=== PATIENT | female | born 1985 | race Caucasian/White ===

== ENCOUNTER 2020-03-17 15:38 | Outpatient (REF) | payer OTHER, SELFPAY | END 2020-03-17 15:39 | disposition home or self-care (01) | LOC: HO.LAB 15:38 | PROVIDERS: Visit Provider Internal Medicine | DX: Z20.828 Contact with and (suspected) exposure to other viral communicable diseases (principal) | CPT/HCPCS: 36415; C9803; U0003 ==

== ENCOUNTER → 2020-04-20 14:41 | Outpatient (BNVA) | payer OTHER, SELFPAY | PROVIDERS: PCP Physician Assistant; Visit Provider Advanced Practice Midwife ==

== ENCOUNTER 2020-06-09 09:02 | Outpatient (REF) | payer OTHER, SELFPAY ==
[2020-06-09 09:43] LABS: MANUAL DIFF FLAG NO
[2020-06-09 09:47] LABS: Basophils Absolute Auto 0.1 X10*3/uL (0.0-0.2); Basophils Percent Auto 0.9 % (0-2); Eosinophils Absolute Auto 0.1 X10*3/uL (0.0-0.4); Eosinophils Percent Auto 1.6 % (0-4); Hemoglobin 14.1 g/dl (12.0-16.0); Imm Gran Abs Auto 0.02 X10*3/uL (0.00-0.03); Imm Gran Pct Auto 0.4 % (0.0-0.4); Lymphocytes Absolute Auto 1.5 X10*3/uL (1.2-4.9); Lymphocytes Percent Auto 26.9 % (20-40); Mean Corpuscular Hemoglobin 29.5 pg (27.0-33.0); Mean Corpuscular Volume 92.1 fL (80-98); Mean Platelet Volume 10.1 fL (9.4-12.3); Monocytes Absolute Auto 0.4 X10*3/uL (0.1-1.2); Monocytes Percent Auto 6.9 % (2-11); Neutrophils Absolute Auto 3.6 X10*3/uL (2.0-8.3); Neutrophils Percent Auto 63.3 % (45-73); Platelet Count 280 X10*3/uL (160-400); Red Blood Count 4.78 X10*6/uL (4.20-5.50); Red Cell Distribution Width 12.5 % (11.0-16.0); White Blood Count 5.6 X10*3/uL (4.8-10.8)
[2020-06-09 09:57] LABS: Estimated Average Glucose 111 mg/dL; Hemoglobin A1c % 5.5 %
[2020-06-09 10:05] LABS: Alanine Aminotransferase 15 U/L (0-31); Albumin Level 4.3 g/dL (3.5-5.0); Alkaline Phosphatase 83 U/L (39-117); Anion Gap 12 (12-20); Aspartate Amino Transferase 17 U/L (5-31); Bilirubin Total 0.7 mg/dL (0.0-1.0); Blood Urea Nitrogen 15 mg/dL (9-16); Calcium 9.3 mg/dL (8.4-10.2); Carbon Dioxide 28 mmol/L (22-29); Chloride 104 mmol/L (96-108); Cholesterol 200 mg/dL; Estimated Glomerular Filt Rate > 60; Glucose Fasting 113 mg/dL (60-99); HDL Cholesterol 76 mg/dL; LDL Cholesterol Calculated 111 mg/dl; Potassium 5.1 mmol/L (3.3-5.1); Sodium 139 mmol/L (135-145); Total Protein 7.1 g/dL (6.5-8.0); Triglycerides 66 mg/dL
[2020-06-09 10:29] LABS: TSH reflex Free T4 3.38 uIU/mL (0.32-4.0)
[2020-06-09 11:19] LABS: Creatinine Urine 227.55 mg/dL; Microalbum/Creatinine Ratio Ur 3.5 ug/mg cr
== END 2020-06-09 09:03 | disposition home or self-care (01) ==
LOC: HO.LAB 09:02
PROVIDERS: PCP Physician Assistant; Visit Provider Physician Assistant
DX: I10 Essential (primary) hypertension (principal); Z13.1 Encounter for screening for diabetes mellitus; Z13.220 Encounter for screening for lipoid disorders; Z13.29 Encounter for screening for other suspected endocrine disorder
CPT/HCPCS: 36415; 80053; 80061; 82043; 83036; 84443; 85025

== ENCOUNTER → 2020-06-10 10:17 | Outpatient (BNVA) | payer OTHER, SELFPAY | PROVIDERS: PCP Physician Assistant; Visit Provider Advanced Practice Midwife | DX: Z30.432 Encounter for removal of intrauterine contraceptive device (principal) | CPT/HCPCS: 58301 ==

== ENCOUNTER → 2021-12-31 10:14 | Outpatient (REF) | payer OTHER, SELFPAY ==
--- NOTE | 2021-12-31 10:21 | ECG_ITS ---
Test Reason : HTN Blood Pressure : / mmHG Vent. Rate : 057 BPM Atrial Rate : 057 BPM P-R Int : 168 ms QRS Dur : 106 ms QT Int : 430 ms P-R-T Axes : 065 003 027 degrees QTc Int : 418 ms Sinus bradycardia Otherwise normal ECG No previous ECGs available Referred By: Montez España Electronically Signed By:ASHANTI SOLER MD
== END ==
LOC: HO.CARD 10:14
PROVIDERS: PCP Physician Assistant; Visit Provider Physician Assistant
DX: I10 Essential (primary) hypertension (principal)
CPT/HCPCS: 93005

== ENCOUNTER 2022-03-22 07:06 | Outpatient (REF) | payer OTHER, SELFPAY ==
[2022-03-22 07:36] LABS: Hematocrit 42.6 % (37.0-47.0); Hemoglobin 13.8 g/dl (12.0-16.0); Mean Corpuscular HGB Conc 32.4 g/dl (31.0-35.0); Mean Corpuscular Volume 86.4 fL (80.0-98.0); Mean Platelet Volume 10.6 fL (9.4-12.3); Platelet Count 337 X10*3/uL (160-400); Red Blood Count 4.93 X10*6/uL (4.20-5.50); Red Cell Distribution Width 13.8 % (11.0-16.0); White Blood Count 5.3 X10*3/uL (4.8-10.8)
[2022-03-22 08:07] LABS: Alanine Aminotransferase 20 U/L (0-31); Albumin Level 4.4 g/dL (3.5-5.0); Alkaline Phosphatase 78 U/L (39-117); Anion Gap 14 (12-20); Aspartate Amino Transferase 18 U/L (5-31); Bilirubin Total 0.4 mg/dL (0.0-1.0); Blood Urea Nitrogen 15 mg/dL (9-16); Calcium 9.4 mg/dL (8.4-10.2); Carbon Dioxide 24 mmol/L (22-29); Chloride 107 mmol/L (96-108); Cholesterol 191 mg/dL; Estimated Glomerular Filt Rate > 60; Glucose Fasting 120 mg/dL (60-99); HDL Cholesterol 67 mg/dL; Iron 48 mcg/dL (30-160); LDL Cholesterol Calculated 111 mg/dl; Percent Iron Saturation 17 % (15-50); Potassium 4.6 mmol/L (3.3-5.1); Sodium 140 mmol/L (135-145); Total Iron Binding Capacity 283 mcg/dL (228-428); Total Protein 7.2 g/dL (6.5-8.0); Triglycerides 66 mg/dL; Unsaturated Iron Binding 235 ug/dL
[2022-03-22 08:25] LABS: TSH reflex Free T4 3.15 uIU/mL (0.32-4.0); Vitamin D 25-OH Total 18.6 ng/mL (>30)
[2022-03-22 08:36] LABS: Folate 16.5 ng/mL (> or = 4.0); Vitamin B12 623 pg/mL (200-900)
== END 2022-03-22 07:07 | disposition home or self-care (01) ==
LOC: HO.LAB 07:06
PROVIDERS: PCP Physician Assistant; Visit Provider Physician Assistant
DX: D50.9 Iron deficiency anemia, unspecified (principal); E53.8 Deficiency of other specified B group vitamins; Z13.29 Encounter for screening for other suspected endocrine disorder; Z13.220 Encounter for screening for lipoid disorders; Z13.1 Encounter for screening for diabetes mellitus
CPT/HCPCS: 36415; 80053; 80061; 82306; 82607; 82746; 83540; 84443; 85027

== ENCOUNTER → 2022-04-19 08:18 | Outpatient (BNVA) | payer OTHER, SELFPAY | PROVIDERS: PCP Physician Assistant; Visit Provider Orthopaedic Surgery | DX: G56.03 Carpal tunnel syndrome, bilateral upper limbs (principal); M65.312 Trigger thumb, left thumb | CPT/HCPCS: 99202 ==

== ENCOUNTER 2022-04-20 14:00 | Outpatient (RCR) | payer OTHER, SELFPAY ==
--- NOTE | 2022-04-04 13:01 | MHC.OT.EP ---
[address] [phone] Occupational Therapy Plan of Care Date of Evaluation: 04/01/22 Diagnosis: TRIGGER THUMB, LEFT THUMB Pain Location: L THUMB 2-3/10 AT REST 6-7 WITH LOCKING R RADIAL WRIST 4-5/10, 9/10 WITH USE Pain Score: 2-9/10 Pain Scale Used: Numeric (0 - 10) Aggravating Factors: GRIPPING, PICKING UP SON, CUTTING WITH SCISSORS, TYPING ON KEYBOARD Alleviating Factors: IBUPROFEN, USING ICE/HEAT Assessment: MS ULLOA REPORTS ABOUT A 7 MONTH HISTORY OF L TRIGGER THUMB AND R RADIAL WRIST PAIN. A (+) ASHLEY WAS ELICITED IN HER RIGHT WRIST, WELL A SUSPECTED GRADE II TRIGGER FINGER IN L THUMB. SHE ALSO REPORTS A HISTORY OF CTS B/L'LY FOR >10 YEARS. 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 A 50% LIMITATION IS REPORTED PER THE QUICK DASH ASSESSMENT ONGOING SKILLED OT IS WARRANTED TO ACHIEVE OPTIMAL FUNCTIONAL LEVEL. 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 Thank you once again for your referral.
--- NOTE | 2022-05-20 09:49 | MHC.OT.DC ---
[address] [phone] F: [phone] Occupational Therapy Discharge Note Patient Name: Odell Carrasquillo Provider: Montez España Diagnosis: TRIGGER THUMB, LEFT THUMB Date of Evaluation: 04/01/22 Date of Discharge: 05/20/22 Treatments to Date: 5 Cancellations to Date: 8 No Shows to Date: 0 Discharge Status: Improved Function Independent with HEP Discharge Summary: MS CARRASQUILLO WAS MAKING STEADY GAINS DURING HER OT RX SESSIONS. SHE REPORTED LESS TRIGGERING AND LESS PAIN. 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 AFTER BEING SEEN BY DR JARVIS ON 04/19/22 IT WAS DECIDED THAT SHE WOULD PROCEED WITH A R CTR, SCHEDULED FOR 05/30/22. Pt WISHING TO D/C FROM OT AT THIS TIME. MAY BENEFIT FROM OT POST OPERATIVELY. Electronically Signed By: ASHUTOSH COTE OTR/L Reviewed/agree with student documentation: N/A Therapist: Please Sign and return to therapist, thank you for your referral.
== END 2022-05-20 09:45 | disposition home or self-care (01) ==
LOC: HO.OT 14:00
PROVIDERS: PCP Physician Assistant; Visit Provider Physician Assistant
DX: M65.312 Trigger thumb, left thumb (principal)
CPT/HCPCS: 29130; 97033; 97035; 97110; 97140; 97167; 97760

== ENCOUNTER 2022-05-30 08:07 | Day surgery (SDC) | payer OTHER, SELFPAY ==
[2022-05-30 08:15] VITALS: BMI 45.8
[2022-05-30 08:24] VITALS: BP 122/87; PULSE 82; RESP 16; TEMP 36.1; O2SAT 97
--- NOTE | 2022-05-30 10:12 | MHC.SHP ---
Pre-Procedural Eval Section A Date of Service: 05/30/22 The patient is an INPATIENT: No Changes since office visit: No Cold of Flu in the past 2 weeks, No New Medical Problems, No Changes in Medication and No Patient answered all questions The History & Physical has been completed within 30 days and I have reviewed it.: Yes Section B Chief Complaint: Carpal tunnel syndrome, right upper limb Allergies: Allergies Allergy/AdvReac Type Severity Reaction Status Date / Time Penicillins Allergy Intermediate HIVES Verified 04/19/22 08:33 penicillin V Allergy Unknown rash Verified 04/19/22 08:33 Sulfa (Sulfonamide Allergy Unknown BURNING, Verified 04/19/22 08:33 Antibiotics) rash [SULFA (SULFONAMIDE ANTIBIOTICS)] sulfamethoxazole Allergy Unknown HIVES Verified 04/19/22 08:33 [From BACTRIM] trimethoprim [From BACTRIM] Allergy Unknown HIVES Verified 04/19/22 08:33 Plan I have reviewed the history and physical and performed a pertinent physical examination on my patient. No changes have occurred unless specified. Time Spent With Patient Time: Total time managing care of this patient today ____ minutes.
--- NOTE | 2022-05-30 10:12 | W.PM.OPN ---
Operative Note Operative Note Date of Service: 05/30/22 Narrative: Preop diagnosis: 1. Right Carpal tunnel syndrome Postop diagnosis: same Procedure: 1. Right Carpal tunnel release Surgeon: Luma Gilbert MD Anesthesia: local block using 1% lidocaine with epinephrine Findings: Thickened transverse carpal ligament. EBL: Less than 5 mL Specimens: None Complications: None Disposition: Brought to recovery room in stable condition Plan: Follow-up for 10-14 days for wound check and suture removal Indications: The patient is 36 years old, with right carpal tunnel syndrome that has been unresponsive to nonoperative management. The risks and benefits of operative treatment including but not limited to risk of damage to blood vessels, nerves, tendons, infection, persistent pain, persistent symptoms, or possible need for additional surgery were discussed with the patient and the patient wishes to proceed with surgery. Procedure: Once consent was obtained a local block was performed using a combination of 1% lidocaine with epinephrine. The patient was then brought back to the operating suite and placed on the operative table in supine position. The right upper extremity was prepped and draped in a standard surgical fashion. Once assured that we had a good block, a 2.0 cm longitudinal incision was made centered over the carpal tunnel. The incision was made through the skin to the subcutaneous tissues using a #15 blade. Dissection was made down to the level of the transverse carpal ligament with care being taken to protect the palmar cutaneous nerve. Once the transverse carpal ligament was clearly visualized, a longitudinal incision was made in the transverse carpal ligament 1st using a #15 blade, then using tenotomy scissors under direct visualization. Care was taken to look for and protect the motor branch of the median nerve when seen in this area. Once satisfied with our carpal tunnel release the wound was copiously irrigated with normal saline and hemostasis was obtained with a brief period of local pressure. The skin edges were reapproximated with some 5.0 nylon suture material and a sterile dressing was applied. The patient appears to have tolerated the procedure well and with no complications. All digits were well vascularized at the conclusion of the case.
[2022-05-30 10:49] VITALS: BP 135/78; PULSE 99; RESP 18; TEMP 37.2
== END 2022-05-30 10:53 | disposition home or self-care (01) ==
PROVIDERS: PCP Physician Assistant; Visit Provider Orthopaedic Surgery
PROC: (CPT 64721; principal; 2022-05-30 09:10)
DX: G56.01 Carpal tunnel syndrome, right upper limb (principal); R20.0 Anesthesia of skin; R20.2 Paresthesia of skin; G43.909 Migraine, unspecified, not intractable, without status migrainosus; F32.A Depression, unspecified; I10 Essential (primary) hypertension; E66.01 Morbid (severe) obesity due to excess calories; Z68.42 Body mass index [BMI] 45.0-49.9, adult; Z88.0 Allergy status to penicillin; Z88.2 Allergy status to sulfonamides; Z98.84 Bariatric surgery status; Z90.49 Acquired absence of other specified parts of digestive tract; Z87.891 Personal history of nicotine dependence
CPT/HCPCS: 64721; J0171

== ENCOUNTER → 2022-06-14 08:45 | Outpatient (BNVA) | payer OTHER, SELFPAY | PROVIDERS: PCP Physician Assistant; Visit Provider Orthopaedic Surgery | DX: G56.03 Carpal tunnel syndrome, bilateral upper limbs (principal); M65.312 Trigger thumb, left thumb | CPT/HCPCS: 99212 ==

== ENCOUNTER 2022-06-20 09:30 | Day surgery (SDC) | payer OTHER, SELFPAY ==
[2022-06-20 09:41] VITALS: BMI 45.8
--- NOTE | 2022-06-20 10:54 | MHC.SHP ---
Pre-Procedural Eval Section A Date of Service: 06/20/22 The patient is an INPATIENT: No Changes since office visit: No Cold of Flu in the past 2 weeks, No New Medical Problems, No Changes in Medication and No Patient answered all questions The History & Physical has been completed within 30 days and I have reviewed it.: Yes Section B Chief Complaint: Carpal tunnel syndrome, left upper limb Allergies: Allergies Allergy/AdvReac Type Severity Reaction Status Date / Time Penicillins Allergy Intermediate HIVES Verified 06/14/22 09:10 penicillin V Allergy Unknown rash Verified 06/14/22 09:10 Sulfa (Sulfonamide Allergy Unknown BURNING, Verified 06/14/22 09:10 Antibiotics) rash [SULFA (SULFONAMIDE ANTIBIOTICS)] sulfamethoxazole Allergy Unknown HIVES Verified 06/14/22 09:10 [From BACTRIM] trimethoprim [From BACTRIM] Allergy Unknown HIVES Verified 06/14/22 09:10 Plan I have reviewed the history and physical and performed a pertinent physical examination on my patient. No changes have occurred unless specified. Time Spent With Patient Time: Total time managing care of this patient today ____ minutes.
--- NOTE | 2022-06-20 10:55 | W.PM.OPN ---
Operative Note Operative Note Date of Service: 06/20/22 Narrative: Preop diagnosis: 1. Left Carpal tunnel syndrome Postop diagnosis: same Procedure: 1. Left Carpal tunnel release Surgeon: Luma Gilbert MD Anesthesia: local block using 1% lidocaine with epinephrine Findings: Thickened transverse carpal ligament. EBL: Less than 5 mL Specimens: None Complications: None Disposition: Brought to recovery room in stable condition Plan: Follow-up for 10-14 days for wound check and suture removal Indications: The patient is 36 years old, with left carpal tunnel syndrome that has been unresponsive to nonoperative management. The risks and benefits of operative treatment including but not limited to risk of damage to blood vessels, nerves, tendons, infection, persistent pain, persistent symptoms, or possible need for additional surgery were discussed with the patient and the patient wishes to proceed with surgery. Procedure: Once consent was obtained a local block was performed using a combination of 1% lidocaine with epinephrine. The patient was then brought back to the operating suite and placed on the operative table in supine position. The left upper extremity was prepped and draped in a standard surgical fashion. Once assured that we had a good block, a 2.0 cm longitudinal incision was made centered over the carpal tunnel. The incision was made through the skin to the subcutaneous tissues using a #15 blade. Dissection was made down to the level of the transverse carpal ligament with care being taken to protect the palmar cutaneous nerve. Once the transverse carpal ligament was clearly visualized, a longitudinal incision was made in the transverse carpal ligament 1st using a #15 blade, then using tenotomy scissors under direct visualization. Care was taken to look for and protect the motor branch of the median nerve when seen in this area. Once satisfied with our carpal tunnel release the wound was copiously irrigated with normal saline and hemostasis was obtained with a brief period of local pressure. The skin edges were reapproximated with some 5.0 nylon suture material and a sterile dressing was applied. The patient appears to have tolerated the procedure well and with no complications. All digits were well vascularized at the conclusion of the case.
[2022-06-20 11:37] VITALS: BP 131/82; PULSE 73; RESP 17; O2SAT 97
== END 2022-06-20 11:38 | disposition home or self-care (01) ==
PROVIDERS: PCP Physician Assistant; Visit Provider Orthopaedic Surgery
PROC: (CPT 64721; principal; 2022-06-20 11:00)
DX: G56.02 Carpal tunnel syndrome, left upper limb (principal); I10 Essential (primary) hypertension; Z88.0 Allergy status to penicillin; Z88.2 Allergy status to sulfonamides
CPT/HCPCS: 64721; J0171

== ENCOUNTER → 2022-07-05 08:44 | Outpatient (BNVA) | payer OTHER, SELFPAY | PROVIDERS: PCP Physician Assistant; Visit Provider Orthopaedic Surgery | DX: Z09 Encounter for follow-up examination after completed treatment for conditions other than malignant neoplasm (principal); Z87.39 Personal history of other diseases of the musculoskeletal system and connective tissue | CPT/HCPCS: 99212 ==

== ENCOUNTER 2022-07-13 08:24 | Outpatient (REF) | payer OTHER, SELFPAY ==
[2022-07-13 10:26] LABS: HBsAGNum1 0.34 S/CO (0.00-0.99); Hepatitis B Core Antibody Nonreactive (Nonreactive); Hepatitis B Surface Antigen Negative (Negative); ~HepC Num1 14.34 S/CO (0.00-0.79); ~Hepatitis B Surface Antibody REACTIVE (Nonreactive); ~Hepatitis C Antibody Reactive (Nonreactive)
[2022-07-14 08:59] LABS: Rubeola IgG (Measles) >300.00 AU/mL
== END 2022-07-13 08:25 | disposition home or self-care (01) ==
LOC: HO.LAB 08:24
PROVIDERS: PCP Physician Assistant; Visit Provider Physician Assistant
DX: Z01.84 Encounter for antibody response examination (principal); Z11.3 Encounter for screening for infections with a predominantly sexual mode of transmission
CPT/HCPCS: 36415; 86704; 86706; 86735; 86762; 86765; 86787; 86803; 87340

== ENCOUNTER 2023-02-20 14:41 | Outpatient (AMB) | payer OTHER, SELFPAY ==
[2023-02-20 14:46] VITALS: BP 122/80; PULSE 72; O2SAT 98; BMI 45.2
--- NOTE | 2023-02-20 14:46 | A.OFFPC_ITS ---
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 Accompanied by: Self / Same As Patient Allergies Penicillins Allergy (Intermediate, Verified 02/20/23 15:41) HIVES penicillin V Allergy (Unknown, Verified 02/20/23 15:41) rash Sulfa (Sulfonamide Antibiotics) [SULFA (SULFONAMIDE ANTIBIOTICS)] Allergy (Unknown, Verified 02/20/23 15:41) BURNING, rash sulfamethoxazole [From BACTRIM] Allergy (Unknown, Verified 02/20/23 15:41) HIVES trimethoprim [From BACTRIM] Allergy (Unknown, Verified 02/20/23 15:41) HIVES Medication List - Last Reconciled 02/20/23 by Montez España PA-C albuterol sulfate 90 mcg/actuation (ProAir HFA) 2 puffs inhalation Q6H PRN budesonide-formoterol 160-4.5 mcg/actuation 2 puffs PO BID 30 days cholecalciferol (vitamin D3) 50 mcg PO DAILY cyanocobalamin (vitamin B-12) 500 mcg PO DAILY docusate sodium 100 mg PO BID PRN doxycycline monohydrate 100 mg PO BID 5 days erenumab-aooe mg subcut escitalopram oxalate 20 mg PO DAILY fluticasone propionate 50 mcg/actuation 1 spray intranasal BID 30 days folic acid 1 mg PO DAILY hydrocodone-acetaminophen 5-325 mg 1 tab PO Q4-6H PRN ibuprofen 400 - 800 mg PO Q8H PRN levonorgestrel (Mirena) intrauterine lorazepam 1 mg PO naloxone 4 mg/actuation (Narcan) 1 spray intranasal Q2M oxycodone-acetaminophen 5-325 mg 1 tab PO Q6H PRN PNV,calcium 90-tyoj-pzoyv acid 27 mg iron- 1 mg (M-Brock Plus) 1 tab PO DAILY Tobacco use date assessed: 02/20/23 Dental Screening Dental Screen Date: 02/20/23 Did you have a dental visit in the last 12 months?: Yes Did you have a dental problem in the last 6 months where you did not have access to dental care?: No Was dental information given to patient?: Patient has dentist HPI Foot pain and sciatica pain increasing 2 HPI0 Details Patient is a 37-year-old female here today for problem visit. She reports she has been having left foot pain over the last 6 month. She reports tripping over her own feet and injuring the lateral aspect of her left foot. She has been trying to reduce her pain with different shoes and oxom-van-tybcgbk analgesics without much relief. She reports the pain is worse with long periods of standing and compressive shoes. She has noted a bump over the lateral aspect over her small toe. [facility]LY [facility] Medical History Anxiety Depression Headache, migraine Hypertension Morbid obesity with BMI of 40.0-44.9, adult Surgical History History of gastrectomy History of cholecystectomy Family History Father Hypertension Kidney stones Retinal detachment Mother Hard of hearing Hyperthyroidism Maternal Grandmother Liver problem Emphysema lung Social History Housing: Apartment Alcohol intake: former Comment: no iv Patient Tobacco Use Status: Former Tobacco user e-Cigarette/Vaping Use: Never Used Second Hand Smoke Exposure: Yes service: No Current occupational status: student 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 1. Little interest or pleasure in doing things: several days 2. Feeling down, depressed, or hopeless: several days 3. Trouble falling or staying asleep, or sleeping too much: several days 4. Feeling tired or having little energy: nearly every day 5. Poor appetite or overeating: more than half the days 6. Feeling bad about yourself - or that you are a failure or have let yourself or your family down: several days 7. Trouble concentrating on things, such as reading the newspaper or watching television: nearly every day 8. Moving or speaking so slowly that other people could have noticed. Or the opposite - being so fidgety or restless that you have been moving around a lot more than usual: several days 9. Thoughts that you would be better off or of hurting yourself in some way: not at all Total score: 13 Depression Screening Interpretation: Positive Depression Screening Done: Yes 73953 - PHQ-9 Billing: Yes Source: Developed by Drs. Rodo Mar, Cammie Ramirez, Pete Grewal and colleagues, with an educational mckay from [employer]. Thrive Questionnaire Date Thrive assessed: 02/20/23 I am a: Patient What is your living situation today?: I have a steady place to live Within the past 12 months, did the food you bought not last and you didn't have the money to get more?: Never true Within the past 12 months, did you worry whether your food would run out before you got money to buy more?: Never true Do you have trouble paying for medicines?: No Do you have trouble getting transportation to medical appointments?: No Do you have trouble paying your heating and electricity bill?: No Do you have trouble taking care of your child, family member or friend?: No Do you have trouble with day-to-day activities such as bathing, preparing meals, shopping, managing finances, etc.?: No Are you currently unemployed and looking for a job?: No Are you interested in more education?: No Please select the resources that you would like help with: None Currently or been in a relationship where the following occur: no concerns reported AUDIT C Alcohol Use Questionnaire (AUDIT-C) 1. How often do you have a drink containing alcohol?: Never 3. How often do you have six or more drinks on one occasion?: Never Total Score: 0 JENNIFER-7 AMB Questionnaire JENNIFER-7 Date JENNIFER - 7 assessed: 02/20/23 Feeling nervous, anxious, or on edge: 2 = More than half the days Not being able to stop or control worryin = More than half the days Worrying too much about different things: 3 = Nearly every day Trouble relaxin = Nearly every day Being so restless that it is hard to sit still: 3 = Nearly every day Becoming easily annoyed or irritable: 3 = Nearly every day Feeling afraid as if something awful might happen: 0 = Not at all Total JENNIFER-7 score (0-4 normal; 5-9 mild; 10-14 moderate; 15-21 severe): 16 Source: Developed by Drs. Rodo Mar, Cammie Ramirez, Pete Grewal and colleagues, with an educational mckay from [employer]. JENNIFER-7 Assessment Billing JENNIFER-7 Assessment Tool: JENNIFER-7 Assessment 68294 Review of Systems Const Denies headache(s) Eyes Denies loss of vision ENT Denies vertigo, Denies dizziness, Denies headache(s) and Denies sore throat Card Denies chest pain, Denies leg edema and Denies lightheadedness Resp Denies cough, Denies hemoptysis and Denies wheezing GI Denies abdominal pain, Denies melena, Denies constipation, Denies diarrhea and Denies vomiting Denies urinary frequency, Denies dysuria and Denies urinary urgency Musc Denies arthralgias, Denies joint swelling, Denies numbness and Denies tingling Neuro Denies Abnormal speech present, Denies behavioral changes, Denies vertigo, Denies dizziness, Denies headache(s), Denies loss of vision, Denies memory loss, Denies numbness and Denies tingling Psych Denies anxiety, Denies behavioral changes, Denies depression, Denies memory loss and Denies panic attacks Juan Daniel/Lymph Denies easy bleeding and Denies easy bruising Aller/Immun Denies wheezing Physical exam (Primary Care) Vital Signs: Last Vital Signs Pulse 72 02/20/23 14:46 BP 122/80 02/20/23 14:46 Pulse Ox 98 02/20/23 14:46 Oxygen Delivery Method Room Air 02/20/23 14:46 BMI result Body Mass Index 45.2 Tobacco/Smoking Status: Tobacco use Status Tobacco use date assessed 02/20/23 02/20/23 14:48 Patient Tobacco Use Status Former Tobacco user 02/20/23 14:48 e-Cigarette/Vaping Use Never Used 02/20/23 15:32 PHQ-9: PHQ-9 Score PHQ-9: Total score 13 02/20/23 15:46 Depression Screening Interpretation: Positive Thrive Assessment: Date of Thrive Assessment Date Thrive assessed 02/20/23 02/20/23 15:32 Currently or been in a relationship where the following occur: no concerns reported Const General: healthy appearing, no acute distress, alert and awake Nutritional Appearance: well nourished Orientation/consciousness: oriented to person, oriented to place and oriented to time HENMT Ears: TM's normal bilaterally General nose exam: Normal nasal mucous membranes and turbinates present Eyes Conjunctivae: conjunctivae normal Sclerae: sclerae normal Pupils: Equal, round and reactive pupils present Neck Neck: Yes no lymphadenopathy and Yes no JVD Thyroid: Thyroid normal Carotids: no bruits Resp Effort & Inspection: normal respiratory effort and not tachypneic Auscultation: no crackles, no rales, no rhonchi and no wheezes Cardio Rate: regular rate Rhythm: regular rhythm Heart sounds: no murmurs and normal S1 and S2 GI Palpation (GI): Soft to palpation, nontender, no hepatomegaly and no splenomegaly Auscultation: normal bowel sounds Skin General skin exam: no rashes or lesions noted and dry skin Neuro General: oriented to person, oriented to place and oriented to time Cranial nerves: Yes Equal, round and reactive pupils present Speech: No Abnormal speech present Gait exam (Neuro): Normal gait present Motor exam (neuro): no tremor noted Extrem Right upper extremity: full ROM Left upper extremity: full ROM Right lower extremity: full ROM; no edema Left lower extremity: full ROM; no edema Ankle/foot/toe images: 2 1. LEFT FOOT BONY NODULE NOTED IN THE AREA OUTLINED. OTHERWISE NO ERYTHEMA, EDEMA NOTED. Psych Mental Status: mental status grossly normal Speech and movement: Normal speech and movement present Affect: normal affect Attitude: cooperative Thought process: Normal thought process present Assessment and Plan Assessment & Plan (1) Left foot pain: Code(s): M79.672 - Pain in left foot Plan: Had a minor lateral left foot injury 6 months ago. She continues to have pain worse when long periods of standing or the area gets touched. Does have a small bony like lesion palpable physical exam. Will send for x-ray to evaluate for any arthritis or fracture. Will refer to Podiatry for further evaluation of her left foot. Orders: Orders 2 Hemoglobin A1c 02/20/23 R73.01 - Impaired fasting glucose Comprehensive [place]. Panel Fast 02/20/23 R73.01 - Impaired fasting glucose XR foot LT 2V 02/20/23 M79.672 - Pain in left foot Referrals 2 Podiatry Referral M79.672 - Pain in left foot Medications: Discontinued 2 oxycodone-acetaminophen 5-325 mg Partial Fill upon patient request. Discontinued Reason: Doctor's Order 1 tab PO Q6H PRN 5 tabs 0RF pain hydrocodone-acetaminophen 5-325 mg Partial Fill upon patient request. Discontinued Reason: Doctor's Order 1 tab PO Q4-6H PRN 5 tabs 0RF pain naloxone 4 mg/actuation (Narcan) spray 1 dose into ONE nostril; alternate nostrils w each dose until help arrives Discontinued Reason: Doctor's Order 1 spray intranasal Q2M 2 ea 0RF F11.11 - Opioid abuse, in remission, I10 - Essential (primary) hypertension doxycycline monohydrate Discontinued Reason: Doctor's Order 100 mg PO BID 5 days 10 caps 0RF J32.9 - Chronic sinusitis, unspecified Coding Level of Care Code Est Pt Level 3 (07220) Diagnoses Left foot pain M79.672 Additional Codes JENNIFER-7 Assessment Billing - JENNIFER-7 Assessment Tool: JENNIFER-7 Assessment [id number] ([id number])
== END 2023-02-20 15:54 | disposition home or self-care (01) ==
PROVIDERS: PCP Physician Assistant; Visit Provider Physician Assistant
DX: M79.672 Pain in left foot (principal)
CPT/HCPCS: 99213

== ENCOUNTER 2023-03-08 15:24 | Outpatient (AMB) | payer OTHER, SELFPAY ==
[2023-03-08 15:25] VITALS: BP 132/90; PULSE 77; O2SAT 98; BMI 45.5
--- NOTE | 2023-03-08 15:25 | A.OFFPC_ITS ---
Vital Signs 03/08/23 15:25 Height 5 ft 3 in Weight 257 lb BMI 45.5 BP 132/90 H Blood Pressure Location Lt brachial Position Sitting Pulse 77 Pulse Source Pulse Oximeter Pulse Oximetry (%) 98 Oxygen Delivery Method Room Air Intake Visit Reasons: Annual Exam Intake Note: Patient is here today for a physical. Claims Customer Service Representative Required: No Allergies Penicillins Allergy (Intermediate, Verified 03/08/23 16:13) HIVES penicillin V Allergy (Unknown, Verified 03/08/23 16:13) rash Sulfa (Sulfonamide Antibiotics) [SULFA (SULFONAMIDE ANTIBIOTICS)] Allergy (Unknown, Verified 03/08/23 16:13) BURNING, rash sulfamethoxazole [From BACTRIM] Allergy (Unknown, Verified 03/08/23 16:13) HIVES trimethoprim [From BACTRIM] Allergy (Unknown, Verified 03/08/23 16:13) HIVES Medication List - Last Reconciled 03/08/23 by Montez España PA-C albuterol sulfate 90 mcg/actuation (ProAir HFA) 2 puffs inhalation Q6H PRN budesonide-formoterol 160-4.5 mcg/actuation 2 puffs PO BID 30 days cholecalciferol (vitamin D3) 50 mcg PO DAILY cyanocobalamin (vitamin B-12) 500 mcg PO DAILY docusate sodium 100 mg PO BID PRN escitalopram oxalate 20 mg PO DAILY fluticasone propionate 50 mcg/actuation 1 spray intranasal BID 30 days folic acid 1 mg PO DAILY ibuprofen 400 - 800 mg PO Q8H PRN levonorgestrel (Mirena) intrauterine lorazepam 1 mg PO PNV,calcium [id number]-tsdti acid 27 mg iron- 1 mg (M- Plus) 1 tab PO DAILY topiramate 25 mg PO BID Tobacco use date assessed: 03/08/23 Dental Screening Dental Screen Date: 03/08/23 Did you have a dental visit in the last 12 months?: Yes Did you have a dental problem in the last 6 months where you did not have access to dental care?: No Was dental information given to patient?: Patient has dentist HPI Annual Exam HPI Details Patient is a 37-year-old female here today for a routine annual physical . Patient has a past medical history significant for depression, anxiety, h/o bariatric surgery,hypothyroidism, hypertension, moderate persistent asthma, Migraines. Concern---> multiple today--> concerns about her not being able to lose weight. We did discuss the possibility of her having PCOS as she does have a family history. Also has axillary and abdominal hidradenitis that she would like to see a account adjuster for. She also reports her sciatic has gotten worse over the last several months and she understands this is likely related to her weight. She is interested in restarting gabapentin which has worked for her in the past. She also reports having her palpitations from time to time that are somewhat painful in the anterior aspect of her chest. .. CHRONIC MEDICAL CONDITIONS--> Obesity: Patient does understand her BMI is over 40 will work on being more physically active and adapting to better eating habits to reduce her weight. ? .. ? Migraines: Patient is followed by neurology( Dr. Perkins) and started on Aimovig ( once per month) injections lung with propanolol for prophylactic treatment. ? . ? Asthma : recently placed on Wexela which is workng well.. Does use Proair on a PRN basis. She continues to refrain from smoking cigarettes. ? .. ? Substance abuse ( in remission) . Continues to stay sober. No further pharmacological treatment for her opiate dependency. 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 ? .. ? Hypertension: Patient is using propanolol 20 mg t.i.d. / PRN for the treatment of her anxiety as well as her blood pressure. She reports her blood pressures have been stable at [facility]. BRIGHT CUTTER: She is followed by obstetrics/gynecology nurse and has up-to-date Pap Vaccine: UTD with COVID , and Tdap , UTD with FLu vaccine. [facility] Medical History (Updated 03/09/23 @ 07:13 by Montez España PA-C) Morbid obesity with BMI of 40.0-44.9, adult Anxiety Headache, migraine Depression Hypertension Surgical History History of gastrectomy History of cholecystectomy Family History Father Hypertension Kidney stones Retinal detachment Mother Hard of hearing Hyperthyroidism Maternal Grandmother Liver problem Emphysema lung Social History (Updated 03/08/23 @ 16:17 by Montez España PA-C) Housing: Apartment Alcohol intake: former Comment: no iv Patient Tobacco Use Status: Former Tobacco user Quit Date: 2020 e-Cigarette/Vaping Use: Never Used Second Hand Smoke Exposure: Yes service: No Current occupational 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 1. Little interest or pleasure in doing things: several days 2. Feeling down, depressed, or hopeless: several days 3. Trouble falling or staying asleep, or sleeping too much: several days 4. Feeling tired or having little energy: nearly every day 5. Poor appetite or overeating: more than half the days 6. Feeling bad about yourself - or that you are a failure or have let yourself or your family down: several days 7. Trouble concentrating on things, such as reading the newspaper or watching television: nearly every day 8. Moving or speaking so slowly that other people could have noticed. Or the opposite - being so fidgety or restless that you have been moving around a lot more than usual: several days 9. Thoughts that you would be better off or of hurting yourself in some way: not at all Total score: 13 Depression Screening Interpretation: Positive Depression Screening Done: Yes 21730 - PHQ-9 Billing: Yes Source: Developed by Drs. Rodo Mar, Cammie Ramirez, Pete Grewal and colleagues, with an educational mckay from [employer]. Thrive Questionnaire Date Thrive assessed: 02/20/23 AUDIT C Alcohol Use Questionnaire (AUDIT-C) 1. How often do you have a drink containing alcohol?: Never 3. How often do you have six or more drinks on one occasion?: Never Total Score: 0 JENNIFER-7 AMB Questionnaire JENNIFER-7 Date JENNIFER - 7 assessed: 02/20/23 Feeling nervous, anxious, or on edge: 2 = More than half the days Not being able to stop or control worryin = More than half the days Worrying too much about different things: 3 = Nearly every day Trouble relaxin = Nearly every day Being so restless that it is hard to sit still: 3 = Nearly every day Becoming easily annoyed or irritable: 3 = Nearly every day Feeling afraid as if something awful might happen: 0 = Not at all Total JENNIFER-7 score (0-4 normal; 5-9 mild; 10-14 moderate; 15-21 severe): 16 Source: Developed by Drs. Rodo Mar, Cammie Ramirez, Pete Grewal and colleagues, with an educational mckay from [employer]. JENNIFER-7 Assessment Billing JENNIFER-7 Assessment Tool: JENNIFER-7 Assessment 85839 Review of Systems Const Denies body aches, Denies chills, Denies excessive sweating, Denies fatigue, Denies fever(s) and Denies headache(s) Eyes Denies blurry vision ENT Denies dysphagia, Denies vertigo, Denies dizziness, Denies headache(s), Denies hearing loss and Denies tinnitus Card Denies chest pain, Denies chest pain with activity, Denies syncope, Denies irregular heart rhythm and Denies dyspnea Resp Denies chest congestion, Denies cough, Denies hemoptysis, Denies dyspnea and Denies wheezing GI Denies abdominal pain, Denies melena, Denies hematochezia, Denies coffee ground emesis, Denies dysphagia, Denies diarrhea, Denies nausea and Denies vomiting Denies urinary frequency, Denies dysuria, Denies urinary hesitancy and Denies urinary urgency Musc Denies arthralgias, Denies limited range of motion, Denies muscle cramps and Denies muscle weakness Skin/Breast Denies rash and Denies skin ulcer Neuro Denies Abnormal speech present, Denies confusion, Denies vertigo, Denies dizziness, Denies syncope, Denies headache(s), Denies memory loss and Denies seizure-like activity Psych Denies anxiety, Denies confusion, Denies depression, Denies memory loss, Denies panic attacks and Denies paranoia Endo Denies excessive sweating, Denies fatigue, Denies flushing, Denies polydipsia and Denies polyuria Aller/Immun Denies wheezing Physical exam (Primary Care) Vital Signs: Last Vital Signs Pulse 77 03/08/23 15:25 BP 132/90 H 03/08/23 15:25 Pulse Ox 98 03/08/23 15:25 Oxygen Delivery Method Room Air 03/08/23 15:25 BMI result Body Mass Index 45.5 BMI Assessment/Plan discussion: High Tobacco/Smoking Status: Tobacco use Status Tobacco use date assessed 03/08/23 03/08/23 15:26 Patient Tobacco Use Status Former Tobacco user 03/08/23 16:17 e-Cigarette/Vaping Use Never Used 03/08/23 16:17 PHQ-9: PHQ-9 Score PHQ-9: Total score 13 03/08/23 16:19 Depression Screening Interpretation: Positive Thrive Assessment: Date of Thrive Assessment Date Thrive assessed 02/20/23 03/08/23 15:26 Const Other: Morbidly obese General: cooperative, comfortable, no acute distress, alert and awake; No confusion Orientation/consciousness: oriented to person, oriented to place, patient oriented x3 and No confusion HENMT Head: Yes normocephalic Ears: external ears normal and TM's normal bilaterally Face and sinus: No sinus tenderness Mouth: Normal oral and palatal mucosa present and tongue normal Teeth and gingiva: dentition normal and gingiva normal Throat: Yes posterior oropharynx normal, Yes tonsils normal and Yes uvula midline Eyes Conjunctivae: conjunctivae normal Sclerae: sclerae normal Pupils: Equal, round and reactive pupils present EOM: EOMs intact bilaterally Direct Ophthalmoscopy: No no photophobia Neck Neck: Yes no lymphadenopathy, No tender and Yes no JVD Thyroid: Thyroid normal Carotids: no bruits Chest Chest palpation & inspection: no tenderness Resp Effort & Inspection: normal respiratory effort, no audible wheezes, not labored and no stridor Auscultation: no crackles, no rales, no rhonchi and no wheezes Cardio Jugular venous distension: no JVD Rate: regular rate, not bradycardic and not tachycardic Rhythm: regular rhythm Bruits: no carotid bruits Peripheral pulses: Peripheral pulses 2+ throughout GI Inspection: Yes normal to inspection, No abdominal wall ecchymosis and No visible herniation Palpation (GI): Soft to palpation, nontender, no guarding, not rigid and No hepatosplenomegaly present Auscultation: normoactive bowel sounds General: Yes no CVA tenderness Back/Spine/Pelvis Back: no CVA tenderness and No back tenderness Cervical Spine: cervical ROM normal Thoracic/Lumbar Spine: thoracic and lumbar spine normal to inspection, straight leg raise negative bilaterally, No thoraco-lumbar ROM limited and No lumbar spinal tenderness Skin Lesions: no lesions Rashes: no rashes Wounds: no wounds Neuro General: oriented to person, oriented to place, patient oriented x3, CN's II-XI intact bilaterally and No confusion Cranial nerves: Yes Equal, round and reactive pupils present and Yes Normal accommodation reflex present Cognition (Neuro): normal cognition Speech: No Abnormal speech present Gait exam (Neuro): Normal gait present Motor exam (neuro): 5/5 motor strength present throughout Extrem Right upper extremity: full ROM; no cyanosis Left upper extremity: full ROM; no cyanosis Right lower extremity: no edema Left lower extremity: no edema Psych Appearance: grossly normal Mental Status: mental status grossly normal Affect: normal affect Attitude: cooperative Thought process: Normal thought process present Assessment and Plan Assessment & Plan (1) Annual physical exam: Code(s): Z00.00 - Encounter for general adult medical examination without abnormal findings (2) HTN (hypertension): Code(s): I10 - Essential (primary) hypertension Qualifiers: Hypertension type: essential hypertension Qualified Code(s): I10 - Essential (primary) hypertension Plan: Patient's blood pressure acceptable today in office. Will continue to work on lifestyle modifications to help reduce her blood PRESSURE. Blood pressure to be below 140/90 (3) Migraines: Code(s): G43.909 - Migraine, unspecified, not intractable, without status migrainosus Qualifiers: Intractability: not intractable Migraine type: without aura Status migrainosus presence: without status migrainosus Qualified Code(s): G43.009 - Migraine without aura, not intractable, without status migrainosus Plan: To follow neurology. She reports her migraines are much less frequent. Continues on Aimovig injections monthly (4) Asthma: Code(s): J45.909 - Unspecified asthma, uncomplicated Qualifiers: Asthma complication type: uncomplicated Asthma persistence: intermittent Asthma severity: mild Qualified Code(s): J45.20 - Mild intermittent asthma, uncomplicated Plan: Patient reports her asthma is fairly well controlled with p.r.n. use of her albuterol inhaler for emergencies. Only using Symbicort inhaler on a seldom occasion as well. NEEDS REFILL Denies any recent exacerbations or nighttime awakenings with asthma symptoms. (5) Obese: Code(s): E66.9 - Obesity, unspecified Qualifiers: Body mass index: BMI 45.0-49.9 Obesity classification: adult class 3 (BMI >= 40) Obesity type: due to excess calories Serious obesity comorbidity presence: without serious comorbidity Qualified Code(s): E66.01 - Morbid (severe) obesity due to excess calories; Z68.42 - Body mass index [BMI] 45.0-49.9, adult Plan: Patient does understand her BMI is over 40 will work on being more physically active and adapting to better eating habits to reduce her weight. SHE IS STATUS POST BARIATRIC SURGERY THOUGH DUE TO BEING ACTIVELY INVOLVED IN SUBSTANCES SHE RELAPSED INTO BED EATING HABITS AND GAIN WEIGHT. She has been trying diligently on reducing her portions and reducing carbohydrates in her diet though has been unsuccessful on losing weight. She is now interested in reestablishing care with a weight management program as she feels he needs support. (6) MDD (major depressive disorder), recurrent episode, moderate: Code(s): F33.1 - Major depressive disorder, recurrent, moderate Plan: Patient's PHQ-9 score positive for depression which has been existing condition for her. Patient reports her depression has been close stable with current as a survey therapy. Otherwise denies any SI or HI. She does report having a good support network and feels well. (7) JENNIFER (generalized anxiety disorder): Code(s): F41.1 - Generalized anxiety disorder Plan: Patient's JENNIFER-7 score positive for moderate anxiety which has been existing condition for her.. Continues to speak with a mental health therapist and a mental health med provider (8) Sciatic leg pain: Code(s): M54.30 - Sciatica, unspecified side Plan: Reports having left-sided sciatic pain. Was on gabapentin in the past with good effect. Will restart gabapentin 300 b.i.d. At this time will hold off on physical therapy. (9) Heart palpitations: Code(s): R00.2 - Palpitations (10) Hydradenitis: Code(s): L73.2 - Hidradenitis suppurativa Plan: Advised to keep affected areas clean and dry. Weight loss will likely help her dermatological situation. Will refer to dermatology for evaluation. (11) Impaired glucose metabolism: Code(s): R73.09 - Other abnormal glucose Plan: Noted over the last year elevated fasting blood sugar. A1cs have been stable. I suspect there may be a diagnosis of PCOS due to her inability to lose weight and elevated fasting blood sugars. She is willing to start metformin 500mg. Will recheck fasting blood sugar and A1c to evaluate for diabetes. (12) History of opioid abuse: Code(s): F11.11 - Opioid abuse, in remission Plan: Has not been sober for many years. 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 Orders: Orders Vitamin B12 and Folate 03/08/23 E53.8 - Deficiency of other specified B group vitamins Testosterone, Free/Total 03/08/23 E66.01 - Morbid (severe) obesity due to excess calories, Z68.41 - Body mass index [BMI] 40.0-44.9, adult TSH reflex Free T4 03/08/23 E66.01 - Morbid (severe) obesity due to excess calories, Z68.41 - Body mass index [BMI] 40.0-44.9, adult Referrals Bariatric Surgery Referral E66.01 - Morbid (severe) obesity due to excess calories, Z68.41 - Body mass index [BMI] 40.0-44.9, adult Dermatology Referral L73.2 - Hidradenitis suppurativa Medications: New gabapentin 300 mg PO BID 30 days 60 caps 3RF M54.30 - Sciatica, unspecified side albuterol sulfate 90 mcg/actuation 1 inh inhalation QID 30 days PRN 8.5 grams 6RF shortness of breath or wheezing J45.20 - Mild intermittent asthma, uncomplicated montelukast (Singulair) 10 mg PO DAILY 90 days 90 tabs 1RF J45.20 - Mild intermittent asthma, uncomplicated metformin 500 mg PO DAILY 30 days 30 tabs 3RF R73.09 - Other abnormal glucose Refilled budesonide-formoterol 160-4.5 mcg/actuation 2 puffs PO BID 30 days 10.2 grams 4RF J45.909 - Unspecified asthma, uncomplicated Coding Level of Care Code Est Pt Prev Care [id number]([id number]) Diagnoses Annual physical exam Z00.00 Essential hypertension I10 Hypertension type: essential hypertension Migraine without aura and without status migrainosus, not intractable G43.009 Intractability: not intractable Migraine type: without aura Status migrainosus presence: without status migrainosus Mild intermittent asthma without complication J45.20 Asthma complication type: uncomplicated Asthma persistence: intermittent Asthma severity: mild Class 3 severe obesity due to excess calories without serious comorbidity with body mass index (BMI) of 45.0 to 49.9 in adult E66.01; Z68.42 Body mass index: BMI 45.0-49.9 Obesity classification: adult class 3 (BMI >= 40) Obesity type: due to excess calories Serious obesity comorbidity presence: without serious comorbidity MDD (major depressive disorder), recurrent episode, moderate F33.1 JENNIFER (generalized anxiety disorder) F41.1 Sciatic leg pain M54.30 Heart palpitations R00.2 Hydradenitis L73.2 Impaired glucose metabolism R73.09 History of opioid abuse F11.11 Additional Codes JENNIFER-7 Assessment Billing - JENNIFER-7 Assessment Tool: JENNIFER-7 Assessment [id number] ([id number])
== END 2023-03-08 16:57 | disposition home or self-care (01) ==
PROVIDERS: Visit Provider Physician Assistant
DX: F33.1 Major depressive disorder, recurrent, moderate (principal)
CPT/HCPCS: 96127; 99395

== ENCOUNTER 2023-04-01 07:42 | Outpatient (REF) | payer OTHER, SELFPAY ==
--- NOTE | ~2023-04-01 | XR_ITS ---
EXAMINATION: XR FOOT, LEFT CLINICAL INFORMATION: Pain in left foot COMPARISON: None available. TECHNIQUE: AP, lateral, and oblique views of the left foot. FINDINGS: The bones are intact. No fracture. Alignment is anatomic. Joint spaces are maintained. Flattening of the head of the second metatarsal is noted. Small posterior plantar calcaneal spur is present. XR/XR foot LT 2V IMPRESSION: No acute bony abnormality.
[2023-04-01 08:52] LABS: Alanine Aminotransferase 11 U/L (0-31); Albumin Level 4.3 g/dL (3.5-5.0); Alkaline Phosphatase 79 U/L (39-117); Anion Gap 11 (12-20); Aspartate Amino Transferase 14 U/L (5-31); Bilirubin Total 0.2 mg/dL (0.0-1.0); Blood Urea Nitrogen 17 mg/dL (9-16); Calcium 9.4 mg/dL (8.4-10.2); Carbon Dioxide 26 mmol/L (22-29); Chloride 110 mmol/L (96-108); Estimated Glomerular Filt Rate > 60; Glucose Fasting 109 mg/dL (60-99); Potassium 4.3 mmol/L (3.3-5.1); Sodium 143 mmol/L (135-145); Total Protein 7.4 g/dL (6.5-8.0)
[2023-04-01 09:04] LABS: Estimated Average Glucose 117 mg/dL; Hemoglobin A1c % 5.7 % (<6.0)
[2023-04-01 09:08] LABS: TSH reflex Free T4 1.56 uIU/mL (0.32-4.0)
[2023-04-01 09:14] LABS: Folate 11.1 ng/mL (> or = 4.0); Vitamin B12 476 pg/mL (200-900)
[2023-04-06 11:34] LABS: Testosterone, Total 17 ng/dL (2-45)
== END 2023-04-01 07:43 | disposition home or self-care (01) ==
LOC: HO.LAB 07:42
PROVIDERS: PCP Physician Assistant; Visit Provider Physician Assistant
DX: M79.672 Pain in left foot (principal); E66.01 Morbid (severe) obesity due to excess calories; Z68.41 Body mass index [BMI] 40.0-44.9, adult; E53.8 Deficiency of other specified B group vitamins; R73.01 Impaired fasting glucose
CPT/HCPCS: 36415; 73620; 80053; 82607; 82746; 83036; 84402; 84403; 84443

== ENCOUNTER → 2023-06-02 08:47 | Outpatient (BNVA) | payer OTHER, SELFPAY | PROVIDERS: PCP Physician Assistant; Visit Provider Physician Assistant ==

== ENCOUNTER 2023-07-24 09:12 | Outpatient (AMB) | payer OTHER, SELFPAY ==
--- NOTE | 2023-07-24 12:14 | MHC.OFFVISWM ---
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 46.0 Allergies Penicillins Allergy (Intermediate, Verified 07/24/23 12:14) HIVES penicillin V Allergy (Unknown, Verified 07/24/23 12:14) rash Sulfa (Sulfonamide Antibiotics) [SULFA (SULFONAMIDE ANTIBIOTICS)] Allergy (Unknown, Verified 07/24/23 12:14) BURNING, rash sulfamethoxazole [From BACTRIM] Allergy (Unknown, Verified 07/24/23 12:14) HIVES trimethoprim [From BACTRIM] Allergy (Unknown, Verified 07/24/23 12:14) HIVES Medication List - Last Reconciled 07/24/23 by Chip Pearson MD albuterol sulfate 90 mcg/actuation (Ventolin HFA) 1 inh inhalation QID 30 days budesonide-formoterol 160-4.5 mcg/actuation 2 puffs PO BID 30 days escitalopram oxalate 20 mg PO DAILY fluticasone propionate 50 mcg/actuation 1 spray intranasal BID 30 days folic acid 1 mg PO DAILY ibuprofen 400 - 800 mg PO Q8H PRN lorazepam 1 mg PO HPI HPI 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 46.0: Details: Start time: 12pm, End time: 12.52pm ?I spent 47 minutes speaking with the patient on the phone plus an additional 5 minutes reviewing and updating records for a total of 52 minutes HPI Comments Details: Previous weight loss efforts: LSG ([place], pre-LSG weight 260lbs, lowest: 132 lbs) Wakes up: 6am, Sleeps: 9pm Breakfast: 10.30am (breakfast sandwich, [employer] wrap) Lunch: skips Dinner: 6pm (steak, potatoes, vegetable) Snacks: 7pm (apple pie with ice cream) Exercise: none Fluids: Coffee (20oz/day with creamer), tea: none, soda: none, juice: one daily, ETOH: none PFSH Medical History (Updated 07/24/23 @ 12:29 by Chip Pearson MD) Morbid obesity Morbid obesity with BMI of 40.0-44.9, adult Anxiety Headache, migraine Depression Hypertension Surgical History (Updated 07/24/23 @ 12:20 by Chip Pearson MD) History of carpal tunnel repair History of gastrectomy History of cholecystectomy Family History Father Hypertension Kidney stones Retinal detachment Mother Hard of hearing Hyperthyroidism Maternal Grandmother Liver problem Emphysema lung Social History (Updated 03/08/23 @ 16:17 by Montez España PA-C) Housing: Apartment Alcohol intake: former Comment: no iv Patient Tobacco Use Status: Former Tobacco user Quit Date: 2020 e-Cigarette/Vaping Use: Never Used Second Hand Smoke Exposure: Yes service: No Current occupational 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 Hearing needs: No Vision needs: No Telehealth Telehealth Telehealth Platform: Telephone Location of provider rendering services: practice address Location of patient: address on file Patient Identification confirmed using: Name, : Yes Telehealth method: voice only Patient verbally consented to treatment: Yes Patient verbally consented to billing insurance company: Yes Patient informed of any privacy concerns related to visit: Yes Minutes spent on Phone/Video with Pt.: 52 Assessment & Plan Assessment & Plan (1) Morbid obesity: Code(s): E66.01 - Morbid (severe) obesity due to excess calories Category: Medical Plan: 1.? Plan for lap sleeve gastrectomy revision. If diaphragmatic or ventral hernias are present at time of surgery, these will be repaired laparoscopically as well. Risks and complications were discussed in detail including possible conversion to an open procedure, anastomotic leak, bleeding requiring transfusion, small bowel obstruction, , DVT and pulmonary embolism, cardiac, or pulmonary complications, as senior living complications such as anastomotic ulcer, insufficient weight loss and vitamin deficiencies. I emphasized the importance of close follow-up, adherence to instructions and good communication. 2. Nutritional counseling. Start with 2 Isopure protein (buy at [employer]) shakes (ONE scoop EACH in 8oz water) at 7am-9am and 10am-12pm, 2 protein bars (Zone Perfect protein bars, buy at [employer]) at 1pm-3pm and 4pm-6pm, dinner at 7pm (6 forks of protein and 6 forks of salad/vegetables). If hungry, you may have another half Zone Perfect protein bar at 8pm-9pm. So you do 2 protein shakes, 2 to 2.5 protein bars and one meal per day. Meal to include lean meat (beef, fish, pork, turkey, chicken), or taiwanese yogurt, or egg whites, or beans with a salad with olive oil and fruits (berries, pears, apples, kiwi). Avoid salt, breads, potatoes, rice, pasta, desserts. 3. Each shake would be drunk slowly, like coffee in a period of 2 hours. 4. Cut each bar in 4 pieces and eat each piece in 30min ?to make each bar last 2 hours. 5. I emphasized the importance of measuring accurately the food portion and measure it when serving the food in plate 6. The meal portions include 6 full-size forks of meat and 6 full-size forks of salad. You always eat the meat portion but you can replace up to 3 forks for salad/vegetables with rice, potatoes or pasta, or a fruit ?if you like. The less you do it the better weight loss will be. 7. One full-size fork is what it can be scooped on the fork without falling aside and not what can be bit with the fork. Use regular forks like those you find in a typical restaurant. 8.? Please send me weight measurements as soon as possible and then once a week. Always include your diet and exercise plan. 9. Start walking outside daily, tracking calories with a goal of 300 calories per day, daily. Goal is to burn 2000 calories per week on exercise, which means either 300 calories daily, or 400 calories 5 days per week, or 500 calories 4 days per week, or 650 calories 3 days per week. 10. The best choice would be to purchase a stationary bike, elliptical or treadmill at home that can track calories. Let me know if you do so I can give you an exercise plan. 11.?It is important of avoiding and for at least 18 months postoperatively and has been discussed at the infosession. 12. Goal is to lose at least 1.5-2lbs per week 13. Goal to lose 10% of your weight before surgery, which is about 26lbs. Ultimate weight goal: 233lbs before surgery 14. Please follow the diet plan exactly without any change. If you don't like something about the plan or you feel hungry you need to communicate with me so I can help you revise the plan. You should not change the plan yourself. Orders: Orders Insulin Today E66.01 - Morbid (severe) obesity due to excess calories Hemoglobin A1c Today E66.01 - Morbid (severe) obesity due to excess calories Lipid Panel Today E66.01 - Morbid (severe) obesity due to excess calories Vitamin B12 and Folate Today E66.01 - Morbid (severe) obesity due to excess calories C Reactive Protein Today E66.01 - Morbid (severe) obesity due to excess calories Vitamin B1 Today E66.01 - Morbid (severe) obesity due to excess calories TSH reflex Free T4 Today E66.01 - Morbid (severe) obesity due to excess calories Ferritin Today E66.01 - Morbid (severe) obesity due to excess calories US abdomen comp w elastography Today E66.01 - Morbid (severe) obesity due to excess calories ECG 12 lead EKG Today E66.01 - Morbid (severe) obesity due to excess calories H Pylori Breath Test Today E66.01 - Morbid (severe) obesity due to excess calories Complete Blood Count Auto Diff Today E66.01 - Morbid (severe) obesity due to excess calories IRON PROFILE Today E66.01 - Morbid (severe) obesity due to excess calories Comprehensive Met. Panel Today E66.01 - Morbid (severe) obesity due to excess calories Zinc Today E66.01 - Morbid (severe) obesity due to excess calories Vitamin A Today E66.01 - Morbid (severe) obesity due to excess calories Vitamin D 25-OH Total Today E66.01 - Morbid (severe) obesity due to excess calories XR chest 2V Today E66.01 - Morbid (severe) obesity due to excess calories FL upper GI w air Today E66.01 - Morbid (severe) obesity due to excess calories Referrals Behavioral Health Referral E66.01 - Morbid (severe) obesity due to excess calories Nutrition/Dietitian Referral E66.01 - Morbid (severe) obesity due to excess calories
[2023-07-24 12:29] VITALS: BMI 45.9
== END 2023-07-24 12:53 | disposition home or self-care (01) ==
LOC: HO.HBS 09:12
PROVIDERS: PCP Physician Assistant; Visit Provider Surgery
DX: E66.01 Morbid (severe) obesity due to excess calories (principal)
CPT/HCPCS: 99204

== ENCOUNTER → 2023-07-24 09:12 | Outpatient (BNVA) | payer OTHER, SELFPAY | PROVIDERS: PCP Physician Assistant; Visit Provider Surgery ==

== ENCOUNTER 2023-08-05 07:03 | Outpatient (REF) | payer OTHER, SELFPAY ==
--- NOTE | ~2023-08-05 | XR_ITS ---
EXAMINATION: XR CHEST CLINICAL INFORMATION: Morbid (severe) obesity due to excess calories COMPARISON: Chest 07/05/2012 TECHNIQUE: 2 views of the chest were obtained. FINDINGS: No significant abnormality is noted involving the heart, lungs, mediastinum, bony thorax or soft tissues. XR/XR chest 2V IMPRESSION: Unremarkable examination.
[2023-08-05 07:20] LABS: MANUAL DIFF FLAG NO
[2023-08-05 07:54] LABS: Basophils Absolute Auto 0.1 X10*3/uL (0.0-0.2); Eosinophils Absolute Auto 0.1 X10*3/uL (0.0-0.4); Eosinophils Percent Auto 1.7 % (0-4); Hematocrit 45.1 % (37.0-47.0); Hemoglobin 15.3 g/dl (12.0-16.0); Imm Gran Abs Auto 0.03 X10*3/uL (0.00-0.03); Imm Gran Pct Auto 0.5 % (0.0-0.4); Lymphocytes Absolute Auto 1.4 X10*3/uL (1.2-4.9); Mean Corpuscular HGB Conc 33.9 g/dl (31.0-35.0); Mean Corpuscular Volume 85.6 fL (80.0-98.0); Mean Platelet Volume 11.2 fL (9.4-12.3); Monocytes Absolute Auto 0.4 X10*3/uL (0.1-1.2); Neutrophils Percent Auto 66.8 % (45-73); Platelet Count 304 X10*3/uL (160-400); Red Blood Count 5.27 X10*6/uL (4.20-5.50); Red Cell Distribution Width 13.4 % (11.0-16.0)
[2023-08-05 08:08] LABS: Estimated Average Glucose 120 mg/dL; Hemoglobin A1c % 5.8 % (<6.0)
[2023-08-05 08:29] LABS: Alanine Aminotransferase 14 U/L (0-31); Albumin Level 4.8 g/dL (3.5-5.0); Alkaline Phosphatase 80 U/L (39-117); Anion Gap 14 (12-20); Aspartate Amino Transferase 18 U/L (5-31); Bilirubin Total 0.8 mg/dL (0.0-1.0); Blood Urea Nitrogen 18 mg/dL (9-16); C Reactive Protein 1.79 mg/dL (< or = 0.50); Calcium 9.7 mg/dL (8.4-10.2); Carbon Dioxide 21 mmol/L (22-29); Chloride 108 mmol/L (96-108); Cholesterol 201 mg/dL (<200); Estimated Glomerular Filt Rate > 60; Glucose Random 130 mg/dL (60-115); HDL Cholesterol 64 mg/dL (>40); Iron 88 mcg/dL (30-160); LDL Cholesterol Calculated 126 mg/dL (<100); Percent Iron Saturation 28 % (15-50); Potassium 3.9 mmol/L (3.3-5.1); Sodium 139 mmol/L (135-145); Total Iron Binding Capacity 309 mcg/dL (228-428); Total Protein 8.3 g/dL (6.5-8.0); Triglycerides 55 mg/dL (<150); Unsaturated Iron Binding 221 ug/dL
[2023-08-05 08:55] LABS: Ferritin 104 ng/mL (10-122); TSH reflex Free T4 1.45 uIU/mL (0.32-4.0); Vitamin D 25-OH Total 23.1 ng/mL (>30)
[2023-08-05 09:01] LABS: Folate 13.6 ng/mL (> or = 4.0); Vitamin B12 487 pg/mL (200-900)
[2023-08-05 09:05] LABS: Insulin 20 uU/mL (2-29)
[2023-08-09 04:14] LABS: Zinc 88 mcg/dL (60-130)
[2023-08-09 18:28] LABS: Vitamin A 42 mcg/dL (38-98)
[2023-08-10 17:28] LABS: Vitamin B1 <6 nmol/L (8-30)
== END 2023-08-05 07:04 | disposition home or self-care (01) ==
LOC: HO.LAB 07:03
PROVIDERS: PCP Physician Assistant; Visit Provider Surgery
DX: E66.01 Morbid (severe) obesity due to excess calories (principal)
CPT/HCPCS: 36415; 71046; 80053; 80061; 82306; 82607; 82728; 82746; 83036; 83525; 83540; 84425; 84443; 84590; 84630; 85025; 86140

== ENCOUNTER 2023-08-08 08:19 | Outpatient (REF) | payer OTHER, SELFPAY ==
--- NOTE | ~2023-08-08 | US_ITS ---
EXAMINATION: US COMPLETE ABDOMEN WITH LIVER ELASTOGRAPHY CLINICAL INFORMATION: Morbid obesity. COMPARISON: None available. TECHNIQUE: Real-time imaging of the abdominal viscera. Noninvasive ultrasound liver fibrosis assessment is performed using [employer] ElastPQ point quantification shear wave elastography (2D-SWE) with a C5-2 MHz transducer. Multiple elastography samples are obtained. FINDINGS: PANCREAS: Normal. The visualized pancreatic head and body are normal in appearance. The remainder of the pancreas is obscured from visualization by the overlying bowel gas. ABDOMINAL AORTA: The proximal, middle, and distal aortic segments are normal in caliber. INFERIOR VENA CAVA: Visualized portions are normal. LIVER: Normal. The liver demonstrates normal size, contour and echogenicity. No focal lesion or intrahepatic biliary duct dilatation. The right lobe measures 15.7 cm in length. The left lobe measures 10.7 cm in length. Portal flow is towards the liver (hepatopetal). Shear wave liver elastography median stiffness is 1.35 m/s (reference: normal median stiffness is 1.3 m/s or less). IQR/median stiffness to assess sampling precision is 0.09 (reference: good quality data set is IQR/median stiffness of 0.15 or less). GALLBLADDER: Normal. The gallbladder is physiologically distended without evidence of stones, sludge, polyps, wall thickening or pericholecystic fluid. COMMON BILE DUCT: Normal in caliber measuring 0.8 cm in diameter. RIGHT KIDNEY: Markedly echogenic pyramids suggest medullary sponge kidney. No hydronephrosis. No renal calculi or focal parenchymal lesions. The kidney measures 10.2 cm in maximum dimension. 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 No hydronephrosis. No renal calculi or focal parenchymal lesions. The kidney measures 10.7 cm in maximum dimension. SPLEEN: Normal. The spleen measures 9.1 cm in maximum dimension. FREE FLUID: None. US/US abdomen comp w elastography IMPRESSION: 1. Echogenic liver consistent with hepatic steatosis. 2. Liver Elastography: In the absence of other known clinical signs, measurements rule out compensated advanced chronic liver disease. If there are known clinical signs, further testing may be needed for confirmation. REFERENCE: Society of Radiologists in Ultrasound Liver Stiffness Thresholds (2019): LIVER STIFFNESS THRESHOLDS: *Liver Stiffness equal or less than 1.3 m/s: High probability of being normal. *Liver Stiffness less than 1.7 m/s: In the absence of other known clinical signs, rules out compensated advanced chronic liver disease. *Liver Stiffness 1.7-2.1 m/s: Suggestive of compensated advanced chronic liver disease but need further test for confirmation. *Liver Stiffness over 2.1 m/s: Rules in compensated advanced chronic liver disease. *Liver Stiffness over 2.4 m/s: Suggestive of clinically significant portal hypertension. QUALITY OF DATA SET: *IQR/Median value equal or less than 0.15 implies a quality data set. *IQR/Median value over 0.15 implies a poor quality data set. SIGNIFICANT CHANGE FROM PRIOR EXAM: Significant change if liver stiffness measurement is 10% or greater from prior exam. OTHER CONSIDERATIONS: The stage of liver fibrosis may be overestimated in the setting of acute hepatitis, liver inflammation, elevated liver function tests, hepatic vascular congestion, obstructive cholestasis, non-fasting state, and infiltrative diseases such as amyloidosis and lymphoma. In some patients with NAFLD, the liver stiffness thresholds for compensated advanced chronic liver disease may be lower. In causes other than viral hepatitis and NAFLD, liver stiffness thresholds are not well established.
== END 2023-08-08 08:20 | disposition home or self-care (01) ==
LOC: HO.US 08:19
PROVIDERS: PCP Physician Assistant; Visit Provider Surgery
DX: E66.01 Morbid (severe) obesity due to excess calories (principal)
CPT/HCPCS: 76700; 76981

== ENCOUNTER 2023-08-08 16:26 | Outpatient (AMB) | payer OTHER, SELFPAY ==
--- NOTE | 2023-08-08 16:14 | A.OFFWM_ITS ---
Intake Intake Visit Reasons: (TV) BH Intake Allergies Penicillins Allergy (Intermediate, Verified 07/24/23 12:14) HIVES penicillin V Allergy (Unknown, Verified 07/24/23 12:14) rash Sulfa (Sulfonamide Antibiotics) [SULFA (SULFONAMIDE ANTIBIOTICS)] Allergy (Unknown, Verified 07/24/23 12:14) BURNING, rash sulfamethoxazole [From BACTRIM] Allergy (Unknown, Verified 07/24/23 12:14) HIVES trimethoprim [From BACTRIM] Allergy (Unknown, Verified 07/24/23 12:14) HIVES [facility] Medical History (Updated 08/08/23 @ 13:51 by Chip Pearson MD) Morbid obesity Morbid obesity with BMI of 40.0-44.9, adult Anxiety Headache, migraine Depression Hypertension Surgical History (Updated 07/24/23 @ 12:20 by Chip Pearson MD) History of carpal tunnel repair History of gastrectomy History of cholecystectomy Family History Father Hypertension Kidney stones Retinal detachment Mother Hard of hearing Hyperthyroidism Maternal Grandmother Liver problem Emphysema lung Social History (Updated 03/08/23 @ 16:17 by Montez España PA-C) Housing: Apartment Alcohol intake: former Comment: no iv Patient Tobacco Use Status: Former Tobacco user Quit Date: 2020 e-Cigarette/Vaping Use: Never Used Second Hand Smoke Exposure: Yes service: No Current occupational 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 She sees a therapist and psychiatrist from [facility], S[place] and Juan Diego Rockwell. Pt used drugs and alcohol for 3 years two years after previous weight loss surgery. She has been clean for 5 years now. She reported that she went to a detox program in [place] at that time. She reported going through an awful divorce at that time. Presenting Concerns Referral Source provider Reason for referral weight loss surgery evaluation Precipitating Event obesity Living Situation Current Living Situation Own At risk of losing current housing? No Satisfied with current living situation? Yes Comments Patient stated that she is currently in the process of buying a house with her and they have a two year old. Food/Weight/Diet Expectations of change weight loss and maintenance History/Relationship with food Patient stated that her breakfast was usually coffee, fast food for lunch, dinner and then would eat into the night on snack foods up until bedtime. She would wake up sick to her stomach and start the cycle all over again. She would drink about 3-4 coffee a day and also ice teas. History/Relationship with weight Pt stated that she has been overweight her whole life and even as a child. She has gradually gained weight History/Relationship with dieting Patient had gastric sleeve ten years ago. She was 250lbs prior to surgery and then 130lbs at her lowest (was also abusing alcohol and drugs at that time and not eating) Two years after having surgery she started using drugs and alcohol. Binge Eating Do you frequently eat large amounts of food in short periods of time, not feeling physically hungry? Yes Do you feel out of control when you eat a large amount of food in a short period of time? Yes Do you eat large amounts of food rapidly and typically alone? Yes Night Eating Do you wake up at least once during the night to eat? No If you wake up in the night, do you find that it is necessary to eat something in order to fall back asleep? No Do you have little or no appetite in the morning and feel very hungry in the evening, often overeating between dinner and when you go to bed? Yes Social History Family history and relationship Pt is and to her second and their 2 year old. She has two teenagers that live with their father and will come and visit. When she started using drugs they were 4 and 6 and dad filed for sole custody. Parental/Familial accounting clerk obligations toddler Developmental history and status none Social support , family, friends and therapist Community support AA, Peer recovery center Cultural/Ethnic information Legal Involvement and History Current or historical involvement with the legal system? none Education Highest grade completed associates Preferred learning style Auditory, Verbal, Written, Learn by doing and Visual Currently enrolled in educational program? No Interested in further educational program? 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 No Financial Situation Describe current financial situation Occasional struggle Financial assistance? None Service Service? No Mental Health and Addiction Treatment Current/Past substance abuse? Yes Comments Pt used heavy drugs and alcohol from 0913-0104 Current/Past addictive behavior concerns? Yes Medical and Physical Health Summary Physical exam in the last year? Yes Pain Screening Current pain? Yes Pain in the last few months? Yes Medications Is the patient compliant with medications? Yes Does the patient have [place] Guardian in place? Not applicable Does the patient use complimentary health approaches? No Trauma/Abuse History History of trauma? Yes Questionnaires PHQ-9 Over the last 2 weeks, how often have you been bothered by any of the following problems? 1. Little interest or pleasure in doing things: more than half the days 2. Feeling down, depressed, or hopeless: several days 3. Trouble falling or staying asleep, or sleeping too much: several days 4. Feeling tired or having little energy: more than half the days 5. Poor appetite or overeating: more than half the days 6. Feeling bad about yourself - or that you are a failure or have let yourself or your family down: several days 7. Trouble concentrating on things, such as reading the newspaper or watching television: not at all 8. Moving or speaking so slowly that other people could have noticed. Or the opposite - being so fidgety or restless that you have been moving around a lot more than usual: not at all 9. Thoughts that you would be better off or of hurting yourself in some way: not at all Total score: 9 Source: Developed by Drs. Rodo Mar, Cammie Ramirez, Pete Grewal and colleagues, with an educational mckay from [employer]. Binge Eating Scale Group 1 A. I don't feel self-conscious about my wt. or body size when I'm with others. B. I feel concerned about how I look to others, but it normally does not make me fell disappointed with myself C. I do get self-conscious about my appearance and wt. which makes me feel disappointed in myself. D. I feel very self-conscious about my wt. and frequently I feel intense shame and disgust for myself. I try to avoid social contacts because of my self- consciousness. Response Group 1: C Group 2 A. I don't have any difficulty eating slowly in the proper manner. B. Although I seem to gobble down foods, I don't end up feeling stuffed because of eating to much. C. At times, I tend to eat quickly and then, I feel uncomfortably full afterwards. D. I have the habit of bolting down my food, without really chewing it. When this happens I usually feel uncomfortably stuffed because I've eaten to much. Response Group 2: C Group 3 A. I feel capable to control my eating urges when I want to. B. I feel like I have failed to control my eating more than the average person. C. I feel utterly helpless when it comes to feeling in control of my eating urges. D. Because I feel so helpless about controlling my eating I have become very desperate about trying to get control. Response Group 3: A Group 4 A. I don't have the habit of eating when I'm bored. B. I sometimes eat when I'm bored, but often I'm able to get busy and get my mind off food. C. I have a regular habit of eating when I'm bored, but occasionally, I can use some other activity to get my mind off eating. D. I have a strong habit of eating when I'm bored. Nothing seems to help me breath the habit. Response Group 4: C Group 5 A. I'm usually physically hungry when I eat something. B. Occasionally, I eat something on impulse even though I really am not hungry. C. I have the regular habit of eating foods, that I might not really enjoy, to satisfy a hungry feeling even though physically, I don't need the food. D. Although I'm not physically hungry, I get a hungry feeling in my mouth that only seems to be satisfied when I eat a food, like sandwich, that fills my mo uth. Sometimes, when I eat the food to satisfy my mouth hunger, I then spit the food out so I won't gain weight. Response Group 5: B Group 6 A. I don't feel any guilt or self-hate after I overeat. B. After I overeat, occasionally I feel guilt or self-hate. C. Almost all the time I experience strong guilt or self-hate after I overeat. Response Group 6: C Group 7 A. I don't lose total control of my eating when dieting even after periods when I overeat. B. Sometimes when I eat a forbidden food on a diet, I feel like I blew it and eat even more. C. Frequently, I have the habit of saying to myself, I've blown it now, why not go all the way, when I overeat on a diet. When that happens I eat more. D. I have a regular habit of starting a strict diets for myself but I break the diets by going on an eating binge. My life seems to be either a feast or famine. Response Group 7: C Group 8 A. I rarely eat so much food that I feel uncomfortably stuffed afterwards. B. Usually about once a month, I each such a quantity of food, I end up feeling very stuffed. C. I have regular periods during the month when I eat large amounts of food, either at mealtime or at snacks. D. I eat so much food that I regularly feel quite uncomfortable after eating and sometimes a bit nauseous. Response Group 8: C Group 9 A. My level of calorie intake does not go up very high or go down very low on a regular basis. B. Sometimes after I overeat, I will try to reduce my caloric intake to almost nothing to compensate for the excess calories I've eaten. C. I have a regular habit of overeating during the night. It seems that my routine is not to be hungry in the morning but overeat in the evening. D. In my adult years, I have had week-long periods where I practically starve myself. This follows periods when I overeat. It seems I live a life of either feast or famine. Response Group 9: C Group 10 A. I usually am able to stop eating when I want to. I know when enough is enough. B. Every so often, I experience a compulsion to eat which I can't seem to control. C. Frequently, I experience strong urges to eat which I seem unable to control, but at other times I can control my eating urges. D. I feel incapable of controlling urges to eat. I have a fear of not being able to stop eating voluntarily. Response Group 10: B Group 11 A. I don't have any problem stopping eating when I feel full. B. I usually can stop eating when I feel full but occasionally overeat leaving me feeling uncomfortably stuffed. C. I have a problem stopping eating once I start and usually I feel uncomfortably stuffed after I eat a meal. D. Because I have a problem not being able to stop eating when I want, I sometimes have to induce vomiting to relieve my stuffed feeling. Response Group 11: C Group 12 A. I seem to eat just as much when I'm with others, Family social gatherings as when I'm by myself. B. Sometimes, when I'm with other persons, I don't eat as much as I want to eat because I'm self-conscious about my eating. C. Frequently, I eat only a small amount of food when others are present, because I'm very embarrassed about my eating. D. I feel so ashamed about overeating that I pick times to overeat when I know no one will see me. I feel like a closet eater. Response Group 12: C Group 13 A. I eat three meals a day with only an occasional between meal snack. B. I eat 3 meals a day, but I also normally snack between meals. C. When I am snacking heavily, I get in the habit of skipping regular meals. D. There are regular periods when I seem to be continually eating, with no planned meals. Response Group 13: C Group 14 A. I don't think much about trying to control unwanted eating urges. B. At least some of the time, I feel my thoughts are pre-occupied with trying to control my eating urges. C. I feel that frequently I spend much time thinking about how much I ate or about trying not to eat anymore. D. It seems to me that most of my waking hours are pre-occupied by thoughts about eating or not eating. I feel like I'm constantly struggling not to eat. Response Group 14: A Group 15 A. I don't think about food a great deal. B. I have strong craving for food but they last only for brief periods of time. C. I have days when I can't seem to think about anything else but food. D. Most of my days seem to be pre-occupied with thoughts about food. I feel like I live to eat. Response Group 15: B Group 16 A. I usually know whether or not I'm physically hungry. I take the right portion of food to satisfy me. B. Occasionally, I feel uncertain about knowing whether or not I'm physically hungry. A these times it's hard to know how much food I should take to satisfy me. C. Even though I might know how many calories I should eat, I don't have any idea what is a normal amount of food for me. Response Group 16: C Binge Eating Score: 25 Score less than 17 Minimal Risk Score between 18-26 Moderate Risk Score between 27-46 High Risk Assessment & Plan Assessment & Plan (1) MDD (major depressive disorder), recurrent episode, moderate: Code(s): F33.1 - Major depressive disorder, recurrent, moderate (2) Obese: Code(s): E66.9 - Obesity, unspecified Qualifiers: Obesity type: due to excess calories Obesity classification: adult class 3 (BMI >= 40) Serious obesity comorbidity presence: without serious comorbidity Body mass index: BMI 45.0-49.9 Qualified Code(s): E66.01 - Morbid (severe) obesity due to excess calories; Z68.42 - Body mass index [BMI] 45.0- 49.9, adult (3) History of opioid abuse: Code(s): F11.11 - Opioid abuse, in remission Plan Patient has had previous weight loss surgery and then 3 years in which she used drugs and alcohol. She is 5 years clean now and has many supports per her report. She will be seen again. Telehealth Telehealth Telehealth Platform: Telephone Location of provider rendering services: other Location of patient: address on file Patient Identification confirmed using: Name, : Yes Telehealth method: voice only Patient verbally consented to treatment: Yes Patient verbally consented to billing insurance company: Yes Patient informed of any privacy concerns related to visit: Yes Minutes spent on Phone/Video with Pt.: 45 Coding Level of Care Code Tele Psy Diag Eval ([id number]) Diagnoses MDD (major depressive disorder), recurrent episode, moderate F33.1 Class 3 severe obesity due to excess calories without serious comorbidity with body mass index (BMI) of 45.0 to 49.9 in adult E66.01; Z68.42 Obesity type: due to excess calories Obesity classification: adult class 3 (BMI >= 40) Serious obesity comorbidity presence: without serious comorbidity Body mass index: BMI 45.0-49.9 History of opioid abuse F11.11 Time Spent (min) 45
== END 2023-08-08 16:55 | disposition home or self-care (01) ==
LOC: HO.HBST 16:26
PROVIDERS: PCP Physician Assistant; Visit Provider Counselor Mental Health
DX: F33.1 Major depressive disorder, recurrent, moderate (principal); E66.01 Morbid (severe) obesity due to excess calories; Z68.42 Body mass index [BMI] 45.0-49.9, adult; F11.11 Opioid abuse, in remission
CPT/HCPCS: 90791

== ENCOUNTER → 2023-08-10 13:09 | Outpatient (REF) | payer OTHER, SELFPAY ==
--- NOTE | 2023-08-10 13:15 | ECG_ITS ---
Test Reason : MORBID OBESITY Blood Pressure : / mmHG Vent. Rate : 052 BPM Atrial Rate : 052 BPM P-R Int : 158 ms QRS Dur : 106 ms QT Int : 450 ms P-R-T Axes : 051 001 014 degrees QTc Int : 418 ms Sinus bradycardia Minimal voltage criteria for LVH, may be normal variant ( [place] product ) Borderline ECG No significant changes when compared with the previous EKG of 31 dec 2021 Referred By: Chip Pearson Electronically Signed By:RADHA LION
== END ==
LOC: HO.CARD 13:09
PROVIDERS: PCP Physician Assistant; Visit Provider Surgery
DX: E66.01 Morbid (severe) obesity due to excess calories (principal)
CPT/HCPCS: 93005

== ENCOUNTER → 2023-08-10 13:15 | Outpatient (BNV) | payer OTHER, SELFPAY | PROVIDERS: PCP Physician Assistant; Visit Provider Internal Medicine | DX: R00.1 Bradycardia, unspecified (principal); E66.01 Morbid (severe) obesity due to excess calories; Z68.42 Body mass index [BMI] 45.0-49.9, adult; R94.31 Abnormal electrocardiogram [ECG] [EKG] | CPT/HCPCS: 93010 ==

== ENCOUNTER 2023-08-21 15:26 | Outpatient (AMB) | payer OTHER, SELFPAY ==
[2023-08-21 15:32] VITALS: BP 132/88; PULSE 60; O2SAT 99; BMI 43.3
--- NOTE | 2023-08-21 15:32 | MHC.PC.OV ---
Vital Signs 08/21/23 15:32 Height 5 ft 3 in Weight 244 lb 8 oz BMI 43.3 BP 132/88 Blood Pressure Location Lt brachial Position Sitting Pulse 60 Pulse Source Pulse Oximeter Pulse Oximetry (%) 99 Oxygen Delivery Method Room Air Intake Visit Reasons: IGM- WT check Follow up Block Trader Required: No Accompanied by: Self / Same As Patient Allergies Penicillins Allergy (Intermediate, Verified 08/21/23 15:47) HIVES penicillin V Allergy (Unknown, Verified 08/21/23 15:47) rash Sulfa (Sulfonamide Antibiotics) [SULFA (SULFONAMIDE ANTIBIOTICS)] Allergy (Unknown, Verified 08/21/23 15:47) BURNING, rash sulfamethoxazole [From BACTRIM] Allergy (Unknown, Verified 08/21/23 15:47) HIVES trimethoprim [From BACTRIM] Allergy (Unknown, Verified 08/21/23 15:47) HIVES Medication List - Last Reconciled 08/21/23 by Montez España PA-C albuterol sulfate 90 mcg/actuation (Ventolin HFA) 1 inh inhalation QID 30 days budesonide-formoterol 160-4.5 mcg/actuation 2 puffs PO BID 30 days cholecalciferol (vitamin D3) 125 mcg PO DAILY escitalopram oxalate 20 mg PO DAILY fluticasone propionate 50 mcg/actuation 1 spray intranasal BID 30 days folic acid 1 mg PO DAILY ibuprofen 400 - 800 mg PO Q8H PRN lorazepam 1 mg PO mecobalamin (vitamin B12) 500 mcg PO .one per day Tobacco use date assessed: 08/21/23 Dental Screening Dental Screen Date: 08/21/23 Did you have a dental visit in the last 12 months?: Yes Did you have a dental problem in the last 6 months where you did not have access to dental care?: No Was dental information given to patient?: Patient has dentist HPI IGM- WT check Follow up HPI Details Patient is a 37-year-old female here today for a follow up visit. Patient has a past medical history significant for depression, anxiety, h/o bariatric surgery,hypothyroidism, hypertension, moderate persistent asthma, Migraines. Concern----> has lost weight since last office visit. She has started with the weight management program and is on a new diet including protein shakes. .. CHRONIC MEDICAL CONDITIONS--> Obesity: Patient does understand her BMI is over 40 will work on being more physically active and adapting to better eating habits to reduce her weight. ? .. ? Migraines: Patient is followed by neurology( Dr. Perkins) and started on Aimovig ( once per month) injections lung with propanolol for prophylactic treatment. ? . ? Asthma : recently placed on Wexela which is workng well.. Does use Ventolin on a p.r.n. basis. She does report her asthma seems to have been worse on exertion in his interested in further evaluation of her asthma.. She continues to refrain from smoking cigarettes. ? .. ? 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 No further pharmacological treatment for her opiate dependency. 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 ? .. ? Hypertension: . Patient's blood pressure today in office acceptable. Was previously on clonidine and propanolol though did have low blood pressures. She is continues to manage her blood pressure at this time with lifestyle management. [facility] Medical History Morbid obesity Morbid obesity with BMI of 40.0-44.9, adult Anxiety Headache, migraine Depression Hypertension Surgical History History of carpal tunnel repair History of gastrectomy History of cholecystectomy Family History Father Hypertension Kidney stones Retinal detachment Mother Hard of hearing Hyperthyroidism Maternal Grandmother Liver problem Emphysema lung Social History Housing: Apartment Alcohol intake: former Comment: no iv Patient Tobacco Use Status: Former Tobacco user e-Cigarette/Vaping Use: Never Used Second Hand Smoke Exposure: Yes service: No Current occupational 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 1. Little interest or pleasure in doing things: not at all 2. Feeling down, depressed, or hopeless: not at all 3. Trouble falling or staying asleep, or sleeping too much: not at all 4. Feeling tired or having little energy: not at all 5. Poor appetite or overeating: not at all 6. Feeling bad about yourself - or that you are a failure or have let yourself or your family down: not at all 7. Trouble concentrating on things, such as reading the newspaper or watching television: not at all 8. Moving or speaking so slowly that other people could have noticed. Or the opposite - being so fidgety or restless that you have been moving around a lot more than usual: not at all 9. Thoughts that you would be better off or of hurting yourself in some way: not at all Total score: 0 Depression Screening Done: Yes 45574 - PHQ-9 Billing: Yes Source: Developed by Drs. Rodo Mar, Cammie Ramirez, Pete Grewal and colleagues, with an educational mckay from [employer]. Thrive Questionnaire Date Thrive assessed: 08/21/23 I am a: Patient What is your living situation today?: I have a steady place to live Within the past 12 months, did the food you bought not last and you didn't have the money to get more?: Never true Within the past 12 months, did you worry whether your food would run out before you got money to buy more?: Never true Do you have trouble paying for medicines?: No Do you have trouble getting transportation to medical appointments?: No Do you have trouble paying your heating and electricity bill?: No Do you have trouble taking care of your child, family member or friend?: No Do you have trouble with day-to-day activities such as bathing, preparing meals, shopping, managing finances, etc.?: No Are you currently unemployed and looking for a job?: No Are you interested in more education?: No Please select the resources that you would like help with: None Currently or been in a relationship where the following occur: no concerns reported THRIVE Score: 0 AUDIT C Alcohol Use Questionnaire (AUDIT-C) 1. How often do you have a drink containing alcohol?: Never 3. How often do you have six or more drinks on one occasion?: Never Total Score: 0 JENNIFER-7 AMB Questionnaire JENNIFER-7 Date JENNIFER - 7 assessed: 08/21/23 Feeling nervous, anxious, or on edge: 1 = Several days Not being able to stop or control worryin = Not at all Worrying too much about different things: 3 = Nearly every day Trouble relaxin = Not at all Being so restless that it is hard to sit still: 1 = Several days Becoming easily annoyed or irritable: 1 = Several days Feeling afraid as if something awful might happen: 0 = Not at all Total JENNIFER-7 score (0-4 normal; 5-9 mild; 10-14 moderate; 15-21 severe): 6 Source: Developed by Drs. Rodo Mar, Cammie Ramirez, Pete Grewal and colleagues, with an educational mckay from [employer]. JENNIFER-7 Assessment Billing JENNIFER-7 Assessment Tool: JENNIFER-7 Assessment 63778 ACT Questionnaire In the past 4 weeks, how much of the time did your asthma keep you from getting as much done at work, school or at home?: None of the time During the past 4 weeks, how often have you had shortness of breath?: 1-2 times a week During the past 4 weeks, how often did your asthma symptoms wake you up at night or earlier than usual in the morning?: Not at all During the past 4 weeks, how often have you had to use your rescue inhaler or nebulizer medication?: Once a week or less How would you rate your asthma control during the past 4 weeks?: Well controlled ACT Interpretation: Negative Score: 22 Review of Systems Const Denies headache(s) Eyes Denies loss of vision ENT Denies vertigo, Denies dizziness, Denies headache(s) and Denies sore throat Card Denies chest pain, Denies leg edema and Denies lightheadedness Resp Denies cough, Denies hemoptysis and Denies wheezing GI Denies abdominal pain, Denies melena, Denies constipation, Denies diarrhea and Denies vomiting Denies urinary frequency, Denies dysuria and Denies urinary urgency Musc Denies arthralgias, Denies joint swelling, Denies numbness and Denies tingling Neuro Denies Abnormal speech present, Denies behavioral changes, Denies vertigo, Denies dizziness, Denies headache(s), Denies loss of vision, Denies memory loss, Denies numbness and Denies tingling Psych Denies anxiety, Denies behavioral changes, Denies depression, Denies memory loss and Denies panic attacks Juan Daniel/Lymph Denies easy bleeding and Denies easy bruising Aller/Immun Denies wheezing Physical exam (Primary Care) Vital Signs: Last Vital Signs Pulse 60 08/21/23 15:32 BP 132/88 08/21/23 15:32 Pulse Ox 99 08/21/23 15:32 Oxygen Delivery Method Room Air 08/21/23 15:32 BMI result Body Mass Index 43.3 Tobacco/Smoking Status: Tobacco use Status Tobacco use date assessed 08/21/23 08/21/23 15:42 Patient Tobacco Use Status Former Tobacco user 08/21/23 15:42 e-Cigarette/Vaping Use Never Used 08/21/23 15:42 PHQ-9: PHQ-9 Score PHQ-9: Total score 0 08/21/23 15:52 Thrive Assessment: Date of Thrive Assessment Date Thrive assessed 08/21/23 08/21/23 15:42 Currently or been in a relationship where the following occur: no concerns reported Const General: healthy appearing, no acute distress, alert and awake Nutritional Appearance: well nourished Orientation/consciousness: oriented to person, oriented to place and oriented to time HENMT Ears: TM's normal bilaterally General nose exam: Normal nasal mucous membranes and turbinates present Eyes Conjunctivae: conjunctivae normal Sclerae: sclerae normal Pupils: Equal, round and reactive pupils present Neck Neck: Yes no lymphadenopathy and Yes no JVD Thyroid: Thyroid normal Carotids: no bruits Resp Effort & Inspection: normal respiratory effort and not tachypneic Auscultation: no crackles, no rales, no rhonchi and no wheezes Cardio Rate: regular rate Rhythm: regular rhythm Heart sounds: no murmurs and normal S1 and S2 GI Palpation (GI): Soft to palpation, nontender, no hepatomegaly and no splenomegaly Auscultation: normal bowel sounds Skin General skin exam: no rashes or lesions noted and dry skin Neuro General: oriented to person, oriented to place and oriented to time Cranial nerves: Yes Equal, round and reactive pupils present Speech: No Abnormal speech present Gait exam (Neuro): Normal gait present Motor exam (neuro): no tremor noted Extrem Right upper extremity: full ROM Left upper extremity: full ROM Right lower extremity: full ROM; no edema Left lower extremity: full ROM; no edema Psych Mental Status: mental status grossly normal Speech and movement: Normal speech and movement present Affect: normal affect Attitude: cooperative Thought process: Normal thought process present Assessment and Plan Assessment & Plan (1) HTN (hypertension): Code(s): I10 - Essential (primary) hypertension Qualifiers: Hypertension type: essential hypertension Qualified Code(s): I10 - Essential (primary) hypertension Plan: Patient's blood pressure acceptable today in office. Will continue to work on lifestyle modifications to help reduce her blood PRESSURE. Blood pressure to be below 140/90 (2) Asthma: Code(s): J45.909 - Unspecified asthma, uncomplicated Qualifiers: Asthma complication type: uncomplicated Asthma persistence: intermittent Asthma severity: mild Qualified Code(s): J45.20 - Mild intermittent asthma, uncomplicated Plan: Patient reports her asthma is fairly well controlled with p.r.n. use of her albuterol inhaler for emergencies. Only using Symbicort inhaler on a seldom occasion as well. Denies any recent exacerbations or nighttime awakenings with asthma symptoms. She does report on exertion she does have fairly moderate asthma symptoms. She is interested in pulmonary function testing (3) Obese: Code(s): E66.9 - Obesity, unspecified Qualifiers: Body mass index: BMI 45.0-49.9 Obesity classification: adult class 3 (BMI >= 40) Obesity type: due to excess calories Serious obesity comorbidity presence: without serious comorbidity Qualified Code(s): E66.01 - Morbid (severe) obesity due to excess calories; Z68.42 - Body mass index [BMI] 45.0-49.9, adult Plan: Has started with [facility] weight management program and has lost weight due to new diet. She is still considering a revision on her bariatric surgery (4) MDD (major depressive disorder), recurrent episode, moderate: Code(s): F33.1 - Major depressive disorder, recurrent, moderate Plan: Patient's PHQ-9 score positive for depression which has been existing condition for her. Patient reports her depression has been close stable with current as a survey therapy. Otherwise denies any SI or HI. She does report having a good support network and feels well. (5) JENNIFER (generalized anxiety disorder): Code(s): F41.1 - Generalized anxiety disorder Plan: Patient's JENNIFER-7 score positive for anxiety which has been existing condition for her.. Continues to speak with a mental health therapist and a mental health med provider (6) Impaired glucose metabolism: Code(s): R73.09 - Other abnormal glucose Plan: Most recent fasting blood sugar slightly elevated. A1c in prediabetic range at 5.8. She was given metformin though has never started this medication. She would like to work on weight reduction through weight management program before starting medication. Will continue to follow fasting blood sugar and A1c. (7) History of opioid abuse: Code(s): F11.11 - Opioid abuse, in remission Plan: Has not been sober for many years. 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 Orders: Orders PFT pulmonary function test 08/21/23 J45.20 - Mild intermittent asthma, uncomplicated Medications: New thiamine HCl (vitamin B1) 100 mg PO DAILY 90 tabs 1RF 90 days E66.01 - Morbid (severe) obesity due to excess calories, Z68.42 - Body mass index [BMI] 45.0-49.9, adult Refilled albuterol sulfate 90 mcg/actuation (Ventolin HFA) 1 inh inhalation QID 8.5 grams 3RF 30 days J45.20 - Mild intermittent asthma, uncomplicated Patient Instructions: Goal: Blood pressure to remain below 140/90, Barriers: Adherence to physical activity and healthy eating habits Coding Level of Care Code Est Pt Level 4 (87703) Complex EM visit Add On G2211 Diagnoses Essential hypertension I10 Hypertension type: essential hypertension Mild intermittent asthma without complication J45.20 Asthma complication type: uncomplicated Asthma persistence: intermittent Asthma severity: mild Class 3 severe obesity due to excess calories without serious comorbidity with body mass index (BMI) of 45.0 to 49.9 in adult E66.01; Z68.42 Body mass index: BMI 45.0-49.9 Obesity classification: adult class 3 (BMI >= 40) Obesity type: due to excess calories Serious obesity comorbidity presence: without serious comorbidity MDD (major depressive disorder), recurrent episode, moderate F33.1 JENNIFER (generalized anxiety disorder) F41.1 Impaired glucose metabolism R73.09 History of opioid abuse F11.11 Additional Codes JENNIFER-7 Assessment Billing - JENNIFER-7 Assessment Tool: JENNIFER-7 Assessment [id number] ([id number])
== END 2023-08-21 16:17 | disposition home or self-care (01) ==
PROVIDERS: PCP Physician Assistant; Visit Provider Physician Assistant
DX: I10 Essential (primary) hypertension (principal); E66.01 Morbid (severe) obesity due to excess calories; Z68.42 Body mass index [BMI] 45.0-49.9, adult; F33.1 Major depressive disorder, recurrent, moderate; F11.11 Opioid abuse, in remission; J45.20 Mild intermittent asthma, uncomplicated; F41.1 Generalized anxiety disorder; R73.09 Other abnormal glucose
CPT/HCPCS: 99214; G2211

== ENCOUNTER 2023-08-23 10:28 | Day surgery (SDC) | payer OTHER, SELFPAY ==
--- NOTE | 2023-08-21 13:36 | HO.ANESPROP2 ---
Documented by User: Ludy Almodovar NP 08/21/23 13:37 HPI - Anesthesia Eval Consult details Narrative: 37yo F for Upper Endoscopy PMFSH Active Problems Active Problems: All Active Problems LVH (left ventricular hypertrophy) (Acute) Vitamin D deficiency (Acute) Depression (Acute) Anxiety (Acute) Morbid obesity (Acute) Impaired glucose metabolism (Acute) Hydradenitis (Acute) Heart palpitations (Acute) Sciatic leg pain (Acute) Left foot pain (Acute) Need for MMR vaccine (Acute) Elevated fasting glucose (Acute) Low vitamin D level (Acute) JENNIFER (generalized anxiety disorder) (Acute) Bilateral carpal tunnel syndrome (Acute) Trigger finger of left thumb (Acute) Fatigue (Acute) B12 deficiency (Acute) MDD (major depressive disorder), recurrent episode, moderate (Acute) Obese (Acute) Sinus infection (Acute) HTN (hypertension) (Acute) Obese (Acute) Migraines (Acute) Asthma (Acute) History of opioid abuse (Acute) Screening for hypothyroidism (Acute) Screening for hypercholesterolemia (Acute) HTN (hypertension) (Acute) Screening for diabetes mellitus (DM) (Acute) Annual physical exam (Acute) Past Medical History Medical History Morbid obesity Morbid obesity with BMI of 40.0-44.9, adult Anxiety Headache, migraine Depression Hypertension Family History Family History Father Hypertension Kidney stones Retinal detachment Mother Hard of hearing Hyperthyroidism Maternal Grandmother Liver problem Emphysema lung Surgical History Surgical History History of carpal tunnel repair History of gastrectomy History of cholecystectomy Social History Social History (Updated 08/23/23 @ 16:31 by Dena Hernandes MD) Housing: Apartment Alcohol intake: former Comment: no iv Patient Tobacco Use Status: Current everyday Tobacco user e-Cigarette/Vaping Use: Never Used Second Hand Smoke Exposure: Yes Substance Use Type: Marijuana service: No Current occupational 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 Hearing needs: No Vision needs: No Meds Allergies Allergy/AdvReac Type Severity Reaction Status Date / Time Penicillins Allergy Intermediate HIVES Verified 08/21/23 15:47 penicillin V Allergy Unknown rash Verified 08/21/23 15:47 Sulfa (Sulfonamide Allergy Unknown BURNING, Verified 08/21/23 15:47 Antibiotics) rash [SULFA (SULFONAMIDE ANTIBIOTICS)] sulfamethoxazole Allergy Unknown HIVES Verified 08/21/23 15:47 [From BACTRIM] trimethoprim [From BACTRIM] Allergy Unknown HIVES Verified 08/21/23 15:47 Home Medications ?Medication ?Instructions ?Recorded ?Confirmed ?Last Taken ?Type escitalopram oxalate 20 mg tablet 20 mg PO DAILY 03/04/20 08/21/23 Unknown History ibuprofen 800 mg tablet 400 - 800 mg PO Q8H PRN pain 04/19/22 08/21/23 Unknown History lorazepam 1 mg tablet 1 mg PO 04/19/22 08/21/23 05/30/22 History Assessment and Plan Assessment Anesthesia Assessment: Chart Reviewed Documented by User: Dena Hernandes MD 08/23/23 16:32 PMFSH Active Problems Active Problems: All Active Problems LVH (left ventricular hypertrophy) (Acute) Vitamin D deficiency (Acute) Depression (Acute) Anxiety (Acute) Morbid obesity (Acute) BMI 45.9 Impaired glucose metabolism (Acute) Hidradenitis (Acute) Heart palpitations (Acute) Sciatic leg pain (Acute) Left foot pain (Acute) Need for MMR vaccine (Acute) Elevated fasting glucose (Acute) JENNIFER (generalized anxiety disorder) (Acute) Bilateral carpal tunnel syndrome (Acute) release Trigger finger of left thumb (Acute) Fatigue (Acute) B12 deficiency (Acute) MDD (major depressive disorder), recurrent episode, moderate (Acute) Sinus infection (Acute) HTN (hypertension) (Acute) Migraines (Acute) Asthma (Acute) History of opioid abuse (Acute) Screening for hypothyroidism (Acute) Screening for hypercholesterolemia (Acute) Screening for diabetes mellitus (DM) (Acute) Annual physical exam (Acute) Past Medical History Medical History Morbid obesity Morbid obesity with BMI of 40.0-44.9, adult Anxiety Headache, migraine Depression Hypertension Family History Family History Father Hypertension Kidney stones Retinal detachment Mother Hard of hearing Hyperthyroidism Maternal Grandmother Liver problem Emphysema lung Family history of problems with anesthesia: No Surgical History Surgical History History of carpal tunnel repair History of gastrectomy History of cholecystectomy History of Problems with Anesthesia: No Social History Social History (Updated 08/23/23 @ 16:31 by Dena Hernandes MD) Housing: Apartment Alcohol intake: former Comment: no iv Patient Tobacco Use Status: Current everyday Tobacco user e-Cigarette/Vaping Use: Never Used Second Hand Smoke Exposure: Yes Substance Use Type: Marijuana service: No 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 occupational 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 Hearing needs: No Vision needs: No Meds Allergies Allergy/AdvReac Type Severity Reaction Status Date / Time Penicillins Allergy Intermediate HIVES Verified 08/21/23 15:47 penicillin V Allergy Unknown rash Verified 08/21/23 15:47 Sulfa (Sulfonamide Allergy Unknown BURNING, Verified 08/21/23 15:47 Antibiotics) rash [SULFA (SULFONAMIDE ANTIBIOTICS)] sulfamethoxazole Allergy Unknown HIVES Verified 08/21/23 15:47 [From BACTRIM] trimethoprim [From BACTRIM] Allergy Unknown HIVES Verified 08/21/23 15:47 Home Medications ?Medication ?Instructions ?Recorded ?Confirmed ?Last Taken ?Type escitalopram oxalate 20 mg tablet 20 mg PO DAILY 03/04/20 08/21/23 Unknown History ibuprofen 800 mg tablet 400 - 800 mg PO Q8H PRN pain 04/19/22 08/21/23 Unknown History lorazepam 1 mg tablet 1 mg PO 04/19/22 08/21/23 05/30/22 History Exam Height,Weight and Vital Signs: Height 245 ft 3 in Weight 117.651 kg Vital Signs Temp Pulse Resp BP Pulse Ox O2 Del Method 08/23/23 11:00 96.9 F 55 20 130/88 97 Room Air Pertinent Lab Results Pertinent Lab Results: Lab Results 08/23/23 Range/Units 10:53 Urine Test NEGATIVE (NEGATIVE) Airway Mallampati Class: II TM Dist: >3cm Neck ROM: Full Loose/Missing/Broken Teeth: Yes (Top right teeth missing ) Heart: RRR Lungs: CTAB Assessment and Plan Assessment Anesthesia Assessment: Anesthesia Plan Discussed and Chart Reviewed Final Anesthetic Review Family History of Problems with Anesthesia: No History of Problems with Anesthesia: No NPO: Yes ASA Class: III Final Preanesthetic Review: No Changes in Pt Med Stat, Meds/Allgs Chart Reviewed, Consent Obtained/Reviewed and Anes Risks/Benef Reviewed Patient Risk: Intermediate Procedure Risk: Low Assessment/Block/Sedation in SS: Assess/Block/Sedation-SS Anesthetic Plan Anesthetic Plan: GA and TIVA Disposition: Standard PACU
[2023-08-21 15:53] VITALS: BMI 45.9
[2023-08-23 10:39] VITALS: BMI 45.9
[2023-08-23 11:00] VITALS: BP 130/88; PULSE 55; RESP 20; TEMP 36.1; O2SAT 97
[2023-08-23 11:07] LABS: UPreg QC Valid YES; Urine Pregnancy NEGATIVE (NEGATIVE)
[2023-08-23] MEDS: Lactated Ringers 1,000 ML 80 ML IVCONT (11:11)
--- NOTE | 2023-08-23 11:21 | MHC.SHP ---
Pre-Procedural Eval Section A - 24 Hr Update-Section A only Date of Service: 08/23/23 The patient is an INPATIENT: No Section B - Complete if H&P > 30 days Chief Complaint: Morbid (severe) obesity due to excess calories Details of Present Illness: GERD Relevant Family History (Specify if Yes): No Relevant Social History: None Present Medications: None Medical History: No relevant PMH History of Previous Operations: Relevant previous surgery/procedure and date(s) (Lap sleeve gastrectomy) Allergies: Allergies Allergy/AdvReac Type Severity Reaction Status Date / Time Penicillins Allergy Intermediate HIVES Verified 08/21/23 15:47 penicillin V Allergy Unknown rash Verified 08/21/23 15:47 Sulfa (Sulfonamide Allergy Unknown BURNING, Verified 08/21/23 15:47 Antibiotics) rash [SULFA (SULFONAMIDE ANTIBIOTICS)] sulfamethoxazole Allergy Unknown HIVES Verified 08/21/23 15:47 [From BACTRIM] trimethoprim [From BACTRIM] Allergy Unknown HIVES Verified 08/21/23 15:47 Review of Systems Sugical H&P ROS: Negative: Constitution, Cardiovascular, Respiratory, Neurological, Psychiatric, Hem-Onc, Allergic/Immunologic, Gastrointestinal, Genitourinary, Musculoskeletal, Integumentary, Endocrine and Eyes/Ears/Nose/Throat Exam Surgical H&P Exam: Normal: HEENT, Normal: Heart, Normal: Lungs, Normal: Extremities, Normal: Abdomen, Normal: Skin and Normal: Neurological Plan Diagnosis/Plan: Unchanged (EGD to assess etiology of GERD and the anatomy of the sleeve gastrectomy. Risks of bleeding and perforation were discussed with the patient and she is in agreement with the plan.) I have reviewed the history and physical and performed a pertinent physical examination on my patient. No changes have occurred unless specified. Time Spent With Patient Time: Total time managing care of this patient today ____ minutes.
--- NOTE | 2023-08-23 11:26 | P.BOP_ITS ---
Brief Operative Note Date of Service: 08/23/23 Pre-op diagnosis: GERD, s/p sleeve gastrectomy Post-op diagnosis: same Procedure: PROCEDURE DATE: 08/23/2023 PREOPERATIVE DIAGNOSIS: GERD, s/p sleeve gastrectomy POSTOPERATIVE DIAGNOSIS: ?Same as above. 1) proximal redundancy of the sleeve, 2) large caliber sleeve, 3) functional narrowing at the incisura angularis PROCEDURE: Nzbgouef-mtyfqt-ewywduzibiln with biopsies Surgeon: ?Robin Pearson M.D.. Ph.D. Tracer Bullet Section Supervisor: None ? Anesthesia: IV sedation Estimated blood loss: ?Minimal FINDINGS AND PROCEDURE: ? OPERATIVE INDICATIONS: ?The patient is a 37 year old female known to me who underwent a laparoscopic sleeve gastrectomy elsewhere. The patient had inadequate weight loss so far.? The patient has also been complaining of GERD. Based on this information I recommended an upper endoscopy to evaluate the patient's symptoms. Risks and complications of the surgery were discussed with the patient in advance particularly the possibility of perforation or bleeding that may require surgical intervention. The patient understood the risks and was in agreement with the plan. ? PROCEDURE: After informed consent was obtained by the patient, the patient was ?transferred to the Operating Room and was placed in the supine position.? After successful induction of IV sedation, a mouth block was inserted and the patient was placed in the left lateral decubitus position. An upper endoscopy was performed next, the oropharynx and esophagus appeared within the normal limits. There was no hiatal hernia. The z-line was smooth. Two biopsies were obtained from the distal esophagus 2-3 cm proximal to the GE junction and two additional biopsies from the GE junction. The proximal sleeve was significantly enlarged sugesting incomplete fundal resection at the original operation. This was despite the fact that the entire sleeve a large caliber.. There was no gastritis. There was no ulcer. There was a functional narrowing at the GE junction, not critical as the scope can pass through, but the caliber in that area is less than half than the caliber of the proximal sleeve. Biopsies were obtained from the proximal sleeve as well as the distal antrum. No signif icant bleeding was noted from any of the biopsy sites. The scope was then advanced into the duodenum which appeared to be normal as well. At that point the duodenum ?and the sleeve were decompressed and the scope was withdrawn from the patient's mouth. The patient extubated and was transferred in stable condition to the Recovery Room for further care. I was present and performed all steps of the procedure. There were no residents to assist with this case. Robin Pearson M.D., Ph.D. Surgeon: Chip Pearson MD Anesthesia: MAC Was an Tracer Bullet Section Supervisor used for this Procedure?: No Estimated blood loss (mL): 0 IV fluids (mL): 400 Urine output (mL): 0 (No Lemus to record output) Pathology: other (1) antrum x1, 2) proximal sleeve/gastric fundus x1, 3) EGJ x2, 4) distal esophagus x2) Condition: stable Disposition: PACU
[2023-08-23 12:12] VITALS: BP 114/72; PULSE 69; RESP 23; TEMP 36.3; O2SAT 93
[2023-08-23 12:27] VITALS: BP 126/71; PULSE 68; RESP 20; O2SAT 95
[2023-08-23 12:42] VITALS: BP 135/84; PULSE 69; RESP 16; TEMP 36.5; O2SAT 96
== END 2023-08-23 13:16 | disposition home or self-care (01) ==
PROVIDERS: Nurse Practitioner; PCP Physician Assistant; Visit Provider Surgery
PROC: 0DJ08ZZ Inspection of Upper Intestinal Tract, Via Natural or Artificial Opening Endoscopic (ICD-10-PCS; CPT 43235; principal; 2023-08-23 13:30)
DX: K21.9 Gastro-esophageal reflux disease without esophagitis (principal); K95.89 Other complications of other bariatric procedure; Y84.8 Other medical procedures as the cause of abnormal reaction of the patient, or of later complication, without mention of misadventure at the time of the procedure; Y92.9 Unspecified place or not applicable; E66.01 Morbid (severe) obesity due to excess calories; Z68.42 Body mass index [BMI] 45.0-49.9, adult; I10 Essential (primary) hypertension; Z79.899 Other long term (current) drug therapy; Z98.84 Bariatric surgery status; Z88.0 Allergy status to penicillin; Z88.1 Allergy status to other antibiotic agents; Z88.2 Allergy status to sulfonamides
CPT/HCPCS: 43239; 81025; 88305; 88313; 88342; J1596; J2704

== ENCOUNTER → 2023-08-23 10:28 | Outpatient (BNV) | payer OTHER, SELFPAY | PROVIDERS: PCP Physician Assistant; Visit Provider Surgery | DX: K21.9 Gastro-esophageal reflux disease without esophagitis (principal); K95.89 Other complications of other bariatric procedure; Z90.3 Acquired absence of stomach [part of]; Z98.84 Bariatric surgery status | CPT/HCPCS: 43239 ==

== ENCOUNTER → 2023-08-31 07:50 | Outpatient (REF) | payer OTHER, SELFPAY ==
--- NOTE | 2023-08-31 07:53 | CA_ITS ---
Transthoracic Echocardiogram Patient (Last, First, Middle): Odell Gallego A Gender: Female Date of : 1985 Age: 37 Procedure Date: 08/31/2023 Procedure Type: Transthoracic Echocardiogram Location: OP Height: 160. cm Weight: 109.32 kg BSA: 2.09 m2 Heart Rate: 45 bpm BP: 112 / 75 mmHg Stockroom Coordinator: MAHESH Referring MD: Chip Pearson MD Symptoms: I51.7 - Cardiomegaly Study Quality: Fair ECG Rhythm: Bradycardia Conclusions: - Essentially normal study Findings Left Ventricle Normal left ventricular size, thickness, and systolic function. The visually estimated ejection fraction is between 60-65%. Spectral Doppler is indicative of a normal filling pattern. Peak GLS is -19.4%, within normal limits Right Ventricle Normal right ventricular cavity size and systolic function. Atria Both atria are normal in size. There is no evidence of interatrial shunt. Aortic Valve Normal aortic valve structure and function. There is no aortic valve stenosis. There is no aortic valve regurgitation. Mitral Valve Normal mitral valve structure and function. There is trace mitral valve regurgitation. There is no mitral valve stenosis. Pulmonic Valve The pulmonic valve is likely normal. Tricuspid Valve Normal tricuspid valve structure. There is trace tricuspid valve regurgitation. The right ventricular systolic pressure is normal. The right ventricular systolic pressure is 17 mmHg. Normal right atrial pressure. There is no evidence of pulmonary hypertension. Great Vessels All visible segments of the aorta are normal in size. The pulmonary artery was not well visualized. Venous The inferior vena cava is normal in size and collapses greater than 50% with inspiration. Pericardium/Pleural There is no evidence of pericardial effusion. Prior Study Comparison No prior study available for comparison. Measurements 2D Linear Measurements IVSd: 1.02 0.6-0.9/0.6-1.0 cm LVIDd: 4.60 3.9-5.3/4.2-5.9 cm LVIDd Index: 2.20 2.4-3.2/2.2-3.1 cm/m2 LVIDs: 2.84 2.0-3.6 cm LVPWd: 0.82 0.7-1.1 cm LA Diam: 3.60 2.7-3.8/3.0-4.0 cm LAIDs Index: 1.72 1.5-2.3 cm/m2 LV Mass: 176.93 67-162/88-224 g LV Mass Index: 84.66 43-95/49-115 g/m2 LVOT Diam: 2.10 3.0+(-)1.3 cm 2D Systolic Function EF 4C: 61.30 >55% EF 2C: 64.00 >55% EF BiP: 62.40 >55% Mitral Valve MV Pk E: 0.77 MV PK A: 0.55 MV Decel Time: 194.00 E/A: 1.40 E'Lateral: 11.30 E'Medial: 7.18 E/E' Med: 10.70 E/E' Lat: 6.80 PHT: 57.00 MVA PHT: 3.86 Decel Carbon: 3.95 Aortic Valve AoV Pk Maurice: 1.21 AoV Mn Maurice: 0.86 AoV VTI: 0.29 AoV Pk Grad: 6.00 Aov Mn Grad: 3.00 BRITTANY Cont.VTI: 2.72 LVOT LVOT Pk Maurice: 1.01 LVOT Mn Maurice: 0.67 LVOT VTI: 0.23 LVOT Pk Grad: 4.00 LVOT Mn Grad: 2.00 LVOT Diam: 2.10 LVOT Area: 3.46 Diastolic Function MV Pk E: 0.77 MV Pk A: 0.55 E/A: 1.40 E'Medial: 7.18 E/E' Med: 10.70 E' Laterial: 11.30 E/E' Lat: 6.80 Right Ventricle TAPSE (mm): 19.80 TVS' Maurice: 11.00 Tricuspid Valve TR Pk Maurice: 1.87 TR Pk Grad: 14.00 RA Press: 3.00 RVSP: 17.00 Great Vessels Aorta Sinus of Valsalva: 3.00 2.0-3.5 cm Ao Asc: 3.20 2.1-3.4 cm Pulmonary Valve PV Pk Maurice: 0.87 Peak PV Grad: 3.00 Updated in Other Vendor System with Status of Final Garret Garcia MD electronically signed on 08/31/2023 12:16:36 PM with status of Final
== END ==
LOC: HO.CARD 07:50
PROVIDERS: PCP Physician Assistant; Visit Provider Surgery
DX: I51.7 Cardiomegaly (principal)
CPT/HCPCS: 93306; 93356

== ENCOUNTER → 2023-08-31 07:53 | Outpatient (BNV) | payer OTHER, SELFPAY | PROVIDERS: PCP Physician Assistant; Visit Provider Internal Medicine Cardiovascular Disease | DX: I51.7 Cardiomegaly (principal) | CPT/HCPCS: 93306; 93356 ==

== ENCOUNTER 2023-09-05 16:07 | Outpatient (AMB) | payer OTHER, SELFPAY ==
--- NOTE | 2023-09-05 16:15 | A.OFFWM_ITS ---
Intake Intake Visit Reasons: (TV) BH F/U Allergies Penicillins Allergy (Intermediate, Verified 08/21/23 15:47) HIVES penicillin V Allergy (Unknown, Verified 08/21/23 15:47) rash Sulfa (Sulfonamide Antibiotics) [SULFA (SULFONAMIDE ANTIBIOTICS)] Allergy (Unknown, Verified 08/21/23 15:47) BURNING, rash sulfamethoxazole [From BACTRIM] Allergy (Unknown, Verified 08/21/23 15:47) HIVES trimethoprim [From BACTRIM] Allergy (Unknown, Verified 08/21/23 15:47) HIVES [facility] Medical History Morbid obesity Morbid obesity with BMI of 40.0-44.9, adult Anxiety Headache, migraine Depression Hypertension Surgical History History of carpal tunnel repair History of gastrectomy History of cholecystectomy Family History Father Hypertension Kidney stones Retinal detachment Mother Hard of hearing Hyperthyroidism Maternal Grandmother Liver problem Emphysema lung Social History (Updated 08/23/23 @ 16:31 by Dena Hernaneds MD) Housing: Apartment Alcohol intake: former Comment: no iv Patient Tobacco Use Status: Current everyday Tobacco user e-Cigarette/Vaping Use: Never Used Second Hand Smoke Exposure: Yes Substance Use Type: Marijuana service: No Current occupational 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 She is continuing to work with her providers and communicate with surgeon appropriately. Patient is looking to have weight loss surgery to help improve her health and quality of life. She sees a therapist and psychiatrist from [facility], Sangeetha and Juan Diego Rockwell. Pt used drugs and alcohol for 3 years two years after previous weight loss surgery. She has been clean for 5 years now. She reported that she went to a detox program in [place] at that time. She reported going through an awful divorce at that time. Presenting Concerns Referral Source provider Reason for referral weight loss surgery evaluation Precipitating Event obesity Living Situation Current Living Situation Own At risk of losing current housing? No Satisfied with current living situation? Yes Comments Patient stated that she is currently in the process of buying a house with her and they have a two year old. Food/Weight/Diet Expectations of change weight loss and maintenance History/Relationship with food Patient stated that her breakfast was usually coffee, fast food for lunch, dinner and then would eat into the night on snack foods up until bedtime. She would wake up sick to her stomach and start the cycle all over again. She would drink about 3-4 coffee a day and also ice teas. History/Relationship with weight Pt stated that she has been overweight her whole life and even as a child. She has gradually gained weight History/Relationship with dieting Patient had gastric sleeve ten years ago. She was 250lbs prior to surgery and then 130lbs at her lowest (was also abusing alcohol and drugs at that time and not eating) Two years after having surgery she started using drugs and alcohol. Binge Eating Do you frequently eat large amounts of food in short periods of time, not feeling physically hungry? Yes Do you feel out of control when you eat a large amount of food in a short perio d of time? Yes Do you eat large amounts of food rapidly and typically alone? Yes Night Eating Do you wake up at least once during the night to eat? No If you wake up in the night, do you find that it is necessary to eat something in order to fall back asleep? No Do you have little or no appetite in the morning and feel very hungry in the evening, often overeating between dinner and when you go to bed? Yes Social History Family history and relationship Pt is and to her second and their 2 year old. She has two teenagers that live with their father and will come and visit. When she started using drugs they were 4 and 6 and dad filed for sole custody. Parental/Familial take off man obligations toddler Developmental history and status none Social support , family, friends and therapist Community support AA, Peer recovery center Cultural/Ethnic information Legal Involvement and History Current or historical involvement with the legal system? none Education Highest grade completed associates Preferred learning style Auditory, Verbal, Written, Learn by doing and Visual Currently enrolled in educational program? No Interested in further educational program? 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 Employment Employment Status [employer] Wants help to find employment? No Financial Situation Describe current financial situation Occasional struggle Financial assistance? None Service Service? No Mental Health and Addiction Treatment Current/Past substance abuse? Yes Comments Pt used heavy drugs and alcohol from [id number] Current/Past addictive behavior concerns? Yes Medical and Physical Health Summary Physical exam in the last year? Yes Pain Screening Current pain? Yes Pain in the last few months? Yes Medications Is the patient compliant with medications? Yes Does the patient have [place] Guardian in place? Not applicable Does the patient use complimentary health approaches? No Trauma/Abuse History History of trauma? Yes Assessment & Plan Assessment & Plan (1) MDD (major depressive disorder), recurrent episode, moderate: Code(s): F33.1 - Major depressive disorder, recurrent, moderate (2) Obese: Code(s): E66.9 - Obesity, unspecified Qualifiers: Obesity type: due to excess calories Obesity classification: adult class 3 (BMI >= 40) Serious obesity comorbidity presence: without serious comorbidity Body mass index: BMI 45.0-49.9 Qualified Code(s): E66.01 - Morbid (severe) obesity due to excess calories; Z68.42 - Body mass index [BMI] 45.0-49. 9, adult (3) History of opioid abuse: Code(s): F11.11 - Opioid abuse, in remission Plan She is 5 years clean now and has many supports per her report. She is in weekly therapy and compliant with all recommendations. She is cleared for surgery when ready. Telehealth Telehealth Telehealth Platform: Telephone Location of provider rendering services: other Location of patient: address on file Patient Identification confirmed using: Name, : Yes Telehealth method: voice only Patient verbally consented to treatment: Yes Patient verbally consented to billing insurance company: Yes Patient informed of any privacy concerns related to visit: Yes Minutes spent on Phone/Video with Pt.: 20 Coding Level of Care Code Tele Psytx 30 mins ([id number]) Diagnoses MDD (major depressive disorder), recurrent episode, moderate F33.1 Class 3 severe obesity due to excess calories without serious comorbidity with body mass index (BMI) of 45.0 to 49.9 in adult E66.01; Z68.42 Obesity type: due to excess calories Obesity classification: adult class 3 (BMI >= 40) Serious obesity comorbidity presence: without serious comorbidity Body mass index: BMI 45.0-49.9 History of opioid abuse F11.11 Time Spent (min) 20
== END 2023-09-05 16:20 | disposition home or self-care (01) ==
LOC: HO.HBST 16:07
PROVIDERS: PCP Physician Assistant; Visit Provider Counselor Mental Health
DX: F33.1 Major depressive disorder, recurrent, moderate (principal); E66.01 Morbid (severe) obesity due to excess calories; Z68.42 Body mass index [BMI] 45.0-49.9, adult; F11.11 Opioid abuse, in remission
CPT/HCPCS: 90832

== ENCOUNTER → 2023-09-05 16:07 | Outpatient (BNVA) | payer OTHER, SELFPAY | PROVIDERS: PCP Physician Assistant; Visit Provider Counselor Mental Health ==

== ENCOUNTER 2023-10-10 07:51 | Outpatient (REF) | payer OTHER, SELFPAY ==
--- NOTE | ~2023-10-10 | FL_ITS ---
EXAMINATION: XR FLUOROSCOPY UPPER GI WITH AIR CLINICAL INFORMATION: Preop evaluation for weight loss surgery. History of sleeve gastrectomy. COMPARISON: None TECHNIQUE: Fluoroscopic air contrast upper GI examination was performed utilizing standard techniques with thin and thick barium and effervescent granules. Numerous spot images were obtained. FINDINGS: Dual and single contrast images of the esophagus demonstrate normal caliber, contour, and mucosal pattern. No evidence of stricture, mass, or ulcerations identified. Esophageal peristalsis was normal. A very small type I hiatal hernia is present. Gastroesophageal reflux is seen in the distal esophagus. Dual contrast and single contrast images of the stomach demonstrated postsurgical changes consistent with prior history of sleeve gastrectomy. No mass, ulcerations, or other abnormality are present. Contrast freely passed into the gastric antrum and duodenal bulb without delay. Cholecystectomy clips are present in the right upper quadrant. Single and air-contrast images of the duodenal bulb demonstrate no abnormality. The duodenal sweep has a normal appearance, course, and mucosal fold appearance. The imaged proximal jejunum has a normal fold pattern and caliber. FLUOROSCOPY TIME: 2 minutes 46 seconds Number of Spot Images: 6 Number of Cine: 13 DOSE AREA PRODUCT: 2239 uGy-m2 (microgray-meter squared) FL/FL upper GI w air IMPRESSION: 1. Very small type I hiatal hernia. 2. Mild gastroesophageal reflux. 3. Postsurgical changes consistent with prior history of sleeve gastrectomy. This procedure was performed by Cldye Zhang PA-C, and supervised by Dr. Hill
== END 2023-10-10 07:52 | disposition home or self-care (01) ==
LOC: HO.XRAY 07:51
PROVIDERS: PCP Physician Assistant; Visit Provider Surgery
DX: E66.01 Morbid (severe) obesity due to excess calories (principal)
CPT/HCPCS: 74246

== ENCOUNTER → 2023-10-10 07:52 | Outpatient (BNV) | payer OTHER, SELFPAY | PROVIDERS: PCP Physician Assistant; Visit Provider Physician Assistant Surgical | DX: Z98.84 Bariatric surgery status (principal); E66.01 Morbid (severe) obesity due to excess calories; Z01.818 Encounter for other preprocedural examination | CPT/HCPCS: 74246 ==

== ENCOUNTER 2023-11-03 08:02 | Outpatient (AMB) | payer OTHER, SELFPAY ==
--- NOTE | 2023-11-03 08:57 | A.OFFVIS_ITS ---
VS Expanded 11/03/23 08:58 Height 5 ft 2.25 in Weight 223 lb 4 oz BMI 40.5 Body Fat % 51.1 Body Fat Mass 114.1 Fat Free Mass 174.2 Visceral Fat Rating 21 Body Water % 33.5 Body Water Mass 74.8 Basal Metabolic Rate/Score 1,428 Intake Visit Reasons: TV Pre Op Revision of LSG to LSG 11/14/23 Allergies Penicillins Allergy (Intermediate, Verified 11/03/23 09:01) HIVES, rash Sulfa (Sulfonamide Antibiotics) [SULFA (SULFONAMIDE ANTIBIOTICS)] Allergy (Unknown, Verified 11/03/23 09:01) BURNING, rash sulfamethoxazole [From BACTRIM] Allergy (Unknown, Verified 11/03/23 09:01) HIVES trimethoprim [From BACTRIM] Allergy (Unknown, Verified 11/03/23 09:01) HIVES Medication List - Last Reconciled 11/03/23 by Chip Pearson MD albuterol sulfate 90 mcg/actuation (Ventolin HFA) 1 inh inhalation QID 30 days budesonide-formoterol 160-4.5 mcg/actuation 2 puffs PO BID 30 days cholecalciferol (vitamin D3) 125 mcg PO DAILY escitalopram oxalate 20 mg PO DAILY fexofenadine 180 mg PO DAILY fluticasone propionate 50 mcg/actuation 1 spray intranasal BID 30 days folic acid 1 mg PO DAILY ibuprofen 400 - 800 mg PO Q8H PRN lorazepam 1 mg PO DAILY PRN mecobalamin (vitamin B12) 500 mcg PO .one per day omeprazole 20 mg PO DAILY PRN ondansetron 4 mg PO Q12H pantoprazole 40 mg PO DAILY polyethylene glycol 3350 17 grams PO DAILY sucralfate 10 mL PO BID thiamine HCl (vitamin B1) 100 mg PO DAILY 90 days HPI HPI TV Pre Op Revision of LSG to LSG 11/14/23: Details: Start time: 8.46am, End time: 9.12am ?I spent 21 minutes speaking with the patient on the phone plus an additional 5 minutes reviewing and updating records for a total of 26 minutes HPI Comments Details: Overall weight loss: 36.2lbs, or 13.94% Is doing 3 Isopure shakes with 1/2 scoop and 2 Isopure shakes with one scoop in water Exercise: is doing stationary bike for 300 calories daily PFSH Medical History (Updated 11/03/23 @ 08:55 by Chip Pearson MD) GERD (gastroesophageal reflux disease) Seasonal allergies Gastric reflux Back pain History of hepatitis C Morbid obesity Morbid obesity with BMI of 40.0-44.9, adult Anxiety Headache, migraine Depression Hypertension Surgical History (Updated 11/02/23 @ 14:04 by Veronique Couch, RN) History of esophagogastroduodenoscopy (EGD) (08/23/23) History of carpal tunnel repair History of gastrectomy History of cholecystectomy Family History Father Hypertension Kidney stones Retinal detachment Mother Hard of hearing Hyperthyroidism Maternal Grandmother Liver problem Emphysema lung Social History (Updated 11/02/23 @ 14:34 by Veronique Couch, RN) Household Members: Family Housing: Apartment Are you a primary career developer to a significant other at home: Yes (son) Do you presently have visiting nurse or other home services: No 75 years or older and lives alone: No Alcohol intake: former Comment: no iv Patient Tobacco Use Status: Never used Tobacco e-Cigarette/Vaping Use: Never Used Second Hand Smoke Exposure: Yes Substance Use Type: Marijuana and Opiates service: No Current occupational 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 Hearing needs: No Vision needs: No Telehealth Telehealth Telehealth Platform: Telephone Location of provider rendering services: practice address Location of patient: address on file Patient Identification confirmed using: Name, : Yes Telehealth method: voice only Patient verbally consented to treatment: Yes Patient verbally consented to billing insurance company: Yes Patient informed of any privacy concerns related to visit: Yes Minutes spent on Phone/Video with Pt.: 26 Assessment & Plan Assessment & Plan (1) Obese: Code(s): E66.9 - Obesity, unspecified Category: Medical Qualifiers: Obesity type: due to excess calories Obesity classification: adult class 3 (BMI >= 40) Serious obesity comorbidity presence: without serious comorbidity Body mass index: BMI 45.0-49.9 Qualified Code(s): E66.01 - Morbid (severe) obesity due to excess calories; Z68.42 - Body mass index [BMI] 45.0- 49.9, adult Plan: 1. Plan for lap sleeve gastrectomy including upper GI endoscopy. All tests has been completed and reviewed and the patient is cleared for the surgery. ?If diaphragmatic or ventral hernias are present at time of surgery, these will be repaired laparoscopically as well. Risks and complications were discussed in detail including possible conversion to an open procedure, anastomotic leak, bleeding requiring transfusion, small bowel obstruction, , DVT and pulmonary embolism, cardiac, or pulmonary complications, as machine long goods helper complications such as anastomotic ulcer, insufficient weight loss and vitamin deficiencies. I emphasized the importance of close follow-up, adherence to instructions and good communication. So far she has proven to be an excellent communicator and very compliant with all our directions accomplishing a great weight loss. I believe that she is an excellent candidate and she is ready. 2. Preop prescriptions were provided and explained the purpose of each one. Need to be purchased preop. Start Pantoprazole now as you get it from the pharmacy, 1 pill per day. Sucralfate and Zofran are for after surgery as needed. 3. Bowel prep: please do 7 packets ?of Miralax mixing each one with a an 8oz glass of water, crystal light, gatorade zero, or propel ?on 11/12/23 and the same amount on 11/13/23. The Miralax you begin with one packet at a time in 8oz water or crystal light, gatorade zero, or propel ?as early in the day as you can and you do them back to back until you finish them. Continue the protein shakes during ?the bowel prep. 4. Needs to purchase 1oz medicine cups . 5. Needs to purchase Children's liquid Tylenol for postop pain control. 6. She needs to stop as of today the Ibuprofen. Avoid aspirin, motrin, Advil, Aleve, Ibuprofen, Naproxyn. Tylenol is OK. 7. She needs to purchase the Celebrate 4:1 protein shakes from the hospital's gift shop. 8. Will do basic preop blood work-up any day between Monday11/06/23 and Thursday 11/09.24 fasting for 12 hours and is scheduled to see the Anesthesiologist prior to the day of surgery. 9. Importance of adherence to postop folllow-up and recommendations was underscored and she understands that. 10. Continue to avoid food and bars and continue with 3 isopure protein shakes (1/2 scoop in 8oz water ) at 7am-9am, 10am-12pm, 1pm-3pm and two more Isopure protein shake with ONE scoop in 8oz of water at 4pm-6pm and 7pm-9pm 11. No soups, broths or V8 12. The patient's?medical?history has been reviewed and they are considered low risk for post op DVT and therefore DVT prophylaxis is not considered necessary. Travel after surgery was reviewed. The patient has not disclosed any travel plans during the first 30 days after surgery and they have been advised that within the first 30 days after surgery any bus, plane, train or car travel over 2 hours in duration is contraindicated due to the possibility of developing blood clots from immobility. Any travel, needs to include periods of ambulation of 10 minutes in duration every 2 hours.? Patient was instructed to discuss any plans for travel during this period with their bariatric surgeon.? 13. Please take at the day of surgery the following medications: NONE 14. Stop any control pills and don't use them for one month after surgery 15. Absolutely no smoking or vaping, or marijuana until the surgery and for at least the first 4 weeks. Only nicotine patches are allowed. 16. Send me weight measurements on Monday11/07/23 and then on Monday11/14/23, the day of surgery before you go to the hospital. 17. Avoid any steroids by mouth for any reason. Let me know if someone prescribes them to you 18. These instructions supersede anything else you read in the handbook, anything you watched in videos or classes or you were told by any other provider. If there is any conflict, you follow the above instructions and nothing else. Orders: Orders TSH reflex Free T4 Today E66.01 - Morbid (severe) obesity due to excess calories, I10 - Essential (primary) hypertension, Z13.220 - Encounter for screening for lipoid disorders, Z68.39 - Body mass index [BMI] 39.0-39.9, adult, Z68.42 - Body mass index [BMI] 45.0-49.9, adult Insulin Today E66.01 - Morbid (severe) obesity due to excess calories, I10 - Essential (primary) hypertension, Z13.220 - Encounter for screening for lipoid disorders, Z68.39 - Body mass index [BMI] 39.0-39.9, adult, Z68.42 - Body mass index [BMI] 45.0-49.9, adult Comprehensive Met. Panel Today E66.01 - Morbid (severe) obesity due to excess calories, I10 - Essential (primary) hypertension, Z13.220 - Encounter for screening for lipoid disorders, Z68.39 - Body mass index [BMI] 39.0-39.9, adult, Z68.42 - Body mass index [BMI] 45.0-49.9, adult Prothrombin Time INR Today E66.01 - Morbid (severe) obesity due to excess calories, I10 - Essential (primary) hypertension, Z13.220 - Encounter for screening for lipoid disorders, Z68.39 - Body mass index [BMI] 39.0-39.9, adult, Z68.42 - Body mass index [BMI] 45.0-49.9, adult Type and Screen Today E66.01 - Morbid (severe) obesity due to excess calories, I10 - Essential (primary) hypertension, Z13.220 - Encounter for screening for lipoid disorders, Z68.39 - Body mass index [BMI] 39.0-39.9, adult, Z68.42 - Body mass index [BMI] 45.0-49.9, adult Lipid Panel Today E66.01 - Morbid (severe) obesity due to excess calories, I10 - Essential (primary) hypertension, Z13.220 - Encounter for screening for lipoid disorders, Z68.39 - Body mass index [BMI] 39.0-39.9, adult, Z68.42 - Body mass index [BMI] 45.0-49.9, adult C Reactive Protein Today E66.01 - Morbid (severe) obesity due to excess calories, I10 - Essential (primary) hypertension, Z13.220 - Encounter for screening for lipoid disorders, Z68.39 - Body mass index [BMI] 39.0-39.9, adult, Z68.42 - Body mass index [BMI] 45.0-49.9, adult Hemoglobin A1c Today E66.01 - Morbid (severe) obesity due to excess calories, I10 - Essential (primary) hypertension, Z13.220 - Encounter for screening for lipoid disorders, Z68.39 - Body mass index [BMI] 39.0-39.9, adult, Z68.42 - Body mass index [BMI] 45.0-49.9, adult Partial Thromboplastin Time Today E66.01 - Morbid (severe) obesity due to excess calories, I10 - Essential (primary) hypertension, Z13.220 - Encounter for screening for lipoid disorders, Z68.39 - Body mass index [BMI] 39.0-39.9, adult, Z68.42 - Body mass index [BMI] 45.0-49.9, adult Complete Blood Count Auto Diff Today E66.01 - Morbid (severe) obesity due to excess calories, I10 - Essential (primary) hypertension, Z13.220 - Encounter for screening for lipoid disorders, Z68.39 - Body mass index [BMI] 39.0-39.9, adult, Z68.42 - Body mass index [BMI] 45.0-49.9, adult Medications: New pantoprazole 40 mg PO DAILY 90 tabs 0RF K21.9 - Gastro-esophageal reflux disease without esophagitis ondansetron Only take one every 12 hours as needed if you have nausea 4 mg PO Q12H 20 tabs 0RF nausea and vomiting R11.0 - Nausea sucralfate 10 mL PO BID 600 mL 2RF K21.9 - Gastro-esophageal reflux disease without esophagitis polyethylene glycol 3350 Mix each measuring cup with 8oz of water, Crystal light, or Gatorade zero, or Propel and do 7 measuring cups on 11/12/23 and another 7 measuring cups on 11/13/23 17 grams PO DAILY 238 grams 0RF Z01.818 - Encounter for other preprocedural examination
[2023-11-03 08:58] VITALS: BMI 40.5
== END 2023-11-03 09:13 | disposition home or self-care (01) ==
LOC: HO.HBS 08:02
PROVIDERS: PCP Physician Assistant; Visit Provider Surgery
DX: E66.01 Morbid (severe) obesity due to excess calories (principal); Z68.42 Body mass index [BMI] 45.0-49.9, adult
CPT/HCPCS: 99213

== ENCOUNTER → 2023-11-03 08:02 | Outpatient (BNVA) | payer OTHER, SELFPAY | PROVIDERS: PCP Physician Assistant; Visit Provider Surgery ==

== ENCOUNTER → 2023-11-07 07:16 | Outpatient (BNVA) | payer OTHER, SELFPAY | PROVIDERS: PCP Physician Assistant; Visit Provider Surgery ==

== ENCOUNTER 2023-11-14 06:07 | Inpatient (IN) | payer OTHER, SELFPAY ==
[2023-11-02 14:24] VITALS: BMI 40.5
[2023-11-07 06:49] LABS: MANUAL DIFF FLAG NO
[2023-11-07 07:24] LABS: Basophils Absolute Auto 0.1 X10*3/uL (0.0-0.2); Basophils Percent Auto 0.9 % (0-2); Eosinophils Absolute Auto 0.1 X10*3/uL (0.0-0.4); Eosinophils Percent Auto 2.1 % (0-4); Hematocrit 44.6 % (37.0-47.0); Hemoglobin 15.1 g/dl (12.0-16.0); Imm Gran Abs Auto 0.02 X10*3/uL (0.00-0.03); Imm Gran Pct Auto 0.3 % (0.0-0.4); Lymphocytes Absolute Auto 1.3 X10*3/uL (1.2-4.9); Lymphocytes Percent Auto 22.1 % (20-40); Mean Corpuscular HGB Conc 33.9 g/dl (31.0-35.0); Mean Corpuscular Hemoglobin 29.7 pg (27.0-33.0); Mean Corpuscular Volume 87.8 fL (80.0-98.0); Mean Platelet Volume 11.3 fL (9.4-12.3); Monocytes Absolute Auto 0.4 X10*3/uL (0.1-1.2); Monocytes Percent Auto 6.9 % (2-11); Neutrophils Percent Auto 67.7 % (45-73); Platelet Count 278 X10*3/uL (160-400); Red Blood Count 5.08 X10*6/uL (4.20-5.50); Red Cell Distribution Width 13.2 % (11.0-16.0); White Blood Count 5.8 X10*3/uL (4.8-10.8)
[2023-11-07 07:31] LABS: INTERNATIONAL NORM RATIO 1.1 (0.9-1.1); Prothrombin Time 13.4 SEC (11.1-13.3)
[2023-11-07 07:34] LABS: Partial Thromboplastin Time 35.1 SEC (26.0-36.8)
[2023-11-07 07:49] LABS: Estimated Average Glucose 105 mg/dL; Hemoglobin A1c % 5.3 % (<6.0)
[2023-11-07 07:51] LABS: Alanine Aminotransferase 13 U/L (0-31); Albumin Level 4.5 g/dL (3.5-5.0); Alkaline Phosphatase 77 U/L (39-117); Anion Gap 16 (12-20); Aspartate Amino Transferase 15 U/L (5-31); Blood Urea Nitrogen 14 mg/dL (9-16); C Reactive Protein 1.09 mg/dL (< or = 0.50); Calcium 9.6 mg/dL (8.4-10.2); Carbon Dioxide 17 mmol/L (22-29); Chloride 108 mmol/L (96-108); Cholesterol 243 mg/dL (<200); Creatinine Clr Calc Pharmacy 99.9; Estimated Glomerular Filt Rate > 60; Glucose Random 117 mg/dL (60-115); HDL Cholesterol 53 mg/dL (>40); LDL Cholesterol Calculated 173 mg/dL (<100); Potassium 3.7 mmol/L (3.3-5.1); Sodium 137 mmol/L (135-145); Total Protein 7.6 g/dL (6.5-8.0); Triglycerides 89 mg/dL (<150)
[2023-11-07 08:01] LABS: Insulin 12 uU/mL (2-29); TSH reflex Free T4 2.99 uIU/mL (0.32-4.0)
--- NOTE | 2023-11-09 13:11 | HO.ANESPROP2 ---
Documented by User: Ludy Almodovar NP 11/09/23 13:11 HPI - Anesthesia Eval Consult details Narrative: 38yo F for Gastrectomy Sleeve,EGD,possibel Diaphragmatic Hernia,possible Ventral Hernia,possible Open PMFSH Active Problems Active Problems: All Active Problems GERD (gastroesophageal reflux disease) (Acute) BMI 39.0-39.9,adult (Acute) LVH (left ventricular hypertrophy) (Acute) Vitamin D deficiency (Acute) Impaired glucose metabolism (Acute) Hydradenitis (Acute) Heart palpitations (Acute) Sciatic leg pain (Acute) Left foot pain (Acute) Need for MMR vaccine (Acute) Elevated fasting glucose (Acute) Low vitamin D level (Acute) JENNIFER (generalized anxiety disorder) (Acute) Bilateral carpal tunnel syndrome (Acute) Trigger finger of left thumb (Acute) Fatigue (Acute) B12 deficiency (Acute) MDD (major depressive disorder), recurrent episode, moderate (Acute) Obese (Acute) Sinus infection (Acute) HTN (hypertension) (Acute) Obese (Acute) Migraines (Acute) Asthma (Acute) History of opioid abuse (Acute) Screening for hypothyroidism (Acute) Screening for hypercholesterolemia (Acute) HTN (hypertension) (Acute) Screening for diabetes mellitus (DM) (Acute) Annual physical exam (Acute) Depression (Acute) Anxiety (Acute) Morbid obesity (Acute) Past Medical History Medical History GERD (gastroesophageal reflux disease) Seasonal allergies Gastric reflux Back pain History of hepatitis C Morbid obesity Morbid obesity with BMI of 40.0-44.9, adult Anxiety Headache, migraine Depression Hypertension Family History Family History Father Hypertension Kidney stones Retinal detachment Mother Hard of hearing Hyperthyroidism Maternal Grandmother Liver problem Emphysema lung Family history of problems with anesthesia: No Surgical History Surgical History History of esophagogastroduodenoscopy (EGD) (08/23/23) History of carpal tunnel repair History of gastrectomy History of cholecystectomy History of Problems with Anesthesia: No Social History Social History Household Members: Family Housing: Apartment Are you a primary client care specialist to a significant other at home: Yes (son) Do you presently have visiting nurse or other home services: No Alcohol intake: former Comment: no iv Patient Tobacco Use Status: Never used Tobacco e-Cigarette/Vaping Use: Never Used Second Hand Smoke Exposure: Yes Substance Use Type: Marijuana and Opiates Substance Use Type Other:: last used 5.5 years ago Have you been hit, kicked, punched, or otherwise hurt by someone within the past year? 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 Hearing needs: No Vision needs: No Meds Allergies Allergy/AdvReac Type Severity Reaction Status Date / Time Penicillins Allergy Intermediate HIVES, rash Verified 11/03/23 09:01 Sulfa (Sulfonamide Allergy Unknown BURNING, Verified 11/03/23 09:01 Antibiotics) rash [SULFA (SULFONAMIDE ANTIBIOTICS)] sulfamethoxazole Allergy Unknown HIVES Verified 11/03/23 09:01 [From BACTRIM] trimethoprim [From BACTRIM] Allergy Unknown HIVES Verified 11/03/23 09:01 Home Medications ?Medication ?Instructions ?Recorded ?Confirmed ?Last Taken ?Type escitalopram oxalate 20 mg tablet 20 mg PO DAILY 03/04/20 11/03/23 Unknown History ibuprofen 800 mg tablet 400 - 800 mg PO Q8H PRN pain 04/19/22 11/03/23 Unknown History lorazepam 1 mg tablet 1 mg PO DAILY PRN Anxiety 04/19/22 11/03/23 05/30/22 History fexofenadine 180 mg tablet 180 mg PO DAILY 11/02/23 11/03/23 Unknown History omeprazole 20 mg capsule,delayed 20 mg PO DAILY PRN Gastric Reflux 11/02/23 11/03/23 Unknown History release Exam Height,Weight and Vital Signs: Height 5 ft 2.25 in Weight 101.151 kg Pertinent Lab Results Pertinent Lab Results: Laboratory Tests 11/07/23 11/07/23 06:37 06:48 WBC 5.8 RBC 5.08 Hgb 15.1 Hct 44.6 MCV 87.8 MCH 29.7 MCHC 33.9 RDW 13.2 Plt Count 278 MPV 11.3 Immature Gran % (Auto) 0.3 Neut % (Auto) 67.7 Lymph % (Auto) 22.1 Pendleton % (Auto) 6.9 Eos % (Auto) 2.1 Baso % (Auto) 0.9 Lymph # (Auto) 1.3 [place] # (Auto) 0.4 Eos # (Auto) 0.1 Baso # (Auto) 0.1 Abs Immat Gran (auto) 0.02 Absolute Neuts (auto) 4.0 Absolute Nucleated RBC 0.000 Nucleated RBC % (auto) 0.0 PT 13.4 H INR 1.1 APTT 35.1 Sodium 137 Potassium 3.7 Chloride 108 Carbon Dioxide 17 L Anion Gap 16 BUN 14 Creatinine 0.85 Estim Creat Clear Calc 99.9 Estimated GFR > 60 Random Glucose 117 H Estimat Average Glucose 105 Hemoglobin A1c % 5.3 Insulin Level 12 Calcium 9.6 Total Bilirubin 1.0 AST 15 ALT 13 Alkaline Phosphatase 77 C-Reactive Protein 1.09 H Total Protein 7.6 Albumin 4.5 Triglycerides 89 Cholesterol 243 H LDL Cholesterol, Calc 173 H HDL Cholesterol 53 TSH 2.99 Blood Type A Positive Antibody Screen NEGATIVE Narrative Narrative: EKG 2023 Vent. Rate : 052 BPM Atrial Rate : 052 BPM P-R Int : 158 ms QRS Dur : 106 ms QT Int : 450 ms P-R-T Axes : 051 001 014 degrees QTc Int : 418 ms Sinus bradycardia Minimal voltage criteria for LVH, may be normal variant ( [place] product ) Borderline ECG No significant changes when compared with the previous EKG of 31 dec 2021 ECHO 08/2023 Conclusions: - Essentially normal study Assessment and Plan Assessment Anesthesia Assessment: Chart Reviewed Final Anesthetic Review Family History of Problems with Anesthesia: No History of Problems with Anesthesia: No Documented by User: Dena Hernandes MD 11/14/23 08:50 HPI - Anesthesia Eval Consult details Narrative: 38yo F for EGD, Laparoscopic Revision of Sleeve Gastrectomy, possible Diaphragmatic Hernia repair, possible Ventral Hernia repair, possible Open Anesthesia Pre-Procedure Meds If yes to any meds - educate patient: Pt education - possibility of cancelled proc at provider's discretion PMFSH Active Problems Active Problems: oAll Active Problems GERD (gastroesophageal reflux disease) (Acute) BMI 39.0-39.9,adult (Acute) LVH (left ventricular hypertrophy) (Acute) Vitamin D deficiency (Acute) Impaired glucose metabolism (Acute) Hydradenitis (Acute) Heart palpitations (Acute) Sciatic leg pain (Acute) Left foot pain (Acute) Need for MMR vaccine (Acute) Elevated fasting glucose (Acute) Low vitamin D level (Acute) JENNIFER (generalized anxiety disorder) (Acute) Bilateral carpal tunnel syndrome (Acute) Trigger finger of left thumb (Acute) Fatigue (Acute) B12 deficiency (Acute) MDD (major depressive disorder), recurrent episode, moderate (Acute) Obese (Acute) Sinus infection (Acute) HTN (hypertension) (Acute) Obese (Acute) Migraines (Acute) Asthma (Acute) History of opioid abuse (Acute) Screening for hypothyroidism (Acute) Screening for hypercholesterolemia (Acute) HTN (hypertension) (Acute) Screening for diabetes mellitus (DM) (Acute) Annual physical exam (Acute) Depression (Acute) Anxiety (Acute) Morbid obesity (Acute) Denies FRANCESCO Past Medical History Medical History GERD (gastroesophageal reflux disease) Seasonal allergies Gastric reflux Back pain History of hepatitis C Morbid obesity Morbid obesity with BMI of 40.0-44.9, adult Anxiety Headache, migraine Depression Hypertension Family History Family History Father Hypertension Kidney stones Retinal detachment Mother Hard of hearing Hyperthyroidism Maternal Grandmother Liver problem Emphysema lung Family history of problems with anesthesia: No Surgical History Surgical History History of esophagogastroduodenoscopy (EGD) (08/23/23) History of carpal tunnel repair History of gastrectomy History of cholecystectomy Social History Social History Household Members: Family Housing: Apartment Are you a primary client care specialist to a significant other at home: Yes (son) Do you presently have visiting nurse or other home services: No Alcohol intake: former Comment: no iv Patient Tobacco Use Status: Never used Tobacco e-Cigarette/Vaping Use: Never Used Second Hand Smoke Exposure: Yes Substance Use Type: Marijuana and Opiates Substance Use Type Other:: last used 5.5 years ago Have you been hit, kicked, punched, or otherwise hurt by someone within the past year? 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 Hearing needs: No Vision needs: No Meds Allergies Allergy/AdvReac Type Severity Reaction Status Date / Time Penicillins Allergy Intermediate HIVES, rash Verified 11/03/23 09:01 Sulfa (Sulfonamide Allergy Unknown BURNING, Verified 11/03/23 09:01 Antibiotics) rash [SULFA (SULFONAMIDE ANTIBIOTICS)] sulfamethoxazole Allergy Unknown HIVES Verified 11/03/23 09:01 [From BACTRIM] trimethoprim [From BACTRIM] Allergy Unknown HIVES Verified 11/03/23 09:01 Home Medications ?Medication ?Instructions ?Recorded ?Confirmed ?Last Taken ?Type escitalopram oxalate 20 mg tablet 20 mg PO DAILY 03/04/20 11/03/23 Unknown History ibuprofen 800 mg tablet 400 - 800 mg PO Q8H PRN pain 04/19/22 11/03/23 Unknown History lorazepam 1 mg tablet 1 mg PO DAILY PRN Anxiety 04/19/22 11/03/23 05/30/22 History fexofenadine 180 mg tablet 180 mg PO DAILY 11/02/23 11/03/23 Unknown History omeprazole 20 mg capsule,delayed 20 mg PO DAILY PRN Gastric Reflux 11/02/23 11/03/23 Unknown History release Exam Height,Weight and Vital Signs: Height 5 ft 2.25 in Weight 101.151 kg 11/14/23: Height 5 ft 2.25 in Weight 94.858 kg Vital Signs Temp Pulse Resp BP Pulse Ox O2 Del Method 11/14/23 06:33 97.9 F 67 16 102/65 96 Room Air Pertinent Lab Results Pertinent Lab Results: Laboratory Tests 11/07/23 11/07/23 06:37 06:48 WBC 5.8 RBC 5.08 Hgb 15.1 Hct 44.6 MCV 87.8 MCH 29.7 MCHC 33.9 RDW 13.2 Plt Count 278 MPV 11.3 Immature Gran % (Auto) 0.3 Neut % (Auto) 67.7 Lymph % (Auto) 22.1 [place] % (Auto) 6.9 Eos % (Auto) 2.1 Baso % (Auto) 0.9 Lymph # (Auto) 1.3 [place] # (Auto) 0.4 Eos # (Auto) 0.1 Baso # (Auto) 0.1 Abs Immat Gran (auto) 0.02 Absolute Neuts (auto) 4.0 Absolute Nucleated RBC 0.000 Nucleated RBC % (auto) 0.0 PT 13.4 H INR 1.1 APTT 35.1 Sodium 137 Potassium 3.7 Chloride 108 Carbon Dioxide 17 L Anion Gap 16 BUN 14 Creatinine 0.85 Estim Creat Clear Calc 99.9 Estimated GFR > 60 Random Glucose 117 H Estimat Average Glucose 105 Hemoglobin A1c % 5.3 Insulin Level 12 Calcium 9.6 Total Bilirubin 1.0 AST 15 ALT 13 Alkaline Phosphatase 77 C-Reactive Protein 1.09 H Total Protein 7.6 Albumin 4.5 Triglycerides 89 Cholesterol 243 H LDL Cholesterol, Calc 173 H HDL Cholesterol 53 TSH 2.99 Blood Type A Positive Antibody Screen NEGATIVE Laboratory Results - last 24 hr 11/14/23 07:00 Urine Test NEGATIVE Airway Mallampati Class: II TM Dist: >3cm Neck ROM: Full Loose/Missing/Broken Teeth: Yes (Missing 2 teeth top back, 2 bottom left back and 1 top right back) Heart: RRR Lungs: CTAB Assessment and Plan Assessment Anesthesia Assessment: Anesthesia Plan Discussed and Chart Reviewed Final Anesthetic Review Family History of Problems with Anesthesia: No NPO: Yes ASA Class: III Final Preanesthetic Review: No Changes in Pt Med Stat, Meds/Allgs Chart Reviewed, Consent Obtained/Reviewed and Anes Risks/Benef Reviewed Patient Risk: Intermediate Procedure Risk: Intermediate Anesthetic Plan Anesthetic Plan: GA Disposition: Standard PACU and Inp. Admit - Standard Bed
[2023-11-14] VITALS (17 sets, daily range): BP systolic 102–141; BP diastolic 65–86; PULSE 58–96; RESP 14–22; TEMP 36–36.8; O2SAT 95–99; BMI 37.9
--- OUTSIDE RECORDS SUMMARY | 2023-11-14 06:14 | XMS_ITS | Continuity of Care Document ---
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 Name Role Phone Brenda MAITRE D', Yeison Koehler Primary Care Physi barbie [place] [facility] [place] 08/25/[address] [address]- Discharge Disposition: A-D/C Home Attending Physician: Pepper Liang MD Admitting Physician: Pepper Liang MD Referring Physician: Pepper Liang MD Allergies, Adverse Reactions, Alerts Substance Reaction Severity Status penicillins hives Active sulfa drugs hives Active Bactrim hives Active Immunizations Given and Recorded Vaccine Date Status Refusal Reason influenza virus vaccine, inactivated 07/20/21 Give n tetanus/diphtheria/pertussis, acel(Tdap) 06/08/21 Given Medications acetaminophen 325 mg oral tablet 650 mg, By Mouth, Every 4 hours, PRN, (1-3), may give 325mg per patient preference and re-dose [id number] within 4 hours, if needed. Patient should only receive a total of 650mg of Acetaminophen every 4 hours., # 50 tablet, Refills 0, Tot. Refills 0... Start Date: 08/25/21 Status: Ordered Acetaminophen Tablet 650 mg, Tablet, By Mouth, Every 4 hours, PRN for Pain , Mild, (1-3), may give 325mg per patient preference and re-dose with 325mg within 4 hours, if needed. Patient should only receive a total of 650mg of Acetaminophen every 4 hours., Routine, 08/23... Start Date: 08/23/21 Stop Date: 08/25/21 Status: Discontinued docusate sodium 100 mg oral capsule 1 capsule = 100 mg, By Mouth, 2 times a day, PRN Constipation, # 60 capsule, 0 Refills, Maintenance, 08/25/21 8:28:00 EDT, Capsule, [facility]/pharmacy #[id number], Partial fill upon patient request if the prescription is for a schedule II opioid drug., 158, cm, 0... Start Date: 08/25/21 Status: Ordered escitalopram 20 mg oral tablet 1 tablet = 20 mg, By Mouth, Daily in AM, # 30 tablet, 0 Refills, Maintenance, 11/19/19 11:05:00 EDT, Tablet Start Date: 11/19/19 Status: Ordered ferrous sulfate 325 mg oral enteric coated tablet 325 mg, By Mouth, Daily, # 60 tablet, Refills 0, Tot. Refills 0, Maintenance, 08/25/21 8:28:00 EDT,Route to Pharmacy Electronically, [facility]/pharmacy #[id number], Partial fill upon patient request if the prescription is for a schedule II opioid drug., 158, cm,... Start Date: 08/25/21 Status: Ordered Heartburn Relief 10 mg oral tablet 1 tablet, By Mouth, 2 times a day, # 60 tablet, 1 Refills, [facility] [id number], 157.48, cm, 07/06/21 13:51:00 EDT, Height, 101.3, kg, 11/22/19 7:03:00 EDT, Dry Weight Start Date: 07/15/21 Status: Ordered ibuprofen 800 mg oral tablet 800 mg, 1, tablet, By Mouth, Every 8 hours, PRN, (4-6), may give 400mg per patient preference and re-dose with 400mg within 8 hours if needed. Patient should only receive a total of 800mg of Ibuprofen every 8 hours., # 60 tablet, Refills 0, Tot. Ref... Start Date: 08/25/21 Status: Ordered Ibuprofen Tablet 800 mg, Tablet, By Mouth, Every 8 hours, PRN for Pain , Moderate, (4-6), may give 400mg per patientpreference and re-dose with 400mg within 8 hours if needed. Patient should only receive a total of 800mg of Ibuprofen every 8 hours., Routine, ... Start Date: 08/23/21 Stop Date: 08/25/21 Status: Discontinued Magnesium Oxide By Mouth, 0 Refills, Maintenance, 04/19/21 15:28:00 EST, Partial fill upon patient request if the prescription is for a schedule II opioid drug. Start Date: 04/19/21 Status: Ordered MiraLax oral powder for reconstitution = 17 Gm, By Mouth, Daily, dissolve in water before taking, # 255 Gm, 0 Refills, Maintenance, 04/12/21 14:38:00 EST, REC Powder, [facility]/pharmacy #[id number], Partial fill upon patient request if the prescription is for a schedule II opioid drug., 17 Gm By Mouth... Start Date: 04/12/21 Status: Ordered Multivitamins with Folic Acid 1 mg oral tablet 1 tablet, By Mouth, Daily, # 90 tablet, 3 Refills, Maintenance, 01/20/21 10:25:00 EST, Tablet, [facility]/pharmacy #[id number], Partial fill upon patient request if the prescription is for a schedule II opioid drug., 1 tablet By Mouth Daily, 157.48, cm, 01/20/21 8... Start Date: 01/20/21 Status: Ordered ProAir HFA 90 mcg/inh inhalation aerosol with adapter 2, puffs, Inhalation, Every 6 hours, PRN, # 8.5 each, Refills 0, Route to Pharmacy Electronically, [id number], [id number], 157.48, cm, 08/03/21 8:20:00 EDT, Height, 101.3, kg, 11/22/19 7:03:00 EDT, Dry Weight Start Date: 08/09/21 Status: Ordered propranolol 20 mg oral tablet 20 mg, 1, tablet, By Mouth, 2 times a day, # 180 tablet, Refills 1, Tot. Refills 1, Maintenance, 05/11/21 9:21:00 EST, Route to Pharmacy Electronically, [facility]/pharmacy #[id number], Partial fill upon patient request if the prescription is for a schedule II opi... Start Date: 05/11/21 Status: Ordered propranolol 20 mg oral tablet 20 mg, Tablet, By Mouth, 08/25/21 9:00:00 EDT Start Date: 08/25/21 Stop Date: 08/25/21 Status: Completed Vitamin B12 500 mcg oral tablet 1 tablet = 500 mcg, By Mouth, Daily, # 30 tablet, 3 Refills, Maintenance, 07/02/21 16:55:00 EDT, Tablet, [facility]/pharmacy #[id number], Partial fill upon patient request if the prescription is for a schedule IIopioid drug., 157.48, cm, 06/22/21 8:22:00 EDT, Hei... Start Date: 07/02/21 Status: Ordered Problem List Condition Effective Dates Status Health Status Inform ant H/O Abnormal Pap smear of cervix(Confirmed) 1 Active Asthma(Confirmed) 2 Active Gestational diabetes(Confirmed) Active History of alcohol abuse(Confirmed) 3 Active H/O gastric sleeve surgery(Confirmed) Active History of hepatitis C(Confirmed) 4 Active History of substance abuse(C onfirmed) 5 Active Hypertension(Confirmed) 6 Active Migraines(Confirmed) 7 Active Anxiety and depression(Confirmed) 8 Active Advanced maternal age in multigravida(Confirmed) Active Polyhydramnios in third trimester(Confirmed) Active H/O Premature rupture of membranes(Confirmed) 03/18/10 Active Severe obesity(Confirmed) Active Vitamin D Deficiency(Confirmed) Active 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 Last PAP was done last year unsure of results 2Managed by PCP. Has rescue inhaler if needed 3In recovery x3 years 4Received treatment 2016 and 2018 5In recovery x 3 years 6Was previously taking Propanolol. Was discontinued about 2.5 weeks by psychiatrist 7Takes Imovig monthly-has not taken since . Advised to follow up with neuro 8Receives weekly therapy through [facility]. Feels safe and stable at current time per patient Vital Signs Most recent to oldest [Reference Range]: 1 2 3 Height 158 cm (08/25/21 8:10 AM) 158 cm (08/25/21 12:00 AM) 158 cm (08/24/21 4:00 PM) Weight 110.8 kg (08/22/21 9:30 PM) Oxygen Saturation [94-100 %] 100 % (08/25/21 12:00 AM) 99 % (08/24/21 4:00 PM) 97 % (08/24/21 8:00 AM) Pulse Rate [55-90 bpm] 107 bpm *H* (08/25/21 10:31 AM) 66 bpm (08/25/21 8:10 AM) 73 bpm (08/25/21 12:00 AM) Body Mass Index [18.5-24.99] 44.38 *>HHI* (08/22/21 9:30 PM) Blood Pressure [90-138/55-84 mm Hg] 140/83mm Hg *H* (08/25/21 10:31 AM) 131/81mm Hg (08/25/21 8:10 AM) 132/75mm Hg (08/25/21 12:00 AM) Respiratory Rate [16-30 br/min] 18 br/min (08/25/21 9:41 AM) 18 br/min (08/25/21 9:41 AM) 18 br/min (08/25/21 8:10 AM) Temperature [96.8-100.4 DegF] 98.6 DegF (08/25/21 8:10 AM) 98.3 DegF (08/25/21 12:00 AM) 98.4 DegF (08/24/21 4:00 PM) Mode of Delivery (Oxygen) Room air (08/25/21 12:00 AM) Room air (08/24/21 4:00 PM) Room air (08/24/21 8:00 AM) Blood pressure sites Arm, right (08/25/21 8:10 AM) Arm, right (08/24/21 4:00 PM) Arm, left (08/24/21 8:00 AM) Temperature Route Oral (08/25/21 8:10 AM) Oral (08/25/21 12:00 AM) Oral (08/24/21 4:00 PM) Dry Weight 110.8 kg (08/22/21 9:30 PM) Social History Social History Type Response Smoking Status Former smoker, quit more than 30 days ago entered on: 01/20/21 Sex
--- OUTSIDE RECORDS SUMMARY | 2023-11-14 06:14 | XMS_ITS | Continuity of Care Document ---
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 Role Phone Not on Staff, PCP Primary Care Physician Unavail able [place] [facility] [place] - 10/28/[address] [address]- Allergies, Adverse Reactions, Alerts Substance Reaction Severity Status penicillins hives Active sulfa drugs hives Active Bactrim hives Active Immunizations Given and Recorded Vaccine Date Status Refusal Reason influenza virus vaccine, inactivated 07/20/21 Give n tetanus/diphtheria/pertussis, acel(Tdap) 06/08/21 Given Medications acetaminophen 325 mg oral tablet 2, tablet, By Mouth, Every 4 hours, PRN, # 50 tablet, Refills 0, NEEDED FOR PAIN, Route to Pharmacy Electronically, [facility] [id number], 158, cm, 10/05/21 8:45:00 EDT, Height, 110.8, kg, 08/22/21 21:30:00 EDT, Dry Weight Start Date: 10/18/21 Status: Ordered docusate sodium 100 mg oral capsule See Instructions, TAKE 1 CAPSULE BY MOUTH TWICE A DAY NEEDED FOR CONSTIPATION, # 60 capsule, 0 Refills, [id number], 158, cm, 08/25/21 8:32:00 EDT, Height, 110.8, kg, 08/22/21 21:30:00 EDT, Dry Weight Start Date: 09/28/21 Status: Ordered escitalopram 20 mg oral tablet 1 tablet = 20 mg, By Mouth, Daily in AM, # 30 tablet, 0 Refills, Maintenance, 11/19/19 11:05:00 EDT, Tablet Start Date: 11/19/19 Status: Ordered ferrous sulfate 325 mg oral enteric coated tablet 1, tablet, By Mouth, Daily, # 30 tablet, Refills 1, Route to Pharmacy Electronically, [facility] [id number], 158, cm, 10/05/21 8:45:00 EDT, Height, 110.8, kg, 08/22/21 21:30:00 EDT, Dry Weight Start Date: 10/18/21 Status: Ordered Heartburn Relief 10 mg oral tablet 1 tablet, By Mouth, 2 times a day, # 60 tablet, 1 Refills, [facility] [id number], 158, cm, 08/25/21 8:32:00 EDT, Height, 110.8, kg, 08/22/21 21:30:00 EDT, Dry Weight Start Date: 09/09/21 Status: Ordered ibuprofen 800 mg oral tablet 1/2-1 TABLET, By Mouth, Every 8 hours, PRN, # 60 tablet, Refills 0, NEEDED FOR PAIN, Route to Pharmacy Electronically, [facility] [id number], 158, cm, 10/05/21 8:45:00 EDT, Height, 110.8, kg, 08/22/21 21:30:00 EDT, Dry Weight Start Date: 10/18/21 Status: Ordered Liletta 52 mg intrauterine device 1 each = 52 mg, Once, 0 Refills, Maintenance, 10/05/21 9:51:00 EDT, Partial fill upon patient request if the prescription is for a schedule II opioid drug. Start Date: 10/05/21 Status: Ordered Magnesium Oxide By Mouth, 0 Refills, Maintenance, 04/19/21 15:28:00 EST, Partial fill upon patient request if the prescription is for a schedule II opioid drug. Start Date: 04/19/21 Status: Ordered MiraLax oral powder for reconstitution = 17 Gm, By Mouth, Daily, dissolve in water before taking, # 255 Gm, 0 Refills, Maintenance, 04/12/21 14:38:00 EST, REC Powder, [facility]/pharmacy #[id number], Partial fill upon patient request if the prescription is for a schedule II opioid drug., 17 Gm By Mouth... Start Date: 04/12/21 Status: Ordered Multivitamins with Folic Acid 1 mg oral tablet 1 tablet, By Mouth, Daily, # 90 tablet, 3 Refills, Maintenance, 01/20/21 10:25:00 EST, Tablet, [facility]/pharmacy #[id number], Partial fill upon patient request if the prescription is for a schedule II opioid drug., 1 tablet By Mouth Daily, 157.48, cm, 01/20/21 8... Start Date: 01/20/21 Status: Ordered ProAir HFA 90 mcg/inh inhalation aerosol with adapter 2, puffs, Inhalation, Every 6 hours, PRN, # 8.5 each, Refills 0, Route to Pharmacy Electronically, [id number], [id number], 158, cm, 10/05/21 8:45:00 EDT, Height, 110.8,kg, 08/22/21 21:30:00 EDT, Dry Weight Start Date: 10/18/21 Status: Ordered propranolol 20 mg oral tablet 20 mg, 1, tablet, By Mouth, 2 times a day, # 180 tablet, Refills 1, Tot. Refills 1, Maintenance, 05/11/21 9:21:00 EST, Route to Pharmacy Electronically, [facility]/pharmacy #[id number], Partial fill upon patient request if the prescription is for a schedule II opi... Start Date: 05/11/21 Status: Ordered Vitamin B12 500 mcg oral tablet 1 tablet = 500 mcg, By Mouth, Daily, # 30 tablet, 3 Refills, Maintenance, 07/02/21 16:55:00 EDT, Tablet, [facility]/pharmacy #[id number], Partial fill upon patient request if [...] up with neuro 8Receives weekly therapy through [facility]. Feels safe and stable at current time per patient Social History Social History Type Response Smoking Status Former smoker, quit more than 30 days ago entered on: 01/20/21 Sex
--- OUTSIDE RECORDS SUMMARY | 2023-11-14 06:14 | XMS_ITS | Continuity of Care Document ---
Author Organization [facility] ter Address [address] [place] [address]- Care Team Providers Care Locomotive Supervisor Name Role Phone Brenda TEJADA, Yeison Koehler Primary Care Physi barbie [place] [facility] [place]/[address] [address]- [facility] Discharge Disposition: A-D/C Home Attending Physician: Sriram Benton MD Admitting Physician: Sriram Benton MD Referring Physician: Sriram Benton MD Allergies, Adverse Reactions, Alerts Substance Reaction Severity Status penicillins hives Active sulfa drugs hives Active Bactrim hives Active Medications Aimovig SureClick Autoinjector 70 mg/mL subcutaneous solution Subcutaneous Infusion, Every 28 days, migraines, 0 Refills, Maintenance, 11/19/19 11:07:00 EDT Start Date: 11/19/19 Status: Ordered budesonide-formoterol 160 mcg-4.5 mcg/inh inhalation aerosol with adapter 2, puffs, Inhalation, 2 times a day, # 6 Gm, Refills 0, Maintenance, 11/19/19 10:58:00 EDT, Aerosol Start Date: 11/19/19 Status: Ordered escitalopram 20 mg oral tablet 1 tablet = 20 mg, By Mouth, Daily in AM, # 30 tablet, 0 Refills, Maintenance, 11/19/19 11:05:00 EDT, Tablet Start Date: 11/19/19 Status: Ordered folic acid 1 mg oral tablet 1 mg, 1, tablet, By Mouth, Daily in AM, # 30 tablet, Refills 0, Maintenance, 11/19/19 11:06:00 EDT Start Date: 11/19/19 Status: Ordered Mirena 52 mg intrauterine device 1 each = 52 mg, Once, 0 Refills, Maintenance, 11/19/19 11:08:00 EDT Start Date: 11/19/19 Status: Ordered Multi-Vitamin Multi-Vitamin, 1, tablet, By Mouth, Daily in AM, Refills 0, Maintenance, 01/16/13 11:01:27 EST, Compound Start Date: 01/16/13 Status: Ordered Propranolol 20 mg, By Mouth, 3 times a day, Refills 0, Maintenance, 11/19/19 11:04:00 EDT Start Date: 11/19/19 Status: Ordered Vivitrol Inj = 380 mg, Intramuscular, Every 28 days, for treatment of opiate abuse., 0 Refills, Maintenance, 01/19/19 20:49:17 EST Start Date: 01/19/19 Status: Ordered Problem List Condition Effective Dates Status Health Status Inform ant Asthma(Confirmed) Active Carpal Tunnel Syndrome(Confirmed) Active Gestational diabetes(Confirmed) Active Glucose intolerance (pre-diabetes)(Confirmed) Active Hypertension(Confirmed) Active Morbid obesity(Confirmed) Active Vitamin D Deficiency(Confirmed) Active Results Orders for Microbiology Reports Name Date Anaerobic Culture (ANAEROBIC CULTURE) 01/30 Fungal Culture, Nonrespiratory (FUNGAL C ULT,NON-RESPIRATORY) 11/22/19 Wound Deep Culture w/ Gram Smear (DEEP W OUND CULTURE) 11/22/19 Microbiology Reports TEST:Anaerobic Culture STATUS:Unauthenticated BODY SITE: SOURCE:WOUND COLLECTED DATE/TIME:11/22/19 10:12 AM Anaerobic Culture SPECIMEN DESCRIPTION : WOUND R NASAL SEPTUM SPECIAL REQUESTS : NONE REPORT STATUS : PRELIMINARY REPORT TEST:Deep Wound Culture STATUS:Unauthenticated BODY SITE: SOURCE:WOUND COLLECTED DATE/TIME:11/22/19 10:12 AM Deep Wound Culture SPECIMEN DESCRIPTION : WOUND NASAL SEPTUM RT SPECIAL REQUESTS : NONE GRAM STAIN : 3+ POLYMORPHONUCLEAR LEUKOCYTES 2+ GRAM POSITIVE COCCI REPORT STATUS : PRELIMINARY REPORT TEST:Fungal Culture, Non-Respiratory STATUS:Unauthenticated BODY SITE: SOURCE:WOUND COLLECTED DATE/TIME:11/22/19 10:12 AM Fungal Culture, Non-Respiratory SPECIMEN DESCRIPTION : WOUND R NASAL SEPTUM SPECIAL REQUESTS : NONE REPORT STATUS : PRELIMINARY REPORT Vital Signs Most recent to oldest [Reference Range]: 1 2 3 Height 157.48 cm (11/22/19 7:03 AM) 157.48 cm (11/19/19 11:33 AM) Weight 102.0 kg (11/22/19 7:03 AM) 102.0 kg (11/19/19 11:33 AM) Oxygen Saturation [94-100 %] 98 % (11/22/19 11:30 AM) 98 % (11/22/19 11:15 AM) 97 % (11/22/19 11:00 AM) Pulse Rate [55-90 bpm] 56 bpm (11/22/19 7:03 AM) Body Mass Index [18.5-24.99] 41.13 *>HHI* (11/22/19 7:03 AM) 41.13 *>HHI* (11/19/19 11:33 AM) Blood Pressure [90-138/55-84 mm Hg] 149/125mm Hg *H* (11/22/19 11:30 AM) 160/96mm Hg *H* (11/22/19:15 AM) 155/101mm Hg *H* (11/22/19 11:00 AM) Respiratory Rate [16-30 br/min] 12 br/min *L* (11/22/19 11:30 AM) 14 br/min *L* (11/22/19 11:15 AM) 14 br/min *L* (11/22/19 11:00 AM) Temperature [96.8-100.4 DegF] 96.7 DegF *L* (11/22/19 11:45 AM) 99.0 DegF (11/22/19 10:45 AM) 97.5 DegF (11/22/19 7:03 AM) Mode of Delivery (Oxygen) Room air (11/22/19 11:45 AM) Room air (11/22/19 11:30 AM) Room air (11/22/19 11:15 AM) Blood pressure sites Arm, right (11/22/19 11:15 AM) Arm, left (11/22/19 11:00 AM) Arm, right (11/22/19 10:45 AM) Temperature Route Temporal (11/22/19 11:45 AM) Temporal (11/22/19 10:45 AM) Temporal (11/22/19 7:03 AM) Dry Weight 101.3 kg (11/22/19 7:03 AM) 102.0 kg (11/19/19 11:33 AM) Weight Obtained Via Patient/family state d (11/19/19 11:33 AM) Dry Weight Obtained Via Standing scale (11/22/19 7:03 AM) Patient/family stated (11/19/19 11:33 AM) Social History Social History Type Response Smoking Status Former smoker entered on: 12/11/14 Sex Female
--- OUTSIDE RECORDS SUMMARY | 2023-11-14 06:14 | XMS_ITS | Continuity of Care Document ---
Author Organization [facility] Address [address] [place] [address]- Care Team Providers Care Dean Of Chapel Name Role Phone Not on Staff, PCP Primary Care Physician Unavail able [place] [facility] [place] 03/27/[address] [address]- Attending Physician: Not on Staff, Attending MD Allergies, Adverse Reactions, Alerts Substance Reaction [...] NEEDED FOR PAIN, Route to Pharmacy Electronically, [facility]68, 158, cm, 10/05/21 8:45:00 EDT, Height, 110.8, kg, 08/22/21 21:30:00 EDT, Dry Weight Start Date: 10/18/21 Status: Ordered docusate sodium 100 mg oral capsule 1 capsule, By Mouth, 2 times a day, PRN NEEDED FOR CONSTIPATION, # 60 capsule, 0 Refills, Maintenance, 11/22/21 5:03:00 EDT, [facility] STORE 22175, 158, cm, 11/03/21 8:47:00 EDT, Height, 110.8, kg, 08/22/21 21:30:00 EDT, Dry Weight Start Date: 11/22/21 Status: Ordered escitalopram 20 mg oral tablet 1 tablet = 20 mg, By Mouth, Daily in AM, # 30 tablet, 0 Refills, Maintenance, 11/19/19 11:05:00 EDT, Tablet Start Date: 11/19/19 Status: Ordered ferrous sulfate 325 mg oral enteric coated tablet 1, tablet, By Mouth, Daily, # 30 tablet, Refills 1, Route to Pharmacy Electronically, [facility]ORE 85308, 158, cm, 10/05/21 8:45:00 EDT, Height, 110.8, kg, 08/22/21 21:30:00 EDT, Dry Weight Start Date: 10/18/21 Status: Ordered Heartburn Relief 10 mg oral tablet 1 tablet, By Mouth, 2 times a day, # 60 tablet, 1 Refills, [facility], 158, cm, 08/25/21 8:32:00 EDT, Height, 110.8, kg, 08/22/21 21:30:00 EDT, Dry Weight Start Date: 09/09/21 Status: Ordered ibuprofen 800 mg oral tablet 1/2-1 TABLET, By Mouth, Every 8 hours, PRN, # 60 tablet, Refills 0, Maintenance, NEEDED FOR PAIN, 01/11/22 15:34:00 EDT, Route to Pharmacy Electronically, [facility]ORE [address]9977, 158, cm, 11/03/21 8:47:00 EDT, Height, 110.8, kg, 08/22/21 21:30:00 EDT, Dry... Start Date: 01/11/22 Status: Ordered Liletta 52 mg intrauterine device 1 each = 52 mg, Once, 0 Refills, Maintenance, 10/05/21 9:51:00 EDT, Partial fill upon patient request if the prescription is for a schedule II opioid drug. Start Date: 10/05/21 Status: Ordered Multivitamins with Folic Acid 1 mg oral tablet 1 tablet, By Mouth, Daily, # 90 tablet, 3 Refills, Maintenance, 01/20/21 10:25:00 EST, Tablet, [facility]/pharmacy #[id number], Partial fill upon patient request if the prescription is for a schedule II opioid drug., 1 tablet By Mouth Daily, 157.48, cm, 01/20/21 8... Start Date: 01/20/21 Status: Ordered ProAir HFA 90 mcg/inh inhalation aerosol with adapter 2, puffs, Inhalation, Every 6 hours, PRN, # 8.5 each, Refills 0, Route to Pharmacy Electronically, [id number], [facility], 158, cm, 10/05/21 8:45:00 EDT, Height, 110.8,kg, 08/22/21 21:30:00 EDT, Dry Weight Start Date: 10/18/21 Status: Ordered propranolol 20 mg oral tablet 20 mg, 1, tablet, By Mouth, 2 times a day, # 180 tablet, Refills 1, Tot. Refills 1, Maintenance, 05/11/21 9:21:00 EST, Route to Pharmacy Electronically, [facility]/pharmacy #[id number], Partial fill upon patient request if the prescription is for a schedule II opi... Start Date: 05/11/21 Status: Ordered Vitamin B-12 500 mcg oral tablet 1 tablet, By Mouth, Daily, # 30 tablet, 3 Refills, Maintenance, 12/20/21 15:45:00 EDT, [facility]ORE [facility]68, 158, cm, 11/03/21 8:47:00 EDT, Height, 110.8, kg, 08/22/21 21:30:00 EDT, Dry Weight Start Date: 12/20/21 Status: Ordered Problem List Condition Confirmation Course Effective Dates Status Health St atus Informant H/O Abnormal Pap smear of cervix 1 Confirmed Active Asthma 2 Confirmed Active History of alcohol abuse 3 Confirmed Active H/O gastric sleeve surgery Confirmed Active History of hepatitis C 4 Confirmed Active History of substance abuse 5 Confirmed Active Hypertension 6 Confirmed Active Migraines 7 Confirmed Active Anxiety and depression 8 Confirmed Active Severe obesity Confirmed Active Vitamin D Deficiency Confirmed Active 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 Last PAP was done last year unsure of results 2Managed by PCP. Has rescue inhaler if needed 3In recovery x3 years 4Received treatment 2017 and 2019 5In recovery x 3 years 6Was previously taking Propanolol. Was discontinued about 2.5 weeks by psychiatrist 7Takes Imovig monthly-has not taken since . Advised to follow up with neuro 8Receives weekly therapy through [facility]. Feels safe and stable at current time per patient Social History Social History Type Response Smoking Status Former smoker, quit more than 30 days ago entered on: 01/20/21 Sex Patient Care team information Care Team Personnel Name: Not on Staff, PCP Position: [facility] Physician (General Medicine) Member Role: PCP Name: Kathy Driver RN Position: [facility] RN Member Role: Primary Care Nurse Care Team Related Persons Name: VLADIMIRMINDA Address: home [address] [place] [address] Name: JOHANNE GILBERT Address: [employer] Address: home [address] [place] [address] Name: WILL DEL RIO Address: home [address] [place] [address]
--- OUTSIDE RECORDS SUMMARY | 2023-11-14 06:14 | XMS_ITS | Continuity of Care Document ---
Author Organization [facility]ell Address [address] [place] [address] [address] [place] [address]- Care Team Providers Care Production Control Scheduler Name Role Phone Not on Staff, PCP Primary Care Physician Unavail able Encounter [facility] Date(s): 09/16/21 - 10/16/21 [facility] [address] [place] [address]- Allergies, Adverse Reactions, Alerts Substance Reaction Severity Status penicillins hives Active sulfa drugs hives Active Bactrim hives Active Immunizations Given and Recorded Vaccine Date Status Refusal Reason influenza virus vaccine, inactivated 07/20/21 Give n tetanus/diphtheria/pertussis, acel(Tdap) 06/08/21 Given Medications acetaminophen 325 mg oral tablet 650 mg, By Mouth, Every 4 hours, PRN, (1-3), may give 325mg per patient preference and re-dose [id number] within 4 hours, if needed. Patient should only receive a total of 650mg of Acetaminophen every 4 hours., # 50 tablet, Refills 0, Tot. Refills 0... Start Date: 08/25/21 Status: Ordered docusate sodium 100 mg oral capsule See Instructions, TAKE 1 CAPSULE BY MOUTH TWICE A DAY NEEDED FOR CONSTIPATION, # 60 capsule, 0 Refills, [facility], 158, cm, 08/25/21 8:32:00 EDT, Height, 110.8, kg, 08/22/21 21:30:00 EDT, Dry Weight Start Date: 09/28/21 Status: Ordered escitalopram 20 mg oral tablet 1 tablet = 20 mg, By Mouth, Daily in AM, # 30 tablet, 0 Refills, Maintenance, 11/19/19 11:05:00 EDT, Tablet Start Date: 11/19/19 Status: Ordered ferrous sulfate 325 mg oral enteric coated tablet See Instructions, TAKE 1 TABLET BY MOUTH EVERY DAY, # 30 tablet, Refills 1, Instructions Replace Required Details, Route to Pharmacy Electronically, [facility] 95[facility], 158, cm, 08/25/21 8:32:00 EDT, Height, 110.8, kg, 08/22/21 21:30:00 EDT, Dry Weight Start Date: 09/17/21 Status: Ordered Heartburn Relief 10 mg oral tablet 1 tablet, By Mouth, 2 times a day, # 60 tablet, 1 Refills, [facility] 478[facility], 158, cm, 08/25/21 8:32:00 EDT, Height, 110.8, kg, 08/22/21 21:30:00 EDT, Dry Weight Start Date: 09/09/21 Status: Ordered ibuprofen 800 mg oral tablet See Instructions, TAKE 1/2-1 TABLET BY MOUTH EVERY 8 HOURS NEEDED FOR PAIN, # 60 tablet, Refills0, Instructions Replace Required Details, Route to Pharmacy Electronically, [facility] 74327, 158, cm, 08/25/21 8:32:00 EDT, Height, 110.8, kg, 08/22/21... Start Date: 09/28/21 Status: Ordered Liletta 52 mg intrauterine device [...] Refills, Maintenance, 04/12/21 14:38:00 EST, REC Powder, [facility]/pharmacy #[id number], Partial fill upon patient request if the prescription is for a schedule II opioid drug., 17 Gm By Mouth... Start Date: 04/12/21 Status: Ordered Multivitamins with Folic Acid 1 mg oral tablet 1 tablet, By Mouth, Daily, # 90 tablet, 3 Refills, Maintenance, 01/20/21 10:25:00 EST, Tablet, [facility]/pharmacy #[id number], Partial fill upon patient request if the prescription is for a schedule II opioid drug., 1 tablet By Mouth Daily, 157.48, cm, 01/20/21 8... Start Date: 01/20/21 Status: Ordered ProAir HFA 90 mcg/inh inhalation aerosol with adapter 2, puffs, Inhalation, Every 6 hours, PRN, # 8.5 each, Refills 0, Route to Pharmacy Electronically, [id number], [facility], 158, cm, 08/25/21 8:32:00 EDT, Height, 110.8,kg, 08/22/21 21:30:00 EDT, Dry Weight Start Date: 09/07/21 Status: Ordered propranolol 20 mg oral tablet 20 mg, 1, tablet, By Mouth, 2 times a day, # 180 tablet, Refills 1, Tot. Refills 1, Maintenance, 05/11/21 9:21:00 EST, Route to Pharmacy Electronically, [facility]/pharmacy #[id number], Partial fill upon patient request if the prescription is for a schedule II opi... Start Date: 05/11/21 Status: Ordered Vitamin B12 500 mcg oral tablet 1 tablet = 500 mcg, By Mouth, Daily, # 30 tablet, 3 Refills, Maintenance, 07/02/21 16:55:00 EDT, Tablet, [facility]/pharmacy #[id number], Partial fill upon patient request [...] up with neuro 8Receives weekly therapy through [facility]. Feels safe and stable at current time per patient Social History Social History Type Response Smoking Status Former smoker, quit more than 30 days ago entered on: 01/20/21 Sex
--- OUTSIDE RECORDS SUMMARY | 2023-11-14 06:14 | XMS_ITS | Continuity of Care Document ---
Author Organization [facility] Address [address] [place] [address]- Care Team Providers Care Mechanical Cad Designer Name Role Phone Not on Staff, PCP Primary Care Physician Unavail able Encounter [facility] [place] Date(s): 08/26/21 - 09/25/[address] [address]- Allergies, Adverse Reactions, Alerts Substance Reaction Severity Status penicillins hives Active sulfa drugs hives Active Bactrim hives Active Immunizations Given and Recorded Vaccine Date Status Refusal Reason influenza virus vaccine, inactivated 07/20/21 Give n tetanus/diphtheria/pertussis, acel(Tdap) 06/08/21 Given Medications acetaminophen 325 mg oral tablet 650 mg, By Mouth, Every 4 hours, PRN, (1-3), may give 325mg per patient preference and re-dose [id number] within 4 hours, if needed. Patient should only receive a total of 650mg of Acetaminophen every 4 hours., # 50 tablet, Refills 0, Tot. Refills 0... Start Date: 08/25/21 Status: Ordered docusate sodium 100 mg oral capsule 1 capsule = 100 mg, By Mouth, 2 times a day, PRN Constipation, # 60 capsule, 0 Refills, Maintenance, 08/25/21 8:28:00 EDT, Capsule, [id number], Partial fill upon patient request if the [...] Replace Required Details, Route to Pharmacy Electronically, [facility], 158, cm, 08/25/21 8:32:00 EDT, Height, 110.8, kg, 08/22/21 21:30:00 EDT, Dry Weight Start Date: 09/17/21 Status: Ordered Heartburn Relief 10 mg oral tablet 1 tablet, By Mouth, 2 times a day, # 60 tablet, 1 Refills, [facility], 158, cm, 08/25/21 8:32:00 EDT, Height, 110.8, [...] Tot. Ref... Start Date: 08/25/21 Status: Ordered Magnesium Oxide By Mouth, 0 Refills, Maintenance, 04/19/21 15:28:00 EST, Partial fill upon patient request if the prescription is for a schedule II opioid drug. Start Date: 04/19/21 Status: Ordered MiraLax oral powder for reconstitution = 17 Gm, By Mouth, Daily, dissolve in water before taking, # 255 Gm, 0 Refills, Maintenance, 04/12/21 14:38:00 EST, REC Powder, [facility]/pharmacy #[id number], Partial fill upon patient request if the prescription is for a schedule II opioid drug., 17 Gm By Mouth... Start Date: 04/12/21 Status: Ordered Multivitamins with Folic Acid 1 mg oral tablet 1 tablet, By Mouth, Daily, # 90 tablet, 3 Refills, Maintenance, 01/20/21 10:25:00 EST, Tablet, [facility]/pharmacy #[id number], Partial fill upon patient request if the prescription is for a schedule II opioid drug., 1 tablet By Mouth Daily, 157.48, cm, 01/20/21 8... Start Date: 01/20/21 Status: Ordered ProAir HFA 90 mcg/inh inhalation aerosol with adapter 2, puffs, Inhalation, Every 6 hours, PRN, # 8.5 each, Refills 0, Route to Pharmacy Electronically, [id number], [facility], 158, cm, 08/25/21 8:32:00 EDT, Height, 110.8,kg, 08/22/21 21:30:00 EDT, Dry Weight Start Date: 09/07/21 Status: Ordered propranolol 20 mg oral tablet 20 mg, 1, tablet, By Mouth, 2 times a day, # 180 tablet, Refills 1, Tot. Refills 1, Maintenance, 05/11/21 9:21:00 EST, Route to Pharmacy Electronically, [facility]/pharmacy #[id number], Partial fill upon patient request if the prescription is for a schedule II opi... Start Date: 05/11/21 Status: Ordered Vitamin B12 500 mcg oral tablet 1 tablet = 500 mcg, By Mouth, Daily, # 30 tablet, 3 Refills, Maintenance, 07/02/21 16:55:00 EDT, Tablet, [facility]/pharmacy #[id number], Partial fill upon patient request if [...] up with neuro 8Receives weekly therapy through [facility]. Feels safe and stable at current time per patient Social History Social History Type Response Smoking Status Former smoker, quit more than 30 days ago entered on: 01/20/21 Sex
--- OUTSIDE RECORDS SUMMARY | 2023-11-14 06:14 | XMS_ITS | Continuity of Care Document ---
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 Name Role Phone Not on Staff, PCP Primary Care Physician Unavail able Encounter [facility] Date(s): 09/17/21 - 10/17/[address] [address]- Allergies, Adverse Reactions, Alerts Substance Reaction Severity Status penicillins hives Active sulfa drugs hives Active Bactrim hives Active Immunizations Given and Recorded Vaccine Date Status Refusal Reason influenza virus vaccine, inactivated 07/20/21 Give n tetanus/diphtheria/pertussis, acel(Tdap) 06/08/21 Given Medications acetaminophen 325 mg oral tablet 650 mg, By Mouth, Every 4 hours, PRN, (1-3), may give 325mg per patient preference and re-dose [id number] within 4 hours, if needed. Patient should only receive a total of 650mg of Acetaminophen every 4 hours., # 50 tablet, Refills 0, Tot. Refills 0... Start Date: 08/25/21 Status: Ordered docusate sodium 100 mg oral capsule See Instructions, TAKE 1 CAPSULE BY MOUTH TWICE A DAY NEEDED FOR CONSTIPATION, # 60 capsule, 0 Refills, [facility] ST[facility] 47350, 158, cm, 08/25/21 8:32:00 EDT, Height, 110.8, [...] Replace Required Details, Route to Pharmacy Electronically, [facility] 38295, 158, cm, 08/25/21 8:32:00 EDT, Height, 110.8, kg, 08/22/21 21:30:00 EDT, Dry Weight Start Date: 09/17/21 Status: Ordered Heartburn Relief 10 mg oral tablet 1 tablet, By Mouth, 2 times a day, # 60 tablet, 1 Refills, [facility], 158, cm, 08/25/21 8:32:00 EDT, Height, 110.8, kg, 08/22/21 21:30:00 EDT, Dry Weight Start Date: 09/09/21 Status: Ordered ibuprofen 800 mg oral tablet See Instructions, TAKE 1/2-1 TABLET BY MOUTH EVERY 8 HOURS NEEDED FOR PAIN, # 60 tablet, Refills0, Instructions Replace Required Details, Route to Pharmacy Electronically, [facility]14, 158, cm, 08/25/21 8:32:00 EDT, Height, 110.8, [...] Refills, Maintenance, 04/12/21 14:38:00 EST, REC Powder, [facility]/pharmacy #[id number], Partial fill upon patient request if the prescription is for a schedule II opioid drug., 17 Gm By Mouth... Start Date: 04/12/21 Status: Ordered Multivitamins with Folic Acid 1 mg oral tablet 1 tablet, By Mouth, Daily, # 90 tablet, 3 Refills, Maintenance, 01/20/21 10:25:00 EST, Tablet, [facility]/pharmacy #[id number], Partial fill upon patient request if the prescription is for a schedule II opioid drug., 1 tablet By Mouth Daily, 157.48, cm, 01/20/21 8... Start Date: 01/20/21 Status: Ordered ProAir HFA 90 mcg/inh inhalation aerosol with adapter 2, puffs, Inhalation, Every 6 hours, PRN, # 8.5 each, Refills 0, Route to Pharmacy Electronically, [id number], [facility], 158, cm, 08/25/21 8:32:00 EDT, Height, 110.8,kg, 08/22/21 21:30:00 EDT, Dry Weight Start Date: 09/07/21 Status: Ordered propranolol 20 mg oral tablet 20 mg, 1, tablet, By Mouth, 2 times a day, # 180 tablet, Refills 1, Tot. Refills 1, Maintenance, 05/11/21 9:21:00 EST, Route to Pharmacy Electronically, [facility]/pharmacy #[id number], Partial fill upon patient request if the prescription is for a schedule II opi... Start Date: 05/11/21 Status: Ordered Vitamin B12 500 mcg oral tablet 1 tablet = 500 mcg, By Mouth, Daily, # 30 tablet, 3 Refills, Maintenance, 07/02/21 16:55:00 EDT, Tablet, [facility]/pharmacy #[id number], Partial fill upon patient request [...] recovery x3 years 4Received treatment 2017 and 2018 5In recovery x 3 years 6Was previously taking Propanolol. Was discontinued about 2.5 weeks by psychiatrist 7Takes Imovig monthly-has not taken since . Advised to follow up with neuro 8Receives weekly therapy through [facility]. Feels safe and stable at current time per patient Social History Social History Type Response Smoking Status Former smoker, quit more than 30 days ago entered on: 01/20/21 Sex
--- OUTSIDE RECORDS SUMMARY | 2023-11-14 06:14 | XMS_ITS | Continuity of Care Document ---
Author Organization [facility] ter Address [address] [place] [id number]- Care Team Providers Care Copy Preparer Name Role Phone Brenda TEJADA, Yeison Koehler Primary Care Physi barbie [place] [facility] [place]/27/[address] [id number] Discharge Disposition: A-D/C Home Attending Physician: Lety Tate MD Admitting Physician: Lety Tate MD Referring Physician: Korina Rees DO Allergies, Adverse Reactions, Alerts Substance Reaction Severity Status penicillins hives Active sulfa drugs hives Active Bactrim hives Active Immunizations Given and Recorded Vaccine Date Status Refusal Reason influenza virus vaccine, inactivated 07/20/21 Give n tetanus/diphtheria/pertussis, acel(Tdap) 06/08/21 Given Medications Alcohol Wipes See Instructions, # 200 each, Refills 3, Tot. Refills 3, Maintenance, Please use as directed for insulin administration once daily for GDM, 03/08/21 11:00:00 EST, Supply, 157.48, cm, 02/15/21 15:08:00 EST, Height, 101.3, kg, 11/22/19 7:03:00 EDT, Dry... Start Date: 03/08/21 Status: Ordered aspirin 81 mg oral delayed release tablet 162 mg, 2, tablet, By Mouth, Daily, # 60 tablet, Refills 5, Tot. Refills 5, Maintenance, 04/15/21 14:32:00 EST, Route to Pharmacy Electronically, [facility]/pharmacy #[id number], Partial fill upon patient requestif the prescription is for a schedule II opioid lesley... Start Date: 04/15/21 Status: Ordered Benadryl 25 mg oral capsule 1 capsule = 25 mg, By Mouth, 3 times a day, PRN Headache, # 10 capsule, 0 Refills, Maintenance, 06/08/21 9:02:00 EDT, Capsule, [facility]/pharmacy #[id number], Partial fill upon patient request if the prescription is for a schedule II opioid drug., 157.48, cm, 03/... Start Date: 06/08/21 Status: Ordered escitalopram 20 mg oral tablet 1 tablet = 20 mg, By Mouth, Daily in AM, # 30 tablet, 0 Refills, Maintenance, 11/19/19 11:05:00 EDT, Tablet Start Date: 11/19/19 Status: Ordered Theodore lite meter Theodore lite meter, See Instructions, # 1 each, Refills 0, Tot. Refills 0, Maintenance, Glucose monitoring during , 02/12/21 12:24:00 EST, [facility] PATIENT, PLEASE PERFORM METER TEACHING, Supply, 157.48, cm, 01/20/21 8:29:00 EST, Height, 101.3, k... Start Date: 02/12/21 Status: Ordered Freestyle [place] Monitor See Instructions, # 1 each, Maintenance, Use as directed for Type 2 Diabetes Mellitus on insulin, 04/15/21 18:38:00 EST, Supply, 157.48, cm, 04/12/21 14:31:00 EST, Height, 101.3, kg, 11/22/19 7:03:00EDT, Dry Weight Start Date: 04/15/21 Stop Date: 05/15/21 Status: Ordered Freestyle [place] Sensor See Instructions, # 2 each, Refills 6, Tot. Refills 6, Maintenance, Change every 14 days. Type 2 Diabetes Mellitus on insulin, 04/15/21 18:39:00 EST, Supply, 157.48, cm, 04/12/21 14:31:00 EST, Height, 101.3, kg, 11/22/19 7:03:00 EDT, Dry Weight Start Date: 04/15/21 Stop Date: 11/11/21 Status: Ordered FREESTYLE LITE LANCETS FREESTYLE LITE LANCETS, See Instructions, # 200 each, Refills 5, Tot. Refills 5, Maintenance, GLUCOSE MONITORING 4 TIMES A DAY DURING , 02/12/21 12:28:00 EST, [facility] PATIENT, PLEASE PERFORM METER TEACHING, Supply, 157.48, cm, 01/20/21 8:29:00 E... Start Date: 02/12/21 Status: Ordered FREESTYLE LITE STRIPS FREESTYLE LITE STRIPS, See Instructions, # 200 each, Refills 5, Tot. Refills 5, Maintenance, GLUCOSE MONITORING 4 TIMES PER DAY DURING THE , 02/12/21 12:24:00 EST, [facility] PATIENT, PLEASE PERFORM METER TEACHING, Supply, 157.48, cm, 01/20/21 8:29... Start Date: 02/12/21 Status: Ordered Heartburn Relief 10 mg oral tablet 1 tablet, By Mouth, 2 times a day, # 60 tablet, 1 Refills, [facility] ST[id number], 157.48, cm, 07/06/21 13:51:00 EDT, Height, 101.3, kg, 11/22/19 7:03:00 EDT, Dry Weight Start Date: 07/15/21 Status: Ordered Lantus Solostar Pen 100 units/mL subcutaneous solution = 36 units, Subcutaneous Infusion, Daily at bedtime, rotate injection sites, # 12 mL, 1 Refills, Maintenance, 06/01/21 13:42:00 EDT, [facility]/pharmacy #[id number], [facility] patient, please perform insulin teaching,157.48, cm, 05/11/21 8:10:00 EST, Height, 101.3, kg... Start Date: 06/01/21 Status: Ordered Magnesium Oxide By Mouth, 0 Refills, Maintenance, 04/19/21 15:28:00 EST, Partial fill upon patient request if the prescription is for a schedule II opioid drug. Start Date: 04/19/21 Status: Ordered MiraLax oral powder for reconstitution = 17 Gm, By Mouth, Daily, dissolve in water before taking, # 255 Gm, 0 Refills, Maintenance, 04/12/21 14:38:00 EST, REC Powder, [facility]/pharmacy #[id number], Partial fill upon patient request if the prescription is for a schedule II opioid drug., 17 Gm By Mouth... Start Date: 04/12/21 Status: Ordered Pen [place], 31 G x 5 mm BD Ultra Fine III See Instructions, # 200 each, Refills 3, Tot. Refills 3, Maintenance, Please use for insulin administration once daily as directed for GDM, 03/08/21 12:37:00 EST, Supply, 157.48, cm, 02/15/21 15:08:00 EST, Height, 101.3, kg, 11/22/19 7:03:00 EDT, Dry... Start Date: 03/08/21 Status: Ordered Multivitamins with Folic Acid 1 mg oral tablet 1 tablet, By Mouth, Daily, # 90 tablet, 3 Refills, Maintenance, 01/20/21 10:25:00 EST, Tablet, [facility]/pharmacy #[id number], Partial fill upon patient request if the prescription is for a schedule II opioid drug., 1 tablet By Mouth Daily, 157.48, cm, 01/20/21 8... Start Date: 01/20/21 Status: Ordered ProAir HFA 90 mcg/inh inhalation aerosol with adapter 2, puffs, Inhalation, Every 6 hours, PRN, # 8.5 each, Refills 0, Route to Pharmacy Electronically, [id number], [id number], 157.48, cm, 06/22/21 8:22:00 EDT, Height, 101.3, kg, 11/22/19 7:03:00 EDT, Dry Weight Start Date: 07/05/21 Status: Ordered propranolol 20 mg oral tablet 20 mg, 1, tablet, By Mouth, 2 times a day, # 180 tablet, Refills 1, Tot. Refills 1, Maintenance, 05/11/21 9:21:00 EST, Route to Pharmacy Electronically, [facility]/pharmacy #[id number], Partial fill upon patient request if the prescription is for a schedule II opi... Start Date: 05/11/21 Status: Ordered pyridoxine 25 mg oral tablet 1 tablet, By Mouth, 3 times a day, PRN NEEDED FOR NAUSEA AND VOMITING WITH DOXYLAMINE, # 90 tablet, 0 Refills, [id number], 157.48, cm, 02/15/21 15:08:00 EST, Height, 101.3, kg, 11/22/19 7:03:00 EDT, Dry Weight Start Date: 02/16/21 Status: Ordered Reglan 10 mg oral tablet 1 tablet = 10 mg, By Mouth, 3 times a day, PRN Headache, # 12 tablet, 0 Refills, Maintenance, 06/08/21 9:02:00 EDT, [facility]/pharmacy #[id number], Partial fill upon patient request if the prescription is for a schedule II opioid drug., 157.48, cm, 06/08/21 8:06:... Start Date: 06/08/21 Status: Ordered Vitamin B12 500 mcg oral tablet 1 tablet = 500 mcg, By Mouth, Daily, # 30 tablet, 3 Refills, Maintenance, 07/02/21 16:55:00 EDT, Tablet, [facility]/pharmacy #[id number], Partial fill upon patient request [...] Active Advanced maternal age in multigravida(Confirmed) Active H/O Premature rupture of membranes(Confirmed) 03/18/10 [...] up with neuro 8Receives weekly therapy through [facility]. Feels safe and stable at current time per patient Social History Social History Type Response Smoking Status Former smoker, quit more than 30 days ago entered on: 01/20/21 Sex Female
--- OUTSIDE RECORDS SUMMARY | 2023-11-14 06:14 | XMS_ITS | Continuity of Care Document ---
Author Organization [facility] Address [address] [place] [id number]- Care Team Providers Care Business Taxes Specialist Name Role Phone Brenda TEJADA, Yeison Koehler Primary Care Physi barbie [place] [facility] [place] [facility] [address] [place] [id number] Attending Physician: Admtr, Ar8 Admitting Physician: Admtr, Ar8 Referring Physician: Admtr, Ar8 Allergies, Adverse Reactions, Alerts Substance Reaction Severity Status penicillins hives Active sulfa drugs hives Active Bactrim hives Active Medications Albuterol (Eqv-ProAir HFA) 90 mcg/inh inhalation aerosol 2 puffs, Inhalation, Every 6 hours, PRN Wheezing/Shortness of Breath, # 8 Gm, 0 Refills, Maintenance, 03/15/21 13:51:00 EST, [id number], Partial fill upon patient request if the prescription is for a schedule II opioid drug., 2 puffs Inhalatio... Start Date: 03/15/21 Status: Ordered Alcohol Wipes See Instructions, # 200 each, [...] 04/15/21 14:32:00 EST, Route to Pharmacy Electronically, [facility]/pharmacy #[id number], Partial fill upon patient requestif the prescription is for a schedule II opioid lesley... Start Date: 04/15/21 Status: Ordered escitalopram 20 mg oral tablet 1 tablet = 20 mg, By Mouth, Daily in AM, # 30 tablet, 0 Refills, Maintenance, 11/19/19 11:05:00 EDT, Tablet Start Date: 11/19/19 Status: Ordered [place] lite meter W[place] lite meter, See Instructions, # 1 each, Refills 0, Tot. Refills 0, Maintenance, Glucose monitoring during , 02/12/21 12:24:00 EST, [facility] PATIENT, PLEASE PERFORM METER TEACHING, Supply, 157.48, [...] A DAY DURING , 02/12/21 12:28:00 EST, [facility] PATIENT, PLEASE PERFORM METER TEACHING, Supply, 157.48, cm, 01/20/21 8:29:00 E... Start Date: 02/12/21 Status: Ordered FREESTYLE LITE STRIPS FREESTYLE LITE STRIPS, See Instructions, # 200 each, Refills 5, Tot. Refills 5, Maintenance, GLUCOSE MONITORING 4 TIMES PER DAY DURING THE , 02/12/21 12:24:00 EST, [facility] [place] PATIENT, PLEASE PERFORM METER TEACHING, Supply, 157.48, cm, 01/20/21 8:29... Start Date: 02/12/21 Status: Ordered Lantus Solostar Pen 100 units/mL subcutaneous solution = 34 units, Subcutaneous Infusion, Daily at bedtime, rotate injection sites, # 12 mL, 1 Refills, Maintenance, 03/08/21 12:37:00 EST, [facility], [facility] [place] patient, please perform insulin teaching, 157.48, cm, 02/15/21 15:08:00 EST, Height, 10... Start Date: 03/08/21 Status: Ordered Magnesium Oxide By Mouth, 0 Refills, Maintenance, 04/19/21 15:28:00 EST, Partial fill upon patient request if the prescription is for a schedule II opioid drug. Start Date: 04/19/21 Status: Ordered MiraLax oral powder for reconstitution = 17 Gm, By Mouth, Daily, dissolve in water before taking, # 255 Gm, 0 Refills, Maintenance, 04/12/21 14:38:00 EST, REC Powder, [facility]/pharmacy #[id number], Partial fill upon patient request if the prescription is for a schedule II opioid drug., 17 Gm By Mouth... Start Date: 04/12/21 Status: Ordered Pen [place], 31 G x 5 mm BD Ultra [...] 3 Refills, Maintenance, 01/20/21 10:25:00 EST, Tablet, [facility]/pharmacy #[id number], Partial fill upon patient request if the prescription is for a schedule II opioid drug., 1 tablet By Mouth Daily, 157.48, cm, 01/20/21 8... Start Date: 01/20/21 Status: Ordered propranolol 20 mg oral tablet 20 mg, 1, tablet, By Mouth, 2 times a day, # 180 tablet, Refills 1, Tot. Refills 1, Maintenance, 05/11/21 9:21:00 EST, Route to Pharmacy Electronically, [facility]/pharmacy #[id number], Partial fill upon patient request if the prescription is for a schedule II opi... Start Date: 05/11/21 Status: Ordered pyridoxine 25 mg oral tablet 1 tablet, By Mouth, 3 times a day, PRN NEEDED FOR NAUSEA AND VOMITING WITH DOXYLAMINE, # 90 tablet, 0 Refills, [facility] [id number], 157.48, cm, 02/15/21 15:08:00 EST, Height, 101.3, kg, 11/22/19 7:03:00 EDT, Dry Weight Start Date: 02/16/21 Status: Ordered Problem List Condition Effective Dates Status Health Status Inform ant H/O Abnormal Pap smear of cervix(Confirmed) 1 Active Asthma(Confirmed) 2 Active Carpal Tunnel Syndrome(Confirmed) Active Gestational diabetes(Confirmed) Active History of alcohol abuse(Confirmed) 3 Active H/O gastric sleeve surgery(Confirmed) Active History of hepatitis C(Confirmed) 4 Active History of substance abuse(C onfirmed) 5 Active Hypertension(Confirmed) 6 Active Migraines(Confirmed) 7 Active Anxiety and depression(Confirmed) 8 Active Morbid obesity(Confirmed) Active Advanced maternal age in multigravida(Confirmed) Active [...] up with neuro 8Receives weekly therapy through [facility]. Feels safe and stable at current time per patient Social History Social History Type Response Smoking Status Former smoker, quit more than 30 days ago entered on: 01/20/21 Sex Female
--- OUTSIDE RECORDS SUMMARY | 2023-11-14 06:14 | XMS_ITS | Continuity of Care Document ---
Author Organization [facility] Address [address] [place] [id number]- Care Team Providers Care Dynamicist Name Role Phone Brenda TEJADA, Yeison Koehler Primary Care Physi barbie [place] [facility] [place] - 06/30/[address] [address]- Allergies, Adverse Reactions, Alerts Substance Reaction Severity Status penicillins hives Active sulfa drugs hives Active Bactrim hives Active Immunizations Given and Recorded Vaccine Date Status Refusal Reason tetanus/diphtheria/pertussis, acel(Tdap) 06/08/21 Given Medications Albuterol (Eqv-ProAir HFA) 90 mcg/inh inhalation aerosol 2 puffs, Inhalation, Every 6 hours, PRN Wheezing/Shortness of Breath, # 8 Gm, 0 Refills, Maintenance, 06/08/21 9:02:00 EDT, [id number], Partial fill upon patient request if the prescription is for a schedule II opioid drug., 2 puffs Inhalation... Start Date: 06/08/21 Status: Ordered Alcohol Wipes See Instructions, # [...] 04/15/21 14:32:00 EST, Route to Pharmacy Electronically, [facility]/pharmacy #[id number], Partial fill upon patient requestif the prescription is for a schedule II opioid lesley... Start Date: 04/15/21 Status: Ordered Benadryl 25 mg oral capsule 1 capsule = 25 mg, By Mouth, 3 times a day, PRN Headache, # 10 capsule, 0 Refills, Maintenance, 06/08/21 9:02:00 EDT, Capsule, [facility]/pharmacy #[id number], Partial fill upon patient request if the prescription is for a schedule II opioid drug., 157.48, cm, ... Start Date: 06/08/21 Status: Ordered escitalopram 20 mg oral tablet 1 tablet = 20 mg, By Mouth, Daily in AM, # 30 tablet, 0 Refills, Maintenance, 11/19/19 11:05:00 EDT, Tablet Start Date: 11/19/19 Status: Ordered famotidine 10 mg oral tablet 1 tablet = 10 mg, By Mouth, 2 times a day, # 100 tablet, 0 Refills, Maintenance, 06/22/21 8:32:00 EDT, Tablet, [facility]/pharmacy #[id number], Partial fill upon patient request if the prescription is for a schedule II opioid drug., 157.48, cm, 06/22/21 8:22:00 ED... Start Date: 06/22/21 Status: Ordered [place] lite meter [place] lite meter, See Instructions, # 1 each, [...] A DAY DURING , 02/12/21 12:28:00 EST, [facility] PATIENT, PLEASE PERFORM METER TEACHING, Supply, 157.48, cm, 01/20/21 8:29:00 E... Start Date: 02/12/21 Status: Ordered FREESTYLE LITE STRIPS FREESTYLE LITE STRIPS, See Instructions, # 200 each, Refills 5, Tot. Refills 5, Maintenance, GLUCOSE MONITORING 4 TIMES PER DAY DURING THE , 02/12/21 12:24:00 EST, [facility] PATIENT, PLEASE PERFORM METER TEACHING, Supply, 157.48, cm, 01/20/21 8:29... Start Date: 02/12/21 Status: Ordered Lantus Solostar Pen 100 units/mL subcutaneous solution = 34 units, Subcutaneous Infusion, Daily at bedtime, rotate injection sites, # 12 mL, 1 Refills, Maintenance, 06/01/21 13:42:00 EDT, [facility]/pharmacy #[id number], [facility] patient, please perform insulin teaching,157.48, cm, [...] Refills, Maintenance, 04/12/21 14:38:00 EST, REC Powder, [facility]/pharmacy #[id number], Partial fill upon patient request if the prescription is for a schedule II opioid drug., 17 Gm By Mouth... Start Date: 04/12/21 Status: Ordered Pen [place], 31 G x 5 mm BD Ultra [...] 3 Refills, Maintenance, 01/20/21 10:25:00 EST, Tablet, [facility]/pharmacy #[id number], Partial fill upon patient request if the prescription is for a schedule II opioid drug., 1 tablet By Mouth Daily, 157.48, cm, 01/20/21 8... Start Date: 01/20/21 Status: Ordered propranolol 20 mg oral tablet 20 mg, 1, tablet, By Mouth, 2 times a day, # 180 tablet, Refills 1, Tot. Refills 1, Maintenance, 05/11/21 9:21:00 EST, Route to Pharmacy Electronically, [facility]/pharmacy #[id number], Partial fill upon patient request if the prescription is for a schedule II opi... Start Date: 05/11/21 Status: Ordered pyridoxine 25 mg oral tablet 1 tablet, By Mouth, 3 times a day, PRN NEEDED FOR NAUSEA AND VOMITING WITH DOXYLAMINE, # 90 tablet, 0 Refills, [facility] STORE [id number], 157.48, cm, 02/15/21 15:08:00 EST, Height, 101.3, kg, 11/22/19 7:03:00 EDT, Dry Weight Start Date: 02/16/21 Status: Ordered Reglan 10 mg oral tablet 1 tablet = 10 mg, By Mouth, 3 times a day, PRN Headache, # 12 tablet, 0 Refills, Maintenance, 06/08/21 9:02:00 EDT, [id number], Partial fill upon patient request if the prescription is for a schedule II opioid drug., 157.48, cm, 06/08/21 8:06:... Start Date: 06/08/21 Status: Ordered Problem List Condition Effective Dates [...] up with neuro 8Receives weekly therapy through [facility]. Feels safe and stable at current time per patient Social History Social History Type Response Smoking Status Former smoker, quit more than 30 days ago entered on: 01/20/21 Sex Female
--- OUTSIDE RECORDS SUMMARY | 2023-11-14 06:14 | XMS_ITS | Continuity of Care Document ---
Author Organization [facility] Address [address] [place] [id number]- Care Team Providers Care Adjunct History Instructor Name Role Phone Brenda WIRE TAPER, Yeison Koehler Primary Care Physi barbie [place] [facility] [place] 02/06/[address] [id number]- Allergies, Adverse Reactions, Alerts Substance Reaction Severity [...] EDT, Tablet Start Date: 11/19/19 Status: Ordered Multivitamins with Folic Acid 1 mg oral tablet 1 tablet, By Mouth, Daily, # 90 tablet, 3 Refills, Maintenance, 01/20/21 10:25:00 EST, Tablet, [id number], Partial fill upon patient request if the prescription is for a schedule II opioid drug., 1 tablet By Mouth Daily, 157.48, cm, 01/20/21 8... Start Date: 01/20/21 Status: Ordered Propranolol 20 mg, By Mouth, 3 times a day, Refills 0, Maintenance, 11/19/19 11:04:00 EDT Start Date: 11/19/19 Status: Ordered pyridoxine 25 mg oral tablet 1 tablet = 25 mg, By Mouth, 3 times a day, PRN Nausea & Vomiting, Take with Doxylamine, # 90 tablet, 0 Refills, Acute 02/19/21 10:25:00 EST, 01/20/21 10:25:00 EST, [facility]/pharmacy #[id number], Partial fill upon patient request if the prescription is for a sche... Start Date: 01/20/21 Stop Date: 02/19/21 Status: Ordered Unisom 25 mg oral tablet 1 tablet = 25 mg, By Mouth, Daily at bedtime, PRN Nausea & Vomiting, # 30 tablet, 0 Refills, Acute 02/19/21 10:25:00 EST, 01/20/21 10:25:00 EST, Tablet, [facility]/pharmacy #[id number], Partial fill upon patient request if the prescription is for a schedule II opi... Start Date: 01/20/21 Stop Date: 02/19/21 Status: Ordered Problem List Condition Effective Dates Status Health Status Inform ant H/O Abnormal Pap smear of cervix(Confirmed) 1 Active Asthma(Confirmed) 2 Active Carpal Tunnel Syndrome(Confirmed) Active Gestational diabetes(Confirmed) Active Glucose intolerance (pre-diabetes)(Confirmed) Active History of alcohol abuse(Confirmed) 3 Active H/O gastric sleeve surgery(Confirmed) Active History of hepatitis C(Confirmed) 4 Active History of substance abuse(C onfirmed) 5 Active Hypertension(Confirmed) 6 Active Migraines(Confirmed) 7 Active Anxiety and depression(Confirmed) 8 Active Morbid obesity(Confirmed) Active Advanced maternal age in multigravida(Confirmed) Active H/O Premature rupture of membranes(Confirmed) 03/18/10 Active Vitamin D Deficiency(Confirmed) Active 1States had [...] up with neuro 8Receives weekly therapy through [facility]. Feels safe and stable at current time per patient Social History Social History Type Response Smoking Status Former smoker, quit more than 30 days ago entered on: 01/20/21 Sex Female
--- OUTSIDE RECORDS SUMMARY | 2023-11-14 06:14 | XMS_ITS | Continuity of Care Document ---
Author Organization [facility] Address [address] [place] [address]- Care Team Providers Care Shuttle Final Inspector Name Role Phone Brenda TEJADA, Yeison Koehler Primary Care Physi barbie [place] [facility] [place] - 06/03/[address] [address] Attending Physician: Not on Staff, Attending MD Allergies, Adverse Reactions, Alerts Substance Reaction Severity Status penicillins hives Active sulfa drugs hives Active Bactrim hives Active Medications Albuterol (Eqv-ProAir HFA) 90 mcg/inh inhalation aerosol 2 puffs, Inhalation, Every 6 hours, PRN Wheezing/Shortness of Breath, # 8 Gm, 0 Refills, Maintenance, 03/15/21 13:51:00 EST, [id number], Partial fill upon patient request if the [...] 04/15/21 14:32:00 EST, Route to Pharmacy Electronically, [facility]/pharmacy #[id number], Partial fill upon patient requestif the prescription is for a schedule II opioid lesley... Start Date: 04/15/21 Status: Ordered Benadryl 25 mg oral capsule 1 capsule = 25 mg, By Mouth, 3 times a day, PRN Headache, # 10 capsule, 0 Refills, Maintenance, 06/01/21 18:39:00 EDT, Capsule, [facility]/pharmacy #[id number], Partial fill upon patient request if the prescription is for a schedule II opioid drug., 157.48, cm, 03... Start Date: 06/01/21 Status: Ordered escitalopram 20 mg oral tablet 1 tablet = 20 mg, By Mouth, Daily in AM, # 30 tablet, 0 Refills, Maintenance, 11/19/19 11:05:00 EDT, Tablet Start Date: 11/19/19 Status: Ordered [place] lite meter [place] lite meter, See Instructions, # 1 each, [...] A DAY DURING , 02/12/21 12:28:00 EST, [facility] PATIENT, PLEASE PERFORM METER TEACHING, Supply, 157.48, cm, 01/20/21 8:29:00 E... Start Date: 02/12/21 Status: Ordered FREESTYLE LITE STRIPS FREESTYLE LITE STRIPS, See Instructions, # 200 each, Refills 5, Tot. Refills 5, Maintenance, GLUCOSE MONITORING 4 TIMES PER DAY DURING THE , 02/12/21 12:24:00 EST, [facility] PATIENT, PLEASE PERFORM METER TEACHING, Supply, 157.48, cm, 01/20/21 8:29... Start Date: 02/12/21 Status: Ordered Lantus Solostar Pen 100 units/mL subcutaneous solution = 34 units, Subcutaneous Infusion, Daily at bedtime, rotate injection sites, # 12 mL, 1 Refills, Maintenance, 06/01/21 13:42:00 EDT, [facility]/pharmacy #[id number], [facility] patient, please perform insulin teaching,157.48, cm, 05/11/21 [...] Refills, Maintenance, 04/12/21 14:38:00 EST, REC Powder, [facility]/pharmacy #[id number], Partial fill upon patient request if the prescription is for a schedule II opioid drug., 17 Gm By Mouth... Start Date: 04/12/21 Status: Ordered Pen [place], 31 G x 5 mm BD Ultra [...] 3 Refills, Maintenance, 01/20/21 10:25:00 EST, Tablet, [facility]/pharmacy #[id number], Partial fill upon patient request if the prescription is for a schedule II opioid drug., 1 tablet By Mouth Daily, 157.48, cm, 01/20/21 8... Start Date: 01/20/21 Status: Ordered propranolol 20 mg oral tablet 20 mg, 1, tablet, By Mouth, 2 times a day, # 180 tablet, Refills 1, Tot. Refills 1, Maintenance, 05/11/21 9:21:00 EST, Route to Pharmacy Electronically, [facility]/pharmacy #[id number], Partial fill upon patient request if the prescription is for a schedule II opi... Start Date: 05/11/21 Status: Ordered pyridoxine 25 mg oral tablet 1 tablet, By Mouth, 3 times a day, PRN NEEDED FOR NAUSEA AND VOMITING WITH DOXYLAMINE, # 90 tablet, 0 Refills, [facility] STORE [id number], 157.48, cm, 02/15/21 15:08:00 EST, Height, 101.3, kg, 11/22/19 7:03:00 EDT, Dry Weight Start Date: 02/16/21 Status: Ordered Reglan 10 mg oral tablet 1 tablet = 10 mg, By Mouth, 3 times a day, PRN Headache, # 12 tablet, 0 Refills, Maintenance, 06/01/21 18:39:00 EDT, [facility]/pharmacy #[id number], Partial fill upon patient request if the prescription is for aschedule II opioid drug., 157.48, cm, 05/11/21 8:10... Start Date: 06/01/21 Status: Ordered Problem List Condition Effective Dates [...] with neuro 8Receives weekly therapy through [facility]. Feels safe and stable at current time per patient Social History Social History Type Response Smoking Status Former smoker, quit more than 30 days ago entered on: 01/20/21 Sex Female
--- OUTSIDE RECORDS SUMMARY | 2023-11-14 06:14 | XMS_ITS | Continuity of Care Document ---
Author Organization [facility] Address [address] [place] [address]- Care Team Providers Care Graphic Engineer Name Role Phone Brenda TEJADA, Yeison Koehler Primary Care Physi barbie Encounter [facility] [place] Date(s): 08/10/21 - 08/10/[address] [address]- Discharge Disposition: A-D/C Home Attending Physician: Lety [...] 04/15/21 14:32:00 EST, Route to Pharmacy Electronically, [facility]/pharmacy #[id number], Partial fill upon patient requestif the prescription is for a schedule II opioid lesley... Start Date: 04/15/21 Status: Ordered escitalopram 20 mg oral tablet 1 tablet = 20 mg, By Mouth, Daily in AM, # 30 tablet, 0 Refills, Maintenance, 11/19/19 11:05:00 EDT, Tablet Start Date: 11/19/19 Status: Ordered [place] lite meter [place] lite meter, See Instructions, # 1 each, [...] DAY DURING THE , 02/12/21 12:24:00 EST, [facility] PATIENT, PLEASE PERFORM METER TEACHING, Supply, 157.48, cm, 01/20/21 8:29... Start Date: 02/12/21 Status: Ordered Heartburn Relief 10 mg oral tablet 1 tablet, By Mouth, 2 times a day, # 60 tablet, 1 Refills, [facility] STORE [id number], 157.48, cm, 07/06/21 13:51:00 EDT, Height, 101.3, kg, 11/22/19 7:03:00 EDT, Dry Weight Start Date: 07/15/21 Status: Ordered Lantus Solostar Pen 100 units/mL subcutaneous solution = 36 units, Subcutaneous Infusion, Daily at bedtime, rotate injection sites, # 12 mL, 1 Refills, Maintenance, 06/01/21 13:42:00 EDT, [facility]/pharmacy #[id number], [facility] patient, please perform insulin teaching,157.48, [...] Refills, Maintenance, 04/12/21 14:38:00 EST, REC Powder, [facility]/pharmacy #[id number], Partial fill upon patient request if the prescription is for a schedule II opioid drug., 17 Gm By Mouth... Start Date: 04/12/21 Status: Ordered Pen [place], 31 G x 5 mm BD Ultra [...] Refills, Maintenance, 01/20/21 10:25:00 EST, Tablet, [id number], Partial fill upon patient request if the prescription is for a schedule II opioid drug., 1 tablet By Mouth Daily, 157.48, cm, 01/20/21 8... Start Date: 01/20/21 Status: Ordered ProAir HFA 90 mcg/inh inhalation aerosol with adapter 2, puffs, Inhalation, Every 6 hours, PRN, # 8.5 each, Refills 0, Route to Pharmacy Electronically, [id number], [id number], 157.48, cm, 08/03/21 8:20:00 EDT, Height, 101.3, kg, 11/22/19 7:03:00 EDT, Dry Weight Start Date: 08/09/21 Status: Ordered propranolol 20 mg oral tablet 20 mg, 1, tablet, By Mouth, 2 times a day, # 180 tablet, Refills 1, Tot. Refills 1, Maintenance, 05/11/21 9:21:00 EST, Route to Pharmacy [facility]ically, [id number], Partial fill upon patient request if the prescription is for a schedule II opi... Start Date: 05/11/21 Status: Ordered Vitamin B12 500 mcg oral tablet 1 tablet = 500 mcg, By Mouth, Daily, # 30 tablet, 3 Refills, Maintenance, 07/02/21 16:55:00 EDT, Tablet, [id number], Partial fill upon patient request if [...] up with neuro 8Receives weekly therapy through [facility]. Feels safe and stable at current time per patient Social History Social History Type Response Smoking Status Former smoker, quit more than 30 days ago entered on: 01/20/21 Sex Female
--- OUTSIDE RECORDS SUMMARY | 2023-11-14 06:14 | XMS_ITS | Continuity of Care Document ---
Author Organization [facility] Address [address] [place] [address]- Care Team Providers Care Bakelite Molder Name Role Phone Not on Staff, PCP Primary Care Physician Unavail able Encounter [facility] [place] Date(s): 03/11/22 - 04/10/[address] [address]- Attending Physician: Alo Uriarte Admitting Physician: Alo Uriarte Referring Physician: AdmtrAlo Allergies, Adverse Reactions, Alerts Substance Reaction Severity Status Bactrim hives Active penicillins hives Active sulfa drugs hives Active Immunizations Given and Recorded Vaccine Date Status Refusal Reason influenza virus vaccine, inactivated 07/20/21 Give n tetanus/diphtheria/pertussis, acel(Tdap) 06/08/21 Given Medications acetaminophen 325 mg oral tablet 2, tablet, By Mouth, Every 4 hours, PRN, # 50 tablet, Refills 0, NEEDED FOR PAIN, Route to Pharmacy Electronically, [facility] [id number], 158, cm, 10/05/21 8:45:00 EDT, Height, 110.8, kg, 08/22/21 21:30:00 EDT, Dry Weight Start Date: 10/18/21 Status: Ordered docusate sodium 100 mg oral capsule 1 capsule, By Mouth, 2 times a day, PRN NEEDED FOR CONSTIPATION, # 60 capsule, 0 Refills, Maintenance, 11/22/21 5:03:00 EDT, [facility] 65912, 158, cm, 11/03/21 8:47:00 EDT, Height, 110.8, [...] tablet, Refills 1, Route to Pharmacy Electronically, [facility] 58950, 158, cm, 10/05/21 8:45:00 EDT, Height, 110.8, kg, 08/22/21 21:30:00 EDT, Dry Weight Start Date: 10/18/21 Status: Ordered Heartburn Relief 10 mg oral tablet 1 tablet, By Mouth, 2 times a day, # 60 tablet, 1 Refills, [facility] 43127, 158, cm, 08/25/21 8:32:00 EDT, Height, 110.8, kg, 08/22/21 21:30:00 EDT, Dry Weight Start Date: 09/09/21 Status: Ordered ibuprofen 800 mg oral tablet 1/2-1 TABLET, By Mouth, Every 8 hours, PRN, # 60 tablet, Refills 0, Maintenance, NEEDED FOR PAIN, 01/11/22 15:34:00 EDT, Route to Pharmacy Electronically, [facility] 14128, 158, cm, 11/03/21 8:47:00 EDT, Height, 110.8, [...] Refills, Maintenance, 01/20/21 10:25:00 EST, Tablet, [facility]/pharmacy #[id number], Partial fill upon patient request if the prescription is for a schedule II opioid drug., 1 tablet By Mouth Daily, 157.48, cm, 01/20/21 8... Start Date: 01/20/21 Status: Ordered ProAir HFA 90 mcg/inh inhalation aerosol with adapter 2, puffs, Inhalation, Every 6 hours, PRN, # 8.5 each, Refills 0, Route to Pharmacy Electronically, [id number], [facility], 158, cm, 10/05/21 8:45:00 EDT, Height, 110.8,kg, 08/22/21 21:30:00 EDT, Dry Weight Start Date: 10/18/21 Status: Ordered propranolol 20 mg oral tablet 20 mg, 1, tablet, By Mouth, 2 times a day, # 180 tablet, Refills 1, Tot. Refills 1, Maintenance, 05/11/21 9:21:00 EST, Route to Pharmacy Electronically, [facility]/pharmacy #[id number], Partial fill upon patient request if the prescription is for a schedule II opi... Start Date: 05/11/21 Status: Ordered Vitamin B-12 500 mcg oral tablet 1 tablet, By Mouth, Daily, # 30 tablet, 3 Refills, Maintenance, 12/20/21 15:45:00 EDT, [facility], 158, cm, 11/03/21 8:47:00 EDT, Height, 110.8, [...] up with neuro 8Receives weekly therapy through [facility]. Feels safe and stable at current time per patient Social History Social History Type Response Smoking Status Former smoker, quit more than 30 days ago entered on: 01/20/21 Sex EKG study * Event Display: EKG Authored Date: Patient Care team information Care Team Personnel Name: Not on Staff, PCP Position: [facility] Physician (General Medicine) Member Role: PCP Name: Kathy Driver RN Position: [facility] RN Member Role: Primary Care Nurse Care Team Related Persons Name: MINDA GILBERT Address: home [address] [place] [address] Name: JOHANNE GILBERT Address: [employer] Address: home [address] [place] [address] Name: WILL DEL RIO Address: home [address] [place] [address]
--- OUTSIDE RECORDS SUMMARY | 2023-11-14 06:14 | XMS_ITS | Continuity of Care Document ---
Author Organization [facility] Address [address] [place] [address]- Care Team Providers Care Janitorial Assistant Name Role Phone Brenda TEJADA, Yeison Koehler Primary Care Physi [facility] Encounter [facility] [place] Date(s): 07/22/19 - 07/22/[address] [address]- [facility] Encounter Diagnosis Rash(Final) - 07/22/19 Discharge Disposition: A-D/C Home Attending Physician: Clyde Cummins MD Admitting Physician: Clyde Cummins MD Referring Physician: Not on Staff, Referring MD Allergies, Adverse Reactions, Alerts Substance Reaction Severity Status sulfADIAZINE hives Active penicillins hives Active Bactrim hives Active Medications Albuterol 4 times a day, PRN Wheezing/Shortness of Breath, 0 Refills, Maintenance, 01/16/13 11:45:42 Start Date: 01/16/13 Status: Ordered Ativan 0.5 mg oral tablet 0.5 tablet = 0.25 mg, By Mouth, 2 times a day, 0 Refills, Maintenance, 06/04/15 13:00:14, Tablet Start Date: 06/04/15 Status: Ordered Citracal Tablet Maintenance, 10/30/13 9:48:27 Start Date: 10/30/13 Status: Ordered Citracal Tablet Maintenance, 10/30/13 9:48:27 Start Date: 10/30/13 Status: Ordered Flovent 110 mcg Inhaler HFA 2, puffs, Inhalation, 2 times a day, Refills 0, Maintenance, 01/19/19 20:48:22 EST, Inhaler Start Date: 01/19/19 Status: Ordered Levothyroxine = 25 mcg, Daily, 0 Refills, Maintenance, 01/16/13 11:01:21 Start Date: 01/16/13 Status: Ordered Multi-Vitamin Multi-Vitamin, Refills 0, Maintenance, 01/16/13 11:01:27, Compound Start Date: 01/16/13 Status: Ordered PriLOSEC OTC 20 mg oral delayed release tablet 1 tablet = 20 mg, By Mouth, 2 times a day, do not crush or chew, # 120 tablet, 0 Refills, Maintenance, 06/20/13 11:30:55, EC Tablet Start Date: 06/20/13 Status: Ordered Vivitrol Inj = 380 mg, Intramuscular, Every 28 days, 0 Refills, Maintenance, 01/19/19 20:49:17 EST Start Date: 01/19/19 Status: Ordered Zithromax 250 mg oral tablet 1 pack/packet, By Mouth, Once, # 6 tablet, 0 Refills, Soft Stop, 11/08/17 12:37:31 EDT, Tablet Start Date: 11/08/17 Status: Ordered Problem List Condition Effective Dates Status Health Status Inform ant Asthma(Confirmed) Active Carpal Tunnel Syndrome(Confirmed) Active Gestational diabetes(Confirmed) Active Glucose intolerance (pre-diabetes)(Confirmed) Active Hypertension(Confirmed) Active Morbid obesity(Confirmed) Active Vitamin D Deficiency(Confirmed) Active Vital Signs Most recent to oldest [Reference Range]: 1 Oxygen Saturation [94-100 %] 100 % (07/22/19 4:58 PM) Pulse Rate [55-90 bpm] 61 bpm (07/22/19 4:58 PM) Blood Pressure [90-138/55-84 mm Hg] 138/ 92mm Hg (07/22/19 4:58 PM) Respiratory Rate [16-30 br/min] 16 br/mi n (07/22/19 4:58 PM) Temperature [96.8-100.4 DegF] 98.2 DegF (07/22/19 4:58 PM) Mode of Delivery (Oxygen) Room air (07/22/19 4:58 PM) Blood pressure sites Arm, right (07/22/19 4:58 PM) Temperature Route Oral (07/22/19 4:58 PM) Social History Social History Type Response Smoking Status Former smoker entered on: 12/11/14 Sex Female
--- OUTSIDE RECORDS SUMMARY | 2023-11-14 06:14 | XMS_ITS | Continuity of Care Document ---
Author Organization [facility] Address [address] [place] [address]- Care Team Providers Care Rn Referral Name Role Phone Brenda TEJADA, Yeison Koehler Primary Care Physi barbie Encounter [facility] [place] Date(s): 02/15/21 - 03/17/[address] [facility] [address] [place] [id number] Attending Physician: Admtr, Ar8 Admitting Physician: Admtr, Ar8 Referring Physician: Admtr, Ar8 Allergies, Adverse Reactions, Alerts Substance Reaction Severity Status penicillins hives Active sulfa drugs hives Active Bactrim hives Active Medications Albuterol (Eqv-ProAir HFA) 90 mcg/inh inhalation aerosol 2 puffs, Inhalation, Every 6 hours, PRN Wheezing/Shortness of Breath, # 8 Gm, 0 Refills, Maintenance, 03/15/21 13:51:00 EST, [id number], Partial fill upon patient request if the [...] 03/08/21 Status: Ordered aspirin 81 mg oral tablet, chewable 162 mg, 2, tablet, Chew, Daily, continue nightly until 2 weeks , # 60 tablet, Refills 8, Tot. Refills 8, Maintenance, 02/19/21 10:08:00 EST, Route to Pharmacy Electronically, [facility]/pharmacy #[id number], 157.48, cm, 02/15/21 15:08:00 EST, Height, 101... Start Date: 02/19/21 Status: Ordered escitalopram 20 mg oral tablet 1 tablet = 20 mg, By Mouth, Daily in AM, # 30 tablet, 0 Refills, Maintenance, 11/19/19 11:05:00 EDT, Tablet Start Date: 11/19/19 Status: Ordered [place] lite meter [place] lite meter, See Instructions, # 1 each, Refills 0, Tot. Refills 0, Maintenance, Glucose monitoring during , 02/12/21 12:24:00 EST, [facility] PATIENT, PLEASE PERFORM METER TEACHING, Supply, 157.48, cm, 01/20/21 8:29:00 EST, Height, 101.3, k... Start Date: 02/12/21 Status: Ordered FREESTYLE LITE LANCETS FREESTYLE LITE LANCETS, See Instructions, # 200 each, Refills 5, Tot. Refills 5, Maintenance, GLUCOSE MONITORING 4 TIMES A DAY DURING , 02/12/21 12:28:00 EST, [facility] PATIENT, PLEASE PERFORM METER TEACHING, Supply, 157.48, cm, 01/20/21 8:29:00 E... Start Date: 02/12/21 Status: Ordered FREESTYLE LITE STRIPS FREESTYLE LITE STRIPS, See Instructions, # 200 each, Refills 5, Tot. Refills 5, Maintenance, GLUCOSE MONITORING 4 TIMES PER DAY DURING THE , 02/12/21 12:24:00 EST, [facility] PATIENT, PLEASE PERFORM METER TEACHING, Supply, 157.48, cm, 01/20/21 8:29... Start Date: 02/12/21 Status: Ordered Lantus Solostar Pen 100 units/mL subcutaneous solution = 34 units, Subcutaneous Infusion, Daily at bedtime, rotate injection sites, # 12 mL, 1 Refills, Maintenance, 03/08/21 12:37:00 EST, [facility], [facility] patient, please perform insulin teaching, 157.48, cm, 02/15/21 15:08:00 EST, Height, 10... Start Date: 03/08/21 Status: Ordered Pen [place], 31 G x 5 mm BD Ultra [...] 01/20/21 8... Start Date: 01/20/21 Status: Ordered pyridoxine 25 mg oral tablet 1 tablet, By Mouth, 3 times a day, PRN NEEDED FOR NAUSEA AND VOMITING WITH DOXYLAMINE, # 90 tablet, 0 Refills, [facility], 157.48, cm, 02/15/21 15:08:00 EST, Height, 101.3, [...] up with neuro 8Receives weekly therapy through [facility]. Feels safe and stable at current time per patient Social History Social History Type Response Smoking Status Former smoker, quit more than 30 days ago entered on: 01/20/21 Sex Female
--- OUTSIDE RECORDS SUMMARY | 2023-11-14 06:14 | XMS_ITS | Continuity of Care Document ---
Author Organization [facility] Address [address] [place] [address]- Care Team Providers Care Cylinder Steamer Name Role Phone Brenda TEJADA, Yeison Koehler Primary Care Physi barbie Encounter [facility] Date(s): 05/11/21 - 06/10/21 [facility] [address] [place], [place] [address] Allergies, Adverse Reactions, Alerts Substance Reaction Severity Status penicillins hives Active sulfa drugs hives Active Bactrim hives Active Immunizations Given and Recorded Vaccine Date Status Refusal Reason tetanus/diphtheria/pertussis, acel(Tdap) 06/08/21 Given Medications Albuterol (Eqv-ProAir HFA) 90 mcg/inh inhalation aerosol 2 puffs, Inhalation, Every 6 hours, PRN Wheezing/Shortness of Breath, # 8 Gm, 0 Refills, Maintenance, 06/08/21 9:02:00 EDT, [id number], Partial fill upon patient request if the [...] 04/15/21 14:32:00 EST, Route to Pharmacy Electronically, [facility]/pharmacy #[id number], Partial fill upon patient requestif the prescription is for a schedule II opioid lesley... Start Date: 04/15/21 Status: Ordered Benadryl 25 mg oral capsule 1 capsule = 25 mg, By Mouth, 3 times a day, PRN Headache, # 10 capsule, 0 Refills, Maintenance, 06/08/21 9:02:00 EDT, Capsule, [facility]/pharmacy #[id number], Partial fill upon patient request [...] 1 tablet = 10 mg, By Mouth, Daily, # 14 tablet, 0 Refills, Maintenance, 06/08/21 9:01:00 EDT, Tablet, [facility]/pharmacy #[id number], Partial fill upon patient request if the prescription is for a schedule II opioid drug., 157.48, cm, 06/08/21 8:06:00 EDT, Height... Start Date: 06/08/21 Status: Ordered [place] lite meter [place] lite meter, See Instructions, # 1 each, [...] A DAY DURING , 02/12/21 12:28:00 EST, [facility] PATIENT, PLEASE PERFORM METER TEACHING, Supply, 157.48, cm, 01/20/21 8:29:00 E... Start Date: 02/12/21 Status: Ordered FREESTYLE LITE STRIPS FREESTYLE LITE STRIPS, See Instructions, # 200 each, Refills 5, Tot. Refills 5, Maintenance, GLUCOSE MONITORING 4 TIMES PER DAY DURING THE , 02/12/21 12:24:00 EST, [facility] PATIENT, PLEASE PERFORM METER TEACHING, Supply, 157.48, cm, 01/20/21 8:29... Start Date: 02/12/21 Status: Ordered Lantus Solostar Pen 100 units/mL subcutaneous solution = 34 units, Subcutaneous Infusion, Daily at bedtime, rotate injection sites, # 12 mL, 1 Refills, Maintenance, 06/01/21 13:42:00 EDT, [facility]/pharmacy #[id number], [facility] patient, please perform insulin teaching,157.48, cm, [...] Refills, Maintenance, 04/12/21 14:38:00 EST, REC Powder, [facility]/pharmacy #[id number], Partial fill upon patient request if the prescription is for a schedule II opioid drug., 17 Gm By Mouth... Start Date: 04/12/21 Status: Ordered Pen [place], 31 G x 5 mm BD Ultra [...] 3 Refills, Maintenance, 01/20/21 10:25:00 EST, Tablet, [facility]/pharmacy #[id number], Partial fill upon patient request if the prescription is for a schedule II opioid drug., 1 tablet By Mouth Daily, 157.48, cm, 01/20/21 8... Start Date: 01/20/21 Status: Ordered propranolol 20 mg oral tablet 20 mg, 1, tablet, By Mouth, 2 times a day, # 180 tablet, Refills 1, Tot. Refills 1, Maintenance, 05/11/21 9:21:00 EST, Route to Pharmacy Electronically, [facility]/pharmacy #[id number], Partial fill upon patient request if the prescription is for a schedule II opi... Start Date: 05/11/21 Status: Ordered pyridoxine 25 mg oral tablet 1 tablet, By Mouth, 3 times a day, PRN NEEDED FOR NAUSEA AND VOMITING WITH DOXYLAMINE, # 90 tablet, 0 Refills, [facility]82, 157.48, cm, 02/15/21 15:08:00 EST, Height, 101.3, kg, 11/22/19 7:03:00 EDT, Dry Weight Start Date: 02/16/21 Status: Ordered Reglan 10 mg oral tablet 1 tablet = 10 mg, By Mouth, 3 times a day, PRN Headache, # 12 tablet, 0 Refills, Maintenance, 06/08/21 9:02:00 EDT, [id number], Partial fill upon patient request if the [...] up with neuro 8Receives weekly therapy through [facility]. Feels safe and stable at current time per patient Social History Social History Type Response Smoking Status Former smoker, quit more than 30 days ago entered on: 01/20/21 Sex Female
--- OUTSIDE RECORDS SUMMARY | 2023-11-14 06:14 | XMS_ITS | Continuity of Care Document ---
Author Organization [facility] Address [address] [place] [id number]- Care Team Providers Care Receiving Team Member Name Role Phone Brenda PUBLIC HEALTH VETERINARIAN, Yeison Koehler Primary Care Physi barbie Encounter [facility] [place] Date(s): 04/22/21 - 05/22/[address] [address] Allergies, Adverse Reactions, Alerts Substance Reaction Severity Status penicillins hives Active sulfa drugs hives Active Bactrim hives Active Medications Albuterol (Eqv-ProAir HFA) 90 mcg/inh inhalation aerosol 2 puffs, Inhalation, Every 6 hours, PRN Wheezing/Shortness of Breath, # 8 Gm, 0 Refills, Maintenance, 03/15/21 13:51:00 EST, [id number], Partial fill upon patient request if the [...] 04/15/21 14:32:00 EST, Route to Pharmacy Electronically, [facility]/pharmacy #[id number], Partial fill upon patient requestif the prescription is for a schedule II opioid lesley... Start Date: 04/15/21 Status: Ordered escitalopram 20 mg oral tablet 1 tablet = 20 mg, By Mouth, Daily in AM, # 30 tablet, 0 Refills, Maintenance, 11/19/19 11:05:00 EDT, Tablet Start Date: 11/19/19 Status: Ordered [place] lite meter [place] lite meter, See Instructions, # 1 each, [...] A DAY DURING , 02/12/21 12:28:00 EST, [facility] PATIENT, PLEASE PERFORM METER TEACHING, Supply, 157.48, cm, 01/20/21 8:29:00 E... Start Date: 02/12/21 Status: Ordered FREESTYLE LITE STRIPS FREESTYLE LITE STRIPS, See Instructions, # 200 each, Refills 5, Tot. Refills 5, Maintenance, GLUCOSE MONITORING 4 TIMES PER DAY DURING THE , 02/12/21 12:24:00 EST, [facility] PATIENT, PLEASE PERFORM METER TEACHING, Supply, 157.48, cm, 01/20/21 8:29... Start Date: 02/12/21 Status: Ordered Lantus Solostar Pen 100 units/mL subcutaneous solution = 34 units, Subcutaneous Infusion, Daily at bedtime, rotate injection sites, # 12 mL, 1 Refills, Maintenance, 03/08/21 12:37:00 EST, [facility], [facility] patient, please perform insulin teaching, 157.48, cm, [...] Refills, Maintenance, 04/12/21 14:38:00 EST, REC Powder, [facility]/pharmacy #[id number], Partial fill upon patient request if the prescription is for a schedule II opioid drug., 17 Gm By Mouth... Start Date: 04/12/21 Status: Ordered Pen [place], 31 G x 5 mm BD Ultra [...] 3 Refills, Maintenance, 01/20/21 10:25:00 EST, Tablet, [facility]/pharmacy #[id number], Partial fill upon patient request if the prescription is for a schedule II opioid drug., 1 tablet By Mouth Daily, 157.48, cm, 01/20/21 8... Start Date: 01/20/21 Status: Ordered propranolol 20 mg oral tablet 20 mg, 1, tablet, By Mouth, 2 times a day, # 180 tablet, Refills 1, Tot. Refills 1, Maintenance, 05/11/21 9:21:00 EST, Route to Pharmacy Electronically, [facility]/pharmacy #[id number], Partial fill upon patient request if the prescription is for a schedule II opi... Start Date: 05/11/21 Status: Ordered pyridoxine 25 mg oral tablet 1 tablet, By Mouth, 3 times a day, PRN NEEDED FOR NAUSEA AND VOMITING WITH DOXYLAMINE, # 90 tablet, 0 Refills, [facility] STORE 70174, 157.48, cm, 02/15/21 15:08:00 EST, Height, 101.3, [...] up with neuro 8Receives weekly therapy through [facility]. Feels safe and stable at current time per patient Social History Social History Type Response Smoking Status Former smoker, quit more than 30 days ago entered on: 01/20/21 Sex Female
--- OUTSIDE RECORDS SUMMARY | 2023-11-14 06:14 | XMS_ITS | Continuity of Care Document ---
Author Organization [facility] Address [address] [place] [address]- Care Team Providers Care Cray Fishing Hand Name Role Phone Brenda TEJADA, Yeison Koehler Primary Care Physi barbie Encounter [facility] [place] Date(s): 03/31/21 - 04/30/[address] [address]- Allergies, Adverse Reactions, Alerts Substance Reaction Severity Status penicillins hives Active sulfa drugs hives Active Bactrim hives Active Medications Albuterol (Eqv-ProAir HFA) 90 mcg/inh inhalation aerosol 2 puffs, Inhalation, Every 6 hours, PRN Wheezing/Shortness of Breath, # 8 Gm, 0 Refills, Maintenance, 03/15/21 13:51:00 EST, [id number], Partial fill upon patient request if the [...] 04/15/21 14:32:00 EST, Route to Pharmacy Electronically, [id number], Partial fill upon patient requestif the prescription is for a schedule II opioid lesley... Start Date: 04/15/21 Status: Ordered escitalopram 20 mg oral tablet 1 tablet = 20 mg, By Mouth, Daily in AM, # 30 tablet, 0 Refills, Maintenance, 11/19/19 11:05:00 EDT, Tablet Start Date: 11/19/19 Status: Ordered [place] lite meter [place] lite meter, See Instructions, # 1 each, [...] DAY DURING THE , 02/12/21 12:24:00 EST, [facility] PATIENT, PLEASE PERFORM METER TEACHING, Supply, 157.48, cm, 01/20/21 8:29... Start Date: 02/12/21 Status: Ordered Lantus Solostar Pen 100 units/mL subcutaneous solution = 34 units, Subcutaneous Infusion, Daily at bedtime, rotate injection sites, # 12 mL, 1 Refills, Maintenance, 03/08/21 12:37:00 EST, [facility], [facility] patient, please perform insulin teaching, 157.48, [...] Refills, Maintenance, 04/12/21 14:38:00 EST, REC Powder, [facility]/pharmacy #[id number], Partial fill upon patient request if the prescription is for a schedule II opioid drug., 17 Gm By Mouth... Start Date: 04/12/21 Status: Ordered Pen [place], 31 G x 5 mm BD Ultra [...] 3 Refills, Maintenance, 01/20/21 10:25:00 EST, Tablet, [facility]/pharmacy #[id number], Partial fill upon patient request if the prescription is for a schedule II opioid drug., 1 tablet By Mouth Daily, 157.48, cm, 01/20/21 8... Start Date: 01/20/21 Status: Ordered pyridoxine 25 mg oral tablet 1 tablet, By Mouth, 3 times a day, PRN NEEDED FOR NAUSEA AND VOMITING WITH DOXYLAMINE, # 90 tablet, 0 Refills, [facility], 157.48, cm, 02/15/21 15:08:00 EST, Height, 101.3, kg, 11/22/19 7:03:00 EDT, Dry Weight Start Date: 02/16/21 Status: Ordered riboflavin 400 mg oral capsule 1 capsule = 400 mg, By Mouth, Daily, # 30 capsule, 3 Refills, Maintenance, 04/15/21 14:41:00 EST, [facility]/pharmacy #[id number], Partial fill upon patient request if the prescription is for a schedule II opioiddrug., 157.48, cm, 04/12/21 14:31:00 EST, Height, 1... Start Date: 04/15/21 Status: Ordered Problem List Condition Effective Dates [...] up with neuro 8Receives weekly therapy through [facility]. Feels safe and stable at current time per patient Social History Social History Type Response Smoking Status Former smoker, quit more than 30 days ago entered on: 01/20/21 Sex Female
--- OUTSIDE RECORDS SUMMARY | 2023-11-14 06:14 | XMS_ITS | Continuity of Care Document ---
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 Patient should only receive a total of 650mg of Acetaminophen every 4 hours., # 50 tablet, Refills 0, Tot. Refills 0... Start Date: 08/25/21 Status: Ordered docusate sodium 100 mg oral capsule 1 capsule = 100 mg, By Mouth, 2 times a day, PRN Constipation, # 60 capsule, 0 Refills, Maintenance, 08/25/21 8:28:00 EDT, Capsule, [id number], Partial fill upon patient request if the [...] Details, Route to [facility] Electronically, [facility], 158, cm, 08/25/21 8:32:00 EDT, Height, 110.8, kg, 08/22/21 21:30:00 EDT, Dry Weight Start Date: 09/17/21 Status: Ordered Heartburn Relief 10 mg oral tablet 1 tablet, By Mouth, 2 times a day, # 60 tablet, 1 Refills, [facility], 158, cm, 08/25/21 8:32:00 EDT, Height, 110.8, [...] Refills, Maintenance, 04/12/21 14:38:00 EST, REC Powder, [facility]/pharmacy #[id number], Partial fill upon patient request if the prescription is for a schedule II opioid drug., 17 Gm By Mouth... Start Date: 04/12/21 Status: Ordered Multivitamins with Folic Acid 1 mg oral tablet 1 tablet, By Mouth, Daily, # 90 tablet, 3 Refills, Maintenance, 01/20/21 10:25:00 EST, Tablet, [facility]/pharmacy #[id number], Partial fill upon patient request if the prescription is for a schedule II opioid drug., 1 tablet By Mouth Daily, 157.48, cm, 01/20/21 8... Start Date: 01/20/21 Status: Ordered ProAir HFA 90 mcg/inh inhalation aerosol with adapter 2, puffs, Inhalation, Every 6 hours, PRN, # 8.5 each, Refills 0, Route to Pharmacy Electronically, [id number], [facility], 158, cm, 08/25/21 8:32:00 EDT, Height, 110.8,kg, 08/22/21 21:30:00 EDT, Dry Weight Start Date: 09/07/21 Status: Ordered propranolol 20 mg oral tablet 20 mg, 1, tablet, By Mouth, 2 times a day, # 180 tablet, Refills 1, Tot. Refills 1, Maintenance, 05/11/21 9:21:00 EST, Route to Pharmacy Electronically, [facility]/pharmacy #[id number], Partial fill upon patient request [...] up with neuro 8Receives weekly therapy through [facility]. Feels safe and stable at current time per patient Social History Social History Type Response Smoking Status Former smoker, quit more than 30 days ago entered on: 01/20/21 Sex
--- OUTSIDE RECORDS SUMMARY | 2023-11-14 06:14 | XMS_ITS | Continuity of Care Document ---
Author Organization [facility] Address [address] [place] [address]- Care Team Providers Care Linen Manager Name Role Phone Brenda TEJADA, Yeison Koehler Primary Care Physi barbie Encounter [facility] [place] Date(s): 08/03/21 - 08/03/[address] [address]- Discharge Disposition: A-D/C Home Attending Physician: Lety [...] 04/15/21 14:32:00 EST, Route to Pharmacy Electronically, [facility]/pharmacy #[id number], Partial fill upon patient requestif the prescription is for a schedule II opioid lesley... Start Date: 04/15/21 Status: Ordered Benadryl 25 mg oral capsule 1 capsule = 25 mg, By Mouth, 3 times a day, PRN Headache, # 10 capsule, 0 Refills, Maintenance, 06/08/21 9:02:00 EDT, Capsule, [facility]/pharmacy #[id number], Partial fill upon patient request if the prescription is for a schedule II opioid drug., 157.48, cm, 03... Start Date: 06/08/21 Status: Ordered escitalopram 20 mg oral tablet 1 tablet = 20 mg, By Mouth, Daily in AM, # 30 tablet, 0 Refills, Maintenance, 11/19/19 11:05:00 EDT, Tablet Start Date: 11/19/19 Status: Ordered [place] lite meter [place] lite meter, See Instructions, # 1 each, [...] A DAY DURING , 02/12/21 12:28:00 EST, [facility] PATIENT, PLEASE PERFORM METER TEACHING, Supply, 157.48, cm, 01/20/21 8:29:00 E... Start Date: 02/12/21 Status: Ordered FREESTYLE LITE STRIPS FREESTYLE LITE STRIPS, See Instructions, # 200 each, Refills 5, Tot. Refills 5, Maintenance, GLUCOSE MONITORING 4 TIMES PER DAY DURING THE , 02/12/21 12:24:00 EST, [facility] PATIENT, PLEASE PERFORM METER TEACHING, Supply, 157.48, cm, 01/20/21 8:29... Start Date: 02/12/21 Status: Ordered Heartburn Relief 10 mg oral tablet 1 tablet, By Mouth, 2 times a day, # 60 tablet, 1 Refills, [facility] STORE 99802, 157.48, cm, 07/06/21 13:51:00 EDT, Height, 101.3, kg, 11/22/19 7:03:00 EDT, Dry Weight Start Date: 07/15/21 Status: Ordered Lantus Solostar Pen 100 units/mL subcutaneous solution = 36 units, Subcutaneous Infusion, Daily at bedtime, rotate injection sites, # 12 mL, 1 Refills, Maintenance, 06/01/21 13:42:00 EDT, [facility]/pharmacy #[id number], [facility] patient, please perform insulin teaching,157.48, cm, [...] Refills, Maintenance, 04/12/21 14:38:00 EST, REC Powder, [facility]/pharmacy #[id number], Partial fill upon patient request if the prescription is for a schedule II opioid drug., 17 Gm By Mouth... Start Date: 04/12/21 Status: Ordered Pen [place], 31 G x 5 mm BD Ultra [...] 3 Refills, Maintenance, 01/20/21 10:25:00 EST, Tablet, [facility]/pharmacy #[id number], Partial fill upon patient request if the prescription is for a schedule II opioid drug., 1 tablet By Mouth Daily, 157.48, cm, 01/20/21 8... Start Date: 01/20/21 Status: Ordered ProAir HFA 90 mcg/inh inhalation aerosol with adapter 2, puffs, Inhalation, Every 6 hours, PRN, # 8.5 each, Refills 0, Route to Pharmacy Electronically, [id number], [facility], 157.48, cm, 06/22/21 8:22:00 EDT, Height, 101.3, kg, 11/22/19 7:03:00 EDT, Dry Weight Start Date: 07/05/21 Status: Ordered propranolol 20 mg oral tablet 20 mg, 1, tablet, By Mouth, 2 times a day, # 180 tablet, Refills 1, Tot. Refills 1, Maintenance, 05/11/21 9:21:00 EST, Route to Pharmacy Electronically, [facility]/pharmacy #[id number], Partial fill upon patient request if the prescription is for a schedule II opi... Start Date: 05/11/21 Status: Ordered Reglan 10 mg oral tablet 1 tablet = 10 mg, By Mouth, 3 times a day, PRN Headache, # 12 tablet, 0 Refills, Maintenance, 06/08/21 9:02:00 EDT, [facility]/pharmacy #[id number], Partial fill upon patient request if the prescription is for a schedule II opioid drug., 157.48, cm, 06/08/21 8:06:... Start Date: 06/08/21 Status: Ordered Vitamin B12 500 mcg oral tablet 1 tablet = 500 mcg, By Mouth, Daily, # 30 tablet, 3 Refills, Maintenance, 07/02/21 16:55:00 EDT, Tablet, [facility]/pharmacy #[id number], Partial fill upon patient request if the [...] up with neuro 8Receives weekly therapy through [facility]. Feels safe and stable at current time per patient Social History Social History Type Response Smoking Status Former smoker, quit more than 30 days ago entered on: 01/20/21 Sex Female
--- OUTSIDE RECORDS SUMMARY | 2023-11-14 06:14 | XMS_ITS | Continuity of Care Document ---
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 Name Role Phone Brenda TEJADA, Yeison Koehler Primary Care Physi barbie Encounter [facility] [place] Date(s): 02/12/21 - 03/18/[address] [address]- Attending Physician: Not on Staff, Attending MD Allergies, Adverse Reactions, Alerts Substance Reaction Severity Status penicillins hives Active sulfa drugs hives Active Bactrim hives Active Medications Albuterol (Eqv-ProAir HFA) 90 mcg/inh inhalation aerosol 2 puffs, Inhalation, Every 6 hours, PRN Wheezing/Shortness of Breath, # 8 Gm, 0 Refills, Maintenance, 03/15/21 13:51:00 EST, [id number], Partial fill upon patient request if the [...] 02/19/21 10:08:00 EST, Route to Pharmacy Electronically, [facility]/pharmacy #[id number], 157.48, cm, 02/15/21 15:08:00 EST, Height, 101... Start Date: 02/19/21 Status: Ordered escitalopram 20 mg oral tablet 1 tablet = 20 mg, By Mouth, Daily in AM, # 30 tablet, 0 Refills, Maintenance, 11/19/19 11:05:00 EDT, Tablet Start Date: 11/19/19 Status: Ordered [place] lite meter [place] lite meter, See Instructions, # 1 each, Refills 0, Tot. Refills 0, Maintenance, Glucose monitoring during , 02/12/21 12:24:00 EST, [facility] PATIENT, PLEASE PERFORM METER TEACHING, Supply, 157.48, cm, 01/20/21 8:29:00 EST, Height, 101.3, k... Start Date: 02/12/21 Status: Ordered FREESTYLE LITE LANCETS FREESTYLE LITE LANCETS, See Instructions, # 200 each, Refills 5, Tot. Refills 5, Maintenance, GLUCOSE MONITORING 4 TIMES A DAY DURING , 02/12/21 12:28:00 EST, [facility] PATIENT, PLEASE PERFORM METER TEACHING, Supply, 157.48, cm, 01/20/21 8:29:00 E... Start Date: 02/12/21 Status: Ordered FREESTYLE LITE STRIPS FREESTYLE LITE STRIPS, See Instructions, # 200 each, Refills 5, Tot. Refills 5, Maintenance, GLUCOSE MONITORING 4 TIMES PER DAY DURING THE , 02/12/21 12:24:00 EST, [facility] PATIENT, PLEASE PERFORM METER TEACHING, Supply, 157.48, cm, 01/20/21 8:29... Start Date: 02/12/21 Status: Ordered Lantus Solostar Pen 100 units/mL subcutaneous solution = 34 units, Subcutaneous Infusion, Daily at bedtime, rotate injection sites, # 12 mL, 1 Refills, Maintenance, 03/08/21 12:37:00 EST, [facility], [facility] patient, please perform insulin teaching, 157.48, cm, 02/15/21 15:08:00 EST, Height, 10... Start Date: 03/08/21 Status: Ordered Pen [place], 31 G x 5 mm BD Ultra [...] # 90 tablet, 0 Refills, [facility], 157.48, cm, 02/15/21 15:08:00 EST, Height, 101.3, [...]
--- OUTSIDE RECORDS SUMMARY | 2023-11-14 06:14 | XMS_ITS | Continuity of Care Document ---
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 President And Portfolio Manager Name Role Phone Not on Staff, PCP Primary Care Physician Unavail able Encounter [facility] [place] Date(s): 03/21/22 - 04/20/[address] [address]- Allergies, Adverse Reactions, Alerts Substance Reaction Severity [...] NEEDED FOR PAIN, Route to Pharmacy Electronically, [facility] 17[facility], 158, cm, 10/05/21 8:45:00 EDT, Height, 110.8, kg, 08/22/21 21:30:00 EDT, Dry Weight Start Date: 10/18/21 Status: Ordered docusate sodium 100 mg oral capsule 1 capsule, By Mouth, 2 times a day, PRN NEEDED FOR CONSTIPATION, # 60 capsule, 0 Refills, Maintenance, 11/22/21 5:03:00 EDT, [facility] 517[facility], 158, cm, 11/03/21 8:47:00 EDT, Height, 110.8, [...] tablet, Refills 1, Route to Pharmacy Electronically, [facility] ST[facility] 98080, 158, cm, 10/05/21 8:45:00 EDT, Height, 110.8, kg, 08/22/21 21:30:00 EDT, Dry Weight Start Date: 10/18/21 Status: Ordered Heartburn Relief 10 mg oral tablet 1 tablet, By Mouth, 2 times a day, # 60 tablet, 1 Refills, [facility] 77173, 158, cm, 08/25/21 8:32:00 EDT, Height, 110.8, kg, 08/22/21 21:30:00 EDT, Dry Weight Start Date: 09/09/21 Status: Ordered ibuprofen 800 mg oral tablet 1/2-1 TABLET, By Mouth, Every 8 hours, PRN, # 60 tablet, Refills 0, Maintenance, NEEDED FOR PAIN, 01/11/22 15:34:00 EDT, Route to Pharmacy Electronically, [facility] 93593, 158, cm, 11/03/21 8:47:00 EDT, Height, 110.8, [...] 3 Refills, Maintenance, 01/20/21 10:25:00 EST, Tablet, [facility]/pharmacy #[id number], Partial fill upon patient request if the prescription is for a schedule II opioid drug., 1 tablet By Mouth Daily, 157.48, cm, 01/20/21 8... Start Date: 01/20/21 Status: Ordered ProAir HFA 90 mcg/inh inhalation aerosol with adapter 2, puffs, Inhalation, Every 6 hours, PRN, # 8.5 each, Refills 0, Route to Pharmacy Electronically, [id number], [facility], 158, cm, 10/05/21 8:45:00 EDT, Height, 110.8,kg, 08/22/21 21:30:00 EDT, Dry Weight Start Date: 10/18/21 Status: Ordered propranolol 20 mg oral tablet 20 mg, 1, tablet, By Mouth, 2 times a day, # 180 tablet, Refills 1, Tot. Refills 1, Maintenance, 05/11/21 9:21:00 EST, Route to Pharmacy Electronically, [facility]/pharmacy #[id number], Partial fill upon patient request if the prescription is for a schedule II opi... Start Date: 05/11/21 Status: Ordered Vitamin B-12 500 mcg oral tablet 1 tablet, By Mouth, Daily, # 30 tablet, 3 Refills, Maintenance, 12/20/21 15:45:00 EDT, [facility], 158, cm, 11/03/21 8:47:00 EDT, Height, 110.8, [...] up with neuro 8Receives weekly therapy through [facility]. Feels safe and stable at current time per patient Social History Social History Type Response Smoking Status Former smoker, quit more than 30 days ago entered on: 01/20/21 Sex Patient Care team information Care Team Personnel Name: Not on Staff, PCP Position: [facility] Physician (General Medicine) Member Role: PCP Name: Kathy Driver RN Position: [facility] RN Member Role: Primary Care Nurse Care Team Related Persons Name: MINDA GILBERT Address: home [address] [place], [place] Name: JOHANNE GILBERT Address: [employer] Address: home [address] [place], [place] Name: WILL DEL RIO Address: home [address] [place] [address]
--- OUTSIDE RECORDS SUMMARY | 2023-11-14 06:14 | XMS_ITS | Continuity of Care Document ---
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 Start Date: 04/15/21 Status: Ordered escitalopram 20 mg oral tablet 1 tablet = 20 mg, By Mouth, Daily in AM, # 30 tablet, 0 Refills, Maintenance, 11/19/19 11:05:00 EDT, Tablet Start Date: 11/19/19 Status: Ordered [place] lite meter [place] lite meter, See Instructions, # 1 each, [...] DURING THE , 02/12/21 12:24:00 EST, [facility] PATIENT, PLEASE PERFORM METER TEACHING, Supply, 157.48, cm, 01/20/21 8:29... Start Date: 02/12/21 Status: Ordered Heartburn Relief 10 mg oral tablet 1 tablet, By Mouth, 2 times a day, # 60 tablet, 1 Refills, [facility] STORE 47569, 157.48, cm, 07/06/21 13:51:00 EDT, Height, 101.3, kg, 11/22/19 7:03:00 EDT, Dry Weight Start Date: 07/15/21 Status: Ordered Lantus Solostar Pen 100 units/mL subcutaneous solution = 36 units, Subcutaneous Infusion, Daily at bedtime, rotate injection sites, # 12 mL, 1 Refills, Maintenance, 06/01/21 13:42:00 EDT, [facility]/pharmacy #[id number], [facility] patient, please perform insulin teaching,157.48, cm, [...] Refills, Maintenance, 04/12/21 14:38:00 EST, REC Powder, [facility]/pharmacy #[id number], Partial fill upon patient request if the prescription is for a schedule II opioid drug., 17 Gm By Mouth... Start Date: 04/12/21 Status: Ordered Pen [place], 31 G x 5 mm BD Ultra [...] each, Refills 0, Route to Pharmacy Electronically, [id number], [facility], 157.48, cm, 08/03/21 8:20:00 EDT, Height, 101.3, [...] up with neuro 8Receives weekly therapy through [facility]. Feels safe and stable at current time per patient Social History Social History Type Response Smoking Status Former smoker, quit more than 30 days ago entered on: 01/20/21 Sex Female
--- OUTSIDE RECORDS SUMMARY | 2023-11-14 06:14 | XMS_ITS | Continuity of Care Document ---
Author Organization [facility] Address [address] [place] [address]- Care Team Providers Care Central Supply Clerk Name Role Phone Not on Staff, PCP Primary Care Physician Unavail able Encounter [facility] [place] Date(s): 11/03/21 - 12/03/[address] [address]- Attending Physician: Alo Uriarte Admitting Physician: Alo [...] NEEDED FOR PAIN, Route to Pharmacy Electronically, [id number], 158, cm, 10/05/21 8:45:00 EDT, Height, 110.8, kg, 08/22/21 21:30:00 EDT, Dry Weight Start Date: 10/18/21 Status: Ordered docusate sodium 100 mg oral capsule 1 capsule, By Mouth, 2 times a day, PRN NEEDED FOR CONSTIPATION, # 60 capsule, 0 Refills, Maintenance, 11/22/21 5:03:00 EDT, [id number], 158, cm, 11/03/21 8:47:00 EDT, Height, 110.8, [...] tablet, Refills 1, Route to Pharmacy Electronically, [facility] [id number], 158, cm, 10/05/21 8:45:00 EDT, Height, 110.8, kg, 08/22/21 21:30:00 EDT, Dry Weight Start Date: 10/18/21 Status: Ordered Heartburn Relief 10 mg oral tablet 1 tablet, By Mouth, 2 times a day, # 60 tablet, 1 Refills, [facility] 62647, 158, cm, 08/25/21 8:32:00 EDT, Height, 110.8, kg, 08/22/21 21:30:00 EDT, Dry Weight Start Date: 09/09/21 Status: Ordered ibuprofen 800 mg oral tablet 1/2-1 TABLET, By Mouth, Every 8 hours, PRN, # 60 tablet, Refills 0, NEEDED FOR PAIN, Route to Pharmacy Electronically, [facility] 140[facility], 158, cm, 10/05/21 8:45:00 EDT, Height, 110.8, [...] Refills, Maintenance, 04/12/21 14:38:00 EST, REC Powder, [facility]/pharmacy #[id number], Partial fill upon patient request if the prescription is for a schedule II opioid drug., 17 Gm By Mouth... Start Date: 04/12/21 Status: Ordered Multivitamins with Folic Acid 1 mg oral tablet 1 tablet, By Mouth, Daily, # 90 tablet, 3 Refills, Maintenance, 01/20/21 10:25:00 EST, Tablet, [facility]/pharmacy #[id number], Partial fill upon patient request if the prescription is for a schedule II opioid drug., 1 tablet By Mouth Daily, 157.48, cm, 01/20/21 8... Start Date: 01/20/21 Status: Ordered ProAir HFA 90 mcg/inh inhalation aerosol with adapter 2, puffs, Inhalation, Every 6 hours, PRN, # 8.5 each, Refills 0, Route to Pharmacy Electronically, [id number], [id number], 158, cm, 10/05/21 8:45:00 EDT, Height, 110.8,kg, 08/22/21 21:30:00 EDT, Dry Weight Start Date: 10/18/21 Status: Ordered propranolol 20 mg oral tablet 20 mg, 1, tablet, By Mouth, 2 times a day, # 180 tablet, Refills 1, Tot. Refills 1, Maintenance, 05/11/21 9:21:00 EST, Route to Pharmacy Electronically, [facility]/pharmacy #[id number], Partial fill upon patient request if the prescription is for a schedule II opi... Start Date: 05/11/21 Status: Ordered Vitamin B12 500 mcg oral tablet 1 tablet = 500 mcg, By Mouth, Daily, # 30 tablet, 3 Refills, Maintenance, 07/02/21 16:55:00 EDT, Tablet, [facility]/pharmacy #[id number], Partial fill upon [...] up with neuro 8Receives weekly therapy through [facility]. Feels safe and stable at current time per patient Social History Social History Type Response Smoking Status Former smoker, quit more than 30 days ago entered on: 01/20/21 Sex Care Team Personnel Name: Not on Staff, PCP
--- OUTSIDE RECORDS SUMMARY | 2023-11-14 06:14 | XMS_ITS | Continuity of Care Document ---
Author Organization [facility] Address [address] [place] [address]- Care Team Providers Care Merchandise Presentation Associate Name Role Phone Not on Staff, PCP Primary Care Physician Unavail able Encounter [facility] [place] Date(s): 02/25/22 - 04/07/[address] [address]- Attending Physician: Not on Staff, Attending MD [...] NEEDED FOR PAIN, Route to Pharmacy Electronically, [facility] [id number], 158, cm, 10/05/21 8:45:00 EDT, Height, 110.8, kg, 08/22/21 21:30:00 EDT, Dry Weight Start Date: 10/18/21 Status: Ordered docusate sodium 100 mg oral capsule 1 capsule, By Mouth, 2 times a day, PRN NEEDED FOR CONSTIPATION, # 60 capsule, 0 Refills, Maintenance, 11/22/21 5:03:00 EDT, [facility] [id number], 158, cm, 11/03/21 8:47:00 EDT, Height, 110.8, [...] tablet, Refills 1, Route to Pharmacy Electronically, [facility]0320, 158, cm, 10/05/21 8:45:00 EDT, Height, 110.8, kg, 08/22/21 21:30:00 EDT, Dry Weight Start Date: 10/18/21 Status: Ordered Heartburn Relief 10 mg oral tablet 1 tablet, By Mouth, 2 times a day, # 60 tablet, 1 Refills, [facility], 158, cm, 08/25/21 8:32:00 EDT, Height, 110.8, kg, 08/22/21 21:30:00 EDT, Dry Weight Start Date: 09/09/21 Status: Ordered ibuprofen 800 mg oral tablet 1/2-1 TABLET, By Mouth, Every 8 hours, PRN, # 60 tablet, Refills 0, Maintenance, NEEDED FOR PAIN, 01/11/22 15:34:00 EDT, Route to Pharmacy Electronically, [facility] 48644, 158, cm, 11/03/21 8:47:00 EDT, Height, 110.8, [...] each, Refills 0, Route to Pharmacy Electronically, [id number], [facility], 158, cm, 10/05/21 8:45:00 EDT, Height, 110.8,kg, [...] tablet, 3 Refills, Maintenance, 12/20/21 15:45:00 EDT, [facility] 278[facility], 158, cm, 11/03/21 8:47:00 EDT, Height, 110.8, [...] Personnel Name: Not on Staff, PCP Position: [facility] Physician (General Medicine) Member Role: PCP Name: Kathy Driver RN Position: [facility] RN Member Role: Primary Care Nurse Care Team Related Persons Name: VLADIMIRMINDA Address: home [address] [place] [address] Name: JOHANNE GILBERT Address: [employer] Address: home [address] [place] [address] Name: WILL DEL RIO Address: [address] [place] [address]
--- OUTSIDE RECORDS SUMMARY | 2023-11-14 06:14 | XMS_ITS | Continuity of Care Document ---
Author Organization [facility] Address [address] [place] [id number]- Care Team Providers Care Supervisor [employer] Name Role Phone Brenda TEJADA, Yeison Koehler Primary Care Physi barbie Encounter [facility] Date(s): 01/26/21 - 02/25/21 [facility] [address] [place] [address]- Allergies, Adverse Reactions, Alerts Substance Reaction Severity Status penicillins hives Active sulfa drugs hives Active Bactrim hives Active Medications Alcohol Wipes See Instructions, # 200 each, Refills 5, Tot. Refills 5, Maintenance, Please use as directed for blood sugar monitoring four times daily for GDM, 02/12/21 12:29:00 EST, Supply, 157.48, cm, 01/20/21 8:29:00 EST, Height, 101.3, kg, 11/22/19 7:03:00 EDT,... Start Date: 02/12/21 Status: Ordered aspirin 81 mg oral tablet, chewable 162 mg, 2, tablet, Chew, Daily, continue nightly until 2 weeks , # 60 tablet, Refills 8, Tot. Refills 8, Maintenance, 02/19/21 10:08:00 EST, Route to Pharmacy Electronically, [facility]/pharmacy #[id number], 157.48, cm, 02/15/21 15:08:00 EST, Height, 101... Start Date: 02/19/21 Status: Ordered escitalopram 20 mg oral tablet 1 tablet = 20 mg, By Mouth, Daily in AM, # 30 tablet, 0 Refills, Maintenance, 11/19/19 11:05:00 EDT, Tablet Start Date: 11/19/19 Status: Ordered [employer] lite meter [employer] lite meter, See Instructions, # 1 each, [...] DAY DURING THE , 02/12/21 12:24:00 EST, [facility] PATIENT, PLEASE PERFORM METER TEACHING, Supply, 157.48, cm, 01/20/21 8:29... Start Date: 02/12/21 Status: Ordered Multivitamins with Folic Acid 1 mg oral tablet 1 tablet, By Mouth, Daily, # 90 tablet, 3 Refills, Maintenance, 01/20/21 10:25:00 EST, Tablet, [facility]/pharmacy #[id number], Partial fill upon patient request if the prescription is for a schedule II opioid drug., 1 tablet By Mouth Daily, 157.48, cm, 01/20/21 8... Start Date: 01/20/21 Status: Ordered pyridoxine 25 mg oral tablet 1 tablet, By Mouth, 3 times a day, PRN NEEDED FOR NAUSEA AND VOMITING WITH DOXYLAMINE, # 90 tablet, 0 Refills, [facility], 157.48, cm, 02/15/21 15:08:00 EST, Height, 101.3, [...]
--- OUTSIDE RECORDS SUMMARY | 2023-11-14 06:14 | XMS_ITS | Continuity of Care Document ---
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 Start Date: 04/15/21 Status: Ordered Benadryl 25 mg oral capsule 1 capsule = 25 mg, By Mouth, 3 times a day, PRN Headache, # 10 capsule, 0 Refills, Maintenance, 06/08/21 9:02:00 EDT, Capsule, [facility]/pharmacy #[id number], Partial fill upon patient request if the prescription is for a schedule II opioid drug., 157.48, cm, 03/... Start Date: 06/08/21 Status: Ordered escitalopram 20 mg oral tablet 1 tablet = 20 mg, By Mouth, Daily in AM, # 30 tablet, 0 Refills, Maintenance, 11/19/19 11:05:00 EDT, Tablet Start Date: 11/19/19 Status: Ordered [employer] lite meter Clio lite meter, See Instructions, # 1 each, [...] A DAY DURING , 02/12/21 12:28:00 EST, [facility] PATIENT, PLEASE PERFORM METER TEACHING, Supply, 157.48, cm, 01/20/21 8:29:00 E... Start Date: 02/12/21 Status: Ordered FREESTYLE LITE STRIPS FREESTYLE LITE STRIPS, See Instructions, # 200 each, Refills 5, Tot. Refills 5, Maintenance, GLUCOSE MONITORING 4 TIMES PER DAY DURING THE , 02/12/21 12:24:00 EST, [facility] PATIENT, PLEASE PERFORM METER TEACHING, Supply, 157.48, cm, 01/20/21 8:29... Start Date: 02/12/21 Status: Ordered Heartburn Relief 10 mg oral tablet 1 tablet, By Mouth, 2 times a day, # 60 tablet, 1 Refills, [facility] 93292, 157.48, cm, 07/06/21 13:51:00 EDT, Height, 101.3, kg, 11/22/19 7:03:00 EDT, Dry Weight Start Date: 07/15/21 Status: Ordered Lantus Solostar Pen 100 units/mL subcutaneous solution = 36 units, Subcutaneous Infusion, Daily at bedtime, rotate injection sites, # 12 mL, 1 Refills, Maintenance, 06/01/21 13:42:00 EDT, [facility]/pharmacy #[id number], [facility] patient, please perform insulin teaching,157.48, cm, [...] Refills, Maintenance, 04/12/21 14:38:00 EST, REC Powder, [facility]/pharmacy #[id number], Partial fill upon patient request if the prescription is for a schedule II opioid drug., 17 Gm By Mouth... Start Date: 04/12/21 Status: Ordered Pen [place], 31 G x 5 mm BD Ultra [...] 3 Refills, Maintenance, 01/20/21 10:25:00 EST, Tablet, [facility]/pharmacy #[id number], Partial fill upon patient request if the prescription is for a schedule II opioid drug., 1 tablet By Mouth Daily, 157.48, cm, 01/20/21 8... Start Date: 01/20/21 Status: Ordered ProAir HFA 90 mcg/inh inhalation aerosol with adapter 2, puffs, Inhalation, Every 6 hours, PRN, # 8.5 each, Refills 0, Route to Pharmacy Electronically, [id number], [facility], 157.48, cm, 06/22/21 8:22:00 EDT, Height, 101.3, kg, 11/22/19 7:03:00 EDT, Dry Weight Start Date: 07/05/21 Status: Ordered propranolol 20 mg oral tablet 20 mg, 1, tablet, By Mouth, 2 times a day, # 180 tablet, Refills 1, Tot. Refills 1, Maintenance, 05/11/21 9:21:00 EST, Route to Pharmacy Electronically, [facility]/pharmacy #[id number], Partial fill upon patient request if the prescription is for a schedule II opi... Start Date: 05/11/21 Status: Ordered pyridoxine 25 mg oral tablet 1 tablet, By Mouth, 3 times a day, PRN NEEDED FOR NAUSEA AND VOMITING WITH DOXYLAMINE, # 90 tablet, 0 Refills, [facility], 157.48, cm, 02/15/21 15:08:00 EST, Height, 101.3, kg, 11/22/19 7:03:00 EDT, Dry Weight Start Date: 02/16/21 Status: Ordered Reglan 10 mg oral tablet 1 tablet = 10 mg, By Mouth, 3 times a day, PRN Headache, # 12 tablet, 0 Refills, Maintenance, 06/08/21 9:02:00 EDT, [facility]/pharmacy #[id number], Partial fill upon patient request if the prescription is for a schedule II opioid drug., 157.48, cm, 06/08/21 8:06:... Start Date: 06/08/21 Status: Ordered Vitamin B12 500 mcg oral tablet 1 tablet = 500 mcg, By Mouth, Daily, # 30 tablet, 3 Refills, Maintenance, 07/02/21 16:55:00 EDT, Tablet, [facility]/pharmacy #[id number], Partial fill upon patient request if [...] up with neuro 8Receives weekly therapy through [facility]. Feels safe and stable at current time per patient Social History Social History Type Response Smoking Status Former smoker, quit more than 30 days ago entered on: 01/20/21 Sex Female
--- OUTSIDE RECORDS SUMMARY | 2023-11-14 06:14 | XMS_ITS | Continuity of Care Document ---
Author Organization [facility] ter Address [address] [place] [address]- Care Team Providers Care Palliative Care Physician Name Role Phone Brenda TEJADA, Yeison Koehler Primary Care Physi barbie Encounter [facility] [place] Date(s): 07/13/21 - 07/13/[address] [address] Discharge Disposition: A-D/C Home Attending Physician: Lety Tate MD Admitting Physician: Lety Tate MD Referring Physician: Korina Rees DO Allergies, Adverse Reactions, Alerts Substance Reaction Severity Status penicillins hives Active sulfa drugs hives Active Bactrim hives Active Immunizations Given and Recorded Vaccine Date Status Refusal Reason tetanus/diphtheria/pertussis, acel(Tdap) 06/08/21 Given Medications Alcohol Wipes [...] 04/15/21 14:32:00 EST, Route to Pharmacy Electronically, [facility]/pharmacy #[id number], Partial fill upon patient requestif the prescription is for a schedule II opioid lesley... Start Date: 04/15/21 Status: Ordered Benadryl 25 mg oral capsule 1 capsule = 25 mg, By Mouth, 3 times a day, PRN Headache, # 10 capsule, 0 Refills, Maintenance, 06/08/21 9:02:00 EDT, Capsule, [facility]/pharmacy #[id number], Partial fill upon [...] 0 Refills, Maintenance, 06/22/21 8:32:00 EDT, Tablet, [facility]/pharmacy #[id number], Partial fill upon patient request if the prescription is for a schedule II opioid drug., 157.48, cm, 06/22/21 8:22:00 ED... Start Date: 06/22/21 Status: Ordered [employer] lite meter Dew[employer] lite meter, See Instructions, # 1 each, [...] A DAY DURING , 02/12/21 12:28:00 EST, [facility] PATIENT, PLEASE PERFORM METER TEACHING, [...] mL, 1 Refills, Maintenance, 06/01/21 13:42:00 EDT, [facility]/pharmacy #[id number], [facility] patient, please perform insulin teaching,157.48, [...] Refills, Maintenance, 04/12/21 14:38:00 EST, REC Powder, [facility]/pharmacy #[id number], Partial fill upon patient request if the prescription is for a schedule II opioid drug., 17 Gm By Mouth... Start Date: 04/12/21 Status: Ordered Pen [place], 31 G x 5 mm BD Ultra [...] each, Refills 0, Route to Pharmacy Electronically, [id number], [facility], 157.48, cm, 06/22/21 8:22:00 EDT, Height, 101.3, kg, 11/22/19 7:03:00 EDT, Dry Weight Start Date: 07/05/21 Status: Ordered propranolol 20 mg oral tablet 20 mg, 1, tablet, By Mouth, 2 times a day, # 180 tablet, Refills 1, Tot. Refills 1, Maintenance, 05/11/21 9:21:00 EST, Route to Pharmacy Electronically, [facility]/pharmacy #[id number], Partial fill upon patient request if the prescription is for a schedule II opi... Start Date: 05/11/21 Status: Ordered pyridoxine 25 mg oral tablet 1 tablet, By Mouth, 3 times a day, PRN NEEDED FOR NAUSEA AND VOMITING WITH DOXYLAMINE, # 90 tablet, 0 Refills, [facility], 157.48, cm, 02/15/21 15:08:00 EST, Height, 101.3, kg, 11/22/19 7:03:00 EDT, Dry Weight Start Date: 02/16/21 Status: Ordered Reglan 10 mg oral tablet 1 tablet = 10 mg, By Mouth, 3 times a day, PRN Headache, # 12 tablet, 0 Refills, Maintenance, 06/08/21 9:02:00 EDT, [facility]/pharmacy #[id number], Partial fill upon patient request if the prescription is for a schedule II opioid drug., 157.48, cm, 06/08/21 8:06:... Start Date: 06/08/21 Status: Ordered Vitamin B12 500 mcg oral tablet 1 tablet = 500 mcg, By Mouth, Daily, # 30 tablet, 3 Refills, Maintenance, 07/02/21 16:55:00 EDT, Tablet, [facility]/pharmacy #[id number], Partial fill upon [...] up with neuro 8Receives weekly therapy through [facility]. Feels safe and stable at current time per patient Social History Social History Type Response Smoking Status Former smoker, quit more than 30 days ago entered on: 01/20/21 Sex Female
[2023-11-14] MEDS: Aprepitant 32 MG/4.4 ML VIAL IVPUSH (06:44)
[2023-11-14] MEDS: Lactated Ringers 1,000 ML 999 ML IV (06:44)
[2023-11-14 07:23] LABS: UPreg QC Valid YES; Urine Pregnancy NEGATIVE (NEGATIVE)
--- NOTE | 2023-11-14 07:32 | P.HPSUR_ITS ---
Pre-Procedural Eval Section A - 24 Hr Update-Section A only Date of Service: 11/14/23 The patient is an INPATIENT: Yes The patient has been examined within 24 hours of the surgical procedure. The History & Physical has been completed within 30 days and I have reviewed it.: Yes Section B - Complete if H&P > 30 days Chief Complaint: Obesity Relevant Family History (Specify if Yes): No Relevant Social History: None Present Medications: None Medical History: No relevant PMH History of Previous Operations: Relevant previous surgery/procedure and date(s) (laparoscopic sleeve gastrectomy) Allergies: Allergies Allergy/AdvReac Type Severity Reaction Status Date / Time Penicillins Allergy Intermediate HIVES, rash Verified 11/03/23 09:01 Sulfa (Sulfonamide Allergy Unknown BURNING, Verified 11/03/23 09:01 Antibiotics) rash [SULFA (SULFONAMIDE ANTIBIOTICS)] sulfamethoxazole Allergy Unknown HIVES Verified 11/03/23 09:01 [From BACTRIM] trimethoprim [From BACTRIM] Allergy Unknown HIVES Verified 11/03/23 09:01 Review of Systems Sugical H&P ROS: Negative: Constitution, Cardiovascular, Respiratory, Neurological, Psychiatric, Hem-Onc, Allergic/Immunologic, Gastrointestinal, Genitourinary, Musculoskeletal, Integumentary, Endocrine and Eyes/Ears/Nose/Throat Exam Surgical H&P Exam: Normal: HEENT, Normal: Heart, Normal: Lungs, Normal: Ex tremities, Normal: Abdomen, Normal: Skin and Normal: Neurological Plan Diagnosis/Plan: Unchanged I have reviewed the history and physical and performed a pertinent physical examination on my patient. No changes have occurred unless specified. Time Spent With Patient Time: Total time managing care of this patient today ____ minutes.
--- NOTE | 2023-11-14 07:33 | P.BOP_ITS ---
Brief Operative Note Date of Service: 11/14/23 Pre-op diagnosis: Severe obesity with comorbidities (see below) Post-op diagnosis: same (& abdominal adhesions) Procedure: INITIAL PATIENT BMI ON PRESENTATION AT OUR OFFICE: 46 kg/m2 LAST BMI BEFORE SURGERY: 38.2 kg/m2 COMORBIDITIES: asthma, depression, anxiety, back pain, GERD ?The patient presented to the Weight Management Program with significant obesity that was negatively impacting the patient's comorbidities as listed above.? The program is a phased program with a special focus on preoperative medical weight management to promote substantial weight loss and prepare the patients for the second phase of the program: bariatric surgery. The patient participated in an intensive weekly lifestyle ?intervention and exercise program during which the patient ?has lost between the initial office visit and the last preoperative visit 44.2lbs, or 17% of initial actual body weight. It was deemed appropriate for the patient to now have bariatric surgery. In light of the current Covid-19 pandemic and the well documented strong association of obesity and increased risk of worse outcomes if infected with Covid-19 (REFERENCES: https://pubmed.ncbi.nlm.nih.gov/67634522/ ,? https://pubmed.ncbi.nlm.nih.gov/05514376/ ), any delay in undergoing bariatric surgery may lead to the patient's worsening health condition and increased?risk of more severe Covid-19 disease if infected. In addition a recent?study from [facility] published in [employer] on 03/08/2021 ([email or web address]) found that, among patients with obesity, substantial weight loss achieved with surgery was associated with improved outcomes of COVID-19 infection. The findings suggest that obesity can be a modifiable risk factor for the severity of COVID-19 infection. In addition, the patient met the BMI-criteria for bariatric surgery based on the BMI on initial presentation. The patient should not be penalized for achieving such weight loss because ?it is not sustainable long-term without surgical intervention and it was achieved in preparation for bariatric surgery ?under my direction and based on my published research ([email or web address]).[email or web address] and? https://www.soard.org/article/[email or web address](63)21140-X/pdf ) ?that a 10% preoper ative weight loss improves long-term weight loss after surgery and reduces perioperative complications.? Insurance carriers such as [facility] have endorsed my recommendations ?and have included in their policies criteria to include a 10% preoperative weight loss requirement. PROCEDURE: Esophago-gastroscopy, laparoscopic lysis of adhesions, laparoscopic sleeve gastrectomy and laparoscopic gastropexy INDICATIONS: This is a 38 year-old female who was electively scheduled for laparoscopic, possibly open sleeve gastrectomy revision. The patient has a previous sleeve gastrectomy on 06/18/2013 at [facility] with Dr. Ochoa. Preoperative work-up including an UGI and EGD is suggestive of a very large proximal pouch of retained gastric fundus as well as incomplete distal antral resection. The objective of this operation is to redo the sleeve. The risks and complications of the procedure were discussed with the patient in advance, particularly the possibility of ; pulmonary embolism; staple line leak; bleeding; GERD; cardiac, pulmonary, or renal complications; as well as long-term problems such as insufficient weight loss, vitamin deficiency, strictures, or ulcers. The patient understood all the risks, and was in agreement to proceed with surgery. DESCRIPTION OF PROCEDURE: After informed consent was obtained from the patient, the patient was given preoperative antibiotics, and was transferred to the operating room. After successful induction of general anesthesia, pneumatic compression devices were placed on both lower extremities. An upper endoscopy was performed next. The oropharynx and esophagus appeared to be within normal limits. There was no diaphragmatic hernia present. The stomach was entered. Then after all fluid and air were suctioned and the stomach was fully decompressed, the scope was withdrawn and secured in the mid esophagus. The patient was then prepped and draped in the usual sterile manner, and abdominal access was established at the right upper quadrant with the Jovita technique. A 12 mm blunt port was inserted, and the abdomen was insufflated with CO2 to a pressure of 15 mmHg. Under direct visualization, additional ports were placed, specifically two 5 mm Versi-step ports to the left upper quadrant, and a 5 mm Versi-Step port to the right upper quadrant. 1% lidocaine plain was used to infiltrate all port sites as well as all fascia defects. Using the EndoClose suture passer device, I placed a #1 Polysorb tie across the falciform ligament in order to retract it up against the abdominal wall and prevent injury of the ligament with our instruments during the procedure. There were adhesions in the abdomen from previous sleeve gastrectomy involving the left lobe of the liver, the omentum and the anterior abdominal wall. Those were lysed completely with the ultrasonic device. Following that, the patient was placed in a steep reverse Trendelenburg position. An additional 5 mm port was placed to the right flank for the Mediflex retractor that was used to retract the left lobe of the liver. The gastro-esophageal fat pad was opened with the ultrasonic device (Thunderbeat, Olympus) and the anterior esophagus and hiatus were exposed. The angle of His was opened with the ultrasonic device the fundus of the stomach from any diaphragmatic and splenic attachments. I then opened the gastrocolic ligament between the transverse colon and the greater curvature of the stomach with the ultrasonic device to enter the lesser sac. This was very difficult as there were dense adhesions from previous sleeve gastrectomy. The posterior gastric wall was attached to the spleen and extensive and tedious dissection was required to free the stomach. The dissection continued all the way to the angle of His until the left yury was completely dissected at its entirety. The previous surgeon did not dissect adequately posterior leaving short gastric vessels? which resulted in a much larger proximal stomach which was confirmed by preoperative UGI and EGD. These posterior short gastric vessels were ligated as well as other posterior attachments that were not divided originally. This allowed us to mobilize the stomach completely and appreciate the amount of stomach that was inappropriately left unresected at the original operation.? Adhesiolysis took approximately 80 min to complete with a total operative time of 2 hours.? The stomach was then divided transversely with one Endo MAXIMINO-45 orange and 2 Endo MAXIMINO-60 orange loads using the AEON stapler and loads. Every effort was made that the gastric sleeve had a tubular shape and an even caliber throughout. An endoscopy was performed before each staple fire to ensure that I did not narrow the gastro-esophageal junction. Once the sleeve resection was completed, the staple line of the gastric sleeve was reinforced with Hemoclips. The previous surgeon had left a significant part of the proximal stomach, has narrowed somwhat compared to the caliber of the remaining sleeve the incisura angularis and had left unresected a significant part of the antrum. The resected stomach was retrieved without difficulty from the Jovita port. A gastropexy was then performed in order to prevent postoperative GERD and partial gastric volvulus, as well as position better the sleeve addressing the above technical issues we noted intraoperatively from the original sleeve.. Several interrupted 2.0 Surgidac sutures were placed between the sleeve's staple line and the previously divided greater omentum and gastro-colic ligament using the Endo-Stitch device. ?An upper endoscopy was performed. There was no narrowing at the GE junction. The scope was easily advanced all the way to the pylorus which was clearly visualized. There was no narrowing anywhere and the sleeve's caliber was even t hroughout. The sleeve's staple line was inspected and there was no evidence of ischemia, bleeding or dehiscence. At that point the gastroscope was withdrawn from the patient?s mouth while we were decompressing the bowel and the stomach from any remaining air. I looked into the lesser sac to see how the sleeve was situating and it was situating well. There was no bleeding from the staple line, spleen, or short gastric vessels. The Mediflex retractor was removed, and the undersurface of the liver was inspected and there was no bleeding. The patient was placed in supine position. I closed the fascial defect of the 12 mm port site with a figure of eight #1 Polysorb suture. Then 30cc Ropivacaine plain with 10 mg of Dexamethasone were used to infiltrate the fascial closure as well as all skin incisions. At this point, the abdomen was deflated, all ports were removed under direct vision, and no bleeding was noted from any of the port sites. The skin incisions were irrigated with saline and were closed with 4-0 absorbable monofilament sutures. Steri-Strips and OpSites were used to cover all incisions. The patient was extubated and was transferred in stable condition to the recovery room for further care. I was present and performed all rendon parts of the procedure. Mr. Grover was the surgical services assistant. There were no residents to assist with this case. Robin Pearson MD, PhD, FACS Surgeon: Chip Pearson MD Anesthesia: GETA, local and other (TAP block) Was an Touch Up Painter Hand used for this Procedure?: No Touch Up Painter Hand: Amrik Grover Estimated blood loss (mL): 10 IV fluids (mL): 2,000 Urine output (mL): 300 Pathology: other (Stomach) Condition: stable Disposition: PACU
--- NOTE | 2023-11-14 07:36 | P.PNGS_ITS ---
Subjective Subjective Date of Service: 11/15/23 Interval history: Feels well. Mild incisional pain. She is tolerating phase 1 bariatric diet Physical Exam 2 Vital Signs: Vital Signs: Last Vital Signs Temp 97.9 F 11/14/23 06:33 Pulse 67 11/14/23 06:33 Resp 16 11/14/23 06:33 BP 102/65 11/14/23 06:33 Pulse Ox 96 11/14/23 06:33 O2 Del Method Room Air 11/14/23 06:33 BMI result Body Mass Index 37.9 GI: Inspection: Yes normal to inspection, Yes incision (clean, dry and intact) and Yes obesity Palpation (GI): Soft to palpation Extrem: Right lower extremity: normal to inspection (no calf tenderness) L eft lower extremity: normal to inspection (no calf tenderness) Objective Data Active Medications Lactated Ringer's (Lr) 1,000 mls @ 100 mls/hr IVCONT .Q10H ANGELICA Lactated Ringer's (Lr) 1,000 mls @ 999 mls/hr IV .Q1H1M ANGELICA Stop: 11/14/23 08:15 Last Admin: 11/14/23 06:44 Dose: 999 mls/hr Documented By: BENTLEY Labs 11/15/23 05:27 11/15/23 05:27 Labs: Laboratory Results - last 24 hr 11/14/23 07:00 Urine Test NEGATIVE Procedures Date of Service Date of Service: 11/15/23 Progress Note: A&P Assessment and plan (1) Obese: Status: Acute Assessment and Plan: s/p laparoscopic sleeve gastrectomy revision, lysis of adhesions and gastropexy Doing well Will check am labs and if OK the patient will be discharged home (2) BMI 38.0-38.9,adult: Status: Inactive (3) Anxiety: Status: Acute (4) Depression: Status: Acute (5) Asthma: Status: Acute (6) GERD (gastroesophageal reflux disease): Status: Acute (7) LVH (left ventricular hypertrophy): Status: Acute (8) Back pain: Status: Acute (9) S/P laparoscopic sleeve gastrectomy: Status: Acute (10) S/P laparoscopy with lysis of adhesions: Status: Acute (11) Intra-abdominal adhesions: Status: Acute Time Spent With Patient Time: Total time managing care of this patient today ____ minutes. Quality Stroke Does the patient have a stroke diagnosis?: No VTE Prior VTE?: No VTE Risk Level:: Surgical - moderate VTE Device Contraindication: N/A - Device Ordered VTE Drug Contraindication: Treatment Not Indicated
[2023-11-14] MEDS: levoFLOXacin/D5W 500 MG/100 ML PIGGYBACK 100 MG IV (07:53)
[2023-11-14] MEDS: Acetaminophen 1,000 MG/100 ML PIGGYBACK 400 MG IV (08:25)
--- NOTE | 2023-11-14 10:26 | PM.DS ---
DS: Providers Provider Date of Service: 11/15/23 Date of admission: 11/14/23 06:07 Primary care physician: Montez España PA-C DS: Diagnosis Discharge Diagnosis (1) Obese: Status: Acute (2) BMI 38.0-38.9,adult: Status: Inactive (3) Anxiety: Status: Acute (4) Depression: Status: Acute (5) Asthma: Status: Acute (6) GERD (gastroesophageal reflux disease): Status: Acute (7) LVH (left ventricular hypertrophy): Status: Acute (8) Back pain: Status: Acute DS: Summary Hospital Course Hospital Course: ADMITTING DIAGNOSIS: obesity, gerd, hld, htn, anxiety ? DISCHARGE DIAGNOSIS: same, s/p laparoscopic revision of sleeve gastrectomy to sleeve gastrectomy and lysis of adhesions ? PAST SURGICAL HISTORY: sleeve gastrectomy. cholecystectomy ? PROCEDURE: upper endoscopy, laparoscopic revision of sleeve gastrectomy to sleeve gastrectomy and lysis of adhesions ? DISCHARGE SUMMARY: ? History of Present Illness: ? The patient is a?38 year-old woman with a BMI of?45.9 kg/m2 and associated co-morbidities as described above. The patient had extensive work-up,lost?36.2 lbs preoperatively and was electively scheduled for laparoscopic, possible open sleeve gastrectomy and gastropexy. Risks and complications of the surgery were discussed with the patient in advance, particularly the possibility of , pulmonary embolism, anastomotic leak, bleeding, bowel injury, GERD, cardiac, renal or pulmonary complications. The patient understood all the risks and was in agreement with the surgical plan. ? Hospital Course: ? The patient underwent an uneventful laparoscopic revision of sleeve gastrectomy with gastropexy and lysis of adhesions on the day of admission. Postoperatively, the patient was transferred to the surgical floor. The patient received IV Acetaminophen and IV dilaudid for pain control. Patient was started on bariatric phase 1 diet POD #0. On postoperative day one, the patient was feeling well without nausea, vomiting, fevers, or tachycardia. The patient had some mild incisional pain and the abdomen was soft. ? On the morning of postoperative day one, the patient was continued on 1 ounce of water or ice every half hour. During the day, the patient did fairly well, having some incisional pain, but able to ambulate adequately and to tolerate liquids well. ? Since the patient is doing well, we decided that the patient was ready to be discharged. The patient was given instructions to follow-up with me next week and to call my office for any fever over 101, persistent abdominal pain, nausea, vomiting, GERD, symptoms of DVT such as calf tenderness, or leg swelling, or pulmonary embolism such as chest pain or shortness of breath. The patient was also instructed to drink 40-60 ounces of liquids per day using the 1-ounce cups. The patient had been given prescriptions for Tylenol for pain, Zofran prn for nausea, and pantoprazole and carafate previously. The patient was encouraged to ambulate and use the incentive spirometer. The patient was allowed to shower, but no baths, and encouraged to stay active at home. All of these instructions were given to the patient personally. All questions were answered and the patient understood all instructions, the instructions were also given to the patient in print. Time Attestation Total time managing care of this patient today: 25 mintues. Discharge Coordination Time (in mins): 25 Quality: Safe Use of Opioids Does Pt have an Active Cancer Diagnosis on the Problem List?: No Quality: Stroke Does the patient have a stroke diagnosis?: No Physical Exam Vital Signs: Vital Signs: Last Vital Signs Temp 97.9 F 11/14/23 06:33 Pulse 67 11/14/23 06:33 Resp 16 11/14/23 06:33 BP 102/65 11/14/23 06:33 Pulse Ox 96 11/14/23 06:33 O2 Del Method Room Air 11/14/23 06:33 BMI result Body Mass Index 37.9 DS: Data Data Completed and Pending Pending studies at discharge: Pending at discharge 11/14/23 09:42 Surgical [PTH] Routine Labs on day of discharge: Laboratory Results - last 24 hr 11/14/23 07:00 Urine Test NEGATIVE Discharge Plan Discharge Anticipated Discharge Date/Time: 11/15/23 10:00 Patient Disposition: Home, Self-Care Discharge Diagnosis: s/p laparoscopic revision of sleeve gastrectomy to sleeve gastrectomy and lysis of adhesions Referrals: Montez España PA-C [Primary Care Provider] - 1 Week Discharge Medications: Continued fexofenadine 180 mg Tablet 180 mg PO DAILY fluocinonide 0.05 % ointment 1 appl TOPICAL DAILY PRN (Reason: Rash) albuterol sulfate [Ventolin HFA] 90 mcg/actuation HFA aerosol inhaler 1 puff INHALATION QID PRN (Reason: Shortness Of Breath Or Wheezing) fluticasone propionate 50 mcg/actuation spray,suspension 1 spray intranasal BID PRN (Reason: Allergy Symptoms) escitalopram oxalate 20 mg tablet 20 mg PO DAILY lorazepam 1 mg tablet 1 mg PO DAILY PRN (Reason: Anxiety) pantoprazole 40 mg tablet,delayed release (DR/EC) 40 mg PO DAILY Qty: 90 0RF sucralfate 100 mg/mL suspension 10 ml PO BID Qty: 600 2RF ondansetron 4 mg tablet,disintegrating 4 mg PO Q12H Qty: 20 0RF Rx Instructions: Only take one every 12 hours as needed if you have nausea Discontinued cholecalciferol (vitamin D3) 125 mcg (5,000 unit) capsule 125 mcg PO DAILY Qty: 90 0RF thiamine HCl (vitamin B1) 100 mg tablet 100 mg PO DAILY 90 Days Qty: 90 1RF Discharge Orders: Discharge Order (Routine); Ordered 11/15/23 Ordered By: Chip Pearson Activity on Discharge: No heavy lifting Stand Alone Forms: Patient Portal Discharge page Print Language: Tamazight Care Plan Goals: weight loss Health Concerns: obesity Plan of Treatment: No tub baths, sex or returning to work until discussed at first post op appointment. No exercise, alcohol, tobacco or illegal drug use. Continue to use incentive spirometer hourly while awake. Walk in home for 5- 10 minutes every 2 hours during the first week. Follow all instructions in the bariatric handbook and call with any questions.Discharge Instructions 1. Please call your doctor or come back to the emergency room should any new symptoms arise. 2. You will receive a courtesy call from [facility] [place] 24-48 hours after discharge. 3. Activity: abstain from alcohol, practice limited stair climbing, no bending, no driving, no exercise, no illicit substances, no lifting, no sex, no tub bath, no work. 4. Diet: continue as discussed with Dr. Pearson. 5. Dressing Change/Wound Care: Your incision is covered by clear bandages and guaze underneath. If the area is tender, you may apply an ice pack for short intervals (no more than 20 minutes on, followed by at least 20 minutes off). Do not apply heat. Do not use creams, lotions, or topical antibiotics unless instructed to do so by your surgeon. These can cause infection or allergic reaction. 6. Call your doctor if: - Your temperature exceeds 101.5 F - You experience excessive pain or swelling - You have an unexpected reaction to medication - You have excessive bleeding - You experience continued vomiting/nausea - Your incision begins to separate - Your incision shows signs of infection such as increased redness, swelling, excessive pain, heat, or drainage (light blood or clear fluid is normal) 7. General instructions: No lifting greater than 5 lbs for 1 week and not more than 20lbs the next 3?weeks. No driving until seen at the office in 5-7 days after surgery. If you do not move your bowels in the next 2 days, please tell?Dr. Pearson. Please walk around your home every hour or two to prevent blood clots from forming in your legs. You do not need to wake from sleeping to walk. Please sleep in a bed or couch to prevent kinking at the hips and knees. Please take your incentive spirometer (your lung staff midwife) home with you and use it for the next few days to prevent pneumonia. You may shower, no hot tubs, baths or swimming pools.?Please follow the post op diet instructions you are?given by Dr Pearson? and text me daily at 5-6pm for an update.?If you have any issues or concerns or questions please communicate this to him via text.? The Celebrate shakes have all of the bariatric vitamins you need if you consume these shakes. If you are drinking other protein shakes, you will need to purchase the Celebrate multivitamins and calcium that are available in the hospital gift shop on the first floor of the [facility].??Do not take anything without first discussing with Dr Pearson. Please make sure you are consuming at least 40 ounces of fluids per day starting the?day AFTER your discharge from the hospital. Always drink 1-2 ml per minute using the 5ml?syringe. If you drink faster you may experience?bloating,?gas pain, burping, nausea or heartburn. In that case please slow down your pace and use the syringe to?understand better the?proper?pace and volume of drinking. Do not hesitate to contact the office with any questions at . The patient's medical history has been reviewed and they are considered low risk for post op DVT and therefore DVT prophylaxis is not considered necessary. Travel after surgery was reviewed. The patient has not disclosed any travel plans during the first 30 days after surgery and they have been advised that within the first 30 days after surgery any bus, plane, train or car travel over 2 hours in duration is contraindicated due to the possibility of developing blood clots from immobility. Any travel, needs to include periods of ambulation of 10 minutes in duration every 2 hours.? The patient was instructed to discuss any plans for travel during this period with their bariatric surgeon. Assessment: stable s/p laparoscopic revision of sleeve gastrectomy to sleeve gastrectomy and lysis of adhesions Discharge Date/Time: 11/15/23 09:11
[2023-11-14] MEDS: Promethazine HCL 25 MG/ML VIAL 6.25 MG IM (10:30)
[2023-11-14] MEDS: HYDROmorphone HCl 0.5 MG/0.5 ML SYRINGE 0.25 MG IVPUSH ×4 (10:35→11:03)
[2023-11-14 11:06] LABS: Hematocrit 40.8 % (37.0-47.0); Hemoglobin 13.7 g/dl (12.0-16.0)
[2023-11-14 11:28] LABS: Anion Gap 22 (12-20); Blood Urea Nitrogen 10 mg/dL (9-16); Calcium 8.8 mg/dL (8.4-10.2); Carbon Dioxide 16 mmol/L (22-29); Chloride 105 mmol/L (96-108); Creatinine Clr Calc Pharmacy 95.2; Estimated Glomerular Filt Rate > 60; Glucose Random 143 mg/dL (60-115); Potassium 4.5 mmol/L (3.3-5.1); Sodium 138 mmol/L (135-145)
[2023-11-14] MEDS: Lactated Ringers 1,000 ML 100 ML IVCONT ×2 (12:28→19:53)
[2023-11-14] MEDS: Acetaminophen 1,000 MG/100 ML PIGGYBACK 16.7 MG IV ×2 (13:57→19:53)
--- NOTE | 2023-11-14 15:53 | PHA.MEDREC ---
Addendum entered by Teri Joseph RPh 11/14/23 16:32: Reviewed by [facility] Original Note: Pharmacy Consult ? Medication Reconciliation Pharmacy has completed the medication reconciliation. Spoke to patient to confirm med list. patient states she no longer takes Folic acid 1 mg, Omeprazole 20 mg, topiramate and miralax powder symbycort.
[2023-11-14] MEDS: Famotidine/PF 20 MG/2 ML VIAL IVPUSH (19:52)
[2023-11-14] MEDS: 0.9 % Sodium Chloride Flush 3 ML SYRINGE IVFLUSH (19:53)
[2023-11-15] MEDS: Acetaminophen 1,000 MG/100 ML PIGGYBACK 16.7 MG IV (01:39)
[2023-11-15 03:21] VITALS: BP 117/77; PULSE 58; RESP 16; TEMP 36; O2SAT 95
[2023-11-15] MEDS: Lactated Ringers 1,000 ML 100 ML IVCONT (05:27)
[2023-11-15 06:19] LABS: MANUAL DIFF FLAG NO
[2023-11-15 06:28] LABS: Basophils Percent Auto 0.1 % (0-2); Eosinophils Percent Auto 0.1 % (0-4); Hematocrit 41.8 % (37.0-47.0); Imm Gran Abs Auto 0.02 X10*3/uL (0.00-0.03); Imm Gran Pct Auto 0.2 % (0.0-0.4); Lymphocytes Absolute Auto 0.9 X10*3/uL (1.2-4.9); Lymphocytes Percent Auto 11.3 % (20-40); Mean Corpuscular HGB Conc 33.5 g/dl (31.0-35.0); Mean Corpuscular Hemoglobin 29.6 pg (27.0-33.0); Mean Corpuscular Volume 88.4 fL (80.0-98.0); Mean Platelet Volume 12.3 fL (9.4-12.3); Monocytes Absolute Auto 0.4 X10*3/uL (0.1-1.2); Monocytes Percent Auto 4.9 % (2-11); Neutrophils Absolute Auto 6.8 x10*3/uL (2.0-8.3); Neutrophils Percent Auto 83.4 % (45-73); Platelet Count 270 X10*3/uL (160-400); Red Blood Count 4.73 X10*6/uL (4.20-5.50); Red Cell Distribution Width 12.9 % (11.0-16.0); White Blood Count 8.2 X10*3/uL (4.8-10.8)
[2023-11-15 06:42] LABS: Anion Gap 17 (12-20); Blood Urea Nitrogen 6 mg/dL (9-16); Calcium 9.6 mg/dL (8.4-10.2); Carbon Dioxide 17 mmol/L (22-29); Chloride 107 mmol/L (96-108); Creatinine Clr Calc Pharmacy 95.2; Estimated Glomerular Filt Rate > 60; Glucose Random 107 mg/dL (60-115); Potassium 4.2 mmol/L (3.3-5.1); Sodium 137 mmol/L (135-145)
[2023-11-15] MEDS: Famotidine/PF 20 MG/2 ML VIAL IVPUSH (06:58)
[2023-11-15] MEDS: Fluticasone/Vilanterol 200/25 BLST.W.DEV 1 PUFF INHALE (08:13)
[2023-11-15 08:14] VITALS: PULSE 60; RESP 18; O2SAT 96
--- NOTE | 2023-11-15 08:38 | MHC.CM.PN ---
Female 38 s/p Gastric sleeve. Patient is independent with all functional mobility. She lives with her spouse and son. A copy of her HCP has been requested. DP home sef care. Patients spouse will provide transport home.
[2023-11-15 08:52] VITALS: BP 123/78; PULSE 65; TEMP 36.4; O2SAT 98
== END 2023-11-15 09:11 | disposition home or self-care (01) | DRG 403 ==
LOC: HO.SSSA 10:31 → HO.S3 11:42
PROVIDERS: Nurse Practitioner; Physician Assistant Surgical; Admitting Provider Surgery; PCP Physician Assistant; Visit Provider Surgery
PROC: 0DB64Z3 Excision of Stomach, Percutaneous Endoscopic Approach, Vertical (ICD-10-PCS; CPT 43845; principal; 2023-11-14 07:30)
DX: E66.01 Morbid (severe) obesity due to excess calories (principal); F32.A Depression, unspecified; K21.9 Gastro-esophageal reflux disease without esophagitis; F41.9 Anxiety disorder, unspecified; J45.909 Unspecified asthma, uncomplicated; M54.9 Dorsalgia, unspecified; K66.0 Peritoneal adhesions (postprocedural) (postinfection); Z68.38 Body mass index [BMI] 38.0-38.9, adult; Z79.899 Other long term (current) drug therapy
CPT/HCPCS: 36415; 80048; 80053; 80061; 81025; 83036; 83525; 84443; 85014; 85018; 85025; 85610; 85730; 86140; 86850; 86900; 86901; 88304; 88305; 88307; 88342; A4649; C9088; C9145; J0131; J1100; J1170; J1956; J2250; J2371; J2405; J2550; J2704; J2795; J3010; J7120

== ENCOUNTER → 2023-11-14 06:07 | Outpatient (BNV) | payer OTHER, SELFPAY | PROVIDERS: Admitting Provider Surgery; PCP Physician Assistant; Visit Provider Surgery | DX: E66.01 Morbid (severe) obesity due to excess calories (principal); Z68.42 Body mass index [BMI] 45.0-49.9, adult; Z68.38 Body mass index [BMI] 38.0-38.9, adult; F41.9 Anxiety disorder, unspecified; F32.9 Major depressive disorder, single episode, unspecified; J45.20 Mild intermittent asthma, uncomplicated; K21.9 Gastro-esophageal reflux disease without esophagitis; I51.7 Cardiomegaly; M54.9 Dorsalgia, unspecified; Z98.84 Bariatric surgery status; Z98.890 Other specified postprocedural states; K66.0 Peritoneal adhesions (postprocedural) (postinfection) | CPT/HCPCS: 43659; 43775; 99024; 99499 ==

== ENCOUNTER 2023-11-23 10:22 | Outpatient (AMB) | payer OTHER, SELFPAY ==
--- NOTE | 2023-11-23 10:39 | MHC.OFFVISWM ---
VS Expanded 11/23/23 10:48 BP 114/60 Blood Pressure Location Rt brachial Blood Pressure Position Sitting Pulse 67 Pulse Source Pulse Oximeter Temp 97.1 F Temperature Source Temporal Artery Scan Pulse Oximetry 98 Oxygen Delivery Method Room Air Height 5 ft 3 in Weight 202 lb BMI 35.8 Body Fat % 40.8 Body Fat Mass 82.4 Fat Free Mass 119.4 Visceral Fat Rating 9.0 Body Water % 42.4 Body Water Mass 85.6 Muscle Mass/Score 113.6 Basal Metabolic Rate/Score 1,665 Intake Visit Reasons: (OV) PO LSG 11/14/23 Allergies Penicillins Allergy (Intermediate, Verified 11/03/23 09:01) HIVES, rash Sulfa (Sulfonamide Antibiotics) [SULFA (SULFONAMIDE ANTIBIOTICS)] Allergy (Unknown, Verified 11/03/23 09:01) BURNING, rash sulfamethoxazole [From BACTRIM] Allergy (Unknown, Verified 11/03/23 09:01) HIVES trimethoprim [From BACTRIM] Allergy (Unknown, Verified 11/03/23 09:01) HIVES HPI Comments Details: Patient is a pleasant 38-year-old female, 9 days post sleeve gastrectomy performed on 11/14/2023. Her meal plan was recently changed to celebrate 4 in 1, 2 shakes, 2 scoops each and 1 isopure shake with 1 scoop. She states that the celebrate 4 in 1 is now too thick. She will discuss this with Dr. Pearson. Otherwise she has been drinking approximately 40 oz of fluids and moved her bowels. Offers no significant complaints. She did use a loofa on her abdomen and abraded off her dressings and 1 of the Steri-Strips came off on the far right lateral incision site [facility] Medical History (Updated 11/23/23 @ 00:02 by Fabiana Knowles) BMI 38.0-38.9,adult BMI 39.0-39.9,adult Left foot pain Need for MMR vaccine Sinus infection History of opioid abuse Screening for hypothyroidism Screening for hypercholesterolemia Screening for diabetes mellitus (DM) Annual physical exam GERD (gastroesophageal reflux disease) Seasonal allergies Gastric reflux Back pain History of hepatitis C Morbid obesity Morbid obesity with BMI of 40.0-44.9, adult Anxiety Headache, migraine Depression Hypertension Surgical History (Updated 11/23/23 @ 10:52 by Bertha Bautista CMA) Hx of laparoscopic partial gastrectomy History of esophagogastroduodenoscopy (EGD) (08/23/23) History of carpal tunnel repair History of gastrectomy History of cholecystectomy Family History Father Hypertension Kidney stones Retinal detachment Mother Hard of hearing Hyperthyroidism Maternal Grandmother Liver problem Emphysema lung Social History Household Members: Family Housing: House Are you a primary patient care director to a significant other at home: Yes (son) Do you presently have visiting nurse or other home services: No 75 years or older and lives alone: No Alcohol intake: former Comment: no iv Patient Tobacco Use Status: Never used Tobacco e-Cigarette/Vaping Use: Never Used Second Hand Smoke Exposure: Yes Substance Use Type: Marijuana and Opiates service: No Current occupational 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 Original weight on 07/24/2023 was 259.6 pounds and op weight was 222.4 pounds. Be sure to text Dr Pearson exactly 1 week after surgery your weight from your home scale so he can adjust your meal plan. Continue meal plan until f/u vernon Rowley in 2 weeks May shower, no submersion in bath for another week Continue abdominal binder with activity and exercise for the next 2 weeks. Exercise prior to surgery was walking and stationary bike and may resume No abdominal exercises for 6 weeks post operatively Will be emailed link to post op video for review Reminded of the pace of drinking, 2 mL per minute, 1 oz/15 min.
[2023-11-23 10:48] VITALS: BP 114/60; PULSE 67; TEMP 36.2; O2SAT 98; BMI 35.8
== END 2023-11-23 11:16 | disposition home or self-care (01) ==
PROVIDERS: PCP Physician Assistant; Visit Provider Physician Assistant Surgical
DX: Z98.84 Bariatric surgery status (principal)
CPT/HCPCS: 99024

== ENCOUNTER → 2023-11-23 10:22 | Outpatient (BNVA) | payer OTHER, SELFPAY | PROVIDERS: PCP Physician Assistant; Visit Provider Physician Assistant Surgical | DX: Z98.84 Bariatric surgery status (principal) | CPT/HCPCS: 99212 ==

== ENCOUNTER 2023-11-24 14:52 | Outpatient (AMB) | payer OTHER, SELFPAY ==
[2023-11-24 14:58] VITALS: BP 102/72; PULSE 78; O2SAT 97; BMI 35.8
--- NOTE | 2023-11-24 14:58 | MHC.PC.OV ---
Vital Signs 11/24/23 14:58 Height 5 ft 3 in Weight 202 lb BMI 35.8 BP 102/72 Blood Pressure Location Lt brachial Position Sitting Pulse 78 Pulse Source Pulse Oximeter Pulse Oximetry (%) 97 Oxygen Delivery Method Room Air Intake Visit Reasons: HDF ~ Post hospital discharge FU Metal Drawer Required: No Accompanied by: Self / Same As Patient Allergies Penicillins Allergy (Intermediate, Verified 11/24/23 15:01) HIVES, rash Sulfa (Sulfonamide Antibiotics) [SULFA (SULFONAMIDE ANTIBIOTICS)] Allergy (Unknown, Verified 11/24/23 15:01) BURNING, rash sulfamethoxazole [From BACTRIM] Allergy (Unknown, Verified 11/24/23 15:01) HIVES trimethoprim [From BACTRIM] Allergy (Unknown, Verified 11/24/23 15:) HIVES Tobacco use date assessed: 08/21/23 Dental Screening Dental Screen Date: 08/21/23 HPI HPI Comments History of Present Illness Details 38 y/o female patient who presented to the clinic today for HDF. She was admitted at [facility] on 11/14/23 - 11/15/23 after undergoing Gastric Sleeve bypass revision. She had her Post-Op follow up appointment with General surgeons on 11/23/23. She doing well on liquid diet for 2 weeks and denies any pain. [facility] Medical History (Updated 11/23/23 @ 00:02 by Fabiana Knowles) BMI 38.0-38.9,adult BMI 39.0-39.9,adult Left foot pain Need for MMR vaccine Sinus infection History of opioid abuse Screening for hypothyroidism Screening for hypercholesterolemia Screening for diabetes mellitus (DM) Annual physical exam GERD (gastroesophageal reflux disease) Seasonal allergies Gastric reflux Back pain History of hepatitis C Morbid obesity Morbid obesity with BMI of 40.0-44.9, adult Anxiety Headache, migraine Depression Hypertension Surgical History Hx of laparoscopic partial gastrectomy History of esophagogastroduodenoscopy (EGD) (08/23/23) History of carpal tunnel repair History of gastrectomy History of cholecystectomy Family History Father Hypertension Kidney stones Retinal detachment Mother Hard of hearing Hyperthyroidism Maternal Grandmother Liver problem Emphysema lung Social History (Reviewed 11/24/23 @ 15:02 by MEMO Muñoz Household Members: Family Housing: House Are you a primary child care teacher to a significant other at home: Yes (son) Do you presently have visiting nurse or other home services: No 75 years or older and lives alone: No Alcohol intake: former Comment: no iv Patient Tobacco Use Status: Never used Tobacco e-Cigarette/Vaping Use: Never Used Second Hand Smoke Exposure: Yes Substance Use Type: Marijuana and Opiates service: No Current occupational 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 Rodo Mar, Cammie Ramirez, Pete Grewal and colleagues, with an educational mckay from [employer]. Review of Systems Const All systems reviewed & are unremarkable except as noted in HPI and below Physical exam (Primary Care) Vital Signs: Last Vital Signs Pulse 78 11/24/23 14:58 BP 102/72 11/24/23 14:58 Pulse Ox 97 11/24/23 14:58 Oxygen Delivery Method Room Air 11/24/23 14:58 BMI result Body Mass Index 35.8 Tobacco/Smoking Status: Tobacco use Status Tobacco use date assessed 08/21/23 11/24/23 15:00 Patient Tobacco Use Status Never used Tobacco 11/24/23 15:00 e-Cigarette/Vaping Use Never Used 11/24/23 15:00 Thrive Assessment: Date of Thrive Assessment Date Thrive assessed 11/15/23 11/24/23 15:00 Const General: cooperative and no acute distress Nutritional Appearance: obese Orientation/consciousness: patient oriented x3 Resp Effort & Inspection: normal respiratory effort Auscultation: clear to auscultation bilaterally Cardio Heart sounds: S1 normal heart sound present and S2 normal heart sound present Neuro General: patient oriented x3, gait normal and moves all extremities Psych Speech and movement: Normal speech and movement present Assessment and Plan Assessment & Plan (1) S/P laparoscopic sleeve gastrectomy: Code(s): Z98.84 - Bariatric surgery status Plan: Recovering well at home, no concerns. Continue f/u with General surgery as scheduled. (2) S/P laparoscopy with lysis of adhesions: Code(s): Z98.890 - Other specified postprocedural states Plan: Recovering well at home, no concerns. Continue f/u with General surgery as scheduled. Coding Level of Care Code Est Pt Level 4 (58054) Diagnoses S/P laparoscopic sleeve gastrectomy Z98.84 S/P laparoscopy with lysis of adhesions Z98.890 Time Spent (min) 20 Comment Spent reviewing hospital notes
== END 2023-11-24 15:15 | disposition home or self-care (01) ==
PROVIDERS: PCP Physician Assistant; Visit Provider Nurse Practitioner Family
DX: E66.9 Obesity, unspecified (principal); Z68.35 Body mass index [BMI] 35.0-35.9, adult; Z98.84 Bariatric surgery status
CPT/HCPCS: 99214

== ENCOUNTER 2023-12-14 16:08 | Outpatient (AMB) | payer OTHER, SELFPAY ==
[2023-12-14 15:57] VITALS: BMI 34.6
--- NOTE | 2023-12-14 15:57 | A.OFFVIS_ITS ---
VS Expanded 12/14/23 15:57 Height 5 ft 3 in Weight 195 lb 8 oz BMI 34.6 Intake Visit Reasons: (TV) PO LSG 11/14/23 Switchboard Operator Required: No Allergies Penicillins Allergy (Intermediate, Verified 11/24/23 15:01) HIVES, rash Sulfa (Sulfonamide Antibiotics) [SULFA (SULFONAMIDE ANTIBIOTICS)] Allergy (Unknown, Verified 11/24/23 15:01) BURNING, rash sulfamethoxazole [From BACTRIM] Allergy (Unknown, Verified 11/24/23 15:01) HIVES trimethoprim [From BACTRIM] Allergy (Unknown, Verified 11/24/23 15:01) HIVES Medication List - Last Reconciled 12/14/23 by JOHNATHAN Lin albuterol sulfate 90 mcg/actuation (Ventolin HFA) 1 puff inhalation QID PRN escitalopram oxalate 20 mg PO DAILY fexofenadine 180 mg PO DAILY fluocinonide 0.05% 1 appl topical DAILY PRN fluticasone propionate 50 mcg/actuation 1 spray intranasal BID PRN lorazepam 1 mg PO DAILY PRN ondansetron 4 mg PO Q12H pantoprazole 40 mg PO DAILY sucralfate 10 mL PO BID HPI Comments Details: This?a?38?yo female who is s/p LSG without hiatal hernia repair on?11/14/23. Presents for 1 month post op visit. Weight today is 195.8 pounds, with a BMI of 34.6. There has been a 63.8 pound weight loss,(initial weight 259.6 pounds) since starting the program on 07/24/23 reflecting a 24.5% total body weight loss and a weight loss of 26.6 pounds since surgery (operative weight 222.4 pounds) reflecting a 11.9% TBWL since surgery. No complaints of nausea, emesis, ab dominal pain or reflux. Reports infrequent but normal bowel movements every 2-3 days and uses stool softeners regularly. Original weight on 07/24/2023 was 259.6 pounds and op weight was 222.4 pounds. Present meal plan includes: Celebrate 4 in 1 9-11 am 1 scoop, 1 scoop isopure 1 scoop ZP bar ? Exercise routine includes: walking outside, 300-400 eduar daily stationary bike at home [facility], [facility] Medical History (Updated 11/23/23 @ 00:02 by Fabiana Knowles) BMI 38.0-38.9,adult BMI 39.0-39.9,adult Left foot pain Need for MMR vaccine Sinus infection History of opioid abuse Screening for hypothyroidism Screening for hypercholesterolemia Screening for diabetes mellitus (DM) Annual physical exam GERD (gastroesophageal reflux disease) Seasonal allergies Gastric reflux Back pain History of hepatitis C Morbid obesity Morbid obesity with BMI of 40.0-44.9, adult Anxiety Headache, migraine Depression Hypertension Surgical History Hx of laparoscopic partial gastrectomy History of esophagogastroduodenoscopy (EGD) (08/23/23) History of carpal tunnel repair History of gastrectomy History of cholecystectomy Family History Father Hypertension Kidney stones Retinal detachment Mother Hard of hearing Hyperthyroidism Maternal Grandmother Liver problem Emphysema lung Social History Household Members: Family Housing: House Are you a primary childcare provider to a significant other at home: Yes (son) Do you presently have visiting nurse or other home services: No 75 years or older and lives alone: No Alcohol intake: former Comment: no iv Patient Tobacco Use Status: Never used Tobacco e-Cigarette/Vaping Use: Never Used Second Hand Smoke Exposure: Yes Substance Use Type: Marijuana and Opiates service: No Current occupational 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 Hearing needs: No Vision needs: No Telehealth Telehealth Telehealth Platform: Telephone Location of provider rendering services: practice address Location of patient: address on file Patient Identification confirmed using: Name, : Yes Telehealth method: voice only Patient verbally consented to treatment: Yes Patient verbally consented to billing insurance company: Yes Patient informed of any privacy concerns related to visit: Yes Minutes spent on Phone/Video with Pt.: 15 Assessment & Plan Assessment & Plan (1) S/P laparoscopic sleeve gastrectomy: Code(s): Z98.84 - Bariatric surgery status Category: Medical Plan: Patient is doing well, continuing her meal plan with Dr. Pearson. She scarlet nues to exercise, recommend adding in the stationary bike that she has at home. We will follow up in the office in approximately 3 weeks.
== END 2023-12-14 16:12 | disposition home or self-care (01) ==
LOC: HO.HBS 16:08
PROVIDERS: PCP Physician Assistant; Visit Provider Physician Assistant Surgical
DX: Z98.84 Bariatric surgery status (principal)
CPT/HCPCS: 99024

== ENCOUNTER → 2023-12-14 16:08 | Outpatient (BNVA) | payer OTHER, SELFPAY | PROVIDERS: PCP Physician Assistant; Visit Provider Physician Assistant Surgical | DX: Z48.815 Encounter for surgical aftercare following surgery on the digestive system (principal); Z98.84 Bariatric surgery status | CPT/HCPCS: 99212 ==

== ENCOUNTER 2023-12-27 15:29 | Outpatient (AMB) | payer OTHER, SELFPAY ==
[2023-12-27 15:52] VITALS: BP 110/66; PULSE 61; O2SAT 99; BMI 34.1
--- NOTE | 2023-12-27 15:52 | A.OFFPC_ITS ---
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: No Accompanied by: Self / Same As Patient Allergies Penicillins Allergy (Intermediate, Verified 12/27/23 16:01) HIVES, rash Sulfa (Sulfonamide Antibiotics) [SULFA (SULFONAMIDE ANTIBIOTICS)] Allergy (Unknown, Verified 12/27/23 16:01) BURNING, rash sulfamethoxazole [From BACTRIM] Allergy (Unknown, Verified 12/27/23 16:01) HIVES trimethoprim [From BACTRIM] Allergy (Unknown, Verified 12/27/23 16:01) HIVES Medication List - Last Reconciled 12/27/23 by Montez España PA-C albuterol sulfate 90 mcg/actuation (Ventolin HFA) 1 puff inhalation QID PRN escitalopram oxalate 20 mg PO DAILY fexofenadine 180 mg PO DAILY fluocinonide 0.05% 1 appl topical DAILY PRN fluticasone propionate 50 mcg/actuation 1 spray intranasal BID PRN lorazepam 1 mg PO DAILY PRN ondansetron 4 mg PO Q12H pantoprazole 40 mg PO DAILY sucralfate 10 mL PO BID Tobacco use date assessed: 08/21/23 Dental Screening Dental Screen Date: 08/21/23 HPI f/u weight check gurpreet 12/24 HPI Details Patient is a 38-year-old female here today for a follow up visit. Patient has a past medical history significant for depression, anxiety, h/o bariatric surgery,hypothyroidism, hypertension, moderate persistent asthma, Migraines. Obesity: Today's BMI at 34. She has lost significant amount of weight since her revision bariatric surgery done 11/2023. Continues on protein liquid diet ? .. ? . ? Asthma :. Does use Ventolin on a p.r.n. basis. She does report her asthma seems to have been worse on exertion in his interested in further evaluation of her asthma. She has upcoming pulmonary function testing in 01/31/2024. She continues to refrain from smoking cigarettes. ? .. ? 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 No further pharmacological treatment for her opiate dependency. 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 ? .. ? Hypertension: . Patient's blood pressure today in office acceptable. . She is continues to manage her blood pressure at this time with lifestyle management. [facility] Medical History (Updated 12/28/23 @ 07:35 by Montez España PA-C) Hydradenitis BMI 38.0-38.9,adult BMI 39.0-39.9,adult Left foot pain Need for MMR vaccine Sinus infection History of opioid abuse Screening for hypothyroidism Screening for hypercholesterolemia Screening for diabetes mellitus (DM) Annual physical exam GERD (gastroesophageal reflux disease) Seasonal allergies Gastric reflux Back pain History of hepatitis C Morbid obesity Morbid obesity with BMI of 40.0-44.9, adult Anxiety Headache, migraine Depression Hypertension Surgical History Hx of laparoscopic partial gastrectomy History of esophagogastroduodenoscopy (EGD) (08/23/23) History of carpal tunnel repair History of gastrectomy History of cholecystectomy Family History Father Hypertension Kidney stones Retinal detachment Mother Hard of hearing Hyperthyroidism Maternal Grandmother Liver problem Emphysema lung Social History Household Members: Family Housing: House Are you a primary day care home provider to a significant other at home: Yes (son) Do you presently have visiting nurse or other home services: No 75 years or older and lives alone: No Alcohol intake: former Comment: no iv Patient Tobacco Use Status: Never used Tobacco e-Cigarette/Vaping Use: Never Used Second Hand Smoke Exposure: Yes Substance Use Type: Marijuana and Opiates service: No Current occupational 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 1. Little interest or pleasure in doing things: not at all 2. Feeling down, depressed, or hopeless: not at all 3. Trouble falling or staying asleep, or sleeping too much: not at all 4. Feeling tired or having little energy: not at all 5. Poor appetite or overeating: not at all 6. Feeling bad about yourself - or that you are a failure or have let yourself or your family down: not at all 7. Trouble concentrating on things, such as reading the newspaper or watching television: not at all 8. Moving or speaking so slowly that other people could have noticed. Or the opposite - being so fidgety or restless that you have been moving around a lot more than usual: not at all 9. Thoughts that you would be better off or of hurting yourself in some way: not at all Total score: 0 Depression Screening Interpretation: Negative Depression Screening Done: Yes 34190 - PHQ-9 Billing: Yes Source: Developed by Drs. Rodo Mar, Cammie Ramirez, Pete Grewal and colleagues, with an educational mckay from [employer]. Thrive Questionnaire Date Thrive assessed: 12/27/23 I am a: Patient What is your living situation today?: I have a steady place to live Within the past 12 months, did the food you bought not last and you didn't have the money to get more?: Never true Within the past 12 months, did you worry whether your food would run out before you got money to buy more?: Never true Do you have trouble paying for medicines?: No Do you have trouble getting transportation to medical appointments?: No Do you have trouble paying your heating and electricity bill?: No Do you have trouble taking care of your child, family member or friend?: No Do you have trouble with day-to-day activities such as bathing, preparing meals, shopping, managing finances, etc.?: No Are you currently unemployed and looking for a job?: No Are you interested in more education?: No Please select the resources that you would like help with: None Currently or been in a relationship where the following occur: No concerns reported THRIVE Score: 0 AUDIT C Alcohol Use Questionnaire (AUDIT-C) 1. How often do you have a drink containing alcohol?: Never 3. How often do you have six or more drinks on one occasion?: Never Total Score: 0 JENNIFER-7 AMB Questionnaire JNENIFER-7 Date JENNIFER - 7 assessed: 12/27/23 Feeling nervous, anxious, or on edge: 0 = Not at all Not being able to stop or control worryin = Not at all Worrying too much about different things: 0 = Not at all Trouble relaxin = Not at all Being so restless that it is hard to sit still: 0 = Not at all Becoming easily annoyed or irritable: 0 = Not at all Feeling afraid as if something awful might happen: 0 = Not at all Total JENNIFER-7 score (0-4 normal; 5-9 mild; 10-14 moderate; 15-21 severe): 0 Source: Developed by Drs. Rodo Mar, Cammie Ramirez, Pete Grewal and colleagues, with an educational mckay from [employer]. JENNIFER-7 Assessment Billing JENNIFER-7 Assessment Tool: JENNIFER-7 Assessment 12334 Review of Systems Const Denies headache(s) Eyes Denies loss of vision ENT Denies vertigo, Denies dizziness, Denies headache(s) and Denies sore throat Card Denies chest pain, Denies leg edema and Denies lightheadedness Resp Denies cough, Denies hemoptysis and Denies wheezing GI Denies abdominal pain, Denies melena, Denies constipation, Denies diarrhea and Denies vomiting Denies urinary frequency, Denies dysuria and Denies urinary urgency Musc Denies arthralgias, Denies joint swelling, Denies numbness and Denies tingling Neuro Denies Abnormal speech present, Denies behavioral changes, Denies vertigo, Denies dizziness, Denies headache(s), Denies loss of vision, Denies memory loss, Denies numbness and Denies tingling Psych Denies anxiety, Denies behavioral changes, Denies depression, Denies memory loss and Denies panic attacks Juan Daniel/Lymph Denies easy bleeding and Denies easy bruising Aller/Immun Denies wheezing Physical exam (Primary Care) Vital Signs: Last Vital Signs Pulse 61 12/27/23 15:52 BP 110/66 12/27/23 15:52 Pulse Ox 99 12/27/23 15:52 Oxygen Delivery Method Room Air 12/27/23 15:52 BMI result Body Mass Index 34.1 Tobacco/Smoking Status: Tobacco use Status Tobacco use date assessed 08/21/23 12/27/23 15:53 Patient Tobacco Use Status Never used Tobacco 12/27/23 15:53 e-Cigarette/Vaping Use Never Used 12/27/23 15:53 PHQ-9: PHQ-9 Score PHQ-9: Total score 0 12/27/23 16:02 Depression Screening Interpretation: Negative Thrive Assessment: Date of Thrive Assessment Date Thrive assessed 12/27/23 12/27/23 15:53 Currently or been in a relationship where the following occur: No concerns reported Const General: healthy appearing, no acute distress, alert and awake Nutritional Appearance: well nourished Orientation/consciousness: oriented to person, oriented to place and oriented to time HENMT Ears: TM's normal bilaterally General nose exam: Normal nasal mucous membranes and turbinates present Eyes Conjunctivae: conjunctivae normal Sclerae: sclerae normal Pupils: Equal, round and reactive pupils present Neck Neck: Yes no lymphadenopathy and Yes no JVD Thyroid: Thyroid normal Carotids: no bruits Resp Effort & Inspection: normal respiratory effort and not tachypneic Auscultation: no crackles, no rales, no rhonchi and no wheezes Cardio Rate: regular rate Rhythm: regular rhythm Heart sounds: no murmurs and normal S1 and S2 GI Palpation (GI): Soft to palpation, nontender, no hepatomegaly and no splenomegaly Auscultation: normal bowel sounds Skin General skin exam: no rashes or lesions noted and dry skin Neuro General: oriented to person, oriented to place and oriented to time Cranial nerves: Yes Equal, round and reactive pupils present Speech: No Abnormal speech present Gait exam (Neuro): Normal gait present Motor exam (neuro): no tremor noted Extrem Right upper extremity: full ROM Left upper extremity: full ROM Right lower extremity: full ROM; no edema Left lower extremity: full ROM; no edema Psych Mental Status: mental status grossly normal Speech and movement: Normal speech and movement present Affect: normal affect Attitude: cooperative Thought process: Normal thought process present Office Procedures Flu Questionnaire Does the patient have a severe egg allergy?: No Immunizations Fluarix Triv [id number] (PF) 45 mcg (15 mcg x 3)/0.5 mL IM syringe Performing Provider: Montez España PA-C [facility] Documented (not given) by: ISABELLA Muñoz on 12/27/23 15:54 Reason Not Given: Received Previously Coding Level of Care Code Est Pt Level 4 (77973) Diagnoses S/P laparoscopic sleeve gastrectomy Z98.84 Essential hypertension I10 Hypertension type: essential hypertension Mild intermittent asthma without complication J45.20 Asthma complication type: uncomplicated Asthma persistence: intermittent Asthma severity: mild Mixed hyperlipidemia E78.2 Hyperlipidemia type: mixed hyperlipidemia Impaired glucose metabolism R73.09 Additional Codes JENNIFER-7 Assessment Billing - JENNIFER-7 Assessment Tool: JENNIFER-7 Assessment 02573 ([id number]) Assessment & Plan Assessment & Plan (1) S/P laparoscopic sleeve gastrectomy: Code(s): Z98.84 - Bariatric surgery status Category: Surgical Plan: As per HPI, patient is status post revision of her laparoscopic gastric sleeve. She is doing well and has had no complications. She has lost weight and continues on high-protein liquid diet. She continues to follow [place] weight management program. (2) HTN (hypertension): Code(s): I10 - Essential (primary) hypertension Category: Medical Qualifiers: Hypertension type: essential hypertension Qualified Code(s): I10 - Essential (primary) hypertension Plan: Blood pressure acceptable today in office. She has been able to manage her blood pressure without medication at this time. Goal blood pressure to remain below 140/90 (3) Asthma: Code(s): J45.909 - Unspecified asthma, uncomplicated Category: Medical Qualifiers: Asthma complication type: uncomplicated Asthma persistence: i ntermittent Asthma severity: mild Qualified Code(s): J45.20 - Mild intermittent asthma, uncomplicated Plan: Patient reports her asthma is still somewhat problematic especially on exertion. She has upcoming appointment for PFT testing. Will consider a maintenance inhaler per results of her PFT. Advised on using her albuterol inhaler before physical activity. (4) HLD (hyperlipidemia): Code(s): E78.5 - Hyperlipidemia, unspecified Category: Medical Qualifiers: Hyperlipidemia type: mixed hyperlipidemia Qualified Code(s): E78.2 - Mixed hyperlipidemia Plan: Patient does have a history of borderline high total cholesterol. Will recheck fasting cholesterol to evaluate after her bariatric revision. Goal total cholesterol to be below 200 (5) Impaired glucose metabolism: Code(s): R73.09 - Other abnormal glucose Category: Medical Plan: Patient does have a history of impaired glucose metabolism. She seems to have had better fasting blood sugars status post bariatric surgery revision. Will continue to follow fasting blood sugar and A1c. Orders: Orders Comprehensive [place]. Panel Fast 12/27/23 R73.01 - Impaired fasting glucose Vitamin D 25-OH Total 12/27/23 R79.89 - Other specified abnormal findings of blood chemistry Lipid Panel 12/27/23 R79.89 - Other specified abnormal findings of blood chemistry Complete Blood Count no Diff 12/27/23 Z98.84 - Bariatric surgery status Microalbumin, Random (w Creat) 12/27/23 I10 - Essential (primary) hypertension Vitamin B12 and Folate 12/27/23 E53.8 - Deficiency of other specified B group vitamins Hemoglobin A1c 12/27/23 R73.01 - Impaired fasting glucose Influenza [id number] Immunization 12/27/23 Z23 - Encounter for immunization Patient Instructions: Goal: Blood pressure to remain below 140/90, fasting blood sugar remain below 100 Barriers: Adherence to physical activity
== END 2023-12-27 16:17 | disposition home or self-care (01) ==
PROVIDERS: PCP Physician Assistant; Visit Provider Physician Assistant
DX: I10 Essential (primary) hypertension (principal); Z98.84 Bariatric surgery status; J45.20 Mild intermittent asthma, uncomplicated; E78.2 Mixed hyperlipidemia; R73.09 Other abnormal glucose

== ENCOUNTER → 2023-12-27 15:29 | Outpatient (BNVA) | payer OTHER, SELFPAY | PROVIDERS: PCP Physician Assistant; Visit Provider Physician Assistant | DX: Z98.84 Bariatric surgery status (principal); I10 Essential (primary) hypertension; J45.20 Mild intermittent asthma, uncomplicated; E78.2 Mixed hyperlipidemia; R73.09 Other abnormal glucose | CPT/HCPCS: 90471; 96127; 99212 ==

== ENCOUNTER 2024-01-11 14:30 | Outpatient (AMB) | payer OTHER, SELFPAY ==
--- NOTE | 2024-01-11 10:03 | MHC.OFFVISWM ---
VS Expanded 01/11/24 10:04 Height 5 ft 3 in Weight 187 lb 8 oz BMI 33.2 Body Fat % 41.4 Body Fat Mass 77.7 Fat Free Mass 110 Visceral Fat Rating 15 Body Water % 40.2 Body Water Mass 75.4 Muscle Mass/Score 103.4 Basal Metabolic Rate/Score 1,442 Intake Visit Reasons: (TV) PO LSG 11/14/23 Allergies Penicillins Allergy (Intermediate, Verified 12/27/23 16:01) HIVES, rash Sulfa (Sulfonamide Antibiotics) [SULFA (SULFONAMIDE ANTIBIOTICS)] Allergy (Unknown, Verified 12/27/23 16:01) BURNING, rash sulfamethoxazole [From BACTRIM] Allergy (Unknown, Verified 12/27/23 16:01) HIVES trimethoprim [From BACTRIM] Allergy (Unknown, Verified 12/27/23 16:01) HIVES HPI Comments Details: This?a?38?yo female who is s/p LSG without hiatal hernia repair on?11/14/23. Presents for 2 month post op visit. Weight today is 187.8 pounds, with a BMI of 33.2. There has been a 71.8 pound weight loss,(initial weight 259.6 pounds) since starting the program on 07/24/23 reflecting a 27.6% total body weight loss and a weight loss of 34.6 pounds since surgery (operative weight 222.4 pounds) reflecting a 15.5% TBWL since surgery. No complaints of nausea, emesis, abdominal pain or reflux. Reports infrequent but normal bowel movements every 2-3 days and uses stool softeners regularly. Overall satisfied with her weight loss and is doing well with exercise. She will continue her current meal plan. Present meal plan includes: 3 isopure shakes 1 scoop each, 12 oz water 1 ZP bar ? Exercise routine includes: walking outside or treadmill, 325-350 eduar daily [facility] Medical History (Updated 12/28/23 @ 07:35 by Montez España PA-C) Hydradenitis BMI 38.0-38.9,adult BMI 39.0-39.9,adult Left foot pain Need for MMR vaccine Sinus infection History of opioid abuse Screening for hypothyroidism Screening for hypercholesterolemia Screening for diabetes mellitus (DM) Annual physical exam GERD (gastroesophageal reflux disease) Seasonal allergies Gastric reflux Back pain History of hepatitis C Morbid obesity Morbid obesity with BMI of 40.0-44.9, adult Anxiety Headache, migraine Depression Hypertension Surgical History Hx of laparoscopic partial gastrectomy History of esophagogastroduodenoscopy (EGD) (08/23/23) History of carpal tunnel repair History of gastrectomy History of cholecystectomy Family History Father Hypertension Kidney stones Retinal detachment Mother Hard of hearing Hyperthyroidism Maternal Grandmother Liver problem Emphysema lung Social History Household Members: Family Housing: House Are you a primary home care chaplain to a significant other at home: Yes (son) Do you presently have visiting nurse or other home services: No 75 years or older and lives alone: No Alcohol intake: former Comment: no iv Patient Tobacco Use Status: Never used Tobacco e-Cigarette/Vaping Use: Never Used Second Hand Smoke Exposure: Yes Substance Use Type: Marijuana and Opiates service: No 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 occupational 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 Hearing needs: No Vision needs: No Telehealth Telehealth Telehealth Platform: Telephone Location of provider rendering services: practice address Location of patient: address on file Patient Identification confirmed using: Name, : Yes Telehealth method: voice only Patient verbally consented to treatment: Yes Patient verbally consented to billing insurance company: Yes Patient informed of any privacy concerns related to visit: Yes Minutes spent on Phone/Video with Pt.: 15 Assessment & Plan Assessment & Plan (1) S/P laparoscopic sleeve gastrectomy: Code(s): Z98.84 - Bariatric surgery status Category: Surgical Plan: 3 isopure shakes 1 scoop, 1 scoop, 1/2 scoop, 12 oz water 1 ZP bar Encouraged to increase exercise for a goal of 350 calories daily continue to text weight weekly and if any question, rtc 1 month
[2024-01-11 10:04] VITALS: BMI 33.2
== END 2024-01-11 15:04 | disposition home or self-care (01) ==
LOC: HO.HBS 14:45
PROVIDERS: PCP Physician Assistant; Visit Provider Physician Assistant Surgical
DX: Z98.84 Bariatric surgery status (principal)
CPT/HCPCS: 99024

== ENCOUNTER → 2024-01-11 14:30 | Outpatient (BNVA) | payer OTHER, SELFPAY | PROVIDERS: PCP Physician Assistant; Visit Provider Physician Assistant Surgical | DX: Z48.815 Encounter for surgical aftercare following surgery on the digestive system (principal); Z98.84 Bariatric surgery status | CPT/HCPCS: 99212 ==

== ENCOUNTER 2024-01-18 15:45 | Outpatient (REF) | payer OTHER, SELFPAY ==
[2024-01-18 15:52] VITALS: PULSE 55; RESP 16; O2SAT 96
--- NOTE | 2024-01-18 15:52 | PFT_ITS ---
Flows: FEV1: 127 % of predicted at 3.70 L FVC: 128 % of predicted at 4.50 L FEV1/FVC: 82 % Bronchodilator response: Bronchodilator testing not performed Volumes: Total lung capacity: 113 % of predicted at 5.61 L Residual volume: 92 % of predicted at 1.11 L Slow vital capacity: 120 % of predicted at 4.50 L Expiratory reserve volume: 118 % of predicted at 1.38 L Diffusion capacity: Normal Impression: No obstructive or restrictive ventilatory defect. Bronchodilator testing was not performed. MTDD
== END 2024-01-18 15:46 | disposition home or self-care (01) ==
LOC: HO.RESP 15:45
PROVIDERS: PCP Physician Assistant; Visit Provider Physician Assistant
DX: J45.20 Mild intermittent asthma, uncomplicated (principal)
CPT/HCPCS: 94010; 94640; 94727; 94729

== ENCOUNTER → 2024-01-18 15:52 | Outpatient (BNV) | payer OTHER, SELFPAY | PROVIDERS: PCP Physician Assistant; Visit Provider Internal Medicine Pulmonary Disease | DX: J45.20 Mild intermittent asthma, uncomplicated (principal) | CPT/HCPCS: 94060; 94727; 94729 ==

== ENCOUNTER 2024-02-14 08:30 | Outpatient (AMB) | payer OTHER, SELFPAY ==
--- NOTE | 2024-02-14 08:30 | A.OFFVIS_ITS ---
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 Required: No Allergies Penicillins Allergy (Intermediate, Verified 12/27/23 16:01) HIVES, rash Sulfa (Sulfonamide Antibiotics) [SULFA (SULFONAMIDE ANTIBIOTICS)] Allergy (Unknown, Verified 12/27/23 16:01) BURNING, rash sulfamethoxazole [From BACTRIM] Allergy (Unknown, Verified 12/27/23 16:01) HIVES trimethoprim [From BACTRIM] Allergy (Unknown, Verified 12/27/23 16:01) HIVES Medication List - Last Reconciled 02/14/24 by JOHNATHAN Lin albuterol sulfate 90 mcg/actuation (Ventolin HFA) 1 puff inhalation QID PRN escitalopram oxalate 20 mg PO DAILY fexofenadine 180 mg PO DAILY fluocinonide 0.05% 1 appl topical DAILY PRN fluticasone propionate 50 mcg/actuation 1 spray intranasal BID PRN lorazepam 1 mg PO DAILY PRN HPI Comments Details: This?a?38?yo female who is s/p LSG without hiatal hernia repair on?11/14/23. Presents for 3 month post op visit. Weight today is 178.4 pounds, with a BMI of 31.6. There has been a 71.8 pound weight loss,(initial weight 259.6 pounds) since starting the program on 07/24/23 reflecting a 27.6% total body weight loss and a weight loss of 34.6 pounds since surgery (operative weight 222.4 pounds) reflecting a 15.5% TBWL since surgery. No complaints of nausea, emesis, abdominal pain or reflux. Reports infrequent but normal bowel movements every 2- 3 days and uses stool softeners regularly. Taking celebrate mvi Overall satisfied with her weight loss and is doing well with exercise. She noticed that when she doesn't exercise she does not have same weight loss. [facility] Present meal plan includes: 2 isopure shakes 1/2 scoop, 7-9 1 ZP bar, 10-12 isopure 1/2 scoop 1-3 bar, 4-6 meal 7 pm 4 forks, 4 forks Drinking 40 oz Exercise routine includes: walking outside treadmill, bike 300-450 edura, 3-4 d per week [facility] Medical History Hydradenitis BMI 38.0-38.9,adult BMI 39.0-39.9,adult Left foot pain Need for MMR vaccine Sinus infection History of opioid abuse Screening for hypothyroidism Screening for hypercholesterolemia Screening for diabetes mellitus (DM) Annual physical exam GERD (gastroesophageal reflux disease) Seasonal allergies Gastric reflux Back pain History of hepatitis C Morbid obesity Morbid obesity with BMI of 40.0-44.9, adult Anxiety Headache, migraine Depression Hypertension Surgical History Hx of laparoscopic partial gastrectomy History of esophagogastroduodenoscopy (EGD) (08/23/23) History of carpal tunnel repair History of gastrectomy History of cholecystectomy Family History Father Hypertension Kidney stones Retinal detachment Mother Hard of hearing Hyperthyroidism Maternal Grandmother Liver problem Emphysema lung Social History Household Members: Family Housing: House Are you a primary hospice home care coordinator to a significant other at home: Yes (son) Do you presently have visiting nurse or other home services: No 75 years or older and lives alone: No Alcohol intake: former Comment: no iv Patient Tobacco Use Status: Never used Tobacco e-Cigarette/Vaping Use: Never Used Second Hand Smoke Exposure: Yes Substance Use Type: Marijuana and Opiates service: No 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 occupational 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 Hearing needs: No Vision needs: No Telehealth Telehealth Telehealth Platform: Telephone Location of provider rendering services: practice address Location of patient: address on file Patient Identification confirmed using: Name, : Yes Telehealth method: voice only Patient verbally consented to treatment: Yes Patient verbally consented to billing insurance company: Yes Patient informed of any privacy concerns related to visit: Yes Minutes spent on Phone/Video with Pt.: 15 Assessment & Plan Assessment & Plan (1) S/P laparoscopic sleeve gastrectomy: Code(s): Z98.84 - Bariatric surgery status Category: Surgical Plan: Meal plan was changed by Dr. Pearson just yesterday. She will follow this as closely as possible. Encouraged to increase her fluid intake to at least 60 oz per day. Additionally, encouraged to increase her exercise to 5 days per week or more as she is able with a goal of 450 calories per day. She was encouraged to continue to send weight measurements weekly and text with any questions or concerns. We will arrange for follow-up appointment in approximately 1 month and an in office appointment at her six-month postoperative date.
[2024-02-14 08:34] VITALS: BMI 31.6
== END 2024-02-14 09:08 | disposition home or self-care (01) ==
LOC: HO.HBS 08:54
PROVIDERS: PCP Physician Assistant; Visit Provider Physician Assistant Surgical
DX: E66.9 Obesity, unspecified (principal); E66.811 Obesity, class 1; Z68.31 Body mass index [BMI] 31.0-31.9, adult; Z98.84 Bariatric surgery status
CPT/HCPCS: 99213; G2211

== ENCOUNTER 2024-06-07 09:45 | Outpatient (AMB) | payer OTHER, SELFPAY ==
[2024-06-07 07:40] VITALS: BMI 28.4
--- NOTE | 2024-06-07 07:40 | A.OFFVIS_ITS ---
VS Expanded 06/07/24 07:40 Height 5 ft 3 in Weight 160 lb 2 oz BMI 28.4 Body Fat % 33.9 Fat Free Mass 106 Visceral Fat Rating 11 Body Water % 45.4 Muscle Mass/Score 99.6 Basal Metabolic Rate/Score 1,413 Intake Visit Reasons: (TV) PO LSG 11/14/23 Culture Media Laboratory Assistant Required: No Allergies Penicillins Allergy (Intermediate, Verified 12/27/23 16:01) HIVES, rash Sulfa (Sulfonamide Antibiotics) [SULFA (SULFONAMIDE ANTIBIOTICS)] Allergy (Unknown, Verified 12/27/23 16:01) BURNING, rash sulfamethoxazole [From BACTRIM] Allergy (Unknown, Verified 12/27/23 16:01) HIVES trimethoprim [From BACTRIM] Allergy (Unknown, Verified 12/27/23 16:01) HIVES Medication List - Last Reconciled 06/07/24 by JOHNATHAN Lin albuterol sulfate 90 mcg/actuation (Ventolin HFA) 1 puff inhalation QID PRN escitalopram oxalate 20 mg PO DAILY fexofenadine 180 mg PO DAILY fluocinonide 0.05% 1 appl topical DAILY PRN fluticasone propionate 50 mcg/actuation 1 spray intranasal BID PRN lorazepam 1 mg PO DAILY PRN HPI Comments Details: This?a?38?yo female who is s/p LSG without hiatal hernia repair on?11/14/23. Presents for 6 month post op visit. Weight today is 160.2 pounds, with a BMI of 28.4. There has been a 99.4 pound weight loss,(initial weight 259.6 pounds) since starting the program on 07/24/23 reflecting a 38.2% total body weight loss and a weight loss of 62.2 pounds since surgery (operative weight 222.4 pounds) reflecting a 27.9% TBWL since surgery. No complaints of nausea, emesis, abdominal pain or reflux. Reports infrequent but normal bowel movements every 2- 3 days and uses stool softeners regularly. Taking celebrate mvi Overall satisfied with her weight loss and is doing well with exercise. She noticed that when she doesn't exercise she does not have same weight loss. She states that the last couple of months have been difficult due to insurance issues. She has not been following the meal plan eating food 2 x per day, high protein high fiber low carb bariatric meals. no shakes or bars, due to job loss, finances are tight wake 6-7 decaf coffee meal at [id number] 2 eggs w cheese and sausage crumble snack at 2 cheese and pepperoni meal at 630 meat, veg 5-6 forks of protein and 3-4 forks veg cheese drinking 56-70 oz water previousmeal plan includes: 2 isopure shakes 1/2 scoop, 7-9 1 ZP bar, 10-12 isopure 1/2 scoop 1-3 bar, 4-6 meal 7 pm 4 forks, 4 forks Drinking 40 oz Exercise routine includes: walking outside treadmill, bike 300-450 eduar, 3-4 d per week Any post op complications: None FRANCESCO: Never DM: Never HTN: Resolved Hyperlipidemia: Never GERD:?0-5 scale ??0 = no symptoms ??1 = symptoms noticeable but not bothersome 2 =symptoms bothersome but not daily ? 3 = symptoms bothersome and daily 4 = symptoms affect daily activities 5 = symptoms are incapacitating, unable to do daily activities ? How bad is the heartburn: 0 ? Heartburn while lying down: 0 ? Heartburn when standing up: 0 ? Heartburn after meals: 0 ? Does heartburn change your diet: 0 ? Does heartburn wake you up from sleep: 0 ? Do you have difficulty swallowin ? Do you have pain with swallowin ? If you take medicine for your reflux, does this affect your daily life: 0 Satisfaction with present condition - satisfied or not satisfied: satisfied [facility] Medical History Hydradenitis BMI 38.0-38.9,adult BMI 39.0-39.9,adult Left foot pain Need for MMR vaccine Sinus infection History of opioid abuse Screening for hypothyroidism Screening for hypercholesterolemia Screening for diabetes mellitus (DM) Annual physical exam GERD (gastroesophageal reflux disease) Seasonal allergies Gastric reflux Back pain History of hepatitis C Morbid obesity Morbid obesity with BMI of 40.0-44.9, adult Anxiety Headache, migraine Depression Hypertension Surgical History Hx of laparoscopic partial gastrectomy History of esophagogastroduodenoscopy (EGD) (08/23/23) History of carpal tunnel repair History of gastrectomy History of cholecystectomy Family History Father Hypertension Kidney stones Retinal detachment Mother Hard of hearing Hyperthyroidism Maternal Grandmother Liver problem Emphysema lung Social History Household Members: Family Housing: House Are you a primary rn home care to a significant other at home: Yes (son) Do you presently have visiting nurse or other home services: No 75 years or older and lives alone: No Alcohol intake: former Comment: no iv Patient Tobacco Use Status: Never used Tobacco e-Cigarette/Vaping Use: Never Used Second Hand Smoke Exposure: Yes Substance Use Type: Marijuana and Opiates service: No Current occupational 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 Hearing needs: No Vision needs: No Physical Exam Vital Signs: BMI result Body Mass Index 28.4 Telehealth Telehealth Telehealth Platform: Telephone Location of provider rendering services: practice address Location of patient: address on file Patient Identification confirmed using: Name, : Yes Telehealth method: voice only Patient verbally consented to treatment: Yes Patient verbally consented to billing insurance company: Yes Patient informed of any privacy concerns related to visit: Yes Minutes spent on Phone/Video with Pt.: 20 Assessment & Plan Assessment & Plan (1) S/P laparoscopic sleeve gastrectomy: Code(s): Z98.84 - Bariatric surgery status Category: Surgical Plan: Patient changed her meal plan without communication. She is having financial struggles. She wants to continue with a mostly food based program. 7 am coffee with 1 scoop premier [id number] am quarter cup cottage cheese or 1 egg with vegetables 2 pm quarter cup fresh berries or apple 6 pm meal with 6 forks of protein and 6 forks of vegetables 8 pm Telugu yogurt or half cup cottage cheese if she wishes Check six-month postop labs. Encouraged to increase her exercise to incorporate her stationary bike or treadmill again. Track calories while walking outside. Goal of 350-400 calories burned daily. Encouraged to text weight weekly and with any questions or concerns. Return to clinic 3 months Orders: Orders Lipid Panel Today E53.8 - Deficiency of other specified B group vitamins, E55.9 - Vitamin D deficiency, unspecified, I10 - Essential (primary) hypertension, R73.01 - Impaired fasting glucose, Z98.84 - Bariatric surgery status Comprehensive Met. Panel Today E53.8 - Deficiency of other specified B group vitamins, E55.9 - Vitamin D deficiency, unspecified, I10 - Essential (primary) hypertension, R73.01 - Impaired fasting glucose, Z98.84 - Bariatric surgery status Zinc Today E53.8 - Deficiency of other specified B group vitamins, E55.9 - Vitamin D deficiency, unspecified, I10 - Essential (primary) hypertension, R73.01 - Impaired fasting glucose, Z98.84 - Bariatric surgery status C Reactive Protein Today E53.8 - Deficiency of other specified B group vitamins, E55.9 - Vitamin D deficiency, unspecified, I10 - Essential (primary) hypertension, R73.01 - Impaired fasting glucose, Z98.84 - Bariatric surgery status Vitamin A Today E53.8 - Deficiency of other specified B group vitamins, E55.9 - Vitamin D deficiency, unspecified, I10 - Essential (primary) hypertension, R73.01 - Impaired fasting glucose, Z98.84 - Bariatric surgery status TSH reflex Free T4 Today E53.8 - Deficiency of other specified B group vitamins, E55.9 - Vitamin D deficiency, unspecified, I10 - Essential (primary) hypertension, R73.01 - Impaired fasting glucose, Z98.84 - Bariatric surgery status Insulin Today E53.8 - Deficiency of other specified B group vitamins, E55.9 - Vitamin D deficiency, unspecified, I10 - Essential (primary) hypertension, R73.01 - Impaired fasting glucose, Z98.84 - Bariatric surgery status Hemoglobin A1c Today E53.8 - Deficiency of other specified B group vitamins, E55.9 - Vitamin D deficiency, unspecified, I10 - Essential (primary) hypertension, R73.01 - Impaired fasting glucose, Z98.84 - Bariatric surgery status Complete Blood Count Auto Diff Today E53.8 - Deficiency of other specified B group vitamins, E55.9 - Vitamin D deficiency, unspecified, I10 - Essential (primary) hypertension, R73.01 - Impaired fasting glucose, Z98.84 - Bariatric surgery status IRON PROFILE Today E53.8 - Deficiency of other specified B group vitamins, E55.9 - Vitamin D deficiency, unspecified, I10 - Essential (primary) hypertension, R73.01 - Impaired fasting glucose, Z98.84 - Bariatric surgery status Vitamin B12 and Folate Today E53.8 - Deficiency of other specified B group vitamins, E55.9 - Vitamin D deficiency, unspecified, I10 - Essential (primary) hypertension, R73.01 - Impaired fasting glucose, Z98.84 - Bariatric surgery status Vitamin B1 Today E53.8 - Deficiency of other specified B group vitamins, E55.9 - Vitamin D deficiency, unspecified, I10 - Essential (primary) hypertension, R73.01 - Impaired fasting glucose, Z98.84 - Bariatric surgery status Ferritin Today E53.8 - Deficiency of other specified B group vitamins, E55.9 - Vitamin D deficiency, unspecified, I10 - Essential (primary) hypertension, R73.01 - Impaired fasting glucose, Z98.84 - Bariatric surgery status Vitamin D 25-OH Total Today E53.8 - Deficiency of other specified B group vitamins, E55.9 - Vitamin D deficiency, unspecified, I10 - Essential (primary) hypertension, R73.01 - Impaired fasting glucose, Z98.84 - Bariatric surgery status
== END 2024-06-07 09:46 | disposition home or self-care (01) ==
LOC: HO.HBS 09:45
PROVIDERS: PCP Physician Assistant; Visit Provider Physician Assistant Surgical
DX: E66.3 Overweight (principal); Z68.28 Body mass index [BMI] 28.0-28.9, adult; Z90.3 Acquired absence of stomach [part of]; Z98.84 Bariatric surgery status
CPT/HCPCS: 99214

== ENCOUNTER 2024-08-23 09:12 | Outpatient (AMB) | payer OTHER, SELFPAY ==
[2024-08-23 08:24] VITALS: BMI 27.0
--- NOTE | 2024-08-23 08:24 | A.OFFVIS_ITS ---
VS Expanded 08/23/24 08:24 Height 5 ft 3 in Weight 152 lb 4 oz BMI 27.0 Body Fat % 31.7 Fat Free Mass 104 Visceral Fat Rating 10 Body Water % 46.9 Muscle Mass/Score 97.8 Basal Metabolic Rate/Score 1,392 Intake Visit Reasons: (TV) PO LSG 11/14/23 Compressor Mechanic Bus Required: No Allergies Penicillins Allergy (Intermediate, Verified 12/27/23 16:01) HIVES, rash Sulfa (Sulfonamide Antibiotics) [SULFA (SULFONAMIDE ANTIBIOTICS)] Allergy (Unknown, Verified 12/27/23 16:01) BURNING, rash sulfamethoxazole [From BACTRIM] Allergy (Unknown, Verified 12/27/23 16:01) HIVES trimethoprim [From BACTRIM] Allergy (Unknown, Verified 12/27/23 16:01) HIVES Medication List - Last Reconciled 08/23/24 by JOHNATHAN Lin albuterol sulfate 90 mcg/actuation (Ventolin HFA) 1 puff inhalation QID PRN escitalopram oxalate 20 mg PO DAILY fexofenadine 180 mg PO DAILY fluocinonide 0.05% 1 appl topical DAILY PRN fluticasone propionate 50 mcg/actuation 1 spray intranasal BID PRN lorazepam 1 mg PO DAILY PRN HPI Comments Details: This?a?38?yo female who is s/p LSG without hiatal hernia repair on?11/14/23. Presents for 9 month post op visit. Weight today is 152.4 pounds, with a BMI of 27. There has been a 107.2 pound weight loss,(initial weight 259.6 pounds) since starting the program on 07/24/23 reflecting a 41.2% total body weight loss and a weight loss of 70 pounds since surgery (operative weight 222.4 pounds) reflecting a 31.4% TBWL since surgery. No complaints of nausea, emesis, abdominal pain or reflux. Reports infrequent but normal bowel movements every 2- 3 days and uses stool softeners regularly. Taking celebrate mvi Overall satisfied with her weight loss and is doing well with exercise. She noticed that when she doesn't exercise she does not have same weight loss. She states that the last couple of months have been difficult due to insurance issues. She has not been following the meal plan eating food 2 x per day, high protein high fiber low carb bariatric meals. no shakes or bars, due to job loss, finances are tight wake 6-7 7 am coffee with 1 scoop premier protein 10 am quarter cup cottage cheese or 1 egg with vegetables 2 pm quarter cup fresh berries or apple 6 pm meal with 6 forks of protein and 6 forks of vegetables 8 pm Latvian yogurt or half cup cottage cheese if she wishes drinking 56-70 oz water Exercise routine includes: walking outside 16 k steps daily [facility] Medical History Hydradenitis BMI 38.0-38.9,adult BMI 39.0-39.9,adult Left foot pain Need for MMR vaccine Sinus infection History of opioid abuse Screening for hypothyroidism Screening for hypercholesterolemia Screening for diabetes mellitus (DM) Annual physical exam GERD (gastroesophageal reflux disease) Seasonal allergies Gastric reflux Back pain History of hepatitis C Morbid obesity Morbid obesity with BMI of 40.0-44.9, adult Anxiety Headache, migraine Depression Hypertension Surgical History Hx of laparoscopic partial gastrectomy History of esophagogastroduodenoscopy (EGD) (08/23/23) History of carpal tunnel repair History of gastrectomy History of cholecystectomy Family History Father Hypertension Kidney stones Retinal detachment Mother Hard of hearing Hyperthyroidism Maternal Grandmother Liver problem Emphysema lung Social History Household Members: Family Housing: House Are you a primary healthcare project manager to a significant other at home: Yes (son) Do you presently have visiting nurse or other home services: No 75 years or older and lives alone: No Alcohol intake: former Comment: no iv Patient Tobacco Use Status: Never used Tobacco e-Cigarette/Vaping Use: Never Used Second Hand Smoke Exposure: Yes Substance Use Type: Marijuana and Opiates service: No 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 occupational 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 Hearing needs: No Vision needs: No Telehealth Telehealth Telehealth Platform: Telephone Location of provider rendering services: practice address Location of patient: address on file Patient Identification confirmed using: Name, : Yes Telehealth method: voice only Patient verbally consented to treatment: Yes Patient verbally consented to billing insurance company: Yes Patient informed of any privacy concerns related to visit: Yes Minutes spent on Phone/Video with Pt.: 15 Assessment & Plan Assessment & Plan (1) S/P laparoscopic sleeve gastrectomy: Code(s): Z98.84 - Bariatric surgery status Category: Surgical Plan: Overall, patient is doing well. She is very satisfied with her weight. She has been walking much more for her new job. I recommended adding stationary bike several times a week so that she may dedicate calorie count. Also she certainly could track her calories while walking outside using Circle. We will have her return to the office in November for her 1 year follow-up appointment. Check labs at that time.
== END 2024-08-23 09:21 | disposition home or self-care (01) ==
LOC: HO.HBS 09:12
PROVIDERS: PCP Physician Assistant; Visit Provider Physician Assistant Surgical
DX: E66.3 Overweight (principal); Z68.27 Body mass index [BMI] 27.0-27.9, adult; Z90.3 Acquired absence of stomach [part of]; Z98.84 Bariatric surgery status
CPT/HCPCS: 99213

== ENCOUNTER 2024-10-19 07:12 | Outpatient (REF) | payer OTHER, SELFPAY ==
[2024-10-19 07:37] LABS: MANUAL DIFF FLAG NO
[2024-10-19 07:45] LABS: Hematocrit 40.7 % (37.0-47.0); Hemoglobin 13.7 g/dl (12.0-16.0); Imm Gran Abs Auto 0.01 X10*3/uL (0.00-0.03); Imm Gran Pct Auto 0.2 % (0.0-0.4); Lymphocytes Absolute Auto 1.5 X10*3/uL (1.2-4.9); Mean Corpuscular HGB Conc 33.7 g/dl (31.0-35.0); Mean Corpuscular Hemoglobin 31.1 pg (27.0-33.0); Mean Corpuscular Volume 92.5 fL (80.0-98.0); NRBC Abs Auto 0.000 X10*3/uL (0.0-0.012); NRBC Pct Auto 0.0 /100WBC (0.0-0.2); Platelet Count 226 X10*3/uL (160-400); Red Blood Count 4.40 X10*6/uL (4.20-5.50); White Blood Count 4.7 X10*3/uL (4.8-10.8)
[2024-10-19 07:59] LABS: Hemoglobin A1C 124.6488 umol/L; Total Hemoglobin (HGBA1C) 3697.0714 umol/L
[2024-10-19 08:33] LABS: Alanine Aminotransferase 14 U/L (0-31); Albumin Level 4.5 g/dL (3.5-5.0); Alkaline Phosphatase 46 U/L (39-117); Anion Gap 12 (12-20); Aspartate Amino Transferase 20 U/L (5-31); Blood Urea Nitrogen 19 mg/dL (9-16); Calcium 8.9 mg/dL (8.4-10.2); Carbon Dioxide 27 mmol/L (22-29); Chloride 107 mmol/L (96-108); Cholesterol 229 mg/dL (<200); Estimated Glomerular Filt Rate > 60; HDL Cholesterol 78 mg/dL (>40); Iron 95 mcg/dL (30-160); Percent Iron Saturation 37 % (15-50); Potassium 4.6 mmol/L (3.3-5.1); Sodium 141 mmol/L (135-145); Total Iron Binding Capacity 257 mcg/dL (228-428); Total Protein 7.0 g/dL (6.5-8.0); Triglycerides 71 mg/dL (<150); Unsaturated Iron Binding 162 ug/dL
[2024-10-19 08:43] LABS: Ferritin 108 ng/mL (10-122)
[2024-10-19 08:52] LABS: Folate 11.1 ng/mL (> or = 4.0); Vitamin B12 395 pg/mL (200-900)
== END 2024-10-19 07:13 | disposition home or self-care (01) ==
LOC: HO.LAB 07:12
PROVIDERS: Absent Provider Physician Assistant; PCP Physician Assistant; Visit Provider Physician Assistant Surgical
DX: I10 Essential (primary) hypertension (principal); E55.9 Vitamin D deficiency, unspecified; R73.01 Impaired fasting glucose; E53.8 Deficiency of other specified B group vitamins; Z98.84 Bariatric surgery status
CPT/HCPCS: 36415; 80053; 80061; 82043; 82306; 82570; 82607; 82728; 82746; 83036; 83525; 83540; 84425; 84443; 84590; 84630; 85025; 86140

== ENCOUNTER 2024-11-07 12:49 | Outpatient (REF) | payer OTHER, SELFPAY ==
[2024-11-07 13:44] LABS: Hematocrit 44.0 % (37.0-47.0); Hemoglobin 14.9 g/dl (12.0-16.0); Mean Corpuscular HGB Conc 33.9 g/dl (31.0-35.0); Mean Corpuscular Hemoglobin 31.8 pg (27.0-33.0); Mean Corpuscular Volume 94.0 fL (80.0-98.0); NRBC Abs Auto 0.000 X10*3/uL (0.0-0.012); NRBC Pct Auto 0.0 /100WBC (0.0-0.2); Platelet Count 249 X10*3/uL (160-400); Red Blood Count 4.68 X10*6/uL (4.20-5.50); White Blood Count 4.8 X10*3/uL (4.8-10.8)
[2024-11-07 14:28] LABS: Cholesterol 250 mg/dL (<200); HDL Cholesterol 88 mg/dL (>40); Triglycerides 70 mg/dL (<150)
[2024-11-07 15:04] LABS: Folate 10.5 ng/mL (> or = 4.0); Vitamin B12 315 pg/mL (200-900)
[2024-11-07 15:15] LABS: Hemoglobin A1C 126.5670 umol/L; Total Hemoglobin (HGBA1C) 3716.0430 umol/L
[2024-11-10 17:38] LABS: TS Negative Control Passed; TS Panel A 0; TS Panel B 0; TS Positive Control Passed; TSpotTB Negative (Negative)
== END 2024-11-07 12:50 | disposition home or self-care (01) ==
LOC: HO.LAB 12:49
PROVIDERS: PCP Physician Assistant; Visit Provider Physician Assistant
DX: Z11.1 Encounter for screening for respiratory tuberculosis (principal); E53.8 Deficiency of other specified B group vitamins; R79.89 Other specified abnormal findings of blood chemistry; R73.01 Impaired fasting glucose; Z98.84 Bariatric surgery status
CPT/HCPCS: 36415; 80061; 82306; 82607; 82746; 83036; 85027; 86481

== ENCOUNTER 2024-11-14 15:45 | Outpatient (AMB) | payer OTHER, SELFPAY ==
--- NOTE | 2024-11-14 15:47 | A.OFFVIS_ITS ---
VS Expanded 11/14/24 15:56 BP 110/67 Blood Pressure Location Rt brachial Blood Pressure Position Sitting Pulse 64 Pulse Source Pulse Oximeter Temp 98.2 F Temperature Source Temporal Artery Scan Pulse Oximetry 97 Oxygen Delivery Method Room Air Height 5 ft 2.5 in Weight 164 lb 3.2 oz BMI 29.6 Body Fat % 30.4 Body Fat Mass 49.8 Fat Free Mass 114.2 Visceral Fat Rating 5.0 Body Water % 49.7 Body Water Mass 81.6 Muscle Mass/Score 108.4 Basal Metabolic Rate/Score 1,543 Intake Visit Reasons: OV PO LSG 11/14/23 Allergies Penicillins Allergy (Intermediate, Verified 11/14/24 15:52) HIVES, rash Sulfa (Sulfonamide Antibiotics) (SULFA (SULFONAMIDE ANTIBIOTICS)) Allergy (Unknown, Verified 11/14/24 15:52) BURNING, rash sulfamethoxazole (From BACTRIM) Allergy (Unknown, Verified 11/14/24 15:52) HIVES trimethoprim (From BACTRIM) Allergy (Unknown, Verified 11/14/24 15:52) HIVES HPI Comments Details: This?a?39?yo female who is s/p LSG without hiatal hernia repair on?11/14/23. Presents for 1 year post op visit. Weight today is 164.2 pounds, with a BMI of 29.5. There has been a 107.2 pound weight loss,(initial weight 259.6 pounds) since starting the program on 07/24/23 reflecting a 41.2% total body weight loss and a weight loss of 70 pounds since surgery (operative weight 222.4 pounds) reflecting a 31.4% TBWL since surgery. No complaints of nausea, emesis, abdominal pain or reflux. Reports infrequent but normal bowel movements every 2- 3 days and uses stool softeners regularly. Taking celebrate mvi Since her last visit, about 3 months ago, she has gained about 12 lb. She thinks it is due to grazing. Snacking at night. Today is day 3 of the new plan with: Isopure 1 scoop in 8 oz water 6-8 am another shake 11-1 Cheese stick and 5 crackers meal at 6 pm 6 forks protein and 6 forks veg Celebrate rebuild 1 scoop in water or 1 % milk. 7 am coffee with 1 scoop premier protein 10 am quarter cup cottage cheese or 1 egg with vegetables 2 pm quarter cup fresh berries or apple 6 pm meal with 6 forks of protein and 6 forks of vegetables 8 pm Irish yogurt or half cup cottage cheese if she wishes drinking 56-70 oz water Exercise routine includes: boxing 4 days per week 30-45 min walking outside 16 k steps daily Any post op complications: None FRANCESCO: Never DM: Never HTN: Resolved Hyperlipidemia: improved GERD:?0-5 scale ??0 = no symptoms ??1 = symptoms noticeable but not bothersome 2 =symptoms bothersome but not daily ? 3 = symptoms bothersome and daily 4 = symptoms affect daily activities 5 = symptoms are incapacitating, unable to do daily activities ? How bad is the heartburn: 0 ? Heartburn while lying down: 0 ? Heartburn when standing up: 0 ? Heartburn after meals: 0 ? Does heartburn change your diet: 0 ? Does heartburn wake you up from sleep: 0 ? Do you have difficulty swallowin ? Do you have pain with swallowin ? If you take medicine for your reflux, does this affect your daily life: 0 Satisfaction with present condition - satisfied or not satisfied: satisfied [facility] Medical History Hydradenitis BMI 38.0-38.9,adult BMI 39.0-39.9,adult Left foot pain Need for MMR vaccine Sinus infection History of opioid abuse Screening for hypothyroidism Screening for hypercholesterolemia Screening for diabetes mellitus (DM) Annual physical exam GERD (gastroesophageal reflux disease) Seasonal allergies Gastric reflux Back pain History of hepatitis C Morbid obesity Morbid obesity with BMI of 40.0-44.9, adult Anxiety Headache, migraine Depression Hypertension Surgical History Hx of laparoscopic partial gastrectomy History of esophagogastroduodenoscopy (EGD) (08/23/23) History of carpal tunnel repair History of gastrectomy History of cholecystectomy Family History Father Hypertension Kidney stones Retinal detachment Mother Hard of hearing Hyperthyroidism Maternal Grandmother Liver problem Emphysema lung Social History Household Members: Family Housing: House Are you a primary patient care specialist to a significant other at home: Yes (son) Do you presently have visiting nurse or other home services: No 75 years or older and lives alone: No Alcohol intake: former Comment: no iv Patient Tobacco Use Status: Never used Tobacco e-Cigarette/Vaping Use: Never Used Second Hand Smoke Exposure: Yes Substance Use Type: Marijuana and Opiates service: No 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 occupational 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 Hearing needs: No Vision needs: No Physical Exam Const General: cooperative and no acute distress Orientation/consciousness: patient oriented x3 Resp Effort & Inspection: normal respiratory effort Auscultation: clear to auscultation bilaterally Cardio Rate: regular rate Rhythm: regular rhythm GI Inspection: Yes normal to inspection and Yes incision (well healed) Palpation (GI): Soft to palpation and no masses Neuro General: patient oriented x3 Assessment & Plan Assessment & Plan (1) S/P laparoscopic sleeve gastrectomy: Code(s): Z98.84 - Bariatric surgery status Category: Surgical Plan: Isopure 1/2 scoop in 8 oz water 6-8 am another shake with 1 scoop 11-1 Cheese stick meal at 6 pm 6 forks protein and 6 forks veg Encouraged to add weightlifting and stationary bike 3 times per week in addition to the boxing that she is doing. She does report intermittent rash under the abdominal pannus. She does not have a rash actively although we will prescribe clotrimazole as needed. We will have her return to the clinic in 3-4 months Medications: New clotrimazole 1% (Antifungal (clotrimazole)) 1 appl topical BID 45 grams 4RF
[2024-11-14 15:56] VITALS: BP 110/67; PULSE 64; TEMP 36.8; O2SAT 97; BMI 29.6
== END 2024-11-14 16:25 | disposition home or self-care (01) ==
LOC: HO.HBS 15:46
PROVIDERS: PCP Physician Assistant; Visit Provider Physician Assistant Surgical
DX: E66.3 Overweight (principal); Z68.29 Body mass index [BMI] 29.0-29.9, adult; Z90.3 Acquired absence of stomach [part of]; Z98.84 Bariatric surgery status
CPT/HCPCS: 99213

== ENCOUNTER → 2024-11-14 15:45 | Outpatient (BNVA) | payer OTHER, SELFPAY | PROVIDERS: PCP Physician Assistant; Visit Provider Physician Assistant Surgical | DX: Z98.84 Bariatric surgery status (principal) | CPT/HCPCS: 99212 ==

== ENCOUNTER 2025-01-20 15:38 | Outpatient (AMB) | payer OTHER, SELFPAY ==
--- NOTE | 2025-01-20 16:10 | A.OFFPC_ITS ---
Vital Signs 01/20/25 16:11 Height 5 ft 2.5 in Weight 163 lb 2 oz BMI 29.4 BP 120/60 Blood Pressure Location Lt brachial Position Sitting Pulse 55 Pulse Source Pulse Oximeter Temp 97.3 F Temp Source Temporal Artery Scan Pulse Oximetry (%) 99 Oxygen Delivery Method Room Air Intake Visit Reasons: pe Intake Note: Patient is here today for a physical. 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 Accompanied by: Self / Same As Patient Allergies Penicillins Allergy (Intermediate, Verified 01/20/25 16:20) HIVES, rash Sulfa (Sulfonamide Antibiotics) (SULFA (SULFONAMIDE ANTIBIOTICS)) Allergy (Un known, Verified 01/20/25 16:20) BURNING, rash sulfamethoxazole (From BACTRIM) Allergy (Unknown, Verified 01/20/25 16:20) HIVES trimethoprim (From BACTRIM) Allergy (Unknown, Verified 01/20/25 16:20) HIVES Medication List - Last Reconciled 01/20/25 by Montez España PA-C albuterol sulfate 90 mcg/actuation (Ventolin HFA) 1 puff inhalation QID PRN cholecalciferol (vitamin D3) 125 mcg PO DAILY clotrimazole 1% (Antifungal (clotrimazole)) 1 appl topical BID escitalopram oxalate 20 mg PO DAILY fexofenadine 180 mg PO DAILY fluocinonide 0.05% 1 appl topical DAILY PRN fluticasone propionate 50 mcg/actuation 1 spray intranasal BID PRN lorazepam 1 mg PO DAILY PRN Tobacco use date assessed: 01/20/25 Dental Screening Dental Screen Date: 01/20/25 Did you have a dental visit in the last 12 months?: No Did you have a dental problem in the last 6 months where you did not have access to dental care?: No Was dental information given to patient?: No HPI pe HPI Details Patient is a 39-year-old female here today for annual physical. Patient has a past medical history significant for depression, anxiety, h/o bariatric surgery,hypothyroidism, hypertension, moderate persistent asthma, Migraines. Today has multiple complaints : RIGHT KNEE PAIN: The patient reports progressively worsening right knee pain, which flared up during her last about three and a half years ago and has not resolved. She has a history of an ACL or MCL tear in her teenage years from playing sports, which was treated with physical therapy. Symptoms include grinding, popping, pain, and a sensation of the knee slipping out of place, which is particularly severe when going up stairs. The pain has been exacerbated by increased walking at her new job. RIGHT WRIST PAIN: For the past two months, she has experienced daily pain in her right wrist after throwing a bad punch while boxing. The pain is localized to the ulnar styloid process, is sensitive to touch, and is aggravated by certain movements, typing, and using a computer mouse. CHRONIC FATIGUE: The patient also complains of constant fatigue, describing herself as a very light sleeper and finding it difficult to get up in the mornings. She has a known vitamin D deficiency, for which she takes supplements. While she does not currently snore, her reported that she did when she was heavier, and she suspects she may have had sleep apnea. Her sleep tracking watch has recorded blood oxygen levels as low as 78%. She is unable to tolerate the prescribed multivitamin from her bariatric surgery as it causes vomiting. EPISODIC DIZZINESS: For approximately 10 months, the patient has experienced random dizzy spells, occurring about 10-12 times per week. These episodes feel like she is going to pass out (presyncope) and occur regardless of her activity, posture, or food intake. They are associated with tinnitus and diaphoresis and have occurred while driving. She has a history of vertigo, but states these episodes feel different. URGE INCONTINENCE: She reports frequent urine leakage, consistent with urge incontinence. She has had three full-term natural deliveries. There is a family history of bladder issues, with both her mother and grandmother affected. History of obesity, today's BMI at 29.4 She has lost significant amount of weight since her revision bariatric surgery done 11/2023. Continues on protein liquid diet ? . ? Asthma :. Does use Ventolin on a p.r.n. basis. She does report her asthma seems to have been worse on exertion in his interested in further evaluation of her asthma. She has upcoming pulmonary function testing in 01/31/2024. She continues to refrain from smoking cigarettes. .. Hyperlipidemia: Most recent labs show continues to show elevated total cholesterol and LDL. She continues to work on dietary and lifestyle modifications ? .. ? 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 No further pharmacological treatment for her opiate dependency. 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 ? .. ? Hypertension: . Patient's blood pressure today in office acceptable. . She is continues to manage her blood pressure at this time with lifestyle management. 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 [facility] Medical History (Updated 01/20/25 @ 16:45 by Montez España PA-C) Annual physical exam Hydradenitis BMI 38.0-38.9,adult BMI 39.0-39.9,adult Left foot pain Need for MMR vaccine Sinus infection History of opioid abuse Screening for hypothyroidism Screening for hypercholesterolemia Screening for diabetes mellitus (DM) GERD (gastroesophageal reflux disease) Seasonal allergies Gastric reflux Back pain History of hepatitis C Morbid obesity Morbid obesity with BMI of 40.0-44.9, adult Anxiety Headache, migraine Depression Hypertension Surgical History Hx of laparoscopic partial gastrectomy History of esophagogastroduodenoscopy (EGD) (08/23/23) History of carpal tunnel repair History of gastrectomy History of cholecystectomy Family History Father Hypertension Kidney stones Retinal detachment Mother Hard of hearing Hyperthyroidism Maternal Grandmother Liver problem Emphysema lung Social History (Updated 01/20/25 @ 16:25 by Montez España PA-C) Household Members: Family Housing: House Are you a primary healthcare sales representative to a significant other at home: Yes (son) Do you presently have visiting nurse or other home services: No 75 years or older and lives alone: No Alcohol intake: former Comment: no iv Patient Tobacco Use Status: Never used Tobacco e-Cigarette/Vaping Use: Never Used Second Hand Smoke Exposure: No Substance Use Type: Marijuana and Opiates service: No Current occupational status: employed Current occupation: [employer] Cognitive needs: No Hearing needs: No Vision needs: No Questionnaire PHQ-9 Over the last 2 weeks, how often have you been bothered by any of the following problems? 1. Little interest or pleasure in doing things: several days 2. Feeling down, depressed, or hopeless: several days 3. Trouble falling or staying asleep, or sleeping too much: not at all 4. Feeling tired or having little energy: several days 5. Poor appetite or overeating: not at all 6. Feeling bad about yourself - or that you are a failure or have let yourself or your family down: not at all 7. Trouble concentrating on things, such as reading the newspaper or watching television: not at all 8. Moving or speaking so slowly that other people could have noticed. Or the opposite - being so fidgety or restless that you have been moving around a lot more than usual: not at all 9. Thoughts that you would be better off or of hurting yourself in some way: not at all Total score: 3 Depression Screening Interpretation: Positive Depression Screening Done: Yes Source: Developed by Drs. Rodo Mar, Cammie Ramirez, Pete Grewal and colleagues, with an educational mckay from [employer]. Thrive Questionnaire Date Thrive assessed: 01/13/25 I am a: Patient What is your living situation today?: I have a steady place to live Within the past 12 months, did the food you bought not last and you didn't have the money to get more?: Sometimes True Within the past 12 months, did you worry whether your food would run out before you got money to buy more?: Sometimes True Do you have trouble paying for medicines?: No Do you have trouble getting transportation to medical appointments?: No Do you have trouble paying your heating and electricity bill?: No Do you have trouble taking care of your child, family member or friend?: No Do you have trouble with day-to-day activities such as bathing, preparing meals, shopping, managing finances, etc.?: No Are you currently unemployed and looking for a job?: No Are you interested in more education?: No Please select the resources that you would like help with: None Currently or been in a relationship where the following occur: I choose not to answer THRIVE Score: 2 AUDIT C Alcohol Use Questionnaire (AUDIT-C) 1. How often do you have a drink containing alcohol?: Never Total Score: 0 JENNIFER-7 AMB Questionnaire JENNIFER-7 Date JENNIFER - 7 assessed: 11/10/25 Feeling nervous, anxious, or on edge: 1 = Several days Not being able to stop or control worryin = Several days Worrying too much about different things: 0 = Not at all Trouble relaxin = Not at all Being so restless that it is hard to sit still: 0 = Not at all Becoming easily annoyed or irritable: 0 = Not at all Feeling afraid as if something awful might happen: 0 = Not at all Total JENNIFER-7 score (0-4 normal; 5-9 mild; 10-14 moderate; 15-21 severe): 2 Source: Developed by Drs. Rodo Mar, Cammie Ramirez, Pete Grewal and colleagues, with an educational mckay from [employer]. Review of Systems Const Denies body aches, Denies chills, Denies excessive sweating, Reports fatigue, Denies fever(s) and Denies headache(s) Eyes Denies blurry vision ENT Denies dysphagia, Denies vertigo, Reports dizziness, Denies headache(s), Denies hearing loss and Denies tinnitus Card Denies chest pain, Denies chest pain with activity, Denies syncope, Denies irregular heart rhythm and Denies dyspnea Resp Denies chest congestion, Denies cough, Denies hemoptysis, Denies dyspnea and Denies wheezing GI Denies abdominal pain, Denies melena, Denies hematochezia, Denies coffee ground emesis, Denies dysphagia, Denies diarrhea, Denies nausea and Denies vomiting Denies urinary frequency, Denies dysuria, Reports urinary incontinence, Denies urinary hesitancy and Denies urinary urgency Musc Details: + right knee and right wrist pain Reports back pain, Reports arthralgias, Denies limited range of motion, Denies muscle cramps and Denies muscle weakness Skin/Breast Denies rash and Denies skin ulcer Neuro Denies Abnormal speech present, Denies confusion, Denies vertigo, Reports dizziness, Denies syncope, Denies headache(s), Denies memory loss and Denies seizure-like activity Psych Denies anxiety, Denies confusion, Denies depression, Denies memory loss, Denies panic attacks and Denies paranoia Endo Denies excessive sweating, Reports fatigue, Denies flushing, Denies polydipsia and Denies polyuria Aller/Immun Denies wheezing Physical exam (Primary Care) Vital Signs: Last Vital Signs Temp 97.3 F 01/20/25 16:11 Pulse 55 01/20/25 16:11 BP 120/60 01/20/25 16:11 Pulse Ox 99 01/20/25 16:11 Oxygen Delivery Method Room Air 01/20/25 16:11 BMI result Body Mass Index 29.4 Tobacco/Smoking Status: Tobacco use Status Tobacco use date assessed 01/20/25 01/20/25 16:15 Patient Tobacco Use Status Never used Tobacco 01/20/25 16:25 e-Cigarette/Vaping Use Never Used 01/20/25 16:25 PHQ-9: PHQ-9 Score PHQ-9: Total score 3 01/20/25 16:28 Depression Screening Interpretation: Positive Thrive Assessment: Date of Thrive Assessment Date Thrive assessed 01/13/25 01/20/25 16:15 Currently or been in a relationship where the following occur: I choose not to answer Const General: cooperative, comfortable, no acute distress, alert and awake; No confusion Orientation/consciousness: oriented to person, oriented to place, patient or iented x3 and No confusion HENMT Head: Yes normocephalic Ears: external ears normal and TM's normal bilaterally Face and sinus: No sinus tenderness Mouth: Normal oral and palatal mucosa present and tongue normal Teeth and gingiva: dentition normal and gingiva normal Throat: Yes posterior oropharynx normal, Yes tonsils normal and Yes uvula midline Eyes Conjunctivae: conjunctivae normal Sclerae: sclerae normal Pupils: Equal, round and reactive pupils present EOM: EOMs intact bilaterally Direct Ophthalmoscopy: No no photophobia Neck Neck: Yes no lymphadenopathy, No tender and Yes no JVD Thyroid: Thyroid normal Carotids: no bruits Chest Chest palpation & inspection: no tenderness Resp Effort & Inspection: normal respiratory effort, no audible wheezes, not labored and no stridor Auscultation: no crackles, no rales, no rhonchi and no wheezes Cardio Jugular venous distension: no JVD Rate: regular rate, not bradycardic and not tachycardic Rhythm: regular rhythm Bruits: no carotid bruits Peripheral pulses: Peripheral pulses 2+ throughout GI Inspection: Yes normal to inspection, No abdominal wall ecchymosis and No visible herniation Palpation (GI): Soft to palpation, nontender, no guarding, not rigid and No hepatosplenomegaly present Auscultation: normoactive bowel sounds General: Yes no CVA tenderness Back/Spine/Pelvis Back: no CVA tenderness and No back tenderness Cervical Spine: cervical ROM normal Thoracic/Lumbar Spine: thoracic and lumbar spine normal to inspection, straight leg raise negative bilaterally, No thoraco-lumbar ROM limited and No lumbar spinal tenderness Skin Lesions: no lesions Rashes: no rashes Wounds: no wounds Neuro General: oriented to person, oriented to place, patient oriented x3, CN's II-XI intact bilaterally and No confusion Cranial nerves: Yes Equal, round and reactive pupils present and Yes Normal accommodation reflex present Cognition (Neuro): normal cognition Speech: No Abnormal speech present Gait exam (Neuro): Normal gait present Motor exam (neuro): 5/5 motor strength present throughout Extrem Right upper extremity: full ROM; no cyanosis Left upper extremity: full ROM; no cyanosis Right lower extremity: no edema Left lower extremity: no edema Psych Appearance: grossly normal Mental Status: mental status grossly normal Affect: normal affect Attitude: cooperative Thought process: Normal thought process present Coding Level of Care Code Est Pt Prev Care [id number]([id number]) Diagnoses Annual physical exam Z00.00 MDD (major depressive disorder), recurrent episode, moderate F33.1 Instability of right knee joint M25.361 Right wrist pain M25.531 Chronic fatigue R53.82 Fatigue type: chronic, unspecified Pre-syncope R55 Urge incontinence of urine N39.41 FRANCESCO (obstructive sleep apnea) G47.33 Assessment & Plan Assessment & Plan (1) Annual physical exam: Code(s): Z00.00 - Encounter for general adult medical examination without abnormal findings Category: Medical Plan: As per HPI (2) MDD (major depressive disorder), recurrent episode, moderate: Code(s): F33.1 - Major depressive disorder, recurrent, moderate Category: Medical Plan: Patient continues on SSRI therapy with good effect. (3) Instability of right knee joint: Code(s): M25.361 - Other instability, right knee Category: Medical Plan: For the patient's right knee pain, an X-ray of the right knee will be ordered. Due to suspected meniscal damage causing instability, an MRI of the knee will also be requested. A referral for physical therapy for the knee will be placed, prioritizing it over the wrist. (4) Right wrist pain: Code(s): M25.531 - Pain in right wrist Category: Medical Plan: An X-ray of the right wrist will be ordered to evaluate the persistent pain following a boxing injury. (5) Fatigue: Code(s): R53.83 - Other fatigue Category: Medical Qualifiers: Fatigue type: chronic, unspecified Qualified Code(s): R53.82 - Chronic fatigue, unspecified Plan: To investigate her fatigue and dizziness, a comprehensive workup is planned. Fasting labs will be ordered including a check of thyroid, kidney, and liver function, as well as B12, folate, vitamin D, and iron levels to rule out nutritional deficiencies or anemia as a cause. A home sleep study will be ordered to assess for sleep apnea, given her symptoms of fatigue and reported oxygen desaturation. To rule out a cardiac etiology for her presyncopal episodes, an echocardiogram will be ordered, particularly given her family history and a historical note of left ventricular hypertrophy. The patient was also instructed on performing the Margarito maneuver at home for possible vestibular involvement. (6) Pre-syncope: Code(s): R55 - Syncope and collapse Category: Medical Plan: As above (7) Urge incontinence of urine: Code(s): N39.41 - Urge incontinence Category: Medical Plan: For management of her urge urinary incontinence, a referral for pelvic floor physical therapy will be placed. The option of trying oxybutynin to help control bladder spasms was also discussed. (8) FRANCESCO (obstructive sleep apnea): Code(s): G47.33 - Obstructive sleep apnea (adult) (pediatric) Category: Medical Plan: Will try home sleep study to evaluate for obstructive sleep apnea causing her fatigue Orders: Orders MR knee RT wo con 01/20/25 M25.361 - Other instability, right knee XR wrist RT 2V 01/20/25 M25.531 - Pain in right wrist PT Evaluation and Treatment 01/20/25 N39.41 - Urge incontinence Vitamin B12 and Folate 01/20/25 E53.8 - Deficiency of other specified B group vitamins Vitamin D 25-OH Total 01/20/25 E53.8 - Deficiency of other specified B group vitamins RT home sleep study 01/20/25 G47.33 - Obstructive sleep apnea (adult) (pediatric) Microalbumin, Random (w Creat) 01/20/25 I10 - Essential (primary) hypertension Comprehensive [place]. Panel Fast 01/20/25 R73.09 - Other abnormal glucose Complete Blood Count no Diff 01/20/25 R73.09 - Other abnormal glucose IRON PROFILE 01/20/25 D50.9 - Iron deficiency anemia, unspecified, R53.82 - Chronic fatigue, unspecified XR knee RT 3V 01/20/25 M25.361 - Other instability, right knee Vitamin A 01/20/25 Z98.84 - Bariatric surgery status Vitamin B1 01/20/25 Z98.84 - Bariatric surgery status Zinc 01/20/25 Z98.84 - Bariatric surgery status Hemoglobin A1c 01/20/25 R73.09 - Other abnormal glucose TSH reflex Free T4 01/20/25 R53.82 - Chronic fatigue, unspecified Medications: New cetirizine 10 mg PO DAILY 90 tabs 1RF allergy symptoms 90 days J45.20 - Mild intermittent asthma, uncomplicated
[2025-01-20 16:11] VITALS: BP 120/60; PULSE 55; TEMP 36.3; O2SAT 99; BMI 29.4
== END 2025-01-20 16:58 | disposition home or self-care (01) ==
LOC: HO.HMCH 15:39
PROVIDERS: PCP Physician Assistant; Visit Provider Physician Assistant
DX: Z00.00 Encounter for general adult medical examination without abnormal findings (principal); F33.1 Major depressive disorder, recurrent, moderate; M25.361 Other instability, right knee; M25.531 Pain in right wrist; R53.82 Chronic fatigue, unspecified; R55 Syncope and collapse; N39.41 Urge incontinence; G47.33 Obstructive sleep apnea (adult) (pediatric)

== ENCOUNTER → 2025-01-20 15:38 | Outpatient (BNVA) | payer OTHER, SELFPAY | PROVIDERS: PCP Physician Assistant; Visit Provider Physician Assistant | DX: Z00.00 Encounter for general adult medical examination without abnormal findings (principal); M25.561 Pain in right knee; M25.531 Pain in right wrist; R42 Dizziness and giddiness; N39.41 Urge incontinence; E78.5 Hyperlipidemia, unspecified; F11.21 Opioid dependence, in remission; I10 Essential (primary) hypertension; F33.1 Major depressive disorder, recurrent, moderate; M25.361 Other instability, right knee; M53.82 Other specified dorsopathies, cervical region; R55 Syncope and collapse; G47.33 Obstructive sleep apnea (adult) (pediatric); J45.20 Mild intermittent asthma, uncomplicated | CPT/HCPCS: 96127; 99395 ==

== ENCOUNTER 2025-02-15 07:31 | Outpatient (REF) | payer OTHER, SELFPAY ==
--- NOTE | ~2025-02-15 | XR_ITS ---
EXAMINATION: XR KNEE, RIGHT CLINICAL INFORMATION: M25.361 - Other instability, right knee COMPARISON: None available. TECHNIQUE: Four views of the right knee. FINDINGS: No fracture or joint effusion. Alignment is anatomic. Joint spaces are maintained. No abnormal soft tissue calcification. XR/XR knee RT 3V IMPRESSION: No acute findings Electronically signed by: Dave Handy MD 02/17/2025 07:29 AM [facility] [place]
--- NOTE | ~2025-02-15 | XR_ITS ---
EXAMINATION: XR WRIST, RIGHT CLINICAL INFORMATION: M25.531 - Pain in right wrist COMPARISON: None available. TECHNIQUE: Four views of the right wrist. FINDINGS: No visible acute fracture or dislocation. Alignment is anatomic with normal joint spaces. Mild nonspecific sclerosis in the scaphoid waist. No erosions or abnormal soft tissue calcifications. XR/XR wrist RT min 3V IMPRESSION: No radiographic evidence of acute osseous findings Electronically signed by: Dave Handy MD 02/17/2025 09:54 AM [facility]
[2025-02-15 09:11] LABS: Hematocrit 43.1 % (37.0-47.0); Hemoglobin 14.3 g/dl (12.0-16.0); Mean Corpuscular HGB Conc 33.2 g/dl (31.0-35.0); Mean Corpuscular Hemoglobin 30.8 pg (27.0-33.0); Mean Corpuscular Volume 92.9 fL (80.0-98.0); NRBC Abs Auto 0.000 X10*3/uL (0.0-0.012); NRBC Pct Auto 0.0 /100WBC (0.0-0.2); Platelet Count 242 X10*3/uL (160-400); Red Blood Count 4.64 X10*6/uL (4.20-5.50); White Blood Count 4.4 X10*3/uL (4.8-10.8)
[2025-02-15 09:17] LABS: Hemoglobin A1C 87.3291 umol/L
[2025-02-15 10:06] LABS: Alanine Aminotransferase 12 U/L (0-31); Albumin Level 4.7 g/dL (3.5-5.0); Alkaline Phosphatase 46 U/L (39-117); Anion Gap 13 (12-20); Aspartate Amino Transferase 19 U/L (5-31); Blood Urea Nitrogen 15 mg/dL (9-16); Calcium 9.2 mg/dL (8.4-10.2); Carbon Dioxide 25 mmol/L (22-29); Chloride 108 mmol/L (96-108); Estimated Glomerular Filt Rate > 60; Iron 92 mcg/dL (30-160); Percent Iron Saturation 34 % (15-50); Potassium 4.4 mmol/L (3.3-5.1); Sodium 142 mmol/L (135-145); Total Iron Binding Capacity 269 mcg/dL (228-428); Total Protein 7.2 g/dL (6.5-8.0); Unsaturated Iron Binding 177 ug/dL
[2025-02-15 10:36] LABS: Folate 10.2 ng/mL (> or = 4.0); Vitamin B12 273 pg/mL (200-900)
[2025-02-15 11:02] LABS: Microalbum/Creatinine Ratio Ur 5.6 ug/mg cr (<30)
== END 2025-02-15 07:32 | disposition home or self-care (01) ==
LOC: HO.LAB 07:31
PROVIDERS: PCP Physician Assistant; Visit Provider Physician Assistant
DX: M25.361 Other instability, right knee (principal); M25.531 Pain in right wrist; R73.09 Other abnormal glucose; E53.8 Deficiency of other specified B group vitamins; R53.82 Chronic fatigue, unspecified; I10 Essential (primary) hypertension; D50.9 Iron deficiency anemia, unspecified; Z98.84 Bariatric surgery status
CPT/HCPCS: 36415; 73110; 73562; 80053; 82043; 82306; 82570; 82607; 82746; 83036; 83540; 84425; 84443; 84590; 84630; 85027

== ENCOUNTER → 2025-02-15 08:06 | Outpatient (BNV) | payer OTHER, SELFPAY | PROVIDERS: PCP Physician Assistant; Visit Provider Radiology Diagnostic Ultrasound | DX: M25.361 Other instability, right knee (principal); M25.531 Pain in right wrist | CPT/HCPCS: 73110; 73562 ==

== ENCOUNTER 2025-03-03 08:27 | Outpatient (AMB) | payer OTHER, SELFPAY ==
[2025-03-03 08:50] VITALS: BP 122/78; PULSE 59; O2SAT 98; BMI 31.1
--- NOTE | 2025-03-03 08:50 | A.OFFPC_ITS ---
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 Required: No Accompanied by: Self / Same As Patient Allergies Penicillins Allergy (Intermediate, Verified 03/03/25 09:11) HIVES, rash Sulfa (Sulfonamide Antibiotics) (SULFA (SULFONAMIDE ANTIBIOTICS)) Allergy (Unknown, Verified 03/03/25 09:11) BURNING, rash sulfamethoxazole (From BACTRIM) Allergy (Unknown, Verified 03/03/25 09:11) HIVES trimethoprim (From BACTRIM) Allergy (Unknown, Verified 03/03/25 09:11) HIVES Medication List - Last Reconciled 03/03/25 by Montez España PA-C albuterol sulfate 90 mcg/actuation (Ventolin HFA) 1 puff inhalation QID PRN buspirone 5 mg PO TID cetirizine 10 mg PO DAILY 90 days cholecalciferol (vitamin D3) 125 mcg PO DAILY clotrimazole 1% (Antifungal (clotrimazole)) 1 appl topical BID escitalopram oxalate 20 mg PO DAILY fluocinonide 0.05% 1 appl topical DAILY PRN fluticasone propionate 50 mcg/actuation 1 spray intranasal BID PRN lorazepam 1 mg PO DAILY PRN Tobacco use date assessed: 03/03/25 Dental Screening Dental Screen Date: 03/03/25 Did you have a dental visit in the last 12 months?: No Did you have a dental problem in the last 6 months where you did not have access to dental care?: No Was dental information given to patient?: No HPI dizziness spells, B/P elevated HPI Details Patient is a 39-year-old female here today for a follow-up visit Patient has a past medical history significant for depression, anxiety, h/o bariatric surgery,hypothyroidism, hypertension, moderate persistent asthma, Migraines. Concern-- > She reports worsening episodes of dizziness over the last week, with two particularly intense events. One episode occurred last Monday while she was at home, resulting in a fall, and was followed by extreme fatigue which caused her to fall asleep at 6:30 PM. A second episode occurred on at work, prompting a visit to the emergency department where her blood pressure was minimally elevated and her blood sugar was normal. These dizzy spells are described as feeling like being in a dream and are associated with a mild, throbbing headache that radiates to her temples. Following the episode, the headache persisted for approximately 24 hours. The episodes occur while she is standing and have no identified triggers. The patient's medication regimen includes Lexapro and buspirone 5 mg once daily, which was added three weeks ago for seasonal sadness. She notes the dizziness episodes occur 4-6 hours after taking the buspirone. She has a history of migraines, which have improved with weight loss, and previously tried sumatriptan but experienced a sensation of her brain being on fire. [facility] Medical History Annual physical exam Hydradenitis BMI 38.0-38.9,adult BMI 39.0-39.9,adult Left foot pain Need for MMR vaccine Sinus infection History of opioid abuse Screening for hypothyroidism Screening for hypercholesterolemia Screening for diabetes mellitus (DM) GERD (gastroesophageal reflux disease) Seasonal allergies Gastric reflux Back pain History of hepatitis C Morbid obesity Morbid obesity with BMI of 40.0-44.9, adult Anxiety Headache, migraine Depression Hypertension Surgical History Hx of laparoscopic partial gastrectomy History of esophagogastroduodenoscopy (EGD) (08/23/23) History of carpal tunnel repair History of gastrectomy History of cholecystectomy Family History Father Hypertension Kidney stones Retinal detachment Mother Hard of hearing Hyperthyroidism Maternal Grandmother Liver problem Emphysema lung Social History Household Members: Family Housing: House Are you a primary behavioral health care manager to a significant other at home: Yes (son) Do you presently have visiting nurse or other home services: No 75 years or older and lives alone: No Alcohol intake: former Comment: no iv Patient Tobacco Use Status: Never used Tobacco e-Cigarette/Vaping Use: Never Used Second Hand Smoke Exposure: No Substance Use Type: Marijuana and Opiates service: No Current occupational status: employed Current occupation: [employer] Cognitive needs: No Hearing needs: No Vision needs: No Questionnaire PHQ-9 Over the last 2 weeks, how often have you been bothered by any of the following problems? 1. Little interest or pleasure in doing things: several days 2. Feeling down, depressed, or hopeless: several days 3. Trouble falling or staying asleep, or sleeping too much: not at all 4. Feeling tired or having little energy: several days 5. Poor appetite or overeating: not at all 6. Feeling bad about yourself - or that you are a failure or have let yourself or your family down: not at all 7. Trouble concentrating on things, such as reading the newspaper or watching television: not at all 8. Moving or speaking so slowly that other people could have noticed. Or the opposite - being so fidgety or restless that you have been moving around a lot more than usual: not at all 9. Thoughts that you would be better off or of hurting yourself in some way: not at all Total score: 3 Source: Developed by Drs. Rodo Mar, Cammie Ramirez, Pete Grewal and colleagues, with an educational mckay from [employer]. Thrive Questionnaire Date Thrive assessed: 03/03/25 I am a: Patient What is your living situation today?: I have a steady place to live Within the past 12 months, did the food you bought not last and you didn't have the money to get more?: Sometimes True Within the past 12 months, did you worry whether your food would run out before you got money to buy more?: Sometimes True Do you have trouble paying for medicines?: No Do you have trouble getting transportation to medical appointments?: No Do you have trouble paying your heating and electricity bill?: No Do you have trouble taking care of your child, family member or friend?: No Do you have trouble with day-to-day activities such as bathing, preparing meals, shopping, managing finances, etc.?: No Are you currently unemployed and looking for a job?: No Are you interested in more education?: No Please select the resources that you would like help with: None Currently or been in a relationship where the following occur: I choose not to answer THRIVE Score: 2 AUDIT C Alcohol Use Questionnaire (AUDIT-C) 1. How often do you have a drink containing alcohol?: Never 3. How often do you have six or more drinks on one occasion?: Never Total Score: 0 JENNIFER-7 AMB Questionnaire JENNIFER-7 Date JENNIFER - 7 assessed: 03/03/25 Feeling nervous, anxious, or on edge: 1 = Several days Not being able to stop or control worryin = Several days Worrying too much about different things: 0 = Not at all Trouble relaxin = Not at all Being so restless that it is hard to sit still: 0 = Not at all Becoming easily annoyed or irritable: 0 = Not at all Feeling afraid as if something awful might happen: 0 = Not at all Total JENNIFER-7 score (0-4 normal; 5-9 mild; 10-14 moderate; 15-21 severe): 2 Source: Developed by Drs. Rodo Mar, Cammie Ramirez, Pete Grewal and colleagues, with an educational mckay from [employer]. Review of Systems Const Reports headache(s) Eyes Denies loss of vision ENT Reports vertigo, Reports dizziness and Reports headache(s) Card Denies chest pain, Denies leg edema and Denies lightheadedness Resp Denies cough, Denies hemoptysis and Denies wheezing GI Denies abdominal pain, Denies melena, Denies constipation, Denies diarrhea and Denies vomiting Denies urinary frequency, Denies dysuria and Denies urinary urgency Musc Denies arthralgias, Denies joint swelling, Denies numbness and Denies tingling Neuro Denies Abnormal speech present, Denies behavioral changes, Reports vertigo, Reports dizziness, Reports headache(s), Denies loss of vision, Denies memory loss, Denies numbness and Denies tingling Psych Denies anxiety, Denies behavioral changes, Denies depression, Denies memory loss and Denies panic attacks Juan Daniel/Lymph Denies easy bleeding and Denies easy bruising Aller/Immun Denies wheezing Physical exam (Primary Care) Vital Signs: Last Vital Signs Pulse 59 03/03/25 08:50 BP 122/78 03/03/25 08:50 Pulse Ox 98 03/03/25 08:50 Oxygen Delivery Method Room Air 03/03/25 08:50 BMI result Body Mass Index 31.1 Tobacco/Smoking Status: Tobacco use Status Tobacco use date assessed 03/03/25 03/03/25 08:53 Patient Tobacco Use Status Never used Tobacco 03/03/25 08:53 e-Cigarette/Vaping Use Never Used 03/03/25 08:53 PHQ-9: PHQ-9 Score PHQ-9: Total score 3 03/03/25 09:13 Thrive Assessment: Date of Thrive Assessment Date Thrive assessed 03/03/25 03/03/25 09:02 Currently or been in a relationship where the following occur: I choose not to answer Const General: healthy appearing, no acute distress, alert and awake Nutritional Appearance: well nourished Orientation/consciousness: oriented to person, oriented to place and oriented to time HENMT Ears: TM's normal bilaterally General nose exam: Normal nasal mucous membranes and turbinates present Eyes Conjunctivae: conjunctivae normal Sclerae: sclerae normal Pupils: Equal, round and reactive pupils present Neck Neck: Yes no lymphadenopathy and Yes no JVD Thyroid: Thyroid normal Carotids: no bruits Resp Effort & Inspection: normal respiratory effort and not tachypneic Auscultation: no crackles, no rales, no rhonchi and no wheezes Cardio Rate: regular rate Rhythm: regular rhythm Heart sounds: no murmurs and normal S1 and S2 GI Palpation (GI): Soft to palpation, nontender, no hepatomegaly and no splenomegaly Auscultation: normal bowel sounds Skin General skin exam: no rashes or lesions noted and dry skin Neuro General: oriented to person, oriented to place and oriented to time Cranial nerves: Yes Equal, round and reactive pupils present Speech: No Abnormal speech present Gait exam (Neuro): Normal gait present Motor exam (neuro): no tremor noted Extrem Right upper extremity: full ROM Left upper extremity: full ROM Right lower extremity: full ROM; no edema Left lower extremity: full ROM; no edema Psych Mental Status: mental status grossly normal Speech and movement: Normal speech and movement present Affect: normal affect Attitude: cooperative Thought process: Normal thought process present Coding Level of Care Code Est Pt Level 4 (80067) Diagnoses Vertigo R42 Disorder of vestibular function, unspecified laterality H81.90 Laterality: unspecified laterality Migraine without aura and without status migrainosus, not intractable G43.009 Migraine type: without aura Status migrainosus presence: without status migrainosus Intractability: not intractable Assessment & Plan Assessment & Plan (1) Vertigo: Code(s): R42 - Dizziness and giddiness Category: Medical Plan: I discussed with the patient the differential diagnosis for her symptoms of dizziness, fatigue, and headache, which includes atypical migraine, a seizure disorder, a vestibular disorder such as vertigo, a cardiac issue, or a side effect of her new medication, buspirone. To rule out more serious underlying causes, I recommended and will order a brain MRI and an EEG. We also discussed a referral for vestibular therapy and the possibility of a cardiac stress test. (2) Vestibular disorder: Code(s): H81.90 - Unspecified disorder of vestibular function, unspecified ear Category: Medical Qualifiers: Laterality: unspecified laterality Qualified Code(s): H81.90 - Unspecified disorder of vestibular function, unspecified ear Plan: As above I also instructed her on how to look up Margarito maneuvers to perform at home for potential vertigo. (3) Migraines: Code(s): G43.909 - Migraine, unspecified, not intractable, without status migrainosus Category: Medical Qualifiers: Migraine type: without aura Status migrainosus presence: without status migrainosus Intractability: not intractable Qualified Code(s): G43.009 - Migraine without aura, not intractable, without status migrainosus Plan: For her headaches, given her past adverse reaction to triptans, we discussed trying Fioricet on an as-needed basis. Orders: Orders MR head/brain wo con Today H81.90 - Unspecified disorder of vestibular function, unspecified ear PT Evaluation and Treatment Today R42 - Dizziness and giddiness EEG Routine Today R42 - Dizziness and giddiness CA stress test Today R42 - Dizziness and giddiness Medications: New [id number] 50-325-40 mg 1 tab PO Q6H PRN 12 tabs 0RF pain 3 days G43.009 - Migraine without aura, not intractable, without status migrainosus
== END 2025-03-03 09:31 | disposition home or self-care (01) ==
LOC: HO.HMCH 08:28
PROVIDERS: PCP Physician Assistant; Visit Provider Physician Assistant
DX: R42 Dizziness and giddiness (principal); H81.90 Unspecified disorder of vestibular function, unspecified ear; G43.009 Migraine without aura, not intractable, without status migrainosus